=== PATIENT | female | born 1955 | race Caucasian/White ===

== ENCOUNTER 2017-02-18 06:50 | Inpatient (IN) | payer BC ==
[~2017-02-18] VITALS: Ht 165.1 cm; Wt 63.5 kg
[~2017-02-18 06:50] MED LIST: BUPR300T3 PO; BUPR75TA5; CITA20TA9 PO; CYCL10TA2 PO; HYDR12.53; HYDR1TAB26 PO; HYDR25TA9 PO; LOSA25TA4 PO; UKNOWN BP MED
--- NOTE | 2017-02-18 07:10 | PHYS DOC ---
Past Medical History Past Medical History: Hypertension Additional Past Medical Histor: tarsal tunnel Past Surgical History: Hip Replacement, Other Additional Past Surgical Histo: back fusion Alcohol Use: None Drug Use: None Adult General Chief Complaint Chief Complaint: ABDOMINAL PAIN HPI HPI Patient is a 61 year old female who presents with abdominal pain for the last 30 days. She is also complaining complaining of a rash that she's had for approximately 10 years but now is gotten worse. She states abdominal pain is been suprapubic in its goes between constipation and diarrhea. She's been taking 2 [place] was daily for her pain and she's tried MiraLAX and fiber when she 's constipated. She states over the weekend she had left lower quadrant abdominal pain and is been getting worse. She denies any fevers or chills nausea or vomiting. She states the rash is so bad she's been taking Benadryl and now she's really sleepy from taking Benadryl she's also used Fay during the day to avoid her drowsiness. She's been also taking approximately 1600 mg of Motrin daily for the last several weeks for her pain and discomfort. She denies any blood in her stools. She denies any abdominal surgeries. She plans a rash on the backside of her arms and her neck. Review of Systems Review of Systems Constitutional: Denies fever or chills [] Eyes: Denies change in visual acuity, redness, or eye pain [] HENT: Denies nasal congestion or sore throat [] Respiratory: Denies cough or shortness of breath [] Cardiovascular: No additional information not addressed in HPI [] GI: Positive for abdominal pain, denies nausea, vomiting, bloody stools : Denies dysuria or hematuria [] Musculoskeletal: Denies back pain or joint pain [] Integument: Denies rash or skin lesions [] Neurologic: Denies headache, focal weakness or sensory changes [] Endocrine: Denies polyuria or polydipsia [] Current Medications Current Medications Current Medications Medications (Trade) Dose Ordered Sig/Dinora Start Time Stop Time Status Last Admin Dose Admin Ciprofloxacin Lactate 200 ml @ 200 mls/hr Q12HR 02/18/17 10:00 Iohexol (Omnipaque 240 Mg/ml) 50 ml 1X ONCE 02/18/17 08:00 02/18/17 08:01 DC 02/18/17 08:00 50 ML Iohexol (Omnipaque 300 Mg/ml) 75 ml 1X ONCE 02/18/17 08:00 02/18/17 08:01 DC 02/18/17 08:59 75 ML Metronidazole 100 ml @ 100 mls/hr Q8H 02/18/17 11:00 02/18/17 10:02 100 MLS/HR Morphine Sulfate 2 mg PRN Q15MIN PRN 02/18/17 07:30 02/19/17 07:29 02/18/17 07:42 2 MG Ondansetron HCl (Zofran) 4 mg 1X ONCE 02/18/17 08:00 02/18/17 08:01 DC 02/18/17 07:41 4 MG Sodium Chloride 1,000 ml @ 1,000 mls/hr 1X ONCE 02/18/17 09:30 02/18/17 10:29 02/18/17 09:48 1,000 MLS/HR Allergies Allergies Allergies Coded Allergies Type Severity Reaction Last Updated Verified No Known Drug Allergies 07/06/13 No Physical Exam Physical Exam Constitutional: Well developed, well nourished, no acute distress, non-toxic appearance. [] HENT: Normocephalic, atraumatic, bilateral external ears normal, oropharynx moist, no oral exudates, nose normal. [] Eyes: PERRLA, EOMI, conjunctiva normal, no discharge. [] Neck: Normal range of motion, no tenderness, supple, no stridor. [] Cardiovascular:Heart rate regular rhythm, no murmur [] Lungs & Thorax: Bilateral breath sounds clear to auscultation [] Abdomen: Bowel sounds hyperactive, soft, mild tender to palpation left lower quadrant, no rebound or guarding noted, no masses, no pulsatile masses. [] Skin: Warm, dry, no erythema, scaly itchy rash approximately 5 x 7 cm on the left posterior arm, 3 x 5 cm on the right elbow, 2 x 4 cm posterior neck Back: No tenderness, no CVA tenderness. [] Extremities: No tenderness, no cyanosis, no clubbing, ROM intact, no edema. [] Neurologic: Alert and oriented X 3, normal motor function, normal sensory function, no focal deficits noted. [] Psychologic: Affect normal, judgement normal, mood normal. [] Current Patient Data Vital Signs Vital Signs Date Time Temp Pulse Resp B/P (MAP) Pulse Ox O2 Delivery O2 Flow Rate FiO2 02/18/17 09:18 95 18 110/73 (85) 97 02/18/17 07:22 98.8 Room Air 98.8 Lab Values Laboratory Tests Test 02/18/17 07:25 White Blood Count 20.0 x10^3/uL (4.0-11.0) H Red Blood Count 3.69 x10^6/uL (3.50-5.40) Hemoglobin 10.4 g/dL (12.0-15.5) L Hematocrit 32.6 % (36.0-47.0) L Mean Corpuscular Volume 88 fL (79-100) Mean Corpuscular Hemoglobin 28 pg (25-35) Mean Corpuscular Hemoglobin Concent 32 g/dL (31-37) Red Cell Distribution Width 15.0 % (11.5-14.5) H Platelet Count 443 x10^3/uL (140-400) H Neutrophils (%) (Auto) 84 % (31-73) H Lymphocytes (%) (Auto) 8 % (24-48) L Monocytes (%) (Auto) 6 % (0-9) Eosinophils (%) (Auto) 1 % (0-3) Basophils (%) (Auto) 0 % (0-3) Neutrophils # (Auto) 16.9 x10^3uL (1.8-7.7) H Lymphocytes # (Auto) 1.7 x10^3/uL (1.0-4.8) Monocytes # (Auto) 1.2 x10^3/uL (0.0-1.1) H Eosinophils # (Auto) 0.2 x10^3/uL (0.0-0.7) Basophils # (Auto) 0.1 x10^3/uL (0.0-0.2) Platelet Estimate Pending Prothrombin Time 12.4 SEC (11.7-14.0) Prothrombin Time INR 1.0 (0.8-1.1) PTT 29 SEC (24-38) Urine Collection Type Unknown Urine Color Yellow Urine Clarity Clear Urine pH 6.5 Urine Specific [place] 1.020 Urine Protein Negative mg/dL (NEG-TRACE) Urine Glucose (UA) Negative mg/dL (NEG) Urine Ketones (Stick) Negative mg/dL (NEG) Urine Blood Negative (NEG) Urine Nitrite Negative (NEG) Urine Bilirubin Negative (NEG) Urine Urobilinogen Dipstick 0.2 mg/dL (0.2 mg/dL) Urine Leukocyte Esterase Moderate (NEG) Urine RBC 1-2 /HPF (0-2) Urine WBC 5-10 /HPF (0-4) Urine Squamous Epithelial Cells Few /LPF Urine Bacteria Few /HPF (0-FEW) Urine Hyaline Casts Occasional /HPF Urine Mucus Slight /LPF Sodium Level 137 mmol/L (136-145) Potassium Level 4.4 mmol/L (3.5-5.1) Chloride Level 100 mmol/L (98-107) Carbon Dioxide Level 22 mmol/L (21-32) Anion Gap 15 (6-14) H Blood Urea Nitrogen 20 mg/dL (7-20) Creatinine 1.0 mg/dL (0.6-1.0) Estimated GFR (Cockcroft-Gault) 56.0 Glucose Level 98 mg/dL (70-99) Calcium Level 9.4 mg/dL (8.5-10.1) Total Bilirubin 0.2 mg/dL (0.2-1.0) Direct Bilirubin 0.1 mg/dL (0.0-0.2) Aspartate Amino Transferase (AST) 16 U/L (15-37) Alanine Aminotransferase (ALT) 23 U/L (14-59) Alkaline Phosphatase 89 U/L (46-116) Creatine Kinase 26 U/L (26-192) Creatine Kinase MB (Mass) < 0.5 ng/mL (0.0-3.6) Creatine Kinase MB Relative Index % (0-4) Troponin I Quantitative < 0.017 ng/mL (0.000-0.055) Total Protein 7.6 g/dL (6.4-8.2) Albumin 3.3 g/dL (3.4-5.0) L Lipase 150 U/L (73-393) Laboratory Tests 02/18/17 07:25 Laboratory Tests 02/18/17 07:25 EKG EKG EKG shows sinus rhythm with rate of [address] elevations or T-wave inversions, normal axis, QTC 438 ms, as interpreted by me. EKG similar to one performed on July 07, 2013 Radiology/Procedures Radiology/Procedures [facility] [address] [place] [address] IMAGING REPORT Signed PATIENT: WILVER TREVINO ACCOUNT: [id number] : 1955 LOCATION: ER AGE: 61 SEX: F EXAM STATUS: REG ER ORD. PHYSICIAN: TRINH MARTELL MD REASON: ABDOMEN PAIN PROCEDURE: CT ABD PELV W/ORAL&IV CONTRAST CT abdomen and pelvis with contrast 02/18/2017 Indication: Abdominal pain for one month. Comparison: None. Technique: CT helical acquisition of the abdomen and pelvis was obtained following uneventful intravenous administration of 60 mL Omnipaque 300. Coronal and sagittal reformations were obtained. PQRS Compliance Statement: One or more of the following individualized dose reduction techniques were utilized for this examination: 1. Automated exposure control 2. Adjustment of the mA and/or kV according to patient size 3. Use of iterative reconstruction technique Findings: Abdomen and pelvis: Heart size and lung bases are within normal limits. Liver, spleen, gallbladder, adrenal glands are within normal limits. There is a 2.8 cm cyst in the interpolar left kidney. There are few additional bilateral renal hypodensities which are too small to definitively characterize. Minor areas of cortical scarring in the inferior pole the right kidney. There is mild fatty atrophy of the pancreas. There is a 4 mm calcification at the pancreatic head which may be sequela of prior inflammation. No intra or extrahepatic biliary ductal dilatation. The abdominal aorta is normal in caliber with mild aortoiliac calcified atheromatous disease. Major portal, splenic and upper superior mesenteric veins are widely patent. Evaluation of the pelvis is somewhat limited due to artifact from total right hip arthroplasty. There is circumferential mural thickening along segment of the sigmoid colon with pericolonic stranding and probably prominent pericolonic lymph nodes. There is extra marrow loculated gas interposed between the anterior-inferior aspect of the mid sigmoid colon extending to the posterior serosal surface of the uterus, series 13/image 71). Mild sigmoid diverticula. No pneumatosis. No portal venous gas. The appendix is normal in appearance. Urinary bladder evaluation is significantly limited due to artifact. No definite pelvic lymphadenopathy. Prior posterior instrumented L4-S1 spinal fixation hardware and laminectomies. No destructive osseous lesions. Impression: Acute sigmoid diverticulitis. Evaluation of the pelvis is limited due to total right hip arthroplasty, however there is loculated extramural gas interposed between the sigmoid and posterior uterine serosa which could represent a colo-uterine fistula. After a course of therapy, consideration for colonoscopy as patient is in screening age. These results were discussed with Dr. Martell of the emergency service by telephone at 9:45 AM 02/18/2017 DICTATED and SIGNED BY: ANKUR MCGRAW MD DATE: 02/18/17927 CC: TRINH MARTELL MD; VICTORIA NGUYEN APRN ~ Impressions: Diverticulitis Leukocytosis UTI Skin rash Course & Med Decision Making Course & Med Decision Making Pertinent Labs and Imaging studies reviewed. (See chart for details) Patient has diverticular lightest with possible uterine-colon fstula. We'll start on Cipro and Flagyl IV and admit to the hospitalist with consultations to Dr. Finnegan of whom I spoke with and informed him of the CT findings and GI with Dr. Oviedo. Patient's in stable condition be admitted at this time with interim orders written. Dragon Disclaimer Dragon Disclaimer This electronic medical record was generated, in whole or in part, using a voice recognition dictation system. Departure Departure Impression: Primary Impression: Diverticulitis Disposition: ADMITTED INPATIENT Admitting Physician: Paula Thomas Condition: STABLE Referrals: VICTORIA NGUYEN APRN (PCP) Problem Qualifiers Primary Impression: Diverticulitis Diverticulitis site: large intestine Diverticulitis bleeding: without bleeding Diverticulitis complication: unspecified complication status Qualified Codes: K57.32 - Diverticulitis of large intestine without perforation or abscess without bleeding TRINH MARTELL MD Feb 18, 2017 07:10
[2017-02-18] MEDS ORDERED: IV NORMAL SALINE 1000ML BAG 1,000 ML IV SCH (07:29)
[2017-02-18] MEDS ORDERED: MORPHINE SULFATE 2 MG/ML DISP.SYRIN. IV/SQ PRN (07:30)
[2017-02-18 07:43] LABS: BASO # 0.1 x10^3/uL (0.0-0.2); BASO % 0 % (0-3); EOS % 1 % (0-3); HEMATOCRIT 32.6 % (36.0-47.0); HEMOGLOBIN 10.4 g/dL (12.0-15.5); LYMPH # 1.7 x10^3/uL (1.0-4.8); LYMPH % 8 % (24-48); MEAN CORPUSCULAR HEMOGLOBIN 28 pg (25-35); MEAN CORPUSCULAR HGB CONC 32 g/dL (31-37); MEAN CORPUSCULAR VOLUME 88 fL (79-100); MONO % 6 % (0-9); NEUT % 84 % (31-73); PLATELET COUNT 443 x10^3/uL (140-400); RED BLOOD COUNT 3.69 x10^6/uL (3.50-5.40)
[2017-02-18 07:46] LABS: CALCIUM 9.4 mg/dL (8.5-10.1); POTASSIUM 4.4 mmol/L (3.5-5.1)
[2017-02-18 07:53] LABS: ALBUMIN 3.3 g/dL (3.4-5.0); DIRECT BILIRUBIN 0.1 mg/dL (0.0-0.2); TOTAL BILIRUBIN 0.2 mg/dL (0.2-1.0); TOTAL PROTEIN 7.6 g/dL (6.4-8.2)
[2017-02-18 07:54] LABS: BILIRUBIN,URINE NEGATIVE (NEG); GLUCOSE,URINE NEGATIVE (NEG); NITRITE,URINE NEGATIVE (NEG); PH,URINE 6.5; PROTEIN,URINE NEGATIVE (NEG-TRACE); UROBILINOGEN,URINE 0.2 mg/dL (0.2 mg/dL)
[2017-02-18] MEDS ORDERED: ONDANSETRON PF 4 MG/2 ML VIAL. IV ONE (08:00)
[2017-02-18] MEDS ORDERED: IOHEXOL 240 MG/ML 50ML VIAL. PO ONE (08:00)
[2017-02-18] MEDS ORDERED: IOHEXOL 300 MG/ML 75 ML VIAL IV ONE (08:00)
[2017-02-18 08:01] LABS: PROTHROMBIN TIME PATIENT 12.4 SEC (11.7-14.0)
[2017-02-18 08:02] LABS: CKMB MASS < 0.5 ng/mL (0.0-3.6); CREATINE KINASE 26 U/L (26-192)
[2017-02-18 08:08] LABS: BACTERIA,URINE FEW /HPF (0-FEW)
[2017-02-18 08:09] LABS: SQUAMOUS EPITHELIAL CELL,UR FEW /LPF
--- NOTE | 2017-02-18 09:09 | EKG ---
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
[2017-02-18] MEDS ORDERED: IV NORMAL SALINE 1000ML BAG 1,000 ML IV ONE (09:30)
--- NOTE | 2017-02-18 09:48 | RAD ---
CT abdomen and pelvis with contrast 02/18/2017 Indication: Abdominal pain for one month. Comparison: None. Technique: CT helical acquisition of the abdomen and pelvis was obtained following uneventful intravenous administration of 60 mL Omnipaque 300. Coronal and sagittal reformations were obtained. PQRS Compliance Statement: One or more of the following individualized dose reduction techniques were utilized for this examination: 1. Automated exposure control 2. Adjustment of the mA and/or kV according to patient size 3. Use of iterative reconstruction technique Findings: Abdomen and pelvis: Heart size and lung bases are within normal limits. Liver, spleen, gallbladder, adrenal glands are within normal limits. There is a 2.8 cm cyst in the interpolar left kidney. There are few additional bilateral renal hypodensities which are too small to definitively characterize. Minor areas of cortical scarring in the inferior pole the right kidney. There is mild fatty atrophy of the pancreas. There is a 4 mm calcification at the pancreatic head which may be sequela of prior inflammation. No intra or extrahepatic biliary ductal dilatation. The abdominal aorta is normal in caliber with mild aortoiliac calcified atheromatous disease. Major portal, splenic and upper superior mesenteric veins are widely patent. Evaluation of the pelvis is somewhat limited due to artifact from total right hip arthroplasty. There is circumferential mural thickening along segment of the sigmoid colon with pericolonic stranding and probably prominent pericolonic lymph nodes. There is extra marrow loculated gas interposed between the anterior-inferior aspect of the mid sigmoid colon extending to the posterior serosal surface of the uterus, series 13/image 71). Mild sigmoid diverticula. No pneumatosis. No portal venous gas. The appendix is normal in appearance. Urinary bladder evaluation is significantly limited due to artifact. No definite pelvic lymphadenopathy. Prior posterior instrumented L4-S1 spinal fixation hardware and laminectomies. No destructive osseous lesions. Impression: Acute sigmoid diverticulitis. Evaluation of the pelvis is limited due to total right hip arthroplasty, however there is loculated extramural gas interposed between the sigmoid and posterior uterine serosa which could represent a colo-uterine fistula. After a course of therapy, consideration for colonoscopy as patient is in screening age. These results were discussed with Dr. Mayorga of the emergency service by telephone at 9:45 AM 02/18/2017
[2017-02-18] MEDS: CIPROFLOXACIN 400MG PREMIX 200 ML IV SCH ×2 (10:00→20:34)
[2017-02-18] MEDS ORDERED: ONDANSETRON PF 4 MG/2 ML VIAL. IV PRN (10:15)
[2017-02-18 10:45] LABS: % EOS 1 % (0-5)
[2017-02-18 10:46] LABS: PLT ESTIMATE INCREASED (ADEQUATE)
[2017-02-18 11:30] VITALS: BP 108/62
--- NOTE | 2017-02-18 13:26 | PDOC2 ---
CONSULT Date of Consult Date of Consult DATE: 02/18/17 TIME: 13:24 Reason for Consult Reason for Consult: Abd pain/diverticulitis Past Medical History Cardiovascular: HTN Current Problem List Problem List Problems Medical Problems: (1) Diverticulitis Status: Acute Current Medications Current Medications Current Medications Morphine Sulfate 2 mg PRN Q15MIN PRN IV/SQ PAIN GREATER THAN 3/10 Last administered on 02/18/17 07:42; Start 02/18/17 at 07:30; Stop 02/19/17 at 07:29 Sodium Chloride 1,000 ml @ 1,000 mls/hr Q1H IV Last administered on 02/18/17 07:41; Start 02/18/17 at 07:29; Stop 02/18/17 at 08:28; Status DC Ondansetron HCl (Zofran) 4 mg 1X ONCE IV Last administered on 02/18/17 07:41 ; Start 02/18/17 at 08:00; Stop 02/18/17 at 08:01; Status DC Iohexol (Omnipaque 240 Mg/ml) 50 ml 1X ONCE PO Last administered on 02/18/17 08:00; Start 02/18/17 at 08:00; Stop 02/18/17 at 08:01; Status DC Iohexol (Omnipaque 300 Mg/ml) 75 ml 1X ONCE IV Last administered on 02/18/17 08:59; Start 02/18/17 at 08:00; Stop 02/18/17 at 08:01; Status DC Sodium Chloride 1,000 ml @ 1,000 mls/hr 1X ONCE IV Last administered on 09:48; Start 02/18/17 at 09:30; Stop 02/18/17 at 10:29; Status DC Ciprofloxacin Lactate 200 ml @ 200 mls/hr Q12HR IV Last administered on 10:00; Start 02/18/17 at 10:00 Metronidazole 100 ml @ 100 mls/hr Q8H IV Last administered on 02/18/17 10:02 ; Start 02/18/17 at 11:00 Ondansetron HCl (Zofran) 4 mg PRN Q8HRS PRN IV NAUSEA/VOMITING; Start 02/18/17 at 10:15; Stop 02/19/17 at 10:14 Morphine Sulfate 2 mg PRN Q2HR PRN IV PAIN; Start 02/18/17 at 10:15; Stop at 10:14 Active Scripts Active Reported Hydrocodon-Acetaminoph 7.5-500 (Hydrocodone Bit/Acetaminophen) 1 Each Tablet 2 Each PO PRN BID Cyclobenzaprine Hcl 10 Mg Tablet 10 Mg PO PRN DAILY Wellbutrin Xl (Bupropion Hcl) 300 Mg Tab.er.24h 300 Mg PO DAILY Losartan Potassium 25 Mg Tablet 25 Mg PO DAILY Celexa (Citalopram Hydrobromide) 20 Mg Tablet 20 Mg PO DAILY Hydrochlorothiazide 25 Mg Tablet 25 Mg PO DAILY Allergies Allergies: Coded Allergies: No Known Drug Allergies (Unverified , 07/06/13) Vitals VITALS Vital Signs Date Time Temp Pulse Resp B/P (MAP) Pulse Ox O2 Delivery O2 Flow Rate FiO2 02/18/17 10:25 88 20 107/61 (76) 96 02/18/17 07:22 98.8 Room Air 98.8 Labs Labs Laboratory Tests Test 02/18/17 07:25 White Blood Count 20.0 x10^3/uL (4.0-11.0) Red Blood Count 3.69 x10^6/uL (3.50-5.40) Hemoglobin 10.4 g/dL (12.0-15.5) Hematocrit 32.6 % (36.0-47.0) Mean Corpuscular Volume 88 fL (79-100) Mean Corpuscular Hemoglobin 28 pg (25-35) Mean Corpuscular Hemoglobin Concent 32 g/dL (31-37) Red Cell Distribution Width 15.0 % (11.5-14.5) Platelet Count 443 x10^3/uL (140-400) Neutrophils (%) (Auto) 84 % (31-73) Lymphocytes (%) (Auto) 8 % (24-48) Monocytes (%) (Auto) 6 % (0-9) Eosinophils (%) (Auto) 1 % (0-3) Basophils (%) (Auto) 0 % (0-3) Neutrophils # (Auto) 16.9 x10^3uL (1.8-7.7) Lymphocytes # (Auto) 1.7 x10^3/uL (1.0-4.8) Monocytes # (Auto) 1.2 x10^3/uL (0.0-1.1) Eosinophils # (Auto) 0.2 x10^3/uL (0.0-0.7) Basophils # (Auto) 0.1 x10^3/uL (0.0-0.2) Segmented Neutrophils % 82 % (35-66) Band Neutrophils % 2 % (0-9) Lymphocytes % 10 % (24-48) Monocytes % 5 % (0-10) Eosinophils % 1 % (0-5) Platelet Estimate Increased (ADEQUATE) Prothrombin Time 12.4 SEC (11.7-14.0) Prothromb Time International Ratio 1.0 (0.8-1.1) Activated Partial Thromboplast Time 29 SEC (24-38) Urine Collection Type Unknown Urine Color Yellow Urine Clarity Clear Urine pH 6.5 Urine Specific [place] 1.020 Urine Protein Negative mg/dL (NEG-TRACE) Urine Glucose (UA) Negative mg/dL (NEG) Urine Ketones (Stick) Negative mg/dL (NEG) Urine Blood Negative (NEG) Urine Nitrite Negative (NEG) Urine Bilirubin Negative (NEG) Urine Urobilinogen Dipstick 0.2 mg/dL (0.2 mg/dL) Urine Leukocyte Esterase Moderate (NEG) Urine RBC 1-2 /HPF (0-2) Urine WBC 5-10 /HPF (0-4) Urine Squamous Epithelial Cells Few /LPF Urine Bacteria Few /HPF (0-FEW) Urine Hyaline Casts Occasional /HPF Urine Mucus Slight /LPF Sodium Level 137 mmol/L (136-145) Potassium Level 4.4 mmol/L (3.5-5.1) Chloride Level 100 mmol/L (98-107) Carbon Dioxide Level 22 mmol/L (21-32) Anion Gap 15 (6-14) Blood Urea Nitrogen 20 mg/dL (7-20) Creatinine 1.0 mg/dL (0.6-1.0) Estimated GFR (Cockcroft-Gault) 56.0 Glucose Level 98 mg/dL (70-99) Calcium Level 9.4 mg/dL (8.5-10.1) Total Bilirubin 0.2 mg/dL (0.2-1.0) Direct Bilirubin 0.1 mg/dL (0.0-0.2) Aspartate Amino Transf (AST/SGOT) 16 U/L (15-37) Alanine Aminotransferase (ALT/SGPT) 23 U/L (14-59) Alkaline Phosphatase 89 U/L (46-116) Creatine Kinase 26 U/L (26-192) Creatine Kinase MB (Mass) < 0.5 ng/mL (0.0-3.6) Creatine Kinase MB Relative Index % (0-4) Troponin I Quantitative < 0.017 ng/mL (0.000-0.055) Total Protein 7.6 g/dL (6.4-8.2) Albumin 3.3 g/dL (3.4-5.0) Lipase 150 U/L (73-393) Laboratory Tests Test 02/18/17 07:25 White Blood Count 20.0 x10^3/uL (4.0-11.0) Red Blood Count 3.69 x10^6/uL (3.50-5.40) Hemoglobin 10.4 g/dL (12.0-15.5) Hematocrit 32.6 % (36.0-47.0) Mean Corpuscular Volume 88 fL (79-100) Mean Corpuscular Hemoglobin 28 pg (25-35) Mean Corpuscular Hemoglobin Concent 32 g/dL (31-37) Red Cell Distribution Width 15.0 % (11.5-14.5) Platelet Count 443 x10^3/uL (140-400) Neutrophils (%) (Auto) 84 % (31-73) Lymphocytes (%) (Auto) 8 % (24-48) Monocytes (%) (Auto) 6 % (0-9) Eosinophils (%) (Auto) 1 % (0-3) Basophils (%) (Auto) 0 % (0-3) Neutrophils # (Auto) 16.9 x10^3uL (1.8-7.7) Lymphocytes # (Auto) 1.7 x10^3/uL (1.0-4.8) Monocytes # (Auto) 1.2 x10^3/uL (0.0-1.1) Eosinophils # (Auto) 0.2 x10^3/uL (0.0-0.7) Basophils # (Auto) 0.1 x10^3/uL (0.0-0.2) Segmented Neutrophils % 82 % (35-66) Band Neutrophils % 2 % (0-9) Lymphocytes % 10 % (24-48) Monocytes % 5 % (0-10) Eosinophils % 1 % (0-5) Platelet Estimate Increased (ADEQUATE) Prothrombin Time 12.4 SEC (11.7-14.0) Prothromb Time International Ratio 1.0 (0.8-1.1) Activated Partial Thromboplast Time 29 SEC (24-38) Urine Collection Type Unknown Urine Color Yellow Urine Clarity Clear Urine pH 6.5 Urine Specific [place] 1.020 Urine Protein Negative mg/dL (NEG-TRACE) Urine Glucose (UA) Negative mg/dL (NEG) Urine Ketones (Stick) Negative mg/dL (NEG) Urine Blood Negative (NEG) Urine Nitrite Negative (NEG) Urine Bilirubin Negative (NEG) Urine Urobilinogen Dipstick 0.2 mg/dL (0.2 mg/dL) Urine Leukocyte Esterase Moderate (NEG) Urine RBC 1-2 /HPF (0-2) Urine WBC 5-10 /HPF (0-4) Urine Squamous Epithelial Cells Few /LPF Urine Bacteria Few /HPF (0-FEW) Urine Hyaline Casts Occasional /HPF Urine Mucus Slight /LPF Sodium Level 137 mmol/L (136-145) Potassium Level 4.4 mmol/L (3.5-5.1) Chloride Level 100 mmol/L (98-107) Carbon Dioxide Level 22 mmol/L (21-32) Anion Gap 15 (6-14) Blood Urea Nitrogen 20 mg/dL (7-20) Creatinine 1.0 mg/dL (0.6-1.0) Estimated GFR (Cockcroft-Gault) 56.0 Glucose Level 98 mg/dL (70-99) Calcium Level 9.4 mg/dL (8.5-10.1) Total Bilirubin 0.2 mg/dL (0.2-1.0) Direct Bilirubin 0.1 mg/dL (0.0-0.2) Aspartate Amino Transf (AST/SGOT) 16 U/L (15-37) Alanine Aminotransferase (ALT/SGPT) 23 U/L (14-59) Alkaline Phosphatase 89 U/L (46-116) Creatine Kinase 26 U/L (26-192) Creatine Kinase MB (Mass) < 0.5 ng/mL (0.0-3.6) Creatine Kinase MB Relative Index % (0-4) Troponin I Quantitative < 0.017 ng/mL (0.000-0.055) Total Protein 7.6 g/dL (6.4-8.2) Albumin 3.3 g/dL (3.4-5.0) Lipase 150 U/L (73-393) Assessment/Plan Assessment/Plan LLQ abd pain- with abl Ct scan, diverticulitis leads differential, IBD, colon cancer, and/or foreign body possible as well. Plan antibiotics o/p celiac panel to assess for gluten sensitivity with skin rash surgical consult regarding possible fistula Full note dictated NNAMDI BERNARD MD Feb 18, 2017 13:26
[2017-02-18] MEDS: MORPHINE SULFATE 2 MG/ML DISP.SYRIN. IV PRN ×2 (13:34→18:58)
[2017-02-18] MEDS ORDERED: PANT40TA5 PO (14:14)
[2017-02-18] MEDS ORDERED: POLY17PO29 PO (14:14)
[2017-02-18] MEDS ORDERED: ZOLP10TA PO (14:14)
[2017-02-18] MEDS ORDERED: DILT180C2 PO (14:14)
[2017-02-18] MEDS ORDERED: IBUP-1027 PO (14:14)
--- NOTE | 2017-02-18 14:14 | PDOC2 ---
FOX LAKHANI GALLERY OR MUSEUM CURATOR 02/18/17 1414: CONSULT Date of Consult Date of Consult DATE: 02/18/17 TIME: 14:04 Reason for Consult Reason for Consult: possible colouterine fistula, diverticulitis Referring Physician Referring Physician: ER Identification/Chief Complaint Chief Complaint abdominal pain Problems: Source Source: Chart review, Patient History of Present Illness Reason for Visit: She reports several month(4-5) history of not feeling well/abdominal pain/ constipation/diarrhea. Over the last month pain has been worsening, she has had a decreased appetite and diminished PO intake. Pain is mainly located LLQ/ pressure feeling to lower abdomen. Denies any vaginal discharge or odor. Reports last pap in July normal, prior to onset of symptoms. Denies any previous colonoscopy. Lately very minimal stool production. Associated nausea and emesis. Unsure if weight loss. Rash developed to abdomen and back that was raised, red and itching. Past Medical History Cardiovascular: HTN Past Surgical History Past Surgical History: Total hip replacement, Other (back fusion, no abdominal surgeries ) Social History Quit (in October) ALCOHOL: occassional Drugs: None Lives: with Family Current Problem List Problem List Problems Medical Problems: (1) Diverticulitis Status: Acute Current Medications Current Medications Current Medications Morphine Sulfate 2 mg PRN Q15MIN PRN IV/SQ PAIN GREATER THAN 3/10 Last administered on 02/18/17 07:42; Start 02/18/17 at 07:30; Stop 02/19/17 at 07:29 Sodium Chloride 1,000 ml @ 1,000 mls/hr Q1H IV Last administered on 02/18/17 07:41; Start 02/18/17 at 07:29; Stop 02/18/17 at 08:28; Status DC Ondansetron HCl (Zofran) 4 mg 1X ONCE IV Last administered on 02/18/17 07:41 ; Start 02/18/17 at 08:00; Stop 02/18/17 at 08:01; Status DC Iohexol (Omnipaque 240 Mg/ml) 50 ml 1X ONCE PO Last administered on 02/18/17 08:00; Start 02/18/17 at 08:00; Stop 02/18/17 at 08:01; Status DC Iohexol (Omnipaque 300 Mg/ml) 75 ml 1X ONCE IV Last administered on 02/18/17 08:59; Start 02/18/17 at 08:00; Stop 02/18/17 at 08:01; Status DC Sodium Chloride 1,000 ml @ 1,000 mls/hr 1X ONCE IV Last administered on 09:48; Start 02/18/17 at 09:30; Stop 02/18/17 at 10:29; Status DC Ciprofloxacin Lactate 200 ml @ 200 mls/hr Q12HR IV Last administered on 10:00; Start 02/18/17 at 10:00 Metronidazole 100 ml @ 100 mls/hr Q8H IV Last administered on 02/18/17 10:02 ; Start 02/18/17 at 11:00 Ondansetron HCl (Zofran) 4 mg PRN Q8HRS PRN IV NAUSEA/VOMITING; Start 02/18/17 at 10:15; Stop 02/19/17 at 10:14 Morphine Sulfate 2 mg PRN Q2HR PRN IV PAIN Last administered on 02/18/17 13:34 ; Start 02/18/17 at 10:15; Stop 02/19/17 at 10:14 Active Scripts Active Reported Hydrocodon-Acetaminoph 7.5-500 (Hydrocodone Bit/Acetaminophen) 1 Each Tablet 2 Each PO PRN BID Cyclobenzaprine Hcl 10 Mg Tablet 10 Mg PO PRN DAILY Wellbutrin Xl (Bupropion Hcl) 300 Mg Tab.er.24h 300 Mg PO DAILY Losartan Potassium 25 Mg Tablet 25 Mg PO DAILY Celexa (Citalopram Hydrobromide) 20 Mg Tablet 20 Mg PO DAILY Hydrochlorothiazide 25 Mg Tablet 25 Mg PO DAILY Allergies Allergies: Coded Allergies: No Known Drug Allergies (Unverified , 07/06/13) ROS General: YES: Chills, Appetite (loss), Other (+ fevers) PSYCHOLOGICAL ROS: No: Anxiety, Depression Eyes: No Blurry vision, No Double vision HEENT: No: Heacaches, Sore Throat Hematological and Lymphatic: No: Bleeding Problems, Blood Clots Respiratory: No: Cough, Shortness of breath Cardiovascular: No Chest Pain, No Palpitations Gastrointestinal: Yes Other (see hpi) Genitourinary: No Dysuria, No Hematuria Musculoskeletal: No Joint Pain, No Muscle Pain Neurological: No Memory Loss, No Numbness/Tingling Skin: Yes Rash Physical Exam General: Alert, Oriented X3, Cooperative, No acute distress HEENT: PERRLA, Mucous membr. moist/pink Lungs: Clear to auscultation, Normal air movement Heart: Regular rate, Normal S1, Normal S2, No murmurs Abdomen: Soft, Other (ND, moderate tenderness to lower abdomen, no guarding or rebound ) Extremities: No clubbing, No cyanosis Skin: Other (+ rash to abdomen, raised macules ) Neuro: Normal gait, Normal speech Psych/Mental Status: Mental status NL, Mood NL MUSCULOSKELETAL: No deformity, No swelling Vitals VITALS Vital Signs Date Time Temp Pulse Resp B/P (MAP) Pulse Ox O2 Delivery O2 Flow Rate FiO2 02/18/17 13:34 Room Air 02/18/17 11:30 97.9 91 18 108/62 (77) 99 97.9 Labs Labs Laboratory Tests Test 02/18/17 07:25 White Blood Count 20.0 x10^3/uL (4.0-11.0) Red Blood Count 3.69 x10^6/uL (3.50-5.40) Hemoglobin 10.4 g/dL (12.0-15.5) Hematocrit 32.6 % (36.0-47.0) Mean Corpuscular Volume 88 fL (79-100) Mean Corpuscular Hemoglobin 28 pg (25-35) Mean Corpuscular Hemoglobin Concent 32 g/dL (31-37) Red Cell Distribution Width 15.0 % (11.5-14.5) Platelet Count 443 x10^3/uL (140-400) Neutrophils (%) (Auto) 84 % (31-73) Lymphocytes (%) (Auto) 8 % (24-48) Monocytes (%) (Auto) 6 % (0-9) Eosinophils (%) (Auto) 1 % (0-3) Basophils (%) (Auto) 0 % (0-3) Neutrophils # (Auto) 16.9 x10^3uL (1.8-7.7) Lymphocytes # (Auto) 1.7 x10^3/uL (1.0-4.8) Monocytes # (Auto) 1.2 x10^3/uL (0.0-1.1) Eosinophils # (Auto) 0.2 x10^3/uL (0.0-0.7) Basophils # (Auto) 0.1 x10^3/uL (0.0-0.2) Segmented Neutrophils % 82 % (35-66) Band Neutrophils % 2 % (0-9) Lymphocytes % 10 % (24-48) Monocytes % 5 % (0-10) Eosinophils % 1 % (0-5) Platelet Estimate Increased (ADEQUATE) Prothrombin Time 12.4 SEC (11.7-14.0) Prothromb Time International Ratio 1.0 (0.8-1.1) Activated Partial Thromboplast Time 29 SEC (24-38) Urine Collection Type Unknown Urine Color Yellow Urine Clarity Clear Urine pH 6.5 Urine Specific [place] 1.020 Urine Protein Negative mg/dL (NEG-TRACE) Urine Glucose (UA) Negative mg/dL (NEG) Urine Ketones (Stick) Negative mg/dL (NEG) Urine Blood Negative (NEG) Urine Nitrite Negative (NEG) Urine Bilirubin Negative (NEG) Urine Urobilinogen Dipstick 0.2 mg/dL (0.2 mg/dL) Urine Leukocyte Esterase Moderate (NEG) Urine RBC 1-2 /HPF (0-2) Urine WBC 5-10 /HPF (0-4) Urine Squamous Epithelial Cells Few /LPF Urine Bacteria Few /HPF (0-FEW) Urine Hyaline Casts Occasional /HPF Urine Mucus Slight /LPF Sodium Level 137 mmol/L (136-145) Potassium Level 4.4 mmol/L (3.5-5.1) Chloride Level 100 mmol/L (98-107) Carbon Dioxide Level 22 mmol/L (21-32) Anion Gap 15 (6-14) Blood Urea Nitrogen 20 mg/dL (7-20) Creatinine 1.0 mg/dL (0.6-1.0) Estimated GFR (Cockcroft-Gault) 56.0 Glucose Level 98 mg/dL (70-99) Calcium Level 9.4 mg/dL (8.5-10.1) Total Bilirubin 0.2 mg/dL (0.2-1.0) Direct Bilirubin 0.1 mg/dL (0.0-0.2) Aspartate Amino Transf (AST/SGOT) 16 U/L (15-37) Alanine Aminotransferase (ALT/SGPT) 23 U/L (14-59) Alkaline Phosphatase 89 U/L (46-116) Creatine Kinase 26 U/L (26-192) Creatine Kinase MB (Mass) < 0.5 ng/mL (0.0-3.6) Creatine Kinase MB Relative Index % (0-4) Troponin I Quantitative < 0.017 ng/mL (0.000-0.055) Total Protein 7.6 g/dL (6.4-8.2) Albumin 3.3 g/dL (3.4-5.0) Lipase 150 U/L (73-393) Laboratory Tests Test 02/18/17 07:25 White Blood Count 20.0 x10^3/uL (4.0-11.0) Red Blood Count 3.69 x10^6/uL (3.50-5.40) Hemoglobin 10.4 g/dL (12.0-15.5) Hematocrit 32.6 % (36.0-47.0) Mean Corpuscular Volume 88 fL (79-100) Mean Corpuscular Hemoglobin 28 pg (25-35) Mean Corpuscular Hemoglobin Concent 32 g/dL (31-37) Red Cell Distribution Width 15.0 % (11.5-14.5) Platelet Count 443 x10^3/uL (140-400) Neutrophils (%) (Auto) 84 % (31-73) Lymphocytes (%) (Auto) 8 % (24-48) Monocytes (%) (Auto) 6 % (0-9) Eosinophils (%) (Auto) 1 % (0-3) Basophils (%) (Auto) 0 % (0-3) Neutrophils # (Auto) 16.9 x10^3uL (1.8-7.7) Lymphocytes # (Auto) 1.7 x10^3/uL (1.0-4.8) Monocytes # (Auto) 1.2 x10^3/uL (0.0-1.1) Eosinophils # (Auto) 0.2 x10^3/uL (0.0-0.7) Basophils # (Auto) 0.1 x10^3/uL (0.0-0.2) Segmented Neutrophils % 82 % (35-66) Band Neutrophils % 2 % (0-9) Lymphocytes % 10 % (24-48) Monocytes % 5 % (0-10) Eosinophils % 1 % (0-5) Platelet Estimate Increased (ADEQUATE) Prothrombin Time 12.4 SEC (11.7-14.0) Prothromb Time International Ratio 1.0 (0.8-1.1) Activated Partial Thromboplast Time 29 SEC (24-38) Urine Collection Type Unknown Urine Color Yellow Urine Clarity Clear Urine pH 6.5 Urine Specific [place] 1.020 Urine Protein Negative mg/dL (NEG-TRACE) Urine Glucose (UA) Negative mg/dL (NEG) Urine Ketones (Stick) Negative mg/dL (NEG) Urine Blood Negative (NEG) Urine Nitrite Negative (NEG) Urine Bilirubin Negative (NEG) Urine Urobilinogen Dipstick 0.2 mg/dL (0.2 mg/dL) Urine Leukocyte Esterase Moderate (NEG) Urine RBC 1-2 /HPF (0-2) Urine WBC 5-10 /HPF (0-4) Urine Squamous Epithelial Cells Few /LPF Urine Bacteria Few /HPF (0-FEW) Urine Hyaline Casts Occasional /HPF Urine Mucus Slight /LPF Sodium Level 137 mmol/L (136-145) Potassium Level 4.4 mmol/L (3.5-5.1) Chloride Level 100 mmol/L (98-107) Carbon Dioxide Level 22 mmol/L (21-32) Anion Gap 15 (6-14) Blood Urea Nitrogen 20 mg/dL (7-20) Creatinine 1.0 mg/dL (0.6-1.0) Estimated GFR (Cockcroft-Gault) 56.0 Glucose Level 98 mg/dL (70-99) Calcium Level 9.4 mg/dL (8.5-10.1) Total Bilirubin 0.2 mg/dL (0.2-1.0) Direct Bilirubin 0.1 mg/dL (0.0-0.2) Aspartate Amino Transf (AST/SGOT) 16 U/L (15-37) Alanine Aminotransferase (ALT/SGPT) 23 U/L (14-59) Alkaline Phosphatase 89 U/L (46-116) Creatine Kinase 26 U/L (26-192) Creatine Kinase MB (Mass) < 0.5 ng/mL (0.0-3.6) Creatine Kinase MB Relative Index % (0-4) Troponin I Quantitative < 0.017 ng/mL (0.000-0.055) Total Protein 7.6 g/dL (6.4-8.2) Albumin 3.3 g/dL (3.4-5.0) Lipase 150 U/L (73-393) Images Images reviewed Assessment/Plan Assessment/Plan diverticulitis, possible colouterine fistula leukocytosis HTN rash continue IV abx, bowel rest, hydration--serial exams/labs will review with NNAMDI Rosales MD 02/18/17 1812: CONSULT Allergies Allergies: Coded Allergies: No Known Drug Allergies (Unverified , 07/06/13) Assessment/Plan Assessment/Plan Pt seen and examined independently by myself; 61 year old female with 1 month history of lower abdominal pain, constipation; PMH/PSH/ROS/SH as above, exam: alert oriented, no acute distress, no neck masses, no scleral icterus, lungs clear, heart RR and R, abdomen soft, tender in low abdomen without guarding or peritoneal signs, no masses or hernias, ext neg for edema or deformity; CT/ labs reviewed; A/P) Suspect diverticulitis, ?focal perf, recommend abx, bowel rest; if improves will need further evaluation with colonoscopy FOX LAKHANI APRN Feb 18, 2017 14:14 NNAMDI MARTINEZ MD Feb 18, 2017 18:12
[2017-02-18] MEDS: diphenhydrAMINE 50 MG/ML VIAL IVP PRN (14:27)
[2017-02-18 15:10] VITALS: BP 110/60
[2017-02-18] MEDS ORDERED: ZOLPIDEM 5 MG TABLET. PO PRN (18:15)
[2017-02-18 19:00] VITALS: BP 105/65
--- NOTE | 2017-02-18 20:30 | HP ---
ADMIT DATE: 02/18/2017 CHIEF COMPLAINT: Abdominal pain. HISTORY OF PRESENT ILLNESS: The patient is a 61-year-old woman with chronic abdominal pain and alternating diarrhea and constipation for many years. She relates that in the past 2 months, her pain has gotten bothersome, has not been getting any better at all. She still has diarrhea alternating with constipation, denies any nausea or vomiting. She also had noted a rash, especially over her abdomen and back, but some on her extremities as well. She is actually on [place] as well as MiraLax from her primary care physician for her ongoing symptoms. This, however, did not seem to help at all. Most of her pain is located in the left lower quadrant, seems to be getting worse, although, it is apparently independent from bowel movement. She denies any fevers or chills. She has been taking Benadryl as well as Fay for both allergies as well as sleep in case of Benadryl. PAST MEDICAL HISTORY: IBS type symptoms as above, hypertension. FAMILY HISTORY: Positive for diabetes in mother. No GI symptoms known. Mother also has lupus. SOCIAL HISTORY: She is , living with her , quit smoking several months ago in contraction with her , had been smoking just a few cigarettes daily previously. ALLERGIES: No known drug allergies. HOME MEDICATIONS: Reconciled with MAR. REVIEW OF SYSTEMS: Positive as per HPI. Denies any systems in rest of organ system review. PHYSICAL EXAMINATION: VITAL SIGNS: From today show a blood pressure of 110/60, heart rate of 90, respiratory rate at 18. She is afebrile. GENERAL: This is a 61-year-old well-nourished woman, alert and oriented, in no acute distress. HEENT: Shows no scleral icterus. NECK: Supple, without any lymphadenopathy. LUNGS: Clear to auscultation bilaterally. HEART: Regular rate and rhythm. ABDOMEN: Has positive bowel sounds. Tenderness to palpation, especially in left lower and upper quadrant, some in the right upper quadrant as well. EXTREMITIES: Show no edema. SKIN: Warm, soft and dry. There is a fading maculopapular rash over her lower abdomen. She has several old bruises and hemosiderin deposits in her upper extremities. NEUROLOGIC: She appears grossly intact. LABORATORY DATA: CBC with a WBC of 20; differential with 82 neutrophils, 2 bands, 10 lymphocytes; hemoglobin at 10.4 with an MCV of 88; platelets of 443. Chemistries with a BUN and creatinine of 20 and 1.0, normal electrolytes. LFTs within normal, albumin at 3.3. Coags within normal. UA with 5-10 wbc, only few bacteria, however. IMAGING STUDIES: CT of the abdomen and pelvis revealed acute sigmoid diverticulitis, also noted a right total hip arthroplasty. Concerning, however, is the potential for a loculated extramural fistula interposed between the sigmoid and a uterine serosa which could represent a colouterine fistula. ASSESSMENT AND PLAN: The patient is a 61-year-old woman with diverticulitis, question finding of a fistula. The patient is actually asymptomatic as far as vaginal discharge is concerned. Nevertheless, Gastrointestinal and Surgery will be consulted. The patient will be placed on n.p.o. status for the time being. Gastrointestinal will be treated with antibiotics including Cipro and Flagyl. We will await further input from consultants. Continue her home medications, monitoring her vital signs closely. JESU MOORE MD DR: EDY/axel JOB#: [id number] / [id number] SARA
[2017-02-18] MEDS: ZOLPIDEM 5 MG TABLET. PO SCH (20:34)
[2017-02-18 22:49] VITALS: BP 93/58
[2017-02-19 02:48] VITALS: BP 89/63
--- NOTE | 2017-02-19 02:48 | CONS ---
DATE OF CONSULTATION: 02/18/2017 REASON FOR CONSULTATION: Abdominal pain, skin rash, diverticulitis. HISTORY OF PRESENT ILLNESS: A 61-year-old female whose past medical history is significant for hypertension, history of osteoarthrosis, status post hip replacement and back fusion, is admitted to [facility] with worsening abdominal pain over the past month. It has been worse with diarrhea and constipation, which has been ongoing. Has no family history of colon issues. She has not undergone colonoscopy in the past. Weight and appetite have been stable until recently. With the continued symptoms, she has come to the hospital, has been admitted for further evaluation and care. PAST MEDICAL HISTORY: Migraine, rash, hypertension, carpal tunnel, hip replacement, back fusion. ALLERGIES: None. MEDICATIONS: Presently include metronidazole, Cipro, morphine, Zofran. FAMILY AND SOCIAL HISTORY: Lives with her spouse. She is employed. She does not drink or smoke at this time. Family history is noncontributory except for Sejal's thyroiditis with her sister. REVIEW OF SYSTEMS: HEENT: There is no decrease in visual acuity, issues. CARDIAC: ____ History of hypertension, palpitations, syncope. PULMONARY: No shortness of breath, productive cough, asthma. RENAL: No dysuria, frequency, hematuria. GASTROINTESTINAL: See history of present illness. DERMATOLOGIC: History of skin rash. ENDOCRINE: History of Sejal's thyroiditis with her sister. HEMATOLOGIC: No bleeding, bruising, coagulopathy. PHYSICAL EXAMINATION: GENERAL: Reveals a well-nourished, well-developed female who is alert, cooperative, in no acute distress. VITAL SIGNS: Temp 98.8, pulse is 88, respiratory rate is 20, blood pressure is 107/61. HEENT: Reveals a normocephalic, atraumatic head. Pupils and extraocular muscles are not tested. Sclerae anicteric. NECK: Supple. LUNGS: Clear. CARDIOVASCULAR: Reveals an S1, S2 without S3, S4 or appreciable murmur. ABDOMEN: Reveals a soft abdomen with hypoactive bowel sounds with left lower quadrant tenderness to deep palpation. EXTREMITIES: Reveals no cyanosis, clubbing or edema. LABORATORY STUDIES: UA, specific gravity is 1.020, pH is 6.5 with moderate leukocyte esterase, 5-10 white cells, hemoglobin is 10.4, hematocrit 32.6, white count 20.8, platelet count is 443,000. Sodium 137, potassium 4.4, chloride 100, BUN 20, creatinine 1.0, glucose is 98, calcium is 9.4, total bili 0.2, direct bili 0.1, AST of 16, ALT of 22, alk phos of 89, lipase is 150. CT scan reveals diverticulitis with possible colovesical fistula. IMPRESSION: Abdominal pain, most likely secondary to diverticulitis, skin rash, certainly is suggestive of autoimmune conditions. Celiac panel will be obtained as well. I would like to thank Dr. Thomas for allowing us to consult and participate in this patient's care. NNAMDI BERNARD MD DR: GORDON/axel JOB#: [id number] / [id number] pearl Thomas Dr.
--- NOTE | 2017-02-19 03:12 | ACF ---
Admission Forms Criteria DIVERTICULITIS, ACUTE Clinical Indications for Admission to Inpatient Care (Place 'X' for any and all applicable criteria): Admission is indicated for ANY ONE of the following (1)(2)(3)(4): [X]I. Peritoneal signs on physical examination (eg, acute abdominal pain, abdominal tenderness and guarding) [ ]II. Hemodynamic instability [ ]III. Persistent gross bleeding per rectum [ ]IV. Need for inpatient surgical intervention [ ]V. Significant abnormality on imaging study including ANY ONE of the following: [ ]a) Abscess [ ]b) Obstruction [ ]c) Fistula [ ]d) Ileus [ ]e) Free perforation [ ]. Immunocompromised patient (steroid use, chemotherapy, uremia, AIDS , transplant patient ) with acute symptoms [ ]VII Inpatient admission required rather than observation care (also use Diverticulitis, Acute: Observation Care as appropriate) because of ANY ONE of the following: [ ]a) High fever or infection. requiring inpatient admission as indicated by ANY ONE of the following(5): [ ]1) Appropriate outpatient or observation care antimicrobial treatment unavailable, not effective, not feasible [ ]2) Temperature > 103.1 degrees F (39.5 degrees C) (oral) or < 96.8 degrees F (36 degrees C)(rectal) that does not respond to all emergency treatment measures [ ]3) Temperature> 104.9 degrees F (40.5 degrees C)( oral) [ ]4) Documented bacteremia [ ]b) Severe pain requiring acute inpatient management [ ]c) Severe electrolyte abnormalities requiring inpatient care [ ]d) Ongoing transfusion for blood loss (> 2 units) [ ]e) IV fluid to replace significant ongoing losses (> 3 L/m2 per day) [ ]f) Parenteral nutrition regimen that must be implemented on inpatient basis [ ]g) Other condition, treatment or monitoring requiring inpatient admission Extended stay beyond goal length of stay may be needed for (2) (15) : [ ]a) Unresolved symptoms (19) [ ]b) Complications [ ]c) Diverticular hemorrhage(2) The original [facility] Lastline content created by [facility] [employer] has been revised. The portions of the content which have been revised are identified through the use of italic text or in bold, and [facility] has neither reviewed nor approved the modified material. All other unmodified content is copyright [facility]. Please see references footnoted in the original [facility] edition 2016 Admission Criteria Met?: Yes TYLER LOYD Feb 19, 2017 03:12
[2017-02-19 04:11] LABS: BASO # 0.1 x10^3/uL (0.0-0.2); BASO % 0 % (0-3); EOS % 2 % (0-3); HEMATOCRIT 29.2 % (36.0-47.0); HEMOGLOBIN 9.4 g/dL (12.0-15.5); LYMPH # 1.7 x10^3/uL (1.0-4.8); LYMPH % 13 % (24-48); MEAN CORPUSCULAR HEMOGLOBIN 29 pg (25-35); MEAN CORPUSCULAR HGB CONC 32 g/dL (31-37); MEAN CORPUSCULAR VOLUME 89 fL (79-100); MONO % 9 % (0-9); NEUT % 77 % (31-73); PLATELET COUNT 400 x10^3/uL (140-400); RED BLOOD COUNT 3.28 x10^6/uL (3.50-5.40); RED CELL DISTRIBUTION WIDTH 15.1 % (11.5-14.5); WHITE BLOOD COUNT 13.6 x10^3/uL (4.0-11.0)
[2017-02-19 04:27] LABS: ALBUMIN 2.7 g/dL (3.4-5.0); ALBUMIN/GLOBULIN RATIO 0.6 (1.0-1.7); POTASSIUM 3.9 mmol/L (3.5-5.1); TOTAL BILIRUBIN 0.2 mg/dL (0.2-1.0); TOTAL PROTEIN 6.9 g/dL (6.4-8.2)
[2017-02-19 07:00] VITALS: BP 115/68
[2017-02-19] MEDS ORDERED: PANTOPRAZOLE 40 MG TABLET.DR. PO SCH (07:30)
[2017-02-19] MEDS: buPROPion XL 150 MG TAB.ER.24H. PO SCH (07:55)
[2017-02-19] MEDS: CIPROFLOXACIN 400MG PREMIX 200 ML IV SCH ×2 (07:57→21:46)
[2017-02-19] MEDS: MORPHINE SULFATE 2 MG/ML DISP.SYRIN. IV PRN (07:58)
[2017-02-19] MEDS: diphenhydrAMINE 50 MG/ML VIAL IVP PRN (07:58)
[2017-02-19] MEDS ORDERED: LOSARTAN POTASSIUM 25 MG TABLET. PO SCH (09:00)
--- NOTE | 2017-02-19 09:21 | PDOC ---
Infectious Disease Note Vital Sign Vital Signs Vital Signs Date Time Temp Pulse Resp B/P (MAP) Pulse Ox O2 Delivery O2 Flow Rate FiO2 02/19/17 07:58 Room Air 02/19/17 07:56 95 115/68 02/19/17 07:00 97.5 18 99 97.5 Labs Lab Laboratory Tests Test 02/19/17 02:55 White Blood Count 13.6 x10^3/uL (4.0-11.0) Red Blood Count 3.28 x10^6/uL (3.50-5.40) Hemoglobin 9.4 g/dL (12.0-15.5) Hematocrit 29.2 % (36.0-47.0) Mean Corpuscular Volume 89 fL (79-100) Mean Corpuscular Hemoglobin 29 pg (25-35) Mean Corpuscular Hemoglobin Concent 32 g/dL (31-37) Red Cell Distribution Width 15.1 % (11.5-14.5) Platelet Count 400 x10^3/uL (140-400) Neutrophils (%) (Auto) 77 % (31-73) Lymphocytes (%) (Auto) 13 % (24-48) Monocytes (%) (Auto) 9 % (0-9) Eosinophils (%) (Auto) 2 % (0-3) Basophils (%) (Auto) 0 % (0-3) Neutrophils # (Auto) 10.4 x10^3uL (1.8-7.7) Lymphocytes # (Auto) 1.7 x10^3/uL (1.0-4.8) Monocytes # (Auto) 1.1 x10^3/uL (0.0-1.1) Eosinophils # (Auto) 0.2 x10^3/uL (0.0-0.7) Basophils # (Auto) 0.1 x10^3/uL (0.0-0.2) Sodium Level 140 mmol/L (136-145) Potassium Level 3.9 mmol/L (3.5-5.1) Chloride Level 104 mmol/L (98-107) Carbon Dioxide Level 24 mmol/L (21-32) Anion Gap 12 (6-14) Blood Urea Nitrogen 10 mg/dL (7-20) Creatinine 1.0 mg/dL (0.6-1.0) Estimated GFR (Cockcroft-Gault) 56.0 BUN/Creatinine Ratio 10 (6-20) Glucose Level 94 mg/dL (70-99) Calcium Level 9.0 mg/dL (8.5-10.1) Total Bilirubin 0.2 mg/dL (0.2-1.0) Aspartate Amino Transf (AST/SGOT) 11 U/L (15-37) Alanine Aminotransferase (ALT/SGPT) 22 U/L (14-59) Alkaline Phosphatase 76 U/L (46-116) Total Protein 6.9 g/dL (6.4-8.2) Albumin 2.7 g/dL (3.4-5.0) Albumin/Globulin Ratio 0.6 (1.0-1.7) Objective Assessment Diverticulitis with perforation with ? fistula Leukocytosis Abdominal pain HTN Plan Plan of Care cont antibiotics , supportive care CHRISTIE JUAREZ MD Feb 19, 2017 09:21
[2017-02-19 11:00] VITALS: BP 105/69
--- NOTE | 2017-02-19 11:43 | CONS ---
DATE OF CONSULTATION: 02/19/2017 REQUESTING PHYSICIAN: Dr. Moreira. REASON FOR CONSULTATION: Diverticulitis with perforation. HISTORY OF PRESENT ILLNESS: This is a 61-year-old female with history of hypertension and IBS who has been having abdominal pain for one month. She thought it was going to get better, eventually she came in. The patient had a CAT scan done, which was showing diverticulitis with perforation and even questionable fistula. The patient did have a white count up to 20,000. The patient has been started on Cipro and Flagyl, and consult has been requested. The patient is feeling better. The patient is n.p.o. Denies any nausea, vomiting or diarrhea. Denies any fever or chills. She had fever in earlier part of her illness. On further questioning, the patient denies any vaginal discharge, any air or chunks in the urine or passing gas through the vagina. PAST MEDICAL HISTORY: Positive for hypertension. The patient also has history of IBS, hip replacement done and back fusion done. SOCIAL HISTORY: Negative for smoking, alcohol, illicit drug use. ALLERGIES: No known drug allergies. CURRENT MEDICATIONS: The patient is on Cipro and Flagyl. REVIEW OF SYSTEMS: As per HPI, all other systems reviewed and are negative. PHYSICAL EXAMINATION: GENERAL: Alert, oriented female, not in distress. VITAL SIGNS: Stable, afebrile. HEENT: NAD. NECK: Supple, no JVP, no lymphadenopathy. LUNGS: Clear. HEART: S1, S2 regular. ABDOMEN: The suprapubic area has mild tenderness. No rebound or guarding. EXTREMITIES: No edema, cyanosis. SKIN: Unremarkable. NEUROLOGIC: The patient is neurologically intact. LABORATORY DATA: White count is down to 13,000. BUN and creatinine is normal. CT of the abdomen and pelvis reviewed. IMPRESSION: 1. Diverticulitis with diverticular perforation with question fistula has been raised. There is no clinical evidence for that. 2. Leukocytosis. 3. Abdominal pain. 4. Hypertension. PLAN: Recommend continue Cipro and Flagyl for the time being, supportive care, n.p.o., repeat CT in about 3 or 4 days and we will continue to follow. Thank you very much, Dr. Moreira, for giving me the opportunity to participate in this patient's care. CHRISTIE JUAREZ MD DR: CIRILO/axel JOB#: [id number] / [id number]
[2017-02-19] MEDS ORDERED: hydrALAZINE 20 MG/ML VIAL. IVP PRN (12:30)
[2017-02-19] MEDS ORDERED: ACETAMINOPHEN 325 MG TABLET. PO PRN (12:30)
[2017-02-19] MEDS ORDERED: MORPHINE SULFATE 2 MG/ML DISP.SYRIN. IV PRN (12:30)
[2017-02-19] MEDS ORDERED: DOCUSATE SODIUM 100 MG CAPSULE. PO PRN (12:30)
--- NOTE | 2017-02-19 12:30 | PDOC ---
PROGRESS NOTES Chief Complaint Chief Complaint Diverticulitis with ? fistula Leukocytosis Abdominal pain HTN mild malnutrition h/o PAFIB no AC plan: fu with gi, id , sx no sx pending npo ivf on cipro and flagyl labs daily dc losartan cont cardizem with h/o PAFIB gi,dvt ppx History of Present Illness History of Present Illness abd pain still, 6/10 no N/V, chronic constipation, no bm yet low bp last night Vitals Vitals Vital Signs Date Time Temp Pulse Resp B/P (MAP) Pulse Ox O2 Delivery O2 Flow Rate FiO2 02/19/17 11:00 97.6 93 18 105/69 (81) 96 Room Air 97.6 Physical Exam General: Alert, Oriented X3, Cooperative, No acute distress Heart: Regular rate, Normal S1, Normal S2, No murmurs Lungs: Clear Abdomen: Soft, Other (diffuse moderate abd tenderness, mainly at LLQ, no guarding or rebound ) Extremities: No clubbing, No cyanosis Skin: Other (+ rash to abdomen, raised macules ) Labs LABS Laboratory Tests Test 02/19/17 02:55 White Blood Count 13.6 x10^3/uL (4.0-11.0) Red Blood Count 3.28 x10^6/uL (3.50-5.40) Hemoglobin 9.4 g/dL (12.0-15.5) Hematocrit 29.2 % (36.0-47.0) Mean Corpuscular Volume 89 fL (79-100) Mean Corpuscular Hemoglobin 29 pg (25-35) Mean Corpuscular Hemoglobin Concent 32 g/dL (31-37) Red Cell Distribution Width 15.1 % (11.5-14.5) Platelet Count 400 x10^3/uL (140-400) Neutrophils (%) (Auto) 77 % (31-73) Lymphocytes (%) (Auto) 13 % (24-48) Monocytes (%) (Auto) 9 % (0-9) Eosinophils (%) (Auto) 2 % (0-3) Basophils (%) (Auto) 0 % (0-3) Neutrophils # (Auto) 10.4 x10^3uL (1.8-7.7) Lymphocytes # (Auto) 1.7 x10^3/uL (1.0-4.8) Monocytes # (Auto) 1.1 x10^3/uL (0.0-1.1) Eosinophils # (Auto) 0.2 x10^3/uL (0.0-0.7) Basophils # (Auto) 0.1 x10^3/uL (0.0-0.2) Sodium Level 140 mmol/L (136-145) Potassium Level 3.9 mmol/L (3.5-5.1) Chloride Level 104 mmol/L (98-107) Carbon Dioxide Level 24 mmol/L (21-32) Anion Gap 12 (6-14) Blood Urea Nitrogen 10 mg/dL (7-20) Creatinine 1.0 mg/dL (0.6-1.0) Estimated GFR (Cockcroft-Gault) 56.0 BUN/Creatinine Ratio 10 (6-20) Glucose Level 94 mg/dL (70-99) Calcium Level 9.0 mg/dL (8.5-10.1) Total Bilirubin 0.2 mg/dL (0.2-1.0) Aspartate Amino Transf (AST/SGOT) 11 U/L (15-37) Alanine Aminotransferase (ALT/SGPT) 22 U/L (14-59) Alkaline Phosphatase 76 U/L (46-116) Total Protein 6.9 g/dL (6.4-8.2) Albumin 2.7 g/dL (3.4-5.0) Albumin/Globulin Ratio 0.6 (1.0-1.7) Review of Systems Review of Systems no fever, chills, sob or chest pain Assessment and Plan Assessmemt and Plan Problems Medical Problems: (1) Diverticulitis Status: Acute Problems: Comment Review of Relevant I have reviewed the following items amando (where applicable) has been applied. Labs Laboratory Tests Test 02/18/17 07:25 02/19/17 02:55 White Blood Count 20.0 x10^3/uL (4.0-11.0) 13.6 x10^3/uL (4.0-11.0) Red Blood Count 3.69 x10^6/uL (3.50-5.40) 3.28 x10^6/uL (3.50-5.40) Hemoglobin 10.4 g/dL (12.0-15.5) 9.4 g/dL (12.0-15.5) Hematocrit 32.6 % (36.0-47.0) 29.2 % (36.0-47.0) Mean Corpuscular Volume 88 fL (79-100) 89 fL (79-100) Mean Corpuscular Hemoglobin 28 pg (25-35) 29 pg (25-35) Mean Corpuscular Hemoglobin Concent 32 g/dL (31-37) 32 g/dL (31-37) Red Cell Distribution Width 15.0 % (11.5-14.5) 15.1 % (11.5-14.5) Platelet Count 443 x10^3/uL (140-400) 400 x10^3/uL (140-400) Neutrophils (%) (Auto) 84 % (31-73) 77 % (31-73) Lymphocytes (%) (Auto) 8 % (24-48) 13 % (24-48) Monocytes (%) (Auto) 6 % (0-9) 9 % (0-9) Eosinophils (%) (Auto) 1 % (0-3) 2 % (0-3) Basophils (%) (Auto) 0 % (0-3) 0 % (0-3) Neutrophils # (Auto) 16.9 x10^3uL (1.8-7.7) 10.4 x10^3uL (1.8-7.7) Lymphocytes # (Auto) 1.7 x10^3/uL (1.0-4.8) 1.7 x10^3/uL (1.0-4.8) Monocytes # (Auto) 1.2 x10^3/uL (0.0-1.1) 1.1 x10^3/uL (0.0-1.1) Eosinophils # (Auto) 0.2 x10^3/uL (0.0-0.7) 0.2 x10^3/uL (0.0-0.7) Basophils # (Auto) 0.1 x10^3/uL (0.0-0.2) 0.1 x10^3/uL (0.0-0.2) Segmented Neutrophils % 82 % (35-66) Band Neutrophils % 2 % (0-9) Lymphocytes % 10 % (24-48) Monocytes % 5 % (0-10) Eosinophils % 1 % (0-5) Platelet Estimate Increased (ADEQUATE) Prothrombin Time 12.4 SEC (11.7-14.0) Prothromb Time International Ratio 1.0 (0.8-1.1) Activated Partial Thromboplast Time 29 SEC (24-38) Urine Collection Type Unknown Urine Color Yellow Urine Clarity Clear Urine pH 6.5 Urine Specific [place] 1.020 Urine Protein Negative mg/dL (NEG-TRACE) Urine Glucose (UA) Negative mg/dL (NEG) Urine Ketones (Stick) Negative mg/dL (NEG) Urine Blood Negative (NEG) Urine Nitrite Negative (NEG) Urine Bilirubin Negative (NEG) Urine Urobilinogen Dipstick 0.2 mg/dL (0.2 mg/dL) Urine Leukocyte Esterase Moderate (NEG) Urine RBC 1-2 /HPF (0-2) Urine WBC 5-10 /HPF (0-4) Urine Squamous Epithelial Cells Few /LPF Urine Bacteria Few /HPF (0-FEW) Urine Hyaline Casts Occasional /HPF Urine Mucus Slight /LPF Sodium Level 137 mmol/L (136-145) 140 mmol/L (136-145) Potassium Level 4.4 mmol/L (3.5-5.1) 3.9 mmol/L (3.5-5.1) Chloride Level 100 mmol/L (98-107) 104 mmol/L (98-107) Carbon Dioxide Level 22 mmol/L (21-32) 24 mmol/L (21-32) Anion Gap 15 (6-14) 12 (6-14) Blood Urea Nitrogen 20 mg/dL (7-20) 10 mg/dL (7-20) Creatinine 1.0 mg/dL (0.6-1.0) 1.0 mg/dL (0.6-1.0) Estimated GFR (Cockcroft-Gault) 56.0 56.0 Glucose Level 98 mg/dL (70-99) 94 mg/dL (70-99) Calcium Level 9.4 mg/dL (8.5-10.1) 9.0 mg/dL (8.5-10.1) Total Bilirubin 0.2 mg/dL (0.2-1.0) 0.2 mg/dL (0.2-1.0) Direct Bilirubin 0.1 mg/dL (0.0-0.2) Aspartate Amino Transf (AST/SGOT) 16 U/L (15-37) 11 U/L (15-37) Alanine Aminotransferase (ALT/SGPT) 23 U/L (14-59) 22 U/L (14-59) Alkaline Phosphatase 89 U/L (46-116) 76 U/L (46-116) Creatine Kinase 26 U/L (26-192) Creatine Kinase MB (Mass) < 0.5 ng/mL (0.0-3.6) Creatine Kinase MB Relative Index % (0-4) Troponin I Quantitative < 0.017 ng/mL (0.000-0.055) Total Protein 7.6 g/dL (6.4-8.2) 6.9 g/dL (6.4-8.2) Albumin 3.3 g/dL (3.4-5.0) 2.7 g/dL (3.4-5.0) Lipase 150 U/L (73-393) BUN/Creatinine Ratio 10 (6-20) Albumin/Globulin Ratio 0.6 (1.0-1.7) Laboratory Tests Test 02/19/17 02:55 White Blood Count 13.6 x10^3/uL (4.0-11.0) Red Blood Count 3.28 x10^6/uL (3.50-5.40) Hemoglobin 9.4 g/dL (12.0-15.5) Hematocrit 29.2 % (36.0-47.0) Mean Corpuscular Volume 89 fL (79-100) Mean Corpuscular Hemoglobin 29 pg (25-35) Mean Corpuscular Hemoglobin Concent 32 g/dL (31-37) Red Cell Distribution Width 15.1 % (11.5-14.5) Platelet Count 400 x10^3/uL (140-400) Neutrophils (%) (Auto) 77 % (31-73) Lymphocytes (%) (Auto) 13 % (24-48) Monocytes (%) (Auto) 9 % (0-9) Eosinophils (%) (Auto) 2 % (0-3) Basophils (%) (Auto) 0 % (0-3) Neutrophils # (Auto) 10.4 x10^3uL (1.8-7.7) Lymphocytes # (Auto) 1.7 x10^3/uL (1.0-4.8) Monocytes # (Auto) 1.1 x10^3/uL (0.0-1.1) Eosinophils # (Auto) 0.2 x10^3/uL (0.0-0.7) Basophils # (Auto) 0.1 x10^3/uL (0.0-0.2) Sodium Level 140 mmol/L (136-145) Potassium Level 3.9 mmol/L (3.5-5.1) Chloride Level 104 mmol/L (98-107) Carbon Dioxide Level 24 mmol/L (21-32) Anion Gap 12 (6-14) Blood Urea Nitrogen 10 mg/dL (7-20) Creatinine 1.0 mg/dL (0.6-1.0) Estimated GFR (Cockcroft-Gault) 56.0 BUN/Creatinine Ratio 10 (6-20) Glucose Level 94 mg/dL (70-99) Calcium Level 9.0 mg/dL (8.5-10.1) Total Bilirubin 0.2 mg/dL (0.2-1.0) Aspartate Amino Transf (AST/SGOT) 11 U/L (15-37) Alanine Aminotransferase (ALT/SGPT) 22 U/L (14-59) Alkaline Phosphatase 76 U/L (46-116) Total Protein 6.9 g/dL (6.4-8.2) Albumin 2.7 g/dL (3.4-5.0) Albumin/Globulin Ratio 0.6 (1.0-1.7) Medications Current Medications Morphine Sulfate 2 mg PRN Q15MIN PRN IV/SQ PAIN GREATER THAN 3/10 Last administered on 02/18/17 07:42; Start 02/18/17 at 07:30; Stop 02/18/17 at 17:49 ; Status DC Sodium Chloride 1,000 ml @ 1,000 mls/hr Q1H IV Last administered on 02/18/17 07:41; Start 02/18/17 at 07:29; Stop 02/18/17 at 08:28; Status DC Ondansetron HCl (Zofran) 4 mg 1X ONCE IV Last administered on 02/18/17 07:41 ; Start 02/18/17 at 08:00; Stop 02/18/17 at 08:01; Status DC Iohexol (Omnipaque 240 Mg/ml) 50 ml 1X ONCE PO Last administered on 02/18/17 08:00; Start 02/18/17 at 08:00; Stop 02/18/17 at 08:01; Status DC Iohexol (Omnipaque 300 Mg/ml) 75 ml 1X ONCE IV Last administered on 02/18/17 08:59; Start 02/18/17 at 08:00; Stop 02/18/17 at 08:01; Status DC Sodium Chloride 1,000 ml @ 1,000 mls/hr 1X ONCE IV Last administered on 09:48; Start 02/18/17 at 09:30; Stop 02/18/17 at 10:29; Status DC Ciprofloxacin Lactate 200 ml @ 200 mls/hr Q12HR IV Last administered on 07:57; Start 02/18/17 at 10:00 Metronidazole 100 ml @ 100 mls/hr Q8H IV Last administered on 02/19/17 11:16; Start 02/18/17 at 11:00 Ondansetron HCl (Zofran) 4 mg PRN Q8HRS PRN IV NAUSEA/VOMITING; Start 02/18/17 at 10:15; Stop 02/19/17 at 10:14; Status DC Morphine Sulfate 2 mg PRN Q2HR PRN IV PAIN Last administered on 02/19/17 07:58 ; Start 02/18/17 at 10:15; Stop 02/19/17 at 10:14; Status DC Diphenhydramine HCl (Benadryl) 25 mg PRN Q6HRS PRN IVP ITCHING Last administered on 02/19/17 07:58; Start 02/18/17 at 14:15 Cyclobenzaprine HCl (Flexeril) 10 mg PRN DAILY PRN PO MUSCLE SPASMS; Start at 17:45 Diltiazem HCl (Cardizem 24hr Cd) 180 mg DAILY PO Last administered on 02/19/17 07:56; Start 02/19/17 at 09:00 Losartan Potassium (Cozaar) 50 mg DAILY PO Last administered on 02/19/17 07:55 ; Start 02/19/17 at 09:00; Stop 02/19/17 at 09:00; Status DC Pantoprazole Sodium (Protonix) 40 mg DAILYAC PO Last administered on 02/19/17 07:56; Start 02/19/17 at 07:30 Bupropion HCl (Wellbutrin Xl) 300 mg DAILY PO Last administered on 02/19/17 07: 55; Start 02/19/17 at 09:00 Acetaminophen/ Hydrocodone Bitart (Lortab 7.5/325) 1 tab PRN TID PRN PO MODERATE PAIN; Start 02/18/17 at 18:15 Zolpidem Tartrate (Ambien) 5 mg QHS PO Last administered on 02/18/17 20:34; Start 02/18/17 at 21:00 Zolpidem Tartrate (Ambien) 5 mg PRN QHS PRN PO INSOMNIA; Start 02/18/17 at 18: 15 Active Scripts Active Reported Ibuprofen 400 Mg Tablet 400 Mg PO PRN Q6HRS PRN Pantoprazole Sodium 40 Mg Tablet.dr 1 Tab PO DAILY Cardizem Cd (Diltiazem Hcl) 180 Mg Cap.er.24h 1 Cap PO DAILY Miralax (Polyethylene Glycol 3350) 17 Gm Powd.pack 1 Packet PO DAILY Ambien (Zolpidem Tartrate) 10 Mg Tablet 1 Tab PO QHS Hydrocodon-Acetaminoph 7.5-500 (Hydrocodone Bit/Acetaminophen) 1 Each Tablet 1 Each PO PRN TID PRN Cyclobenzaprine Hcl 10 Mg Tablet 10 Mg PO PRN DAILY Wellbutrin Xl (Bupropion Hcl) 300 Mg Tab.er.24h 300 Mg PO DAILY Losartan Potassium 25 Mg Tablet 50 Mg PO DAILY Hydrochlorothiazide Tablet (Hydrochlorothiazide) 25 Mg Tablet 25 Mg PO DAILY Vitals/I & O Vital Sign - Last 24 Hours 02/18/17 02/18/17 02/18/17 02/18/17 13:34 15:10 15:31 18:58 Temp 97.7 97.7 Pulse 90 Resp 18 B/P (MAP) 110/60 (77) Pulse Ox 99 O2 Delivery Room Air Room Air Room Air Room Air 02/18/17 02/18/17 02/18/17 02/18/17 19:00 19:10 19:25 22:49 Temp 98.2 98.3 98.2 98.3 Pulse 84 93 Resp 18 16 18 B/P (MAP) 105/65 (78) 93/58 (70) Pulse Ox 96 99 96 O2 Delivery Room Air Room Air Room Air 02/19/17 02/19/17 02/19/17 02/19/17 02:48 07:00 07:55 07:56 Temp 98.5 97.5 98.5 97.5 Pulse 89 95 95 95 Resp 18 18 B/P (MAP) 89/63 (72) 115/68 (84) 115/68 115/68 Pulse Ox 96 99 O2 Delivery Room Air Room Air 02/19/17 02/19/17 02/19/17 02/19/17 07:58 08:10 08:45 11:00 Temp 97.6 97.6 Pulse 93 Resp 18 B/P (MAP) 105/69 (81) Pulse Ox 96 O2 Delivery Room Air Room Air Room Air Room Air Intake and Output 02/18/17 02/18/17 02/19/17 15:00 23:00 07:00 Intake Total 300 ml 100 ml Balance 300 ml 100 ml FREDA SIMON MD Feb 19, 2017 12:30
[2017-02-19] MEDS: HEPARIN PF for SUB-Q USE 5,000 UNIT/0.5 ML VIAL. SQ SCH ×2 (14:44→21:50)
[2017-02-19 15:00] VITALS: BP 90/57
--- NOTE | 2017-02-19 15:23 | PDOC ---
G I PROGRESS NOTE Reason for Follow-up LLQ abd pain/diverticulitis Subjective Pain improved/hungry Physical Exam Lungs clear CV S1 S2 ABD +BS, soft, decreased LLQ tenderness to palpation Review of Relevant I have reviewed the following items amando (where applicable) has been applied. Labs Laboratory Tests Test 02/18/17 07:25 02/19/17 02:55 White Blood Count 20.0 x10^3/uL (4.0-11.0) 13.6 x10^3/uL (4.0-11.0) Red Blood Count 3.69 x10^6/uL (3.50-5.40) 3.28 x10^6/uL (3.50-5.40) Hemoglobin 10.4 g/dL (12.0-15.5) 9.4 g/dL (12.0-15.5) Hematocrit 32.6 % (36.0-47.0) 29.2 % (36.0-47.0) Mean Corpuscular Volume 88 fL (79-100) 89 fL (79-100) Mean Corpuscular Hemoglobin 28 pg (25-35) 29 pg (25-35) Mean Corpuscular Hemoglobin Concent 32 g/dL (31-37) 32 g/dL (31-37) Red Cell Distribution Width 15.0 % (11.5-14.5) 15.1 % (11.5-14.5) Platelet Count 443 x10^3/uL (140-400) 400 x10^3/uL (140-400) Neutrophils (%) (Auto) 84 % (31-73) 77 % (31-73) Lymphocytes (%) (Auto) 8 % (24-48) 13 % (24-48) Monocytes (%) (Auto) 6 % (0-9) 9 % (0-9) Eosinophils (%) (Auto) 1 % (0-3) 2 % (0-3) Basophils (%) (Auto) 0 % (0-3) 0 % (0-3) Neutrophils # (Auto) 16.9 x10^3uL (1.8-7.7) 10.4 x10^3uL (1.8-7.7) Lymphocytes # (Auto) 1.7 x10^3/uL (1.0-4.8) 1.7 x10^3/uL (1.0-4.8) Monocytes # (Auto) 1.2 x10^3/uL (0.0-1.1) 1.1 x10^3/uL (0.0-1.1) Eosinophils # (Auto) 0.2 x10^3/uL (0.0-0.7) 0.2 x10^3/uL (0.0-0.7) Basophils # (Auto) 0.1 x10^3/uL (0.0-0.2) 0.1 x10^3/uL (0.0-0.2) Segmented Neutrophils % 82 % (35-66) Band Neutrophils % 2 % (0-9) Lymphocytes % 10 % (24-48) Monocytes % 5 % (0-10) Eosinophils % 1 % (0-5) Platelet Estimate Increased (ADEQUATE) Prothrombin Time 12.4 SEC (11.7-14.0) Prothromb Time International Ratio 1.0 (0.8-1.1) Activated Partial Thromboplast Time 29 SEC (24-38) Urine Collection Type Unknown Urine Color Yellow Urine Clarity Clear Urine pH 6.5 Urine Specific [place] 1.020 Urine Protein Negative mg/dL (NEG-TRACE) Urine Glucose (UA) Negative mg/dL (NEG) Urine Ketones (Stick) Negative mg/dL (NEG) Urine Blood Negative (NEG) Urine Nitrite Negative (NEG) Urine Bilirubin Negative (NEG) Urine Urobilinogen Dipstick 0.2 mg/dL (0.2 mg/dL) Urine Leukocyte Esterase Moderate (NEG) Urine RBC 1-2 /HPF (0-2) Urine WBC 5-10 /HPF (0-4) Urine Squamous Epithelial Cells Few /LPF Urine Bacteria Few /HPF (0-FEW) Urine Hyaline Casts Occasional /HPF Urine Mucus Slight /LPF Sodium Level 137 mmol/L (136-145) 140 mmol/L (136-145) Potassium Level 4.4 mmol/L (3.5-5.1) 3.9 mmol/L (3.5-5.1) Chloride Level 100 mmol/L (98-107) 104 mmol/L (98-107) Carbon Dioxide Level 22 mmol/L (21-32) 24 mmol/L (21-32) Anion Gap 15 (6-14) 12 (6-14) Blood Urea Nitrogen 20 mg/dL (7-20) 10 mg/dL (7-20) Creatinine 1.0 mg/dL (0.6-1.0) 1.0 mg/dL (0.6-1.0) Estimated GFR (Cockcroft-Gault) 56.0 56.0 Glucose Level 98 mg/dL (70-99) 94 mg/dL (70-99) Calcium Level 9.4 mg/dL (8.5-10.1) 9.0 mg/dL (8.5-10.1) Total Bilirubin 0.2 mg/dL (0.2-1.0) 0.2 mg/dL (0.2-1.0) Direct Bilirubin 0.1 mg/dL (0.0-0.2) Aspartate Amino Transf (AST/SGOT) 16 U/L (15-37) 11 U/L (15-37) Alanine Aminotransferase (ALT/SGPT) 23 U/L (14-59) 22 U/L (14-59) Alkaline Phosphatase 89 U/L (46-116) 76 U/L (46-116) Creatine Kinase 26 U/L (26-192) Creatine Kinase MB (Mass) < 0.5 ng/mL (0.0-3.6) Creatine Kinase MB Relative Index % (0-4) Troponin I Quantitative < 0.017 ng/mL (0.000-0.055) Total Protein 7.6 g/dL (6.4-8.2) 6.9 g/dL (6.4-8.2) Albumin 3.3 g/dL (3.4-5.0) 2.7 g/dL (3.4-5.0) Lipase 150 U/L (73-393) BUN/Creatinine Ratio 10 (6-20) Albumin/Globulin Ratio 0.6 (1.0-1.7) Laboratory Tests Test 02/19/17 02:55 White Blood Count 13.6 x10^3/uL (4.0-11.0) Red Blood Count 3.28 x10^6/uL (3.50-5.40) Hemoglobin 9.4 g/dL (12.0-15.5) Hematocrit 29.2 % (36.0-47.0) Mean Corpuscular Volume 89 fL (79-100) Mean Corpuscular Hemoglobin 29 pg (25-35) Mean Corpuscular Hemoglobin Concent 32 g/dL (31-37) Red Cell Distribution Width 15.1 % (11.5-14.5) Platelet Count 400 x10^3/uL (140-400) Neutrophils (%) (Auto) 77 % (31-73) Lymphocytes (%) (Auto) 13 % (24-48) Monocytes (%) (Auto) 9 % (0-9) Eosinophils (%) (Auto) 2 % (0-3) Basophils (%) (Auto) 0 % (0-3) Neutrophils # (Auto) 10.4 x10^3uL (1.8-7.7) Lymphocytes # (Auto) 1.7 x10^3/uL (1.0-4.8) Monocytes # (Auto) 1.1 x10^3/uL (0.0-1.1) Eosinophils # (Auto) 0.2 x10^3/uL (0.0-0.7) Basophils # (Auto) 0.1 x10^3/uL (0.0-0.2) Sodium Level 140 mmol/L (136-145) Potassium Level 3.9 mmol/L (3.5-5.1) Chloride Level 104 mmol/L (98-107) Carbon Dioxide Level 24 mmol/L (21-32) Anion Gap 12 (6-14) Blood Urea Nitrogen 10 mg/dL (7-20) Creatinine 1.0 mg/dL (0.6-1.0) Estimated GFR (Cockcroft-Gault) 56.0 BUN/Creatinine Ratio 10 (6-20) Glucose Level 94 mg/dL (70-99) Calcium Level 9.0 mg/dL (8.5-10.1) Total Bilirubin 0.2 mg/dL (0.2-1.0) Aspartate Amino Transf (AST/SGOT) 11 U/L (15-37) Alanine Aminotransferase (ALT/SGPT) 22 U/L (14-59) Alkaline Phosphatase 76 U/L (46-116) Total Protein 6.9 g/dL (6.4-8.2) Albumin 2.7 g/dL (3.4-5.0) Albumin/Globulin Ratio 0.6 (1.0-1.7) Microbiology 02/18/17 Urine Culture - Preliminary, Resulted 02/18/17 Urine Culture Result 1 (TARIQ) - Preliminary, Resulted Medications Current Medications Morphine Sulfate 2 mg PRN Q15MIN PRN IV/SQ PAIN GREATER THAN 3/10 Last administered on 02/18/17 07:42; Start 02/18/17 at 07:30; Stop 02/18/17 at 17:49 ; Status DC Sodium Chloride 1,000 ml @ 1,000 mls/hr Q1H IV Last administered on 02/18/17 07:41; Start 02/18/17 at 07:29; Stop 02/18/17 at 08:28; Status DC Ondansetron HCl (Zofran) 4 mg 1X ONCE IV Last administered on 02/18/17 07:41 ; Start 02/18/17 at 08:00; Stop 02/18/17 at 08:01; Status DC Iohexol (Omnipaque 240 Mg/ml) 50 ml 1X ONCE PO Last administered on 02/18/17 08:00; Start 02/18/17 at 08:00; Stop 02/18/17 at 08:01; Status DC Iohexol (Omnipaque 300 Mg/ml) 75 ml 1X ONCE IV Last administered on 02/18/17 08:59; Start 02/18/17 at 08:00; Stop 02/18/17 at 08:01; Status DC Sodium Chloride 1,000 ml @ 1,000 mls/hr 1X ONCE IV Last administered on 09:48; Start 02/18/17 at 09:30; Stop 02/18/17 at 10:29; Status DC Ciprofloxacin Lactate 200 ml @ 200 mls/hr Q12HR IV Last administered on 07:57; Start 02/18/17 at 10:00 Metronidazole 100 ml @ 100 mls/hr Q8H IV Last administered on 02/19/17 11:16; Start 02/18/17 at 11:00 Ondansetron HCl (Zofran) 4 mg PRN Q8HRS PRN IV NAUSEA/VOMITING; Start 02/18/17 at 10:15; Stop 02/19/17 at 10:14; Status DC Morphine Sulfate 2 mg PRN Q2HR PRN IV PAIN Last administered on 02/19/17 07:58 ; Start 02/18/17 at 10:15; Stop 02/19/17 at 10:14; Status DC Diphenhydramine HCl (Benadryl) 25 mg PRN Q6HRS PRN IVP ITCHING Last administered on 02/19/17 07:58; Start 02/18/17 at 14:15 Cyclobenzaprine HCl (Flexeril) 10 mg PRN DAILY PRN PO MUSCLE SPASMS; Start at 17:45 Diltiazem HCl (Cardizem 24hr Cd) 180 mg DAILY PO Last administered on 02/19/17 07:56; Start 02/19/17 at 09:00 Losartan Potassium (Cozaar) 50 mg DAILY PO Last administered on 02/19/17 07:55 ; Start 02/19/17 at 09:00; Stop 02/19/17 at 09:00; Status DC Pantoprazole Sodium (Protonix) 40 mg DAILYAC PO Last administered on 02/19/17 07:56; Start 02/19/17 at 07:30; Stop 02/19/17 at 12:31; Status DC Bupropion HCl (Wellbutrin Xl) 300 mg DAILY PO Last administered on 02/19/17 07: 55; Start 02/19/17 at 09:00 Acetaminophen/ Hydrocodone Bitart (Lortab 7.5/325) 1 tab PRN TID PRN PO MODERATE PAIN; Start 02/18/17 at 18:15 Zolpidem Tartrate (Ambien) 5 mg QHS PO Last administered on 02/18/17 20:34; Start 02/18/17 at 21:00 Zolpidem Tartrate (Ambien) 5 mg PRN QHS PRN PO INSOMNIA; Start 02/18/17 at 18: 15 Acetaminophen (Tylenol) 650 mg PRN Q6HRS PRN PO FEVER; Start 02/19/17 at 12:30 Ondansetron HCl (Zofran) 4 mg PRN Q6HRS PRN IV NAUSEA/VOMITING; Start 02/19/17 at 12:30 Morphine Sulfate 2 mg PRN Q2HR PRN IV PAIN; Start 02/19/17 at 12:30; Stop at 12:31; Status DC Tramadol HCl (Ultram) 50 mg PRN Q6HRS PRN PO PAIN; Start 02/19/17 at 12:30 Hydralazine HCl (Apresoline) 10 mg PRN Q4HRS PRN IVP ELEVATED BP, SEE COMMENTS ; Start 02/19/17 at 12:30 Docusate Sodium (Colace) 100 mg PRN DAILY PRN PO CONSTIPATION; Start 02/19/17 at 12:30 Morphine Sulfate 2 mg PRN Q2HR PRN IV PAIN; Start 02/19/17 at 12:45 Famotidine (Pepcid) 20 mg QHS IVP ; Start 02/19/17 at 21:00 Heparin Sodium (Porcine) (Heparin Sq) 5,000 unit Q8HRS SQ ; Start 02/19/17 at 14: 00 Active Scripts Active Reported Ibuprofen 400 Mg Tablet 400 Mg PO PRN Q6HRS PRN Pantoprazole Sodium 40 Mg Tablet.dr 1 Tab PO DAILY Cardizem Cd (Diltiazem Hcl) 180 Mg Cap.er.24h 1 Cap PO DAILY Miralax (Polyethylene Glycol 3350) 17 Gm Powd.pack 1 Packet PO DAILY Ambien (Zolpidem Tartrate) 10 Mg Tablet 1 Tab PO QHS Hydrocodon-Acetaminoph 7.5-500 (Hydrocodone Bit/Acetaminophen) 1 Each Tablet 1 Each PO PRN TID PRN Cyclobenzaprine Hcl 10 Mg Tablet 10 Mg PO PRN DAILY Wellbutrin Xl (Bupropion Hcl) 300 Mg Tab.er.24h 300 Mg PO DAILY Losartan Potassium 25 Mg Tablet 50 Mg PO DAILY Hydrochlorothiazide Tablet (Hydrochlorothiazide) 25 Mg Tablet 25 Mg PO DAILY Vitals/I & O Vital Sign - Last 24 Hours 02/18/17 02/18/17 02/18/17 02/18/17 15:31 18:58 19:00 19:10 Temp 98.2 98.2 Pulse 84 Resp 18 B/P (MAP) 105/65 (78) Pulse Ox 96 O2 Delivery Room Air Room Air Room Air Room Air 02/18/17 02/18/17 02/19/17 02/19/17 19:25 22:49 02:48 07:00 Temp 98.3 98.5 97.5 98.3 98.5 97.5 Pulse 93 89 95 Resp 16 18 18 18 B/P (MAP) 93/58 (70) 89/63 (72) 115/68 (84) Pulse Ox 99 96 96 99 O2 Delivery Room Air Room Air Room Air 02/19/17 02/19/17 02/19/17 02/19/17 07:55 07:56 07:58 08:10 Pulse 95 95 B/P (MAP) 115/68 115/68 O2 Delivery Room Air Room Air 02/19/17 02/19/17 02/19/17 08:45 11:00 15:00 Temp 97.6 97.5 97.6 97.5 Pulse 93 85 Resp 18 18 B/P (MAP) 105/69 (81) 90/57 (68) Pulse Ox 96 96 O2 Delivery Room Air Room Air Room Air Intake and Output 02/18/17 02/18/17 02/19/17 15:00 23:00 07:00 Intake Total 300 ml 100 ml Balance 300 ml 100 ml Problem List Problems Medical Problems: (1) Diverticulitis Status: Acute Assessment LLQ abd pain- most likely acute diverticulitis, medical therapy with antibiotics /fluids, trial of clear liquids with improved poain, CPM NNAMDI BERNARD MD Feb 19, 2017 15:23
--- NOTE | 2017-02-19 18:37 | PDOC ---
PROGRESS NOTES Subjective Subjective some pain, but improving Objective Objective Vital Signs Date Time Temp Pulse Resp B/P (MAP) Pulse Ox O2 Delivery O2 Flow Rate FiO2 02/19/17 15:00 97.5 85 18 90/57 (68) 96 Room Air 97.5 Intake and Output 02/19/17 07:00 Intake Total 400 ml Balance 400 ml Intake Oral 0 ml IV Total 400 ml # Voids 2 Physical Exam Abdomen: Soft (less tender in lower abdomen, no guarding) Heart: Regular rate Extremities: No clubbing, No cyanosis General: Alert, Oriented X3 HEENT: Atraumatic Lungs: Clear to auscultation Psych/Mental Status: Mental status NL Skin: No rashes, No breakdown Assessment Assessment Problems Medical Problems: (1) Diverticulitis Status: Acute Plan Plan of Care Continue abx, med management Comment Review of Relevant I have reviewed the following items amando (where applicable) has been applied. Labs Laboratory Tests Test 02/18/17 07:25 02/19/17 02:55 White Blood Count 20.0 x10^3/uL (4.0-11.0) 13.6 x10^3/uL (4.0-11.0) Red Blood Count 3.69 x10^6/uL (3.50-5.40) 3.28 x10^6/uL (3.50-5.40) Hemoglobin 10.4 g/dL (12.0-15.5) 9.4 g/dL (12.0-15.5) Hematocrit 32.6 % (36.0-47.0) 29.2 % (36.0-47.0) Mean Corpuscular Volume 88 fL (79-100) 89 fL (79-100) Mean Corpuscular Hemoglobin 28 pg (25-35) 29 pg (25-35) Mean Corpuscular Hemoglobin Concent 32 g/dL (31-37) 32 g/dL (31-37) Red Cell Distribution Width 15.0 % (11.5-14.5) 15.1 % (11.5-14.5) Platelet Count 443 x10^3/uL (140-400) 400 x10^3/uL (140-400) Neutrophils (%) (Auto) 84 % (31-73) 77 % (31-73) Lymphocytes (%) (Auto) 8 % (24-48) 13 % (24-48) Monocytes (%) (Auto) 6 % (0-9) 9 % (0-9) Eosinophils (%) (Auto) 1 % (0-3) 2 % (0-3) Basophils (%) (Auto) 0 % (0-3) 0 % (0-3) Neutrophils # (Auto) 16.9 x10^3uL (1.8-7.7) 10.4 x10^3uL (1.8-7.7) Lymphocytes # (Auto) 1.7 x10^3/uL (1.0-4.8) 1.7 x10^3/uL (1.0-4.8) Monocytes # (Auto) 1.2 x10^3/uL (0.0-1.1) 1.1 x10^3/uL (0.0-1.1) Eosinophils # (Auto) 0.2 x10^3/uL (0.0-0.7) 0.2 x10^3/uL (0.0-0.7) Basophils # (Auto) 0.1 x10^3/uL (0.0-0.2) 0.1 x10^3/uL (0.0-0.2) Segmented Neutrophils % 82 % (35-66) Band Neutrophils % 2 % (0-9) Lymphocytes % 10 % (24-48) Monocytes % 5 % (0-10) Eosinophils % 1 % (0-5) Platelet Estimate Increased (ADEQUATE) Prothrombin Time 12.4 SEC (11.7-14.0) Prothromb Time International Ratio 1.0 (0.8-1.1) Activated Partial Thromboplast Time 29 SEC (24-38) Urine Collection Type Unknown Urine Color Yellow Urine Clarity Clear Urine pH 6.5 Urine Specific [place] 1.020 Urine Protein Negative mg/dL (NEG-TRACE) Urine Glucose (UA) Negative mg/dL (NEG) Urine Ketones (Stick) Negative mg/dL (NEG) Urine Blood Negative (NEG) Urine Nitrite Negative (NEG) Urine Bilirubin Negative (NEG) Urine Urobilinogen Dipstick 0.2 mg/dL (0.2 mg/dL) Urine Leukocyte Esterase Moderate (NEG) Urine RBC 1-2 /HPF (0-2) Urine WBC 5-10 /HPF (0-4) Urine Squamous Epithelial Cells Few /LPF Urine Bacteria Few /HPF (0-FEW) Urine Hyaline Casts Occasional /HPF Urine Mucus Slight /LPF Sodium Level 137 mmol/L (136-145) 140 mmol/L (136-145) Potassium Level 4.4 mmol/L (3.5-5.1) 3.9 mmol/L (3.5-5.1) Chloride Level 100 mmol/L (98-107) 104 mmol/L (98-107) Carbon Dioxide Level 22 mmol/L (21-32) 24 mmol/L (21-32) Anion Gap 15 (6-14) 12 (6-14) Blood Urea Nitrogen 20 mg/dL (7-20) 10 mg/dL (7-20) Creatinine 1.0 mg/dL (0.6-1.0) 1.0 mg/dL (0.6-1.0) Estimated GFR (Cockcroft-Gault) 56.0 56.0 Glucose Level 98 mg/dL (70-99) 94 mg/dL (70-99) Calcium Level 9.4 mg/dL (8.5-10.1) 9.0 mg/dL (8.5-10.1) Total Bilirubin 0.2 mg/dL (0.2-1.0) 0.2 mg/dL (0.2-1.0) Direct Bilirubin 0.1 mg/dL (0.0-0.2) Aspartate Amino Transf (AST/SGOT) 16 U/L (15-37) 11 U/L (15-37) Alanine Aminotransferase (ALT/SGPT) 23 U/L (14-59) 22 U/L (14-59) Alkaline Phosphatase 89 U/L (46-116) 76 U/L (46-116) Creatine Kinase 26 U/L (26-192) Creatine Kinase MB (Mass) < 0.5 ng/mL (0.0-3.6) Creatine Kinase MB Relative Index % (0-4) Troponin I Quantitative < 0.017 ng/mL (0.000-0.055) Total Protein 7.6 g/dL (6.4-8.2) 6.9 g/dL (6.4-8.2) Albumin 3.3 g/dL (3.4-5.0) 2.7 g/dL (3.4-5.0) Lipase 150 U/L (73-393) BUN/Creatinine Ratio 10 (6-20) Albumin/Globulin Ratio 0.6 (1.0-1.7) Laboratory Tests Test 02/19/17 02:55 White Blood Count 13.6 x10^3/uL (4.0-11.0) Red Blood Count 3.28 x10^6/uL (3.50-5.40) Hemoglobin 9.4 g/dL (12.0-15.5) Hematocrit 29.2 % (36.0-47.0) Mean Corpuscular Volume 89 fL (79-100) Mean Corpuscular Hemoglobin 29 pg (25-35) Mean Corpuscular Hemoglobin Concent 32 g/dL (31-37) Red Cell Distribution Width 15.1 % (11.5-14.5) Platelet Count 400 x10^3/uL (140-400) Neutrophils (%) (Auto) 77 % (31-73) Lymphocytes (%) (Auto) 13 % (24-48) Monocytes (%) (Auto) 9 % (0-9) Eosinophils (%) (Auto) 2 % (0-3) Basophils (%) (Auto) 0 % (0-3) Neutrophils # (Auto) 10.4 x10^3uL (1.8-7.7) Lymphocytes # (Auto) 1.7 x10^3/uL (1.0-4.8) Monocytes # (Auto) 1.1 x10^3/uL (0.0-1.1) Eosinophils # (Auto) 0.2 x10^3/uL (0.0-0.7) Basophils # (Auto) 0.1 x10^3/uL (0.0-0.2) Sodium Level 140 mmol/L (136-145) Potassium Level 3.9 mmol/L (3.5-5.1) Chloride Level 104 mmol/L (98-107) Carbon Dioxide Level 24 mmol/L (21-32) Anion Gap 12 (6-14) Blood Urea Nitrogen 10 mg/dL (7-20) Creatinine 1.0 mg/dL (0.6-1.0) Estimated GFR (Cockcroft-Gault) 56.0 BUN/Creatinine Ratio 10 (6-20) Glucose Level 94 mg/dL (70-99) Calcium Level 9.0 mg/dL (8.5-10.1) Total Bilirubin 0.2 mg/dL (0.2-1.0) Aspartate Amino Transf (AST/SGOT) 11 U/L (15-37) Alanine Aminotransferase (ALT/SGPT) 22 U/L (14-59) Alkaline Phosphatase 76 U/L (46-116) Total Protein 6.9 g/dL (6.4-8.2) Albumin 2.7 g/dL (3.4-5.0) Albumin/Globulin Ratio 0.6 (1.0-1.7) Microbiology 02/18/17 Urine Culture - Preliminary, Resulted 02/18/17 Urine Culture Result 1 (TARIQ) - Preliminary, Resulted Medications Current Medications Morphine Sulfate 2 mg PRN Q15MIN PRN IV/SQ PAIN GREATER THAN 3/10 Last administered on 02/18/17 07:42; Start 02/18/17 at 07:30; Stop 02/18/17 at 17:49 ; Status DC Sodium Chloride 1,000 ml @ 1,000 mls/hr Q1H IV Last administered on 02/18/17 07:41; Start 02/18/17 at 07:29; Stop 02/18/17 at 08:28; Status DC Ondansetron HCl (Zofran) 4 mg 1X ONCE IV Last administered on 02/18/17 07:41 ; Start 02/18/17 at 08:00; Stop 02/18/17 at 08:01; Status DC Iohexol (Omnipaque 240 Mg/ml) 50 ml 1X ONCE PO Last administered on 02/18/17 08:00; Start 02/18/17 at 08:00; Stop 02/18/17 at 08:01; Status DC Iohexol (Omnipaque 300 Mg/ml) 75 ml 1X ONCE IV Last administered on 02/18/17 08:59; Start 02/18/17 at 08:00; Stop 02/18/17 at 08:01; Status DC Sodium Chloride 1,000 ml @ 1,000 mls/hr 1X ONCE IV Last administered on 09:48; Start 02/18/17 at 09:30; Stop 02/18/17 at 10:29; Status DC Ciprofloxacin Lactate 200 ml @ 200 mls/hr Q12HR IV Last administered on 07:57; Start 02/18/17 at 10:00 Metronidazole 100 ml @ 100 mls/hr Q8H IV Last administered on 02/19/17 18:32; Start 02/18/17 at 11:00 Ondansetron HCl (Zofran) 4 mg PRN Q8HRS PRN IV NAUSEA/VOMITING; Start 02/18/17 at 10:15; Stop 02/19/17 at 10:14; Status DC Morphine Sulfate 2 mg PRN Q2HR PRN IV PAIN Last administered on 02/19/17 07:58 ; Start 02/18/17 at 10:15; Stop 02/19/17 at 10:14; Status DC Diphenhydramine HCl (Benadryl) 25 mg PRN Q6HRS PRN IVP ITCHING Last administered on 02/19/17 07:58; Start 02/18/17 at 14:15 Cyclobenzaprine HCl (Flexeril) 10 mg PRN DAILY PRN PO MUSCLE SPASMS; Start at 17:45 Diltiazem HCl (Cardizem 24hr Cd) 180 mg DAILY PO Last administered on 02/19/17 07:56; Start 02/19/17 at 09:00 Losartan Potassium (Cozaar) 50 mg DAILY PO Last administered on 02/19/17 07:55 ; Start 02/19/17 at 09:00; Stop 02/19/17 at 09:00; Status DC Pantoprazole Sodium (Protonix) 40 mg DAILYAC PO Last administered on 02/19/17 07:56; Start 02/19/17 at 07:30; Stop 02/19/17 at 12:31; Status DC Bupropion HCl (Wellbutrin Xl) 300 mg DAILY PO Last administered on 02/19/17 07: 55; Start 02/19/17 at 09:00 Acetaminophen/ Hydrocodone Bitart (Lortab 7.5/325) 1 tab PRN TID PRN PO MODERATE PAIN; Start 02/18/17 at 18:15 Zolpidem Tartrate (Ambien) 5 mg QHS PO Last administered on 02/18/17 20:34; Start 02/18/17 at 21:00 Zolpidem Tartrate (Ambien) 5 mg PRN QHS PRN PO INSOMNIA; Start 02/18/17 at 18: 15 Acetaminophen (Tylenol) 650 mg PRN Q6HRS PRN PO FEVER; Start 02/19/17 at 12:30 Ondansetron HCl (Zofran) 4 mg PRN Q6HRS PRN IV NAUSEA/VOMITING; Start 02/19/17 at 12:30 Morphine Sulfate 2 mg PRN Q2HR PRN IV PAIN; Start 02/19/17 at 12:30; Stop at 12:31; Status DC Tramadol HCl (Ultram) 50 mg PRN Q6HRS PRN PO PAIN; Start 02/19/17 at 12:30 Hydralazine HCl (Apresoline) 10 mg PRN Q4HRS PRN IVP ELEVATED BP, SEE COMMENTS ; Start 02/19/17 at 12:30 Docusate Sodium (Colace) 100 mg PRN DAILY PRN PO CONSTIPATION; Start 02/19/17 at 12:30 Morphine Sulfate 2 mg PRN Q2HR PRN IV PAIN; Start 02/19/17 at 12:45 Famotidine (Pepcid) 20 mg QHS IVP ; Start 02/19/17 at 21:00 Heparin Sodium (Porcine) (Heparin Sq) 5,000 unit Q8HRS SQ ; Start 02/19/17 at 14: 00 Active Scripts Active Reported Ibuprofen 400 Mg Tablet 400 Mg PO PRN Q6HRS PRN Pantoprazole Sodium 40 Mg Tablet. 1 Tab PO DAILY Cardizem Cd (Diltiazem Hcl) 180 Mg Cap.er.24h 1 Cap PO DAILY Miralax (Polyethylene Glycol 3350) 17 Gm Powd.pack 1 Packet PO DAILY Ambien (Zolpidem Tartrate) 10 Mg Tablet 1 Tab PO QHS Hydrocodon-Acetaminoph 7.5-500 (Hydrocodone Bit/Acetaminophen) 1 Each Tablet 1 Each PO PRN TID PRN Cyclobenzaprine Hcl 10 Mg Tablet 10 Mg PO PRN DAILY Wellbutrin Xl (Bupropion Hcl) 300 Mg Tab.er.24h 300 Mg PO DAILY Losartan Potassium 25 Mg Tablet 50 Mg PO DAILY Hydrochlorothiazide Tablet (Hydrochlorothiazide) 25 Mg Tablet 25 Mg PO DAILY Vitals/I & O Vital Sign - Last 24 Hours 02/18/17 02/18/17 02/18/17 02/18/17 18:58 19:00 19:10 19:25 Temp 98.2 98.2 Pulse 84 Resp 18 16 B/P (MAP) 105/65 (78) Pulse Ox 96 99 O2 Delivery Room Air Room Air Room Air 02/18/17 02/19/17 02/19/17 02/19/17 22:49 02:48 07:00 07:55 Temp 98.3 98.5 97.5 98.3 98.5 97.5 Pulse 93 89 95 95 Resp 18 18 18 B/P (MAP) 93/58 (70) 89/63 (72) 115/68 (84) 115/68 Pulse Ox 96 96 99 O2 Delivery Room Air Room Air Room Air 02/19/17 02/19/17 02/19/17 02/19/17 07:56 07:58 08:10 08:45 Pulse 95 B/P (MAP) 115/68 O2 Delivery Room Air Room Air Room Air 02/19/17 02/19/17 11:00 15:00 Temp 97.6 97.5 97.6 97.5 Pulse 93 85 Resp 18 18 B/P (MAP) 105/69 (81) 90/57 (68) Pulse Ox 96 96 O2 Delivery Room Air Room Air Intake and Output 02/18/17 02/18/17 02/19/17 15:00 23:00 07:00 Intake Total 300 ml 100 ml Balance 300 ml 100 ml NNAMDI MARTINEZ MD Feb 19, 2017 18:37
[2017-02-19 19:00] VITALS: BP 117/69
[2017-02-19] MEDS: FAMOTIDINE 20 MG/2 ML VIAL IVP SCH (21:49)
[2017-02-19] MEDS: ZOLPIDEM 5 MG TABLET. PO SCH (21:49)
[2017-02-19 23:00] VITALS: BP 93/56
[2017-02-20 03:00] VITALS: BP 105/55
[2017-02-20] MEDS: HEPARIN PF for SUB-Q USE 5,000 UNIT/0.5 ML VIAL. SQ SCH ×3 (03:37→21:49)
[2017-02-20 04:08] LABS: BASO % 0 % (0-3); EOS % 2 % (0-3); HEMATOCRIT 29.3 % (36.0-47.0); HEMOGLOBIN 9.6 g/dL (12.0-15.5); LYMPH # 1.3 x10^3/uL (1.0-4.8); LYMPH % 11 % (24-48); MEAN CORPUSCULAR HEMOGLOBIN 29 pg (25-35); MEAN CORPUSCULAR HGB CONC 33 g/dL (31-37); MEAN CORPUSCULAR VOLUME 88 fL (79-100); MONO % 9 % (0-9); NEUT % 78 % (31-73); PLATELET COUNT 406 x10^3/uL (140-400); RED BLOOD COUNT 3.35 x10^6/uL (3.50-5.40); RED CELL DISTRIBUTION WIDTH 14.9 % (11.5-14.5)
[2017-02-20 04:17] LABS: CALCIUM 8.2 mg/dL (8.5-10.1); CREATININE 1.2 mg/dL (0.6-1.0); GFR 45.4; POTASSIUM 3.9 mmol/L (3.5-5.1)
[2017-02-20 07:00] VITALS: BP 115/67
[2017-02-20] MEDS: buPROPion XL 150 MG TAB.ER.24H. PO SCH (08:18)
[2017-02-20] MEDS: CIPROFLOXACIN 400MG PREMIX 200 ML IV SCH ×2 (08:18→21:49)
[2017-02-20] MEDS: HYDROcodone/APAP 7.5/325MG 1 TAB TABLET PO PRN ×2 (08:19→22:02)
[2017-02-20] MEDS: diphenhydrAMINE 50 MG/ML VIAL IVP PRN ×3 (09:08→17:53)
--- NOTE | 2017-02-20 10:12 | PDOC ---
Infectious Disease Note Subjective Subjective pt feeling better ROS ROS GEN: Denies fevers, chills, sweats HEENT: Denies blurred vision, sore throat CV: Denies chest pain RESP: Denies shortness of air, cough GI: Denies n/v/d NEURO: Denies confusion, dizziness MSK: Denies weakness, joint pain/swelling Vital Sign Vital Signs Vital Signs Date Time Temp Pulse Resp B/P (MAP) Pulse Ox O2 Delivery O2 Flow Rate FiO2 02/20/17 09:19 99 Room Air 02/20/17 08:19 15 02/20/17 08:18 97 115/67 02/20/17 07:00 97.9 97.9 Physical Exam PHYSICAL EXAM GENERAL: NAD, Alert HEENT: PERRL, OC/OP NECK: Supple, no JVD, no LN LUNGS: Clear HEART: S1S2, no gallop, no murmur ABD: Soft, NT, no organomegaly, no rebound EXT: No edema, no cyanosis LOOM STOP CHECKER: Alert, oriented x 3, no focal neurologic deficit SKIN: No rash IV: ok Labs Lab Laboratory Tests Test 02/20/17 02:59 White Blood Count 12.0 x10^3/uL (4.0-11.0) Red Blood Count 3.35 x10^6/uL (3.50-5.40) Hemoglobin 9.6 g/dL (12.0-15.5) Hematocrit 29.3 % (36.0-47.0) Mean Corpuscular Volume 88 fL (79-100) Mean Corpuscular Hemoglobin 29 pg (25-35) Mean Corpuscular Hemoglobin Concent 33 g/dL (31-37) Red Cell Distribution Width 14.9 % (11.5-14.5) Platelet Count 406 x10^3/uL (140-400) Neutrophils (%) (Auto) 78 % (31-73) Lymphocytes (%) (Auto) 11 % (24-48) Monocytes (%) (Auto) 9 % (0-9) Eosinophils (%) (Auto) 2 % (0-3) Basophils (%) (Auto) 0 % (0-3) Neutrophils # (Auto) 9.4 x10^3uL (1.8-7.7) Lymphocytes # (Auto) 1.3 x10^3/uL (1.0-4.8) Monocytes # (Auto) 1.1 x10^3/uL (0.0-1.1) Eosinophils # (Auto) 0.2 x10^3/uL (0.0-0.7) Basophils # (Auto) 0.0 x10^3/uL (0.0-0.2) Sodium Level 139 mmol/L (136-145) Potassium Level 3.9 mmol/L (3.5-5.1) Chloride Level 105 mmol/L (98-107) Carbon Dioxide Level 24 mmol/L (21-32) Anion Gap 10 (6-14) Blood Urea Nitrogen 15 mg/dL (7-20) Creatinine 1.2 mg/dL (0.6-1.0) Estimated GFR (Cockcroft-Gault) 45.4 Glucose Level 117 mg/dL (70-99) Calcium Level 8.2 mg/dL (8.5-10.1) Objective Assessment Diverticulitis with perforation with ? fistula Leukocytosis Abdominal pain HTN Plan Plan of Care cont antibiotics , supportive care liquid diet CHRISTIE JUAREZ MD Feb 20, 2017 10:12
[2017-02-20 10:59] VITALS: BP 104/65
--- NOTE | 2017-02-20 11:56 | PDOC ---
PROGRESS NOTES Chief Complaint Chief Complaint Diverticulitis with ? fistula Leukocytosis Abdominal pain HTN mild malnutrition h/o PAFIB no AC plan: fu with gi, id , sx no sx pending clear liquid diet as per GI ivf on cipro and flagyl labs daily dced losartan cont cardizem with h/o PAFIB gi,dvt ppx History of Present Illness History of Present Illness abd pain still, 6/10 down to 5 today no N/V, chronic constipation, no bm yet wbc 12 Vitals Vitals Vital Signs Date Time Temp Pulse Resp B/P (MAP) Pulse Ox O2 Delivery O2 Flow Rate FiO2 02/20/17 10:59 98.6 91 18 104/65 (78) 99 Room Air 98.6 Physical Exam General: Alert, Oriented X3 Heart: Regular rate Lungs: Clear Abdomen: Soft (less tender in lower abdomen, no guarding) Extremities: No clubbing, No cyanosis Skin: No rashes, No breakdown Labs LABS Laboratory Tests Test 02/20/17 02:59 White Blood Count 12.0 x10^3/uL (4.0-11.0) Red Blood Count 3.35 x10^6/uL (3.50-5.40) Hemoglobin 9.6 g/dL (12.0-15.5) Hematocrit 29.3 % (36.0-47.0) Mean Corpuscular Volume 88 fL (79-100) Mean Corpuscular Hemoglobin 29 pg (25-35) Mean Corpuscular Hemoglobin Concent 33 g/dL (31-37) Red Cell Distribution Width 14.9 % (11.5-14.5) Platelet Count 406 x10^3/uL (140-400) Neutrophils (%) (Auto) 78 % (31-73) Lymphocytes (%) (Auto) 11 % (24-48) Monocytes (%) (Auto) 9 % (0-9) Eosinophils (%) (Auto) 2 % (0-3) Basophils (%) (Auto) 0 % (0-3) Neutrophils # (Auto) 9.4 x10^3uL (1.8-7.7) Lymphocytes # (Auto) 1.3 x10^3/uL (1.0-4.8) Monocytes # (Auto) 1.1 x10^3/uL (0.0-1.1) Eosinophils # (Auto) 0.2 x10^3/uL (0.0-0.7) Basophils # (Auto) 0.0 x10^3/uL (0.0-0.2) Sodium Level 139 mmol/L (136-145) Potassium Level 3.9 mmol/L (3.5-5.1) Chloride Level 105 mmol/L (98-107) Carbon Dioxide Level 24 mmol/L (21-32) Anion Gap 10 (6-14) Blood Urea Nitrogen 15 mg/dL (7-20) Creatinine 1.2 mg/dL (0.6-1.0) Estimated GFR (Cockcroft-Gault) 45.4 Glucose Level 117 mg/dL (70-99) Calcium Level 8.2 mg/dL (8.5-10.1) Review of Systems Review of Systems no fever, chills, sob or chest pain Assessment and Plan Assessmemt and Plan Problems Medical Problems: (1) Diverticulitis Status: Acute Problems: Comment Review of Relevant I have reviewed the following items amando (where applicable) has been applied. Labs Laboratory Tests Test 02/19/17 02:55 02/20/17 02:59 White Blood Count 13.6 x10^3/uL (4.0-11.0) 12.0 x10^3/uL (4.0-11.0) Red Blood Count 3.28 x10^6/uL (3.50-5.40) 3.35 x10^6/uL (3.50-5.40) Hemoglobin 9.4 g/dL (12.0-15.5) 9.6 g/dL (12.0-15.5) Hematocrit 29.2 % (36.0-47.0) 29.3 % (36.0-47.0) Mean Corpuscular Volume 89 fL (79-100) 88 fL (79-100) Mean Corpuscular Hemoglobin 29 pg (25-35) 29 pg (25-35) Mean Corpuscular Hemoglobin Concent 32 g/dL (31-37) 33 g/dL (31-37) Red Cell Distribution Width 15.1 % (11.5-14.5) 14.9 % (11.5-14.5) Platelet Count 400 x10^3/uL (140-400) 406 x10^3/uL (140-400) Neutrophils (%) (Auto) 77 % (31-73) 78 % (31-73) Lymphocytes (%) (Auto) 13 % (24-48) 11 % (24-48) Monocytes (%) (Auto) 9 % (0-9) 9 % (0-9) Eosinophils (%) (Auto) 2 % (0-3) 2 % (0-3) Basophils (%) (Auto) 0 % (0-3) 0 % (0-3) Neutrophils # (Auto) 10.4 x10^3uL (1.8-7.7) 9.4 x10^3uL (1.8-7.7) Lymphocytes # (Auto) 1.7 x10^3/uL (1.0-4.8) 1.3 x10^3/uL (1.0-4.8) Monocytes # (Auto) 1.1 x10^3/uL (0.0-1.1) 1.1 x10^3/uL (0.0-1.1) Eosinophils # (Auto) 0.2 x10^3/uL (0.0-0.7) 0.2 x10^3/uL (0.0-0.7) Basophils # (Auto) 0.1 x10^3/uL (0.0-0.2) 0.0 x10^3/uL (0.0-0.2) Sodium Level 140 mmol/L (136-145) 139 mmol/L (136-145) Potassium Level 3.9 mmol/L (3.5-5.1) 3.9 mmol/L (3.5-5.1) Chloride Level 104 mmol/L (98-107) 105 mmol/L (98-107) Carbon Dioxide Level 24 mmol/L (21-32) 24 mmol/L (21-32) Anion Gap 12 (6-14) 10 (6-14) Blood Urea Nitrogen 10 mg/dL (7-20) 15 mg/dL (7-20) Creatinine 1.0 mg/dL (0.6-1.0) 1.2 mg/dL (0.6-1.0) Estimated GFR (Cockcroft-Gault) 56.0 45.4 BUN/Creatinine Ratio 10 (6-20) Glucose Level 94 mg/dL (70-99) 117 mg/dL (70-99) Calcium Level 9.0 mg/dL (8.5-10.1) 8.2 mg/dL (8.5-10.1) Total Bilirubin 0.2 mg/dL (0.2-1.0) Aspartate Amino Transf (AST/SGOT) 11 U/L (15-37) Alanine Aminotransferase (ALT/SGPT) 22 U/L (14-59) Alkaline Phosphatase 76 U/L (46-116) Total Protein 6.9 g/dL (6.4-8.2) Albumin 2.7 g/dL (3.4-5.0) Albumin/Globulin Ratio 0.6 (1.0-1.7) Laboratory Tests Test 02/20/17 02:59 White Blood Count 12.0 x10^3/uL (4.0-11.0) Red Blood Count 3.35 x10^6/uL (3.50-5.40) Hemoglobin 9.6 g/dL (12.0-15.5) Hematocrit 29.3 % (36.0-47.0) Mean Corpuscular Volume 88 fL (79-100) Mean Corpuscular Hemoglobin 29 pg (25-35) Mean Corpuscular Hemoglobin Concent 33 g/dL (31-37) Red Cell Distribution Width 14.9 % (11.5-14.5) Platelet Count 406 x10^3/uL (140-400) Neutrophils (%) (Auto) 78 % (31-73) Lymphocytes (%) (Auto) 11 % (24-48) Monocytes (%) (Auto) 9 % (0-9) Eosinophils (%) (Auto) 2 % (0-3) Basophils (%) (Auto) 0 % (0-3) Neutrophils # (Auto) 9.4 x10^3uL (1.8-7.7) Lymphocytes # (Auto) 1.3 x10^3/uL (1.0-4.8) Monocytes # (Auto) 1.1 x10^3/uL (0.0-1.1) Eosinophils # (Auto) 0.2 x10^3/uL (0.0-0.7) Basophils # (Auto) 0.0 x10^3/uL (0.0-0.2) Sodium Level 139 mmol/L (136-145) Potassium Level 3.9 mmol/L (3.5-5.1) Chloride Level 105 mmol/L (98-107) Carbon Dioxide Level 24 mmol/L (21-32) Anion Gap 10 (6-14) Blood Urea Nitrogen 15 mg/dL (7-20) Creatinine 1.2 mg/dL (0.6-1.0) Estimated GFR (Cockcroft-Gault) 45.4 Glucose Level 117 mg/dL (70-99) Calcium Level 8.2 mg/dL (8.5-10.1) Microbiology 02/18/17 Urine Culture - Preliminary, Resulted 02/18/17 Urine Culture Result 1 (TARIQ) - Preliminary, Resulted Medications Current Medications Morphine Sulfate 2 mg PRN Q15MIN PRN IV/SQ PAIN GREATER THAN 3/10 Last administered on 02/18/17 07:42; Start 02/18/17 at 07:30; Stop 02/18/17 at 17:49 ; Status DC Sodium Chloride 1,000 ml @ 1,000 mls/hr Q1H IV Last administered on 02/18/17 07:41; Start 02/18/17 at 07:29; Stop 02/18/17 at 08:28; Status DC Ondansetron HCl (Zofran) 4 mg 1X ONCE IV Last administered on 02/18/17 07:41 ; Start 02/18/17 at 08:00; Stop 02/18/17 at 08:01; Status DC Iohexol (Omnipaque 240 Mg/ml) 50 ml 1X ONCE PO Last administered on 02/18/17 08:00; Start 02/18/17 at 08:00; Stop 02/18/17 at 08:01; Status DC Iohexol (Omnipaque 300 Mg/ml) 75 ml 1X ONCE IV Last administered on 02/18/17 08:59; Start 02/18/17 at 08:00; Stop 02/18/17 at 08:01; Status DC Sodium Chloride 1,000 ml @ 1,000 mls/hr 1X ONCE IV Last administered on 09:48; Start 02/18/17 at 09:30; Stop 02/18/17 at 10:29; Status DC Ciprofloxacin Lactate 200 ml @ 200 mls/hr Q12HR IV Last administered on 08:18; Start 02/18/17 at 10:00 Metronidazole 100 ml @ 100 mls/hr Q8H IV Last administered on 02/20/17 11:21; Start 02/18/17 at 11:00 Ondansetron HCl (Zofran) 4 mg PRN Q8HRS PRN IV NAUSEA/VOMITING; Start 02/18/17 at 10:15; Stop 02/19/17 at 10:14; Status DC Morphine Sulfate 2 mg PRN Q2HR PRN IV PAIN Last administered on 02/19/17 07:58 ; Start 02/18/17 at 10:15; Stop 02/19/17 at 10:14; Status DC Diphenhydramine HCl (Benadryl) 25 mg PRN Q6HRS PRN IVP ITCHING Last administered on 02/20/17 09:10; Start 02/18/17 at 14:15 Cyclobenzaprine HCl (Flexeril) 10 mg PRN DAILY PRN PO MUSCLE SPASMS; Start at 17:45 Diltiazem HCl (Cardizem 24hr Cd) 180 mg DAILY PO Last administered on 02/20/17 08:18; Start 02/19/17 at 09:00 Losartan Potassium (Cozaar) 50 mg DAILY PO Last administered on 02/19/17 07:55 ; Start 02/19/17 at 09:00; Stop 02/19/17 at 09:00; Status DC Pantoprazole Sodium (Protonix) 40 mg DAILYAC PO Last administered on 02/19/17 07:56; Start 02/19/17 at 07:30; Stop 02/19/17 at 12:31; Status DC Bupropion HCl (Wellbutrin Xl) 300 mg DAILY PO Last administered on 02/20/17 08: 18; Start 02/19/17 at 09:00 Acetaminophen/ Hydrocodone Bitart (Lortab 7.5/325) 1 tab PRN TID PRN PO MODERATE PAIN Last administered on 02/20/17 08:19; Start 02/18/17 at 18:15 Zolpidem Tartrate (Ambien) 5 mg QHS PO Last administered on 02/19/17 21:49; Start 02/18/17 at 21:00 Zolpidem Tartrate (Ambien) 5 mg PRN QHS PRN PO INSOMNIA; Start 02/18/17 at 18: 15 Acetaminophen (Tylenol) 650 mg PRN Q6HRS PRN PO FEVER; Start 02/19/17 at 12:30 Ondansetron HCl (Zofran) 4 mg PRN Q6HRS PRN IV NAUSEA/VOMITING; Start 02/19/17 at 12:30 Morphine Sulfate 2 mg PRN Q2HR PRN IV PAIN; Start 02/19/17 at 12:30; Stop at 12:31; Status DC Tramadol HCl (Ultram) 50 mg PRN Q6HRS PRN PO PAIN; Start 02/19/17 at 12:30 Hydralazine HCl (Apresoline) 10 mg PRN Q4HRS PRN IVP ELEVATED BP, SEE COMMENTS ; Start 02/19/17 at 12:30 Docusate Sodium (Colace) 100 mg PRN DAILY PRN PO CONSTIPATION; Start 02/19/17 at 12:30 Morphine Sulfate 2 mg PRN Q2HR PRN IV PAIN; Start 02/19/17 at 12:45 Famotidine (Pepcid) 20 mg QHS IVP Last administered on 02/19/17t 21:49; Start at 21:00 Heparin Sodium (Porcine) (Heparin Sq) 5,000 unit Q8HRS SQ ; Start 02/19/17 at 14: 00 Active Scripts Active Reported Ibuprofen 400 Mg Tablet 400 Mg PO PRN Q6HRS PRN Pantoprazole Sodium 40 Mg Tablet. 1 Tab PO DAILY Cardizem Cd (Diltiazem Hcl) 180 Mg Cap.er.24h 1 Cap PO DAILY Miralax (Polyethylene Glycol 3350) 17 Gm Powd.pack 1 Packet PO DAILY Ambien (Zolpidem Tartrate) 10 Mg Tablet 1 Tab PO QHS Hydrocodon-Acetaminoph 7.5-500 (Hydrocodone Bit/Acetaminophen) 1 Each Tablet 1 Each PO PRN TID PRN Cyclobenzaprine Hcl 10 Mg Tablet 10 Mg PO PRN DAILY Wellbutrin Xl (Bupropion Hcl) 300 Mg Tab.er.24h 300 Mg PO DAILY Losartan Potassium 25 Mg Tablet 50 Mg PO DAILY Hydrochlorothiazide Tablet (Hydrochlorothiazide) 25 Mg Tablet 25 Mg PO DAILY Vitals/I & O Vital Sign - Last 24 Hours 02/19/17 02/19/17 02/19/17 02/19/17 15:00 19:00 20:00 23:00 Temp 97.5 98.1 97.8 97.5 98.1 97.8 Pulse 85 92 84 Resp 18 20 20 B/P (MAP) 90/57 (68) 117/69 (85) 93/56 (68) Pulse Ox 96 97 95 O2 Delivery Room Air Room Air Room Air Room Air 02/20/17 02/20/17 02/20/17 02/20/17 03:00 07:00 08:18 08:19 Temp 96.4 97.9 96.4 97.9 Pulse 91 97 97 Resp 18 18 15 B/P (MAP) 105/55 (72) 115/67 (83) 115/67 Pulse Ox 99 99 O2 Delivery Room Air Room Air Room Air 02/20/17 02/20/17 09:19 10:59 Temp 98.6 98.6 Pulse 91 Resp 18 B/P (MAP) 104/65 (78) Pulse Ox 99 99 O2 Delivery Room Air Room Air Intake and Output 02/19/17 02/19/17 02/20/17 15:00 23:00 07:00 Intake Total 240 ml 350 ml Balance 240 ml 350 ml FREDA SIMON MD Feb 20, 2017 11:56
--- NOTE | 2017-02-20 12:25 | PDOC ---
PROGRESS NOTES Subjective Subjective improving, less pain, taking some liquids Objective Objective Vital Signs Date Time Temp Pulse Resp B/P (MAP) Pulse Ox O2 Delivery O2 Flow Rate FiO2 02/20/17 10:59 98.6 91 18 104/65 (78) 99 Room Air 98.6 Intake and Output 02/20/17 07:00 Intake Total 590 ml Balance 590 ml Intake Oral 590 ml # Voids 4 Physical Exam Abdomen: Soft (mildly tender low abdomen, no guarding or peritoneal signs) Heart: Regular rate Extremities: No clubbing, No cyanosis General: Alert, Oriented X3 Lungs: Clear to auscultation Neuro: Normal speech Psych/Mental Status: Mental status NL Assessment Assessment Problems Medical Problems: (1) Diverticulitis Status: Acute Plan Plan of Care Continue with medical management; if continues to improve with abx, would recommend outpt colonoscopy in near future Comment Review of Relevant I have reviewed the following items amando (where applicable) has been applied. Labs Laboratory Tests Test 02/19/17 02:55 02/20/17 02:59 White Blood Count 13.6 x10^3/uL (4.0-11.0) 12.0 x10^3/uL (4.0-11.0) Red Blood Count 3.28 x10^6/uL (3.50-5.40) 3.35 x10^6/uL (3.50-5.40) Hemoglobin 9.4 g/dL (12.0-15.5) 9.6 g/dL (12.0-15.5) Hematocrit 29.2 % (36.0-47.0) 29.3 % (36.0-47.0) Mean Corpuscular Volume 89 fL (79-100) 88 fL (79-100) Mean Corpuscular Hemoglobin 29 pg (25-35) 29 pg (25-35) Mean Corpuscular Hemoglobin Concent 32 g/dL (31-37) 33 g/dL (31-37) Red Cell Distribution Width 15.1 % (11.5-14.5) 14.9 % (11.5-14.5) Platelet Count 400 x10^3/uL (140-400) 406 x10^3/uL (140-400) Neutrophils (%) (Auto) 77 % (31-73) 78 % (31-73) Lymphocytes (%) (Auto) 13 % (24-48) 11 % (24-48) Monocytes (%) (Auto) 9 % (0-9) 9 % (0-9) Eosinophils (%) (Auto) 2 % (0-3) 2 % (0-3) Basophils (%) (Auto) 0 % (0-3) 0 % (0-3) Neutrophils # (Auto) 10.4 x10^3uL (1.8-7.7) 9.4 x10^3uL (1.8-7.7) Lymphocytes # (Auto) 1.7 x10^3/uL (1.0-4.8) 1.3 x10^3/uL (1.0-4.8) Monocytes # (Auto) 1.1 x10^3/uL (0.0-1.1) 1.1 x10^3/uL (0.0-1.1) Eosinophils # (Auto) 0.2 x10^3/uL (0.0-0.7) 0.2 x10^3/uL (0.0-0.7) Basophils # (Auto) 0.1 x10^3/uL (0.0-0.2) 0.0 x10^3/uL (0.0-0.2) Sodium Level 140 mmol/L (136-145) 139 mmol/L (136-145) Potassium Level 3.9 mmol/L (3.5-5.1) 3.9 mmol/L (3.5-5.1) Chloride Level 104 mmol/L (98-107) 105 mmol/L (98-107) Carbon Dioxide Level 24 mmol/L (21-32) 24 mmol/L (21-32) Anion Gap 12 (6-14) 10 (6-14) Blood Urea Nitrogen 10 mg/dL (7-20) 15 mg/dL (7-20) Creatinine 1.0 mg/dL (0.6-1.0) 1.2 mg/dL (0.6-1.0) Estimated GFR (Cockcroft-Gault) 56.0 45.4 BUN/Creatinine Ratio 10 (6-20) Glucose Level 94 mg/dL (70-99) 117 mg/dL (70-99) Calcium Level 9.0 mg/dL (8.5-10.1) 8.2 mg/dL (8.5-10.1) Total Bilirubin 0.2 mg/dL (0.2-1.0) Aspartate Amino Transf (AST/SGOT) 11 U/L (15-37) Alanine Aminotransferase (ALT/SGPT) 22 U/L (14-59) Alkaline Phosphatase 76 U/L (46-116) Total Protein 6.9 g/dL (6.4-8.2) Albumin 2.7 g/dL (3.4-5.0) Albumin/Globulin Ratio 0.6 (1.0-1.7) Laboratory Tests Test 02/20/17 02:59 White Blood Count 12.0 x10^3/uL (4.0-11.0) Red Blood Count 3.35 x10^6/uL (3.50-5.40) Hemoglobin 9.6 g/dL (12.0-15.5) Hematocrit 29.3 % (36.0-47.0) Mean Corpuscular Volume 88 fL (79-100) Mean Corpuscular Hemoglobin 29 pg (25-35) Mean Corpuscular Hemoglobin Concent 33 g/dL (31-37) Red Cell Distribution Width 14.9 % (11.5-14.5) Platelet Count 406 x10^3/uL (140-400) Neutrophils (%) (Auto) 78 % (31-73) Lymphocytes (%) (Auto) 11 % (24-48) Monocytes (%) (Auto) 9 % (0-9) Eosinophils (%) (Auto) 2 % (0-3) Basophils (%) (Auto) 0 % (0-3) Neutrophils # (Auto) 9.4 x10^3uL (1.8-7.7) Lymphocytes # (Auto) 1.3 x10^3/uL (1.0-4.8) Monocytes # (Auto) 1.1 x10^3/uL (0.0-1.1) Eosinophils # (Auto) 0.2 x10^3/uL (0.0-0.7) Basophils # (Auto) 0.0 x10^3/uL (0.0-0.2) Sodium Level 139 mmol/L (136-145) Potassium Level 3.9 mmol/L (3.5-5.1) Chloride Level 105 mmol/L (98-107) Carbon Dioxide Level 24 mmol/L (21-32) Anion Gap 10 (6-14) Blood Urea Nitrogen 15 mg/dL (7-20) Creatinine 1.2 mg/dL (0.6-1.0) Estimated GFR (Cockcroft-Gault) 45.4 Glucose Level 117 mg/dL (70-99) Calcium Level 8.2 mg/dL (8.5-10.1) Microbiology 02/18/17 Urine Culture - Preliminary, Resulted 02/18/17 Urine Culture Result 1 (TARIQ) - Preliminary, Resulted Medications Current Medications Morphine Sulfate 2 mg PRN Q15MIN PRN IV/SQ PAIN GREATER THAN 3/10 Last administered on 02/18/17 07:42; Start 02/18/17 at 07:30; Stop 02/18/17 at 17:49 ; Status DC Sodium Chloride 1,000 ml @ 1,000 mls/hr Q1H IV Last administered on 02/18/17 07:41; Start 02/18/17 at 07:29; Stop 02/18/17 at 08:28; Status DC Ondansetron HCl (Zofran) 4 mg 1X ONCE IV Last administered on 02/18/17 07:41 ; Start 02/18/17 at 08:00; Stop 02/18/17 at 08:01; Status DC Iohexol (Omnipaque 240 Mg/ml) 50 ml 1X ONCE PO Last administered on 02/18/17 08:00; Start 02/18/17 at 08:00; Stop 02/18/17 at 08:01; Status DC Iohexol (Omnipaque 300 Mg/ml) 75 ml 1X ONCE IV Last administered on 02/18/17 08:59; Start 02/18/17 at 08:00; Stop 02/18/17 at 08:01; Status DC Sodium Chloride 1,000 ml @ 1,000 mls/hr 1X ONCE IV Last administered on 09:48; Start 02/18/17 at 09:30; Stop 02/18/17 at 10:29; Status DC Ciprofloxacin Lactate 200 ml @ 200 mls/hr Q12HR IV Last administered on 08:18; Start 02/18/17 at 10:00 Metronidazole 100 ml @ 100 mls/hr Q8H IV Last administered on 02/20/17 11:21; Start 02/18/17 at 11:00 Ondansetron HCl (Zofran) 4 mg PRN Q8HRS PRN IV NAUSEA/VOMITING; Start 02/18/17 at 10:15; Stop 02/19/17 at 10:14; Status DC Morphine Sulfate 2 mg PRN Q2HR PRN IV PAIN Last administered on 02/19/17 07:58 ; Start 02/18/17 at 10:15; Stop 02/19/17 at 10:14; Status DC Diphenhydramine HCl (Benadryl) 25 mg PRN Q6HRS PRN IVP ITCHING Last administered on 02/20/17 09:10; Start 02/18/17 at 14:15 Cyclobenzaprine HCl (Flexeril) 10 mg PRN DAILY PRN PO MUSCLE SPASMS; Start at 17:45 Diltiazem HCl (Cardizem 24hr Cd) 180 mg DAILY PO Last administered on 02/20/17 08:18; Start 02/19/17 at 09:00 Losartan Potassium (Cozaar) 50 mg DAILY PO Last administered on 02/19/17 07:55 ; Start 02/19/17 at 09:00; Stop 02/19/17 at 09:00; Status DC Pantoprazole Sodium (Protonix) 40 mg DAILYAC PO Last administered on 02/19/17 07:56; Start 02/19/17 at 07:30; Stop 02/19/17 at 12:31; Status DC Bupropion HCl (Wellbutrin Xl) 300 mg DAILY PO Last administered on 02/20/17 08: 18; Start 02/19/17 at 09:00 Acetaminophen/ Hydrocodone Bitart (Lortab 7.5/325) 1 tab PRN TID PRN PO MODERATE PAIN Last administered on 02/20/17 08:19; Start 02/18/17 at 18:15 Zolpidem Tartrate (Ambien) 5 mg QHS PO Last administered on 02/19/17 21:49; Start 02/18/17 at 21:00 Zolpidem Tartrate (Ambien) 5 mg PRN QHS PRN PO INSOMNIA; Start 02/18/17 at 18: 15 Acetaminophen (Tylenol) 650 mg PRN Q6HRS PRN PO FEVER; Start 02/19/17 at 12:30 Ondansetron HCl (Zofran) 4 mg PRN Q6HRS PRN IV NAUSEA/VOMITING; Start 02/19/17 at 12:30 Morphine Sulfate 2 mg PRN Q2HR PRN IV PAIN; Start 02/19/17 at 12:30; Stop at 12:31; Status DC Tramadol HCl (Ultram) 50 mg PRN Q6HRS PRN PO PAIN; Start 02/19/17 at 12:30 Hydralazine HCl (Apresoline) 10 mg PRN Q4HRS PRN IVP ELEVATED BP, SEE COMMENTS ; Start 02/19/17 at 12:30 Docusate Sodium (Colace) 100 mg PRN DAILY PRN PO CONSTIPATION; Start 02/19/17 at 12:30 Morphine Sulfate 2 mg PRN Q2HR PRN IV PAIN; Start 02/19/17 at 12:45 Famotidine (Pepcid) 20 mg QHS IVP Last administered on 02/19/17t 21:49; Start at 21:00 Heparin Sodium (Porcine) (Heparin Sq) 5,000 unit Q8HRS SQ ; Start 02/19/17 at 14: 00 Active Scripts Active Reported Ibuprofen 400 Mg Tablet 400 Mg PO PRN Q6HRS PRN Pantoprazole Sodium 40 Mg Tablet.dr 1 Tab PO DAILY Cardizem Cd (Diltiazem Hcl) 180 Mg Cap.er.24h 1 Cap PO DAILY Miralax (Polyethylene Glycol 3350) 17 Gm Powd.pack 1 Packet PO DAILY Ambien (Zolpidem Tartrate) 10 Mg Tablet 1 Tab PO QHS Hydrocodon-Acetaminoph 7.5-500 (Hydrocodone Bit/Acetaminophen) 1 Each Tablet 1 Each PO PRN TID PRN Cyclobenzaprine Hcl 10 Mg Tablet 10 Mg PO PRN DAILY Wellbutrin Xl (Bupropion Hcl) 300 Mg Tab.er.24h 300 Mg PO DAILY Losartan Potassium 25 Mg Tablet 50 Mg PO DAILY Hydrochlorothiazide Tablet (Hydrochlorothiazide) 25 Mg Tablet 25 Mg PO DAILY Vitals/I & O Vital Sign - Last 24 Hours 02/19/17 02/19/17 02/19/1702/19/17 15:00 19:00 20:00 23:00 Temp 97.5 98.1 97.8 97.5 98.1 97.8 Pulse 85 92 84 Resp 18 20 20 B/P (MAP) 90/57 (68) 117/69 (85) 93/56 (68) Pulse Ox 96 97 95 O2 Delivery Room Air Room Air Room Air Room Air 02/20/17 02/20/17 02/20/17 02/20/17 03:00 07:00 08:00 08:18 Temp 96.4 97.9 96.4 97.9 Pulse 91 97 97 Resp 18 18 B/P (MAP) 105/55 (72) 115/67 (83) 115/67 Pulse Ox 99 99 O2 Delivery Room Air Room Air Room Air 02/20/17 02/20/17 02/20/17 08:19 09:19 10:59 Temp 98.6 98.6 Pulse 91 Resp 15 18 B/P (MAP) 104/65 (78) Pulse Ox 99 99 O2 Delivery Room Air Room Air Room Air Intake and Output 02/19/17 02/19/17 02/20/17 15:00 23:00 07:00 Intake Total 240 ml 350 ml Balance 240 ml 350 ml NNAMDI MARTINEZ MD Feb 20, 2017 12:25
--- NOTE | 2017-02-20 13:49 | PDOC ---
G I PROGRESS NOTE Reason for Follow-up Abd pain/diverticulitis Subjective Pain improving Physical Exam Lungs clear CV S1 S2 ABD +BS, soft, tenderness to palpation Review of Relevant I have reviewed the following items amando (where applicable) has been applied. Labs Laboratory Tests Test 02/19/17 02:55 02/20/17 02:59 White Blood Count 13.6 x10^3/uL (4.0-11.0) 12.0 x10^3/uL (4.0-11.0) Red Blood Count 3.28 x10^6/uL (3.50-5.40) 3.35 x10^6/uL (3.50-5.40) Hemoglobin 9.4 g/dL (12.0-15.5) 9.6 g/dL (12.0-15.5) Hematocrit 29.2 % (36.0-47.0) 29.3 % (36.0-47.0) Mean Corpuscular Volume 89 fL (79-100) 88 fL (79-100) Mean Corpuscular Hemoglobin 29 pg (25-35) 29 pg (25-35) Mean Corpuscular Hemoglobin Concent 32 g/dL (31-37) 33 g/dL (31-37) Red Cell Distribution Width 15.1 % (11.5-14.5) 14.9 % (11.5-14.5) Platelet Count 400 x10^3/uL (140-400) 406 x10^3/uL (140-400) Neutrophils (%) (Auto) 77 % (31-73) 78 % (31-73) Lymphocytes (%) (Auto) 13 % (24-48) 11 % (24-48) Monocytes (%) (Auto) 9 % (0-9) 9 % (0-9) Eosinophils (%) (Auto) 2 % (0-3) 2 % (0-3) Basophils (%) (Auto) 0 % (0-3) 0 % (0-3) Neutrophils # (Auto) 10.4 x10^3uL (1.8-7.7) 9.4 x10^3uL (1.8-7.7) Lymphocytes # (Auto) 1.7 x10^3/uL (1.0-4.8) 1.3 x10^3/uL (1.0-4.8) Monocytes # (Auto) 1.1 x10^3/uL (0.0-1.1) 1.1 x10^3/uL (0.0-1.1) Eosinophils # (Auto) 0.2 x10^3/uL (0.0-0.7) 0.2 x10^3/uL (0.0-0.7) Basophils # (Auto) 0.1 x10^3/uL (0.0-0.2) 0.0 x10^3/uL (0.0-0.2) Sodium Level 140 mmol/L (136-145) 139 mmol/L (136-145) Potassium Level 3.9 mmol/L (3.5-5.1) 3.9 mmol/L (3.5-5.1) Chloride Level 104 mmol/L (98-107) 105 mmol/L (98-107) Carbon Dioxide Level 24 mmol/L (21-32) 24 mmol/L (21-32) Anion Gap 12 (6-14) 10 (6-14) Blood Urea Nitrogen 10 mg/dL (7-20) 15 mg/dL (7-20) Creatinine 1.0 mg/dL (0.6-1.0) 1.2 mg/dL (0.6-1.0) Estimated GFR (Cockcroft-Gault) 56.0 45.4 BUN/Creatinine Ratio 10 (6-20) Glucose Level 94 mg/dL (70-99) 117 mg/dL (70-99) Calcium Level 9.0 mg/dL (8.5-10.1) 8.2 mg/dL (8.5-10.1) Total Bilirubin 0.2 mg/dL (0.2-1.0) Aspartate Amino Transf (AST/SGOT) 11 U/L (15-37) Alanine Aminotransferase (ALT/SGPT) 22 U/L (14-59) Alkaline Phosphatase 76 U/L (46-116) Total Protein 6.9 g/dL (6.4-8.2) Albumin 2.7 g/dL (3.4-5.0) Albumin/Globulin Ratio 0.6 (1.0-1.7) Laboratory Tests Test 02/20/17 02:59 White Blood Count 12.0 x10^3/uL (4.0-11.0) Red Blood Count 3.35 x10^6/uL (3.50-5.40) Hemoglobin 9.6 g/dL (12.0-15.5) Hematocrit 29.3 % (36.0-47.0) Mean Corpuscular Volume 88 fL (79-100) Mean Corpuscular Hemoglobin 29 pg (25-35) Mean Corpuscular Hemoglobin Concent 33 g/dL (31-37) Red Cell Distribution Width 14.9 % (11.5-14.5) Platelet Count 406 x10^3/uL (140-400) Neutrophils (%) (Auto) 78 % (31-73) Lymphocytes (%) (Auto) 11 % (24-48) Monocytes (%) (Auto) 9 % (0-9) Eosinophils (%) (Auto) 2 % (0-3) Basophils (%) (Auto) 0 % (0-3) Neutrophils # (Auto) 9.4 x10^3uL (1.8-7.7) Lymphocytes # (Auto) 1.3 x10^3/uL (1.0-4.8) Monocytes # (Auto) 1.1 x10^3/uL (0.0-1.1) Eosinophils # (Auto) 0.2 x10^3/uL (0.0-0.7) Basophils # (Auto) 0.0 x10^3/uL (0.0-0.2) Sodium Level 139 mmol/L (136-145) Potassium Level 3.9 mmol/L (3.5-5.1) Chloride Level 105 mmol/L (98-107) Carbon Dioxide Level 24 mmol/L (21-32) Anion Gap 10 (6-14) Blood Urea Nitrogen 15 mg/dL (7-20) Creatinine 1.2 mg/dL (0.6-1.0) Estimated GFR (Cockcroft-Gault) 45.4 Glucose Level 117 mg/dL (70-99) Calcium Level 8.2 mg/dL (8.5-10.1) Microbiology 02/18/17 Urine Culture - Preliminary, Resulted 02/18/17 Urine Culture Result 1 (TARIQ) - Preliminary, Resulted Medications Current Medications Morphine Sulfate 2 mg PRN Q15MIN PRN IV/SQ PAIN GREATER THAN 3/10 Last administered on 02/18/17 07:42; Start 02/18/17 at 07:30; Stop 02/18/17 at 17:49 ; Status DC Sodium Chloride 1,000 ml @ 1,000 mls/hr Q1H IV Last administered on 02/18/17 07:41; Start 02/18/17 at 07:29; Stop 02/18/17 at 08:28; Status DC Ondansetron HCl (Zofran) 4 mg 1X ONCE IV Last administered on 02/18/17 07:41 ; Start 02/18/17 at 08:00; Stop 02/18/17 at 08:01; Status DC Iohexol (Omnipaque 240 Mg/ml) 50 ml 1X ONCE PO Last administered on 02/18/17 08:00; Start 02/18/17 at 08:00; Stop 02/18/17 at 08:01; Status DC Iohexol (Omnipaque 300 Mg/ml) 75 ml 1X ONCE IV Last administered on 02/18/17 08:59; Start 02/18/17 at 08:00; Stop 02/18/17 at 08:01; Status DC Sodium Chloride 1,000 ml @ 1,000 mls/hr 1X ONCE IV Last administered on 09:48; Start 02/18/17 at 09:30; Stop 02/18/17 at 10:29; Status DC Ciprofloxacin Lactate 200 ml @ 200 mls/hr Q12HR IV Last administered on 08:18; Start 02/18/17 at 10:00 Metronidazole 100 ml @ 100 mls/hr Q8H IV Last administered on 02/20/17 11:21; Start 02/18/17 at 11:00 Ondansetron HCl (Zofran) 4 mg PRN Q8HRS PRN IV NAUSEA/VOMITING; Start 02/18/17 at 10:15; Stop 02/19/17 at 10:14; Status DC Morphine Sulfate 2 mg PRN Q2HR PRN IV PAIN Last administered on 02/19/17 07:58 ; Start 02/18/17 at 10:15; Stop 02/19/17 at 10:14; Status DC Diphenhydramine HCl (Benadryl) 25 mg PRN Q6HRS PRN IVP ITCHING Last administered on 02/20/17 09:10; Start 02/18/17 at 14:15 Cyclobenzaprine HCl (Flexeril) 10 mg PRN DAILY PRN PO MUSCLE SPASMS; Start at 17:45 Diltiazem HCl (Cardizem 24hr Cd) 180 mg DAILY PO Last administered on 02/20/17 08:18; Start 02/19/17 at 09:00 Losartan Potassium (Cozaar) 50 mg DAILY PO Last administered on 02/19/17 07:55 ; Start 02/19/17 at 09:00; Stop 02/19/17 at 09:00; Status DC Pantoprazole Sodium (Protonix) 40 mg DAILYAC PO Last administered on 02/19/17 07:56; Start 02/19/17 at 07:30; Stop 02/19/17 at 12:31; Status DC Bupropion HCl (Wellbutrin Xl) 300 mg DAILY PO Last administered on 02/20/17 08: 18; Start 02/19/17 at 09:00 Acetaminophen/ Hydrocodone Bitart (Lortab 7.5/325) 1 tab PRN TID PRN PO MODERATE PAIN Last administered on 02/20/17 08:19; Start 02/18/17 at 18:15 Zolpidem Tartrate (Ambien) 5 mg QHS PO Last administered on 02/19/17 21:49; Start 02/18/17 at 21:00 Zolpidem Tartrate (Ambien) 5 mg PRN QHS PRN PO INSOMNIA; Start 02/18/17 at 18: 15 Acetaminophen (Tylenol) 650 mg PRN Q6HRS PRN PO FEVER; Start 02/19/17 at 12:30 Ondansetron HCl (Zofran) 4 mg PRN Q6HRS PRN IV NAUSEA/VOMITING; Start 02/19/17 at 12:30 Morphine Sulfate 2 mg PRN Q2HR PRN IV PAIN; Start 02/19/17 at 12:30; Stop at 12:31; Status DC Tramadol HCl (Ultram) 50 mg PRN Q6HRS PRN PO PAIN; Start 02/19/17 at 12:30 Hydralazine HCl (Apresoline) 10 mg PRN Q4HRS PRN IVP ELEVATED BP, SEE COMMENTS ; Start 02/19/17 at 12:30 Docusate Sodium (Colace) 100 mg PRN DAILY PRN PO CONSTIPATION; Start 02/19/17 at 12:30 Morphine Sulfate 2 mg PRN Q2HR PRN IV PAIN; Start 02/19/17 at 12:45 Famotidine (Pepcid) 20 mg QHS IVP Last administered on 02/19/17t 21:49; Start at 21:00 Heparin Sodium (Porcine) (Heparin Sq) 5,000 unit Q8HRS SQ ; Start 02/19/17 at 14: 00 Active Scripts Active Reported Ibuprofen 400 Mg Tablet 400 Mg PO PRN Q6HRS PRN Pantoprazole Sodium 40 Mg Tablet.dr 1 Tab PO DAILY Cardizem Cd (Diltiazem Hcl) 180 Mg Cap.er.24h 1 Cap PO DAILY Miralax (Polyethylene Glycol 3350) 17 Gm Powd.pack 1 Packet PO DAILY Ambien (Zolpidem Tartrate) 10 Mg Tablet 1 Tab PO QHS Hydrocodon-Acetaminoph 7.5-500 (Hydrocodone Bit/Acetaminophen) 1 Each Tablet 1 Each PO PRN TID PRN Cyclobenzaprine Hcl 10 Mg Tablet 10 Mg PO PRN DAILY Wellbutrin Xl (Bupropion Hcl) 300 Mg Tab.er.24h 300 Mg PO DAILY Losartan Potassium 25 Mg Tablet 50 Mg PO DAILY Hydrochlorothiazide Tablet (Hydrochlorothiazide) 25 Mg Tablet 25 Mg PO DAILY Vitals/I & O Vital Sign - Last 24 Hours 02/19/17 02/19/17 02/19/17 02/19/17 15:00 19:00 20:00 23:00 Temp 97.5 98.1 97.8 97.5 98.1 97.8 Pulse 85 92 84 Resp 18 20 20 B/P (MAP) 90/57 (68) 117/69 (85) 93/56 (68) Pulse Ox 96 97 95 O2 Delivery Room Air Room Air Room Air Room Air 02/20/17 02/20/17 02/20/17 02/20/17 03:00 07:00 08:00 08:18 Temp 96.4 97.9 96.4 97.9 Pulse 91 97 97 Resp 18 18 B/P (MAP) 105/55 (72) 115/67 (83) 115/67 Pulse Ox 99 99 O2 Delivery Room Air Room Air Room Air 02/20/17 02/20/17 02/20/17 08:19 09:19 10:59 Temp 98.6 98.6 Pulse 91 Resp 15 18 B/P (MAP) 104/65 (78) Pulse Ox 99 99 O2 Delivery Room Air Room Air Room Air Intake and Output 02/19/17 02/19/17 02/20/17 15:00 23:00 07:00 Intake Total 240 ml 350 ml Balance 240 ml 350 ml Problem List Problems Medical Problems: (1) Diverticulitis Status: Acute Assessment LLQ abd pain- with diverticulitis, improving with antibiotics, o/p fu with celiac labs and colonoscopy in 4-6 weeks, advance diet as tolerated NNAMDI BERNARD MD Feb 20, 2017 13:49
[2017-02-20 14:53] VITALS: BP 97/56
[2017-02-20 19:00] VITALS: BP 111/67
[2017-02-20] MEDS: MORPHINE SULFATE 4 MG/ML DISP.SYRIN. IV PRN (21:46)
[2017-02-20] MEDS: ZOLPIDEM 5 MG TABLET. PO SCH (21:48)
[2017-02-20] MEDS: FAMOTIDINE 20 MG/2 ML VIAL IVP SCH (21:49)
[2017-02-20] MEDS: CYCLOBENZAPRINE 10 MG TABLET. PO PRN (22:02)
[2017-02-20 22:56] VITALS: BP 98/61
[2017-02-21] MEDS: HYDROcodone/APAP 7.5/325MG 1 TAB TABLET PO PRN ×3 (02:49→17:24)
[2017-02-21 03:00] VITALS: BP 97/62
[2017-02-21] MEDS: HEPARIN PF for SUB-Q USE 5,000 UNIT/0.5 ML VIAL. SQ SCH ×3 (04:47→20:57)
[2017-02-21 05:16] LABS: BASO # 0.1 x10^3/uL (0.0-0.2); BASO % 0 % (0-3); EOS % 2 % (0-3); HEMATOCRIT 29.2 % (36.0-47.0); HEMOGLOBIN 9.4 g/dL (12.0-15.5); LYMPH # 1.1 x10^3/uL (1.0-4.8); LYMPH % 7 % (24-48); MEAN CORPUSCULAR HEMOGLOBIN 29 pg (25-35); MEAN CORPUSCULAR HGB CONC 32 g/dL (31-37); MEAN CORPUSCULAR VOLUME 89 fL (79-100); MONO % 10 % (0-9); NEUT % 82 % (31-73); PLATELET COUNT 402 x10^3/uL (140-400); RED BLOOD COUNT 3.27 x10^6/uL (3.50-5.40); RED CELL DISTRIBUTION WIDTH 14.6 % (11.5-14.5); WHITE BLOOD COUNT 16.8 x10^3/uL (4.0-11.0)
[2017-02-21 05:44] LABS: CALCIUM 8.5 mg/dL (8.5-10.1); POTASSIUM 4.2 mmol/L (3.5-5.1)
[2017-02-21 07:00] VITALS: BP 108/67
--- NOTE | 2017-02-21 07:39 | PDOC ---
PROGRESS NOTES Subjective Subjective still with some lower abdominal pain, but overall feels that she is improving Objective Objective Vital Signs Date Time Temp Pulse Resp B/P (MAP) Pulse Ox O2 Delivery O2 Flow Rate FiO2 02/21/17 03:49 18 99 Room Air 02/21/17 03:00 99.1 105 97/62 (74) 99.1 Intake and Output 02/21/17 07:00 Intake Total 2480 ml Balance 2480 ml Intake Oral 2180 ml IV Total 300 ml # Voids 3 Physical Exam Abdomen: Soft (tender low abdomen, no guarding) Heart: Regular rate Extremities: No clubbing, No cyanosis General: Alert, Oriented X3 HEENT: Atraumatic Lungs: Clear to auscultation MUSCULOSKELETAL: No joint tenderness, No deformity Neuro: Normal speech, Strength at 5/5 X4 ext Psych/Mental Status: Mental status NL Assessment Assessment Problems Medical Problems: (1) Diverticulitis Status: Acute Plan Plan of Care Diverticulitis, WBC up, will recheck CT scan, ?abscess Comment Review of Relevant I have reviewed the following items amando (where applicable) has been applied. Labs Laboratory Tests Test 02/20/17 02:59 02/21/17 04:15 White Blood Count 12.0 x10^3/uL (4.0-11.0) 16.8 x10^3/uL (4.0-11.0) Red Blood Count 3.35 x10^6/uL (3.50-5.40) 3.27 x10^6/uL (3.50-5.40) Hemoglobin 9.6 g/dL (12.0-15.5) 9.4 g/dL (12.0-15.5) Hematocrit 29.3 % (36.0-47.0) 29.2 % (36.0-47.0) Mean Corpuscular Volume 88 fL (79-100) 89 fL (79-100) Mean Corpuscular Hemoglobin 29 pg (25-35) 29 pg (25-35) Mean Corpuscular Hemoglobin Concent 33 g/dL (31-37) 32 g/dL (31-37) Red Cell Distribution Width 14.9 % (11.5-14.5) 14.6 % (11.5-14.5) Platelet Count 406 x10^3/uL (140-400) 402 x10^3/uL (140-400) Neutrophils (%) (Auto) 78 % (31-73) 82 % (31-73) Lymphocytes (%) (Auto) 11 % (24-48) 7 % (24-48) Monocytes (%) (Auto) 9 % (0-9) 10 % (0-9) Eosinophils (%) (Auto) 2 % (0-3) 2 % (0-3) Basophils (%) (Auto) 0 % (0-3) 0 % (0-3) Neutrophils # (Auto) 9.4 x10^3uL (1.8-7.7) 13.7 x10^3uL (1.8-7.7) Lymphocytes # (Auto) 1.3 x10^3/uL (1.0-4.8) 1.1 x10^3/uL (1.0-4.8) Monocytes # (Auto) 1.1 x10^3/uL (0.0-1.1) 1.6 x10^3/uL (0.0-1.1) Eosinophils # (Auto) 0.2 x10^3/uL (0.0-0.7) 0.3 x10^3/uL (0.0-0.7) Basophils # (Auto) 0.0 x10^3/uL (0.0-0.2) 0.1 x10^3/uL (0.0-0.2) Sodium Level 139 mmol/L (136-145) 138 mmol/L (136-145) Potassium Level 3.9 mmol/L (3.5-5.1) 4.2 mmol/L (3.5-5.1) Chloride Level 105 mmol/L (98-107) 104 mmol/L (98-107) Carbon Dioxide Level 24 mmol/L (21-32) 23 mmol/L (21-32) Anion Gap 10 (6-14) 11 (6-14) Blood Urea Nitrogen 15 mg/dL (7-20) 11 mg/dL (7-20) Creatinine 1.2 mg/dL (0.6-1.0) 1.0 mg/dL (0.6-1.0) Estimated GFR (Cockcroft-Gault) 45.4 56.0 Glucose Level 117 mg/dL (70-99) 138 mg/dL (70-99) Calcium Level 8.2 mg/dL (8.5-10.1) 8.5 mg/dL (8.5-10.1) Laboratory Tests Test 02/21/17 04:15 White Blood Count 16.8 x10^3/uL (4.0-11.0) Red Blood Count 3.27 x10^6/uL (3.50-5.40) Hemoglobin 9.4 g/dL (12.0-15.5) Hematocrit 29.2 % (36.0-47.0) Mean Corpuscular Volume 89 fL (79-100) Mean Corpuscular Hemoglobin 29 pg (25-35) Mean Corpuscular Hemoglobin Concent 32 g/dL (31-37) Red Cell Distribution Width 14.6 % (11.5-14.5) Platelet Count 402 x10^3/uL (140-400) Neutrophils (%) (Auto) 82 % (31-73) Lymphocytes (%) (Auto) 7 % (24-48) Monocytes (%) (Auto) 10 % (0-9) Eosinophils (%) (Auto) 2 % (0-3) Basophils (%) (Auto) 0 % (0-3) Neutrophils # (Auto) 13.7 x10^3uL (1.8-7.7) Lymphocytes # (Auto) 1.1 x10^3/uL (1.0-4.8) Monocytes # (Auto) 1.6 x10^3/uL (0.0-1.1) Eosinophils # (Auto) 0.3 x10^3/uL (0.0-0.7) Basophils # (Auto) 0.1 x10^3/uL (0.0-0.2) Sodium Level 138 mmol/L (136-145) Potassium Level 4.2 mmol/L (3.5-5.1) Chloride Level 104 mmol/L (98-107) Carbon Dioxide Level 23 mmol/L (21-32) Anion Gap 11 (6-14) Blood Urea Nitrogen 11 mg/dL (7-20) Creatinine 1.0 mg/dL (0.6-1.0) Estimated GFR (Cockcroft-Gault) 56.0 Glucose Level 138 mg/dL (70-99) Calcium Level 8.5 mg/dL (8.5-10.1) Microbiology 02/18/17 Urine Culture - Final, Complete 02/18/17 Urine Culture Result 1 (TARIQ) - Final, Complete Medications Current Medications Morphine Sulfate 2 mg PRN Q15MIN PRN IV/SQ PAIN GREATER THAN 3/10 Last administered on 02/18/17 07:42; Start 02/18/17 at 07:30; Stop 02/18/17 at 17:49 ; Status DC Sodium Chloride 1,000 ml @ 1,000 mls/hr Q1H IV Last administered on 02/18/17 07:41; Start 02/18/17 at 07:29; Stop 02/18/17 at 08:28; Status DC Ondansetron HCl (Zofran) 4 mg 1X ONCE IV Last administered on 02/18/17 07:41 ; Start 02/18/17 at 08:00; Stop 02/18/17 at 08:01; Status DC Iohexol (Omnipaque 240 Mg/ml) 50 ml 1X ONCE PO Last administered on 02/18/17 08:00; Start 02/18/17 at 08:00; Stop 02/18/17 at 08:01; Status DC Iohexol (Omnipaque 300 Mg/ml) 75 ml 1X ONCE IV Last administered on 02/18/17 08:59; Start 02/18/17 at 08:00; Stop 02/18/17 at 08:01; Status DC Sodium Chloride 1,000 ml @ 1,000 mls/hr 1X ONCE IV Last administered on 09:48; Start 02/18/17 at 09:30; Stop 02/18/17 at 10:29; Status DC Ciprofloxacin Lactate 200 ml @ 200 mls/hr Q12HR IV Last administered on 21:49; Start 02/18/17 at 10:00 Metronidazole 100 ml @ 100 mls/hr Q8H IV Last administered on 02/21/17 02:43; Start 02/18/17 at 11:00 Ondansetron HCl (Zofran) 4 mg PRN Q8HRS PRN IV NAUSEA/VOMITING; Start 02/18/17 at 10:15; Stop 02/19/17 at 10:14; Status DC Morphine Sulfate 2 mg PRN Q2HR PRN IV PAIN Last administered on 02/19/17 07:58 ; Start 02/18/17 at 10:15; Stop 02/19/17 at 10:14; Status DC Diphenhydramine HCl (Benadryl) 25 mg PRN Q6HRS PRN IVP ITCHING Last administered on 02/20/17 17:53; Start 02/18/17 at 14:15 Cyclobenzaprine HCl (Flexeril) 10 mg PRN DAILY PRN PO MUSCLE SPASMS Last administered on 02/20/17 22:02; Start 02/18/17 at 17:45 Diltiazem HCl (Cardizem 24hr Cd) 180 mg DAILY PO Last administered on 02/20/17 08:18; Start 02/19/17 at 09:00 Losartan Potassium (Cozaar) 50 mg DAILY PO Last administered on 02/19/17 07:55 ; Start 02/19/17 at 09:00; Stop 02/19/17 at 09:00; Status DC Pantoprazole Sodium (Protonix) 40 mg DAILYAC PO Last administered on 02/19/17 07:56; Start 02/19/17 at 07:30; Stop 02/19/17 at 12:31; Status DC Bupropion HCl (Wellbutrin Xl) 300 mg DAILY PO Last administered on 02/20/17 08: 18; Start 02/19/17 at 09:00 Acetaminophen/ Hydrocodone Bitart (Lortab 7.5/325) 1 tab PRN TID PRN PO MODERATE PAIN Last administered on 02/21/17 02:49; Start 02/18/17 at 18:15 Zolpidem Tartrate (Ambien) 5 mg QHS PO Last administered on 02/20/17 21:48; Start 02/18/17 at 21:00 Zolpidem Tartrate (Ambien) 5 mg PRN QHS PRN PO INSOMNIA; Start 02/18/17 at 18: 15 Acetaminophen (Tylenol) 650 mg PRN Q6HRS PRN PO FEVER; Start 02/19/17 at 12:30 Ondansetron HCl (Zofran) 4 mg PRN Q6HRS PRN IV NAUSEA/VOMITING; Start 02/19/17 at 12:30 Morphine Sulfate 2 mg PRN Q2HR PRN IV PAIN; Start 02/19/17 at 12:30; Stop at 12:31; Status DC Tramadol HCl (Ultram) 50 mg PRN Q6HRS PRN PO PAIN; Start 02/19/17 at 12:30 Hydralazine HCl (Apresoline) 10 mg PRN Q4HRS PRN IVP ELEVATED BP, SEE COMMENTS ; Start 02/19/17 at 12:30 Docusate Sodium (Colace) 100 mg PRN DAILY PRN PO CONSTIPATION; Start 02/19/17 at 12:30 Morphine Sulfate 2 mg PRN Q2HR PRN IV PAIN Last administered on 02/20/17t 21:46 ; Start 02/19/17 at 12:45 Famotidine (Pepcid) 20 mg QHS IVP Last administered on 02/20/17t 21:49; Start at 21:00 Heparin Sodium (Porcine) (Heparin Sq) 5,000 unit Q8HRS SQ ; Start 02/19/17 at 14: 00 Active Scripts Active Reported Ibuprofen 400 Mg Tablet 400 Mg PO PRN Q6HRS PRN Pantoprazole Sodium 40 Mg Tablet.dr 1 Tab PO DAILY Cardizem Cd (Diltiazem Hcl) 180 Mg Cap.er.24h 1 Cap PO DAILY Miralax (Polyethylene Glycol 3350) 17 Gm Powd.pack 1 Packet PO DAILY Ambien (Zolpidem Tartrate) 10 Mg Tablet 1 Tab PO QHS Hydrocodon-Acetaminoph 7.5-500 (Hydrocodone Bit/Acetaminophen) 1 Each Tablet 1 Each PO PRN TID PRN Cyclobenzaprine Hcl 10 Mg Tablet 10 Mg PO PRN DAILY Wellbutrin Xl (Bupropion Hcl) 300 Mg Tab.er.24h 300 Mg PO DAILY Losartan Potassium 25 Mg Tablet 50 Mg PO DAILY Hydrochlorothiazide Tablet (Hydrochlorothiazide) 25 Mg Tablet 25 Mg PO DAILY Vitals/I & O Vital Sign - Last 24 Hours 02/20/17 02/20/17 02/20/17 02/20/17 08:00 08:18 08:19 10:59 Temp 98.6 98.6 Pulse 97 91 Resp 15 18 B/P (MAP) 115/67 104/65 (78) Pulse Ox 99 O2 Delivery Room Air Room Air Room Air 02/20/17 02/20/17 02/20/17 02/20/17 14:53 19:00 20:00 21:46 Temp 98.6 98.4 98.6 98.4 Pulse 87 87 Resp 18 18 18 B/P (MAP) 97/56 (70) 111/67 (82) Pulse Ox 96 92 92 O2 Delivery Room Air Room Air Room Air Room Air 02/20/17 02/20/17 02/20/17 02/21/17 22:02 22:16 22:56 02:49 Temp 99.1 99.1 Pulse 91 Resp 20 18 18 18 B/P (MAP) 98/61 (73) Pulse Ox 92 98 98 98 O2 Delivery Room Air Room Air Room Air Room Air 02/21/17 02/21/17 03:00 03:49 Temp 99.1 99.1 Pulse 105 Resp 18 18 B/P (MAP) 97/62 (74) Pulse Ox 99 99 O2 Delivery Room Air Room Air Intake and Output 02/20/17 02/20/17 02/21/17 15:00 23:00 07:00 Intake Total 800 ml 1080 ml 600 ml Balance 800 ml 1080 ml 600 ml NNAMDI MARTINEZ MD Feb 21, 2017 07:39
[2017-02-21] MEDS ORDERED: IOHEXOL 240 MG/ML 50ML VIAL. PO ONE (08:30)
[2017-02-21] MEDS ORDERED: IOHEXOL 300 MG/ML 75 ML VIAL IV ONE (08:30)
[2017-02-21] MEDS: CIPROFLOXACIN 400MG PREMIX 200 ML IV SCH ×2 (08:38→20:56)
[2017-02-21] MEDS: buPROPion XL 150 MG TAB.ER.24H. PO SCH (08:39)
--- NOTE | 2017-02-21 10:43 | PDOC ---
Infectious Disease Note Subjective Subjective c/o more abd pain, also now green slimy vaginal discharge ROS ROS GEN: Denies fevers, chills, sweats HEENT: Denies blurred vision, sore throat CV: Denies chest pain RESP: Denies shortness of air, cough GI: Denies n/v/d NEURO: Denies confusion, dizziness MSK: Denies weakness, joint pain/swelling Vital Sign Vital Signs Vital Signs Date Time Temp Pulse Resp B/P (MAP) Pulse Ox O2 Delivery O2 Flow Rate FiO2 02/21/17 08:39 Room Air 02/21/17 08:39 103 108/67 02/21/17 07:00 97.7 18 95 97.7 Physical Exam PHYSICAL EXAM GENERAL: NAD, Alert HEENT: PERRL, OC/OP NECK: Supple, no JVD, no LN LUNGS: Clear HEART: S1S2, no gallop, no murmur ABD: Soft, NT, no organomegaly, no rebound EXT: No edema, no cyanosis [employer]: Alert, oriented x 3, no focal neurologic deficit SKIN: No rash IV: ok Labs Lab Laboratory Tests Test 02/21/17 04:15 White Blood Count 16.8 x10^3/uL (4.0-11.0) Red Blood Count 3.27 x10^6/uL (3.50-5.40) Hemoglobin 9.4 g/dL (12.0-15.5) Hematocrit 29.2 % (36.0-47.0) Mean Corpuscular Volume 89 fL (79-100) Mean Corpuscular Hemoglobin 29 pg (25-35) Mean Corpuscular Hemoglobin Concent 32 g/dL (31-37) Red Cell Distribution Width 14.6 % (11.5-14.5) Platelet Count 402 x10^3/uL (140-400) Neutrophils (%) (Auto) 82 % (31-73) Lymphocytes (%) (Auto) 7 % (24-48) Monocytes (%) (Auto) 10 % (0-9) Eosinophils (%) (Auto) 2 % (0-3) Basophils (%) (Auto) 0 % (0-3) Neutrophils # (Auto) 13.7 x10^3uL (1.8-7.7) Lymphocytes # (Auto) 1.1 x10^3/uL (1.0-4.8) Monocytes # (Auto) 1.6 x10^3/uL (0.0-1.1) Eosinophils # (Auto) 0.3 x10^3/uL (0.0-0.7) Basophils # (Auto) 0.1 x10^3/uL (0.0-0.2) Sodium Level 138 mmol/L (136-145) Potassium Level 4.2 mmol/L (3.5-5.1) Chloride Level 104 mmol/L (98-107) Carbon Dioxide Level 23 mmol/L (21-32) Anion Gap 11 (6-14) Blood Urea Nitrogen 11 mg/dL (7-20) Creatinine 1.0 mg/dL (0.6-1.0) Estimated GFR (Cockcroft-Gault) 56.0 Glucose Level 138 mg/dL (70-99) Calcium Level 8.5 mg/dL (8.5-10.1) Objective Assessment Diverticulitis with perforation with ? fistula Leukocytosis Abdominal pain HTN Plan Plan of Care cont antibiotics , supportive care repeat ct CHRISTIE JUAREZ MD Feb 21, 2017 10:42
--- NOTE | 2017-02-21 10:57 | PDOC ---
G I PROGRESS NOTE Reason for Follow-up Abd pain/diverticulitis with possible vaginal leak Subjective Worried about discharge Physical Exam Lungs clear CV S1 S2 ABD +BS, soft, LLQ tender to palpation' Review of Relevant I have reviewed the following items amando (where applicable) has been applied. Labs Laboratory Tests Test 02/20/17 02:59 02/21/17 04:15 White Blood Count 12.0 x10^3/uL (4.0-11.0) 16.8 x10^3/uL (4.0-11.0) Red Blood Count 3.35 x10^6/uL (3.50-5.40) 3.27 x10^6/uL (3.50-5.40) Hemoglobin 9.6 g/dL (12.0-15.5) 9.4 g/dL (12.0-15.5) Hematocrit 29.3 % (36.0-47.0) 29.2 % (36.0-47.0) Mean Corpuscular Volume 88 fL (79-100) 89 fL (79-100) Mean Corpuscular Hemoglobin 29 pg (25-35) 29 pg (25-35) Mean Corpuscular Hemoglobin Concent 33 g/dL (31-37) 32 g/dL (31-37) Red Cell Distribution Width 14.9 % (11.5-14.5) 14.6 % (11.5-14.5) Platelet Count 406 x10^3/uL (140-400) 402 x10^3/uL (140-400) Neutrophils (%) (Auto) 78 % (31-73) 82 % (31-73) Lymphocytes (%) (Auto) 11 % (24-48) 7 % (24-48) Monocytes (%) (Auto) 9 % (0-9) 10 % (0-9) Eosinophils (%) (Auto) 2 % (0-3) 2 % (0-3) Basophils (%) (Auto) 0 % (0-3) 0 % (0-3) Neutrophils # (Auto) 9.4 x10^3uL (1.8-7.7) 13.7 x10^3uL (1.8-7.7) Lymphocytes # (Auto) 1.3 x10^3/uL (1.0-4.8) 1.1 x10^3/uL (1.0-4.8) Monocytes # (Auto) 1.1 x10^3/uL (0.0-1.1) 1.6 x10^3/uL (0.0-1.1) Eosinophils # (Auto) 0.2 x10^3/uL (0.0-0.7) 0.3 x10^3/uL (0.0-0.7) Basophils # (Auto) 0.0 x10^3/uL (0.0-0.2) 0.1 x10^3/uL (0.0-0.2) Sodium Level 139 mmol/L (136-145) 138 mmol/L (136-145) Potassium Level 3.9 mmol/L (3.5-5.1) 4.2 mmol/L (3.5-5.1) Chloride Level 105 mmol/L (98-107) 104 mmol/L (98-107) Carbon Dioxide Level 24 mmol/L (21-32) 23 mmol/L (21-32) Anion Gap 10 (6-14) 11 (6-14) Blood Urea Nitrogen 15 mg/dL (7-20) 11 mg/dL (7-20) Creatinine 1.2 mg/dL (0.6-1.0) 1.0 mg/dL (0.6-1.0) Estimated GFR (Cockcroft-Gault) 45.4 56.0 Glucose Level 117 mg/dL (70-99) 138 mg/dL (70-99) Calcium Level 8.2 mg/dL (8.5-10.1) 8.5 mg/dL (8.5-10.1) Laboratory Tests Test 02/21/17 04:15 White Blood Count 16.8 x10^3/uL (4.0-11.0) Red Blood Count 3.27 x10^6/uL (3.50-5.40) Hemoglobin 9.4 g/dL (12.0-15.5) Hematocrit 29.2 % (36.0-47.0) Mean Corpuscular Volume 89 fL (79-100) Mean Corpuscular Hemoglobin 29 pg (25-35) Mean Corpuscular Hemoglobin Concent 32 g/dL (31-37) Red Cell Distribution Width 14.6 % (11.5-14.5) Platelet Count 402 x10^3/uL (140-400) Neutrophils (%) (Auto) 82 % (31-73) Lymphocytes (%) (Auto) 7 % (24-48) Monocytes (%) (Auto) 10 % (0-9) Eosinophils (%) (Auto) 2 % (0-3) Basophils (%) (Auto) 0 % (0-3) Neutrophils # (Auto) 13.7 x10^3uL (1.8-7.7) Lymphocytes # (Auto) 1.1 x10^3/uL (1.0-4.8) Monocytes # (Auto) 1.6 x10^3/uL (0.0-1.1) Eosinophils # (Auto) 0.3 x10^3/uL (0.0-0.7) Basophils # (Auto) 0.1 x10^3/uL (0.0-0.2) Sodium Level 138 mmol/L (136-145) Potassium Level 4.2 mmol/L (3.5-5.1) Chloride Level 104 mmol/L (98-107) Carbon Dioxide Level 23 mmol/L (21-32) Anion Gap 11 (6-14) Blood Urea Nitrogen 11 mg/dL (7-20) Creatinine 1.0 mg/dL (0.6-1.0) Estimated GFR (Cockcroft-Gault) 56.0 Glucose Level 138 mg/dL (70-99) Calcium Level 8.5 mg/dL (8.5-10.1) Microbiology 02/18/17 Urine Culture - Final, Complete 02/18/17 Urine Culture Result 1 (TARIQ) - Final, Complete Medications Current Medications Morphine Sulfate 2 mg PRN Q15MIN PRN IV/SQ PAIN GREATER THAN 3/10 Last administered on 02/18/17 07:42; Start 02/18/17 at 07:30; Stop 02/18/17 at 17:49 ; Status DC Sodium Chloride 1,000 ml @ 1,000 mls/hr Q1H IV Last administered on 02/18/17t 07:41; Start 02/18/17 at 07:29; Stop 02/18/17 at 08:28; Status DC Ondansetron HCl (Zofran) 4 mg 1X ONCE IV Last administered on 02/18/17 07:41 ; Start 02/18/17 at 08:00; Stop 02/18/17 at 08:01; Status DC Iohexol (Omnipaque 240 Mg/ml) 50 ml 1X ONCE PO Last administered on 02/18/17 08:00; Start 02/18/17 at 08:00; Stop 02/18/17 at 08:01; Status DC Iohexol (Omnipaque 300 Mg/ml) 75 ml 1X ONCE IV Last administered on 02/18/17 08:59; Start 02/18/17 at 08:00; Stop 02/18/17 at 08:01; Status DC Sodium Chloride 1,000 ml @ 1,000 mls/hr 1X ONCE IV Last administered on 09:48; Start 02/18/17 at 09:30; Stop 02/18/17 at 10:29; Status DC Ciprofloxacin Lactate 200 ml @ 200 mls/hr Q12HR IV Last administered on 08:38; Start 02/18/17 at 10:00 Metronidazole 100 ml @ 100 mls/hr Q8H IV Last administered on 02/21/17 02:43; Start 02/18/17 at 11:00 Ondansetron HCl (Zofran) 4 mg PRN Q8HRS PRN IV NAUSEA/VOMITING; Start 02/18/17 at 10:15; Stop 02/19/17 at 10:14; Status DC Morphine Sulfate 2 mg PRN Q2HR PRN IV PAIN Last administered on 02/19/17 07:58 ; Start 02/18/17 at 10:15; Stop 02/19/17 at 10:14; Status DC Diphenhydramine HCl (Benadryl) 25 mg PRN Q6HRS PRN IVP ITCHING Last administered on 02/20/17 17:53; Start 02/18/17 at 14:15 Cyclobenzaprine HCl (Flexeril) 10 mg PRN DAILY PRN PO MUSCLE SPASMS Last administered on 02/20/17 22:02; Start 02/18/17 at 17:45 Diltiazem HCl (Cardizem 24hr Cd) 180 mg DAILY PO Last administered on 02/21/17 08:39; Start 02/19/17 at 09:00 Losartan Potassium (Cozaar) 50 mg DAILY PO Last administered on 02/19/17 07:55 ; Start 02/19/17 at 09:00; Stop 02/19/17 at 09:00; Status DC Pantoprazole Sodium (Protonix) 40 mg DAILYAC PO Last administered on 02/19/17 07:56; Start 02/19/17 at 07:30; Stop 02/19/17 at 12:31; Status DC Bupropion HCl (Wellbutrin Xl) 300 mg DAILY PO Last administered on 02/21/17 08: 39; Start 02/19/17 at 09:00 Acetaminophen/ Hydrocodone Bitart (Lortab 7.5/325) 1 tab PRN TID PRN PO MODERATE PAIN Last administered on 02/21/17 08:39; Start 02/18/17 at 18:15 Zolpidem Tartrate (Ambien) 5 mg QHS PO Last administered on 02/20/17 21:48; Start 02/18/17 at 21:00 Zolpidem Tartrate (Ambien) 5 mg PRN QHS PRN PO INSOMNIA; Start 02/18/17 at 18: 15 Acetaminophen (Tylenol) 650 mg PRN Q6HRS PRN PO FEVER; Start 02/19/17 at 12:30 Ondansetron HCl (Zofran) 4 mg PRN Q6HRS PRN IV NAUSEA/VOMITING; Start 02/19/17 at 12:30 Morphine Sulfate 2 mg PRN Q2HR PRN IV PAIN; Start 02/19/17 at 12:30; Stop at 12:31; Status DC Tramadol HCl (Ultram) 50 mg PRN Q6HRS PRN PO PAIN; Start 02/19/17 at 12:30 Hydralazine HCl (Apresoline) 10 mg PRN Q4HRS PRN IVP ELEVATED BP, SEE COMMENTS ; Start 02/19/17 at 12:30 Docusate Sodium (Colace) 100 mg PRN DAILY PRN PO CONSTIPATION; Start 02/19/17 at 12:30 Morphine Sulfate 2 mg PRN Q2HR PRN IV PAIN Last administered on 02/20/17 21:46 ; Start 02/19/17 at 12:45 Famotidine (Pepcid) 20 mg QHS IVP Last administered on 02/20/17t 21:49; Start at 21:00 Heparin Sodium (Porcine) (Heparin Sq) 5,000 unit Q8HRS SQ ; Start 02/19/17 at 14: 00 Iohexol (Omnipaque 240 Mg/ml) 30 ml 1X ONCE PO ; Start 02/21/17 at 08:30; Stop 02/21/17 at 08:35; Status DC Iohexol (Omnipaque 300 Mg/ml) 60 ml 1X ONCE IV ; Start 02/21/17 at 08:30; Stop 02/21/17 at 08:35; Status DC Sodium Chloride 1,000 ml @ 75 mls/hr [id number] IV ; Start 02/21/17 at 08:45 Active Scripts Active Reported Ibuprofen 400 Mg Tablet 400 Mg PO PRN Q6HRS PRN Pantoprazole Sodium 40 Mg Tablet.dr 1 Tab PO DAILY Cardizem Cd (Diltiazem Hcl) 180 Mg Cap.er.24h 1 Cap PO DAILY Miralax (Polyethylene Glycol 3350) 17 Gm Powd.pack 1 Packet PO DAILY Ambien (Zolpidem Tartrate) 10 Mg Tablet 1 Tab PO QHS Hydrocodon-Acetaminoph 7.5-500 (Hydrocodone Bit/Acetaminophen) 1 Each Tablet 1 Each PO PRN TID PRN Cyclobenzaprine Hcl 10 Mg Tablet 10 Mg PO PRN DAILY Wellbutrin Xl (Bupropion Hcl) 300 Mg Tab.er.24h 300 Mg PO DAILY Losartan Potassium 25 Mg Tablet 50 Mg PO DAILY Hydrochlorothiazide Tablet (Hydrochlorothiazide) 25 Mg Tablet 25 Mg PO DAILY Vitals/I & O Vital Sign - Last 24 Hours 02/20/17 02/20/17 02/20/17 02/20/17 10:59 14:53 19:00 20:00 Temp 98.6 98.6 98.4 98.6 98.6 98.4 Pulse 91 87 87 Resp 18 18 18 B/P (MAP) 104/65 (78) 97/56 (70) 111/67 (82) Pulse Ox 99 96 92 O2 Delivery Room Air Room Air Room Air Room Air 02/20/17 02/20/17 02/20/17 02/20/17 21:46 22:02 22:16 22:56 Temp 99.1 99.1 Pulse 91 Resp 18 20 18 18 B/P (MAP) 98/61 (73) Pulse Ox 92 92 98 98 O2 Delivery Room Air Room Air Room Air Room Air 02/21/17 02/21/17 02/21/17 02/21/17 02:49 03:00 03:49 07:00 Temp 99.1 97.7 99.1 97.7 Pulse 105 103 Resp 18 18 18 18 B/P (MAP) 97/62 (74) 108/67 (81) Pulse Ox 98 99 99 95 O2 Delivery Room Air Room Air Room Air Room Air 02/21/17 02/21/17 02/21/17 08:00 08:39 08:39 Pulse 103 B/P (MAP) 108/67 O2 Delivery Room Air Room Air Intake and Output 02/20/17 02/20/17 02/21/17 15:00 23:00 07:00 Intake Total 800 ml 1080 ml 600 ml Balance 800 ml 1080 ml 600 ml Problem List Problems Medical Problems: (1) Diverticulitis Status: Acute Assessment LLQ abd pain- with diverticulitis, possible fistula, interval Ct scan pending, [facility] NNAMDI BERNARD MD Feb 21, 2017 10:57
[2017-02-21 11:00] VITALS: BP 126/70
--- NOTE | 2017-02-21 11:44 | PDOC ---
PROGRESS NOTES Chief Complaint Chief Complaint Diverticulitis with ? fistula Leukocytosis Abdominal pain HTN mild malnutrition h/o PAFIB no AC plan: fu with gi, id , sx no sx pending full liquid add ivf on cipro and flagyl labs daily dced losartan cont cardizem with h/o PAFIB gi,dvt ppx given more abd pain and possible vaginal leak with stool and higher WBC, REPEAT ABD CT today History of Present Illness History of Present Illness more abd pain today, 12/29 has bm , greenish, watery, but said possible from vaginal no N/V, chronic constipation wbc 12 up to 16 Vitals Vitals Vital Signs Date Time Temp Pulse Resp B/P (MAP) Pulse Ox O2 Delivery O2 Flow Rate FiO2 02/21/17 11:00 97.8 105 18 126/70 (88) 100 Room Air 97.8 Physical Exam General: Alert, Oriented X3 Heart: Regular rate Lungs: Clear Abdomen: Soft (tender low abdomen, no guarding) Extremities: No clubbing, No cyanosis Skin: No rashes, No breakdown Labs LABS Laboratory Tests Test 02/21/17 04:15 White Blood Count 16.8 x10^3/uL (4.0-11.0) Red Blood Count 3.27 x10^6/uL (3.50-5.40) Hemoglobin 9.4 g/dL (12.0-15.5) Hematocrit 29.2 % (36.0-47.0) Mean Corpuscular Volume 89 fL (79-100) Mean Corpuscular Hemoglobin 29 pg (25-35) Mean Corpuscular Hemoglobin Concent 32 g/dL (31-37) Red Cell Distribution Width 14.6 % (11.5-14.5) Platelet Count 402 x10^3/uL (140-400) Neutrophils (%) (Auto) 82 % (31-73) Lymphocytes (%) (Auto) 7 % (24-48) Monocytes (%) (Auto) 10 % (0-9) Eosinophils (%) (Auto) 2 % (0-3) Basophils (%) (Auto) 0 % (0-3) Neutrophils # (Auto) 13.7 x10^3uL (1.8-7.7) Lymphocytes # (Auto) 1.1 x10^3/uL (1.0-4.8) Monocytes # (Auto) 1.6 x10^3/uL (0.0-1.1) Eosinophils # (Auto) 0.3 x10^3/uL (0.0-0.7) Basophils # (Auto) 0.1 x10^3/uL (0.0-0.2) Sodium Level 138 mmol/L (136-145) Potassium Level 4.2 mmol/L (3.5-5.1) Chloride Level 104 mmol/L (98-107) Carbon Dioxide Level 23 mmol/L (21-32) Anion Gap 11 (6-14) Blood Urea Nitrogen 11 mg/dL (7-20) Creatinine 1.0 mg/dL (0.6-1.0) Estimated GFR (Cockcroft-Gault) 56.0 Glucose Level 138 mg/dL (70-99) Calcium Level 8.5 mg/dL (8.5-10.1) Review of Systems Review of Systems no fever, chills, sob or chest pain Assessment and Plan Assessmemt and Plan Problems Medical Problems: (1) Diverticulitis Status: Acute Problems: Comment Review of Relevant I have reviewed the following items amando (where applicable) has been applied. Labs Laboratory Tests Test 02/20/17 02:59 02/21/17 04:15 White Blood Count 12.0 x10^3/uL (4.0-11.0) 16.8 x10^3/uL (4.0-11.0) Red Blood Count 3.35 x10^6/uL (3.50-5.40) 3.27 x10^6/uL (3.50-5.40) Hemoglobin 9.6 g/dL (12.0-15.5) 9.4 g/dL (12.0-15.5) Hematocrit 29.3 % (36.0-47.0) 29.2 % (36.0-47.0) Mean Corpuscular Volume 88 fL (79-100) 89 fL (79-100) Mean Corpuscular Hemoglobin 29 pg (25-35) 29 pg (25-35) Mean Corpuscular Hemoglobin Concent 33 g/dL (31-37) 32 g/dL (31-37) Red Cell Distribution Width 14.9 % (11.5-14.5) 14.6 % (11.5-14.5) Platelet Count 406 x10^3/uL (140-400) 402 x10^3/uL (140-400) Neutrophils (%) (Auto) 78 % (31-73) 82 % (31-73) Lymphocytes (%) (Auto) 11 % (24-48) 7 % (24-48) Monocytes (%) (Auto) 9 % (0-9) 10 % (0-9) Eosinophils (%) (Auto) 2 % (0-3) 2 % (0-3) Basophils (%) (Auto) 0 % (0-3) 0 % (0-3) Neutrophils # (Auto) 9.4 x10^3uL (1.8-7.7) 13.7 x10^3uL (1.8-7.7) Lymphocytes # (Auto) 1.3 x10^3/uL (1.0-4.8) 1.1 x10^3/uL (1.0-4.8) Monocytes # (Auto) 1.1 x10^3/uL (0.0-1.1) 1.6 x10^3/uL (0.0-1.1) Eosinophils # (Auto) 0.2 x10^3/uL (0.0-0.7) 0.3 x10^3/uL (0.0-0.7) Basophils # (Auto) 0.0 x10^3/uL (0.0-0.2) 0.1 x10^3/uL (0.0-0.2) Sodium Level 139 mmol/L (136-145) 138 mmol/L (136-145) Potassium Level 3.9 mmol/L (3.5-5.1) 4.2 mmol/L (3.5-5.1) Chloride Level 105 mmol/L (98-107) 104 mmol/L (98-107) Carbon Dioxide Level 24 mmol/L (21-32) 23 mmol/L (21-32) Anion Gap 10 (6-14) 11 (6-14) Blood Urea Nitrogen 15 mg/dL (7-20) 11 mg/dL (7-20) Creatinine 1.2 mg/dL (0.6-1.0) 1.0 mg/dL (0.6-1.0) Estimated GFR (Cockcroft-Gault) 45.4 56.0 Glucose Level 117 mg/dL (70-99) 138 mg/dL (70-99) Calcium Level 8.2 mg/dL (8.5-10.1) 8.5 mg/dL (8.5-10.1) Laboratory Tests Test 02/21/17 04:15 White Blood Count 16.8 x10^3/uL (4.0-11.0) Red Blood Count 3.27 x10^6/uL (3.50-5.40) Hemoglobin 9.4 g/dL (12.0-15.5) Hematocrit 29.2 % (36.0-47.0) Mean Corpuscular Volume 89 fL (79-100) Mean Corpuscular Hemoglobin 29 pg (25-35) Mean Corpuscular Hemoglobin Concent 32 g/dL (31-37) Red Cell Distribution Width 14.6 % (11.5-14.5) Platelet Count 402 x10^3/uL (140-400) Neutrophils (%) (Auto) 82 % (31-73) Lymphocytes (%) (Auto) 7 % (24-48) Monocytes (%) (Auto) 10 % (0-9) Eosinophils (%) (Auto) 2 % (0-3) Basophils (%) (Auto) 0 % (0-3) Neutrophils # (Auto) 13.7 x10^3uL (1.8-7.7) Lymphocytes # (Auto) 1.1 x10^3/uL (1.0-4.8) Monocytes # (Auto) 1.6 x10^3/uL (0.0-1.1) Eosinophils # (Auto) 0.3 x10^3/uL (0.0-0.7) Basophils # (Auto) 0.1 x10^3/uL (0.0-0.2) Sodium Level 138 mmol/L (136-145) Potassium Level 4.2 mmol/L (3.5-5.1) Chloride Level 104 mmol/L (98-107) Carbon Dioxide Level 23 mmol/L (21-32) Anion Gap 11 (6-14) Blood Urea Nitrogen 11 mg/dL (7-20) Creatinine 1.0 mg/dL (0.6-1.0) Estimated GFR (Cockcroft-Gault) 56.0 Glucose Level 138 mg/dL (70-99) Calcium Level 8.5 mg/dL (8.5-10.1) Microbiology 02/18/17 Urine Culture - Final, Complete 02/18/17 Urine Culture Result 1 (TARIQ) - Final, Complete Medications Current Medications Morphine Sulfate 2 mg PRN Q15MIN PRN IV/SQ PAIN GREATER THAN 3/10 Last administered on 02/18/17 07:42; Start 02/18/17 at 07:30; Stop 02/18/17 at 17:49 ; Status DC Sodium Chloride 1,000 ml @ 1,000 mls/hr Q1H IV Last administered on 02/18/17 07:41; Start 02/18/17 at 07:29; Stop 02/18/17 at 08:28; Status DC Ondansetron HCl (Zofran) 4 mg 1X ONCE IV Last administered on 02/18/17 07:41 ; Start 02/18/17 at 08:00; Stop 02/18/17 at 08:01; Status DC Iohexol (Omnipaque 240 Mg/ml) 50 ml 1X ONCE PO Last administered on 02/18/17 08:00; Start 02/18/17 at 08:00; Stop 02/18/17 at 08:01; Status DC Iohexol (Omnipaque 300 Mg/ml) 75 ml 1X ONCE IV Last administered on 02/18/17 08:59; Start 02/18/17 at 08:00; Stop 02/18/17 at 08:01; Status DC Sodium Chloride 1,000 ml @ 1,000 mls/hr 1X ONCE IV Last administered on 09:48; Start 02/18/17 at 09:30; Stop 02/18/17 at 10:29; Status DC Ciprofloxacin Lactate 200 ml @ 200 mls/hr Q12HR IV Last administered on 08:38; Start 02/18/17 at 10:00 Metronidazole 100 ml @ 100 mls/hr Q8H IV Last administered on 02/21/17 02:43; Start 02/18/17 at 11:00 Ondansetron HCl (Zofran) 4 mg PRN Q8HRS PRN IV NAUSEA/VOMITING; Start 02/18/17 at 10:15; Stop 02/19/17 at 10:14; Status DC Morphine Sulfate 2 mg PRN Q2HR PRN IV PAIN Last administered on 02/19/17 07:58 ; Start 02/18/17 at 10:15; Stop 02/19/17 at 10:14; Status DC Diphenhydramine HCl (Benadryl) 25 mg PRN Q6HRS PRN IVP ITCHING Last administered on 02/20/17 17:53; Start 02/18/17 at 14:15 Cyclobenzaprine HCl (Flexeril) 10 mg PRN DAILY PRN PO MUSCLE SPASMS Last administered on 02/20/17 22:02; Start 02/18/17 at 17:45 Diltiazem HCl (Cardizem 24hr Cd) 180 mg DAILY PO Last administered on 02/21/17 08:39; Start 02/19/17 at 09:00 Losartan Potassium (Cozaar) 50 mg DAILY PO Last administered on 02/19/17 07:55 ; Start 02/19/17 at 09:00; Stop 02/19/17 at 09:00; Status DC Pantoprazole Sodium (Protonix) 40 mg DAILYAC PO Last administered on 02/19/17 07:56; Start 02/19/17 at 07:30; Stop 02/19/17 at 12:31; Status DC Bupropion HCl (Wellbutrin Xl) 300 mg DAILY PO Last administered on 02/21/17 08: 39; Start 02/19/17 at 09:00 Acetaminophen/ Hydrocodone Bitart (Lortab 7.5/325) 1 tab PRN TID PRN PO MODERATE PAIN Last administered on 02/21/17 08:39; Start 02/18/17 at 18:15 Zolpidem Tartrate (Ambien) 5 mg QHS PO Last administered on 02/20/17 21:48; Start 02/18/17 at 21:00 Zolpidem Tartrate (Ambien) 5 mg PRN QHS PRN PO INSOMNIA; Start 02/18/17 at 18: 15 Acetaminophen (Tylenol) 650 mg PRN Q6HRS PRN PO FEVER; Start 02/19/17 at 12:30 Ondansetron HCl (Zofran) 4 mg PRN Q6HRS PRN IV NAUSEA/VOMITING; Start 02/19/17 at 12:30 Morphine Sulfate 2 mg PRN Q2HR PRN IV PAIN; Start 02/19/17 at 12:30; Stop at 12:31; Status DC Tramadol HCl (Ultram) 50 mg PRN Q6HRS PRN PO PAIN; Start 02/19/17 at 12:30 Hydralazine HCl (Apresoline) 10 mg PRN Q4HRS PRN IVP ELEVATED BP, SEE COMMENTS ; Start 02/19/17 at 12:30 Docusate Sodium (Colace) 100 mg PRN DAILY PRN PO CONSTIPATION; Start 02/19/17 at 12:30 Morphine Sulfate 2 mg PRN Q2HR PRN IV PAIN Last administered on 02/20/17t 21:46 ; Start 02/19/17 at 12:45 Famotidine (Pepcid) 20 mg QHS IVP Last administered on 02/20/17 21:49; Start at 21:00 Heparin Sodium (Porcine) (Heparin Sq) 5,000 unit Q8HRS SQ ; Start 02/19/17 at 14: 00 Iohexol (Omnipaque 240 Mg/ml) 30 ml 1X ONCE PO ; Start 02/21/17 at 08:30; Stop 02/21/17 at 08:35; Status DC Iohexol (Omnipaque 300 Mg/ml) 60 ml 1X ONCE IV ; Start 02/21/17 at 08:30; Stop 02/21/17 at 08:35; Status DC Sodium Chloride 1,000 ml @ 75 mls/hr [id number] IV ; Start 02/21/17 at 08:45 Active Scripts Active Reported Ibuprofen 400 Mg Tablet 400 Mg PO PRN Q6HRS PRN Pantoprazole Sodium 40 Mg Tablet.dr 1 Tab PO DAILY Cardizem Cd (Diltiazem Hcl) 180 Mg Cap.er.24h 1 Cap PO DAILY Miralax (Polyethylene Glycol 3350) 17 Gm Powd.pack 1 Packet PO DAILY Ambien (Zolpidem Tartrate) 10 Mg Tablet 1 Tab PO QHS Hydrocodon-Acetaminoph 7.5-500 (Hydrocodone Bit/Acetaminophen) 1 Each Tablet 1 Each PO PRN TID PRN Cyclobenzaprine Hcl 10 Mg Tablet 10 Mg PO PRN DAILY Wellbutrin Xl (Bupropion Hcl) 300 Mg Tab.er.24h 300 Mg PO DAILY Losartan Potassium 25 Mg Tablet 50 Mg PO DAILY Hydrochlorothiazide Tablet (Hydrochlorothiazide) 25 Mg Tablet 25 Mg PO DAILY Vitals/I & O Vital Sign - Last 24 Hours 02/20/17 02/20/17 02/20/17 02/20/17 14:53 19:00 20:00 21:46 Temp 98.6 98.4 98.6 98.4 Pulse 87 87 Resp 18 18 18 B/P (MAP) 97/56 (70) 111/67 (82) Pulse Ox 96 92 92 O2 Delivery Room Air Room Air Room Air Room Air 02/20/17 02/20/17 02/20/17 02/21/17 22:02 22:16 22:56 02:49 Temp 99.1 99.1 Pulse 91 Resp 20 18 18 B/P (MAP) 98/61 (73) Pulse Ox 92 98 98 98 O2 Delivery Room Air Room Air Room Air Room Air 02/21/17 02/21/17 02/21/17 02/21/17 03:00 03:49 07:00 08:00 Temp 99.1 97.7 99.1 97.7 Pulse 105 103 Resp 18 18 B/P (MAP) 97/62 (74) 108/67 (81) Pulse Ox 99 99 95 O2 Delivery Room Air Room Air Room Air Room Air 02/21/17 02/21/17 02/21/17 08:39 08:39 11:00 Temp 97.8 97.8 Pulse 103 105 Resp 18 B/P (MAP) 108/67 126/70 (88) Pulse Ox 100 O2 Delivery Room Air Room Air Intake and Output 02/20/17 02/20/17 02/21/17 15:00 23:00 07:00 Intake Total 800 ml 1080 ml 600 ml Balance 800 ml 1080 ml 600 ml FREDA SIMON MD Feb 21, 2017 11:44
[2017-02-21] MEDS: diphenhydrAMINE 50 MG/ML VIAL IVP PRN (12:00)
[2017-02-21] MEDS: IV NORMAL SALINE 1000ML BAG 1,000 ML IV SCH ×2 (12:01→20:58)
--- NOTE | 2017-02-21 12:24 | RAD ---
CT of the abdomen and pelvis with contrast, 02/21/2017: History: Diverticulitis Multidetector CT imaging was performed following oral and IV administration of contrast. Comparison is made to a study from 02/18/2017. There is ongoing mural thickening involving the sigmoid colon. Portions of the lower pelvis are partially obscured by artifacts arising from a right hip prosthesis. There is mild streaky increased density in the paracolic fat. There are abnormal gas collections along the inferior aspect of the mid to distal sigmoid colon. There is new inferior extension of this gas into the vaginal region. The appearance suggests a diverticular perforation with a probable colovaginal fistula. Perforation secondary to a colonic neoplasm is less likely. No discrete drainable fluid collection is seen in this region. No hepatic abnormality is seen. The gallbladder is unremarkable. There is a small calcification in pancreatic head. No pancreatic mass is evident. The spleen is unremarkable. A left renal cyst is again noted. The kidneys show no evidence of obstruction. There is moderate aortoiliac calcific plaquing. No aneurysm is evident. There is no evidence of bowel obstruction. No free fluid or free air is seen in the abdomen. Postsurgical changes with instrumentation are again noted in the lower lumbar spine. IMPRESSION: Ongoing sigmoid diverticulitis with a persistent extraluminal gas collection which now extends inferiorly into the vaginal region raising the possibility of a colovaginal fistula. Clinical correlation is suggested. PQRS Compliance Statement: One or more of the following individualized dose reduction techniques were utilized for this examination: 1. Automated exposure control 2. Adjustment of the mA and/or kV according to patient size 3. Use of iterative reconstruction technique
[2017-02-21 14:42] VITALS: BP 84/52
[2017-02-21 19:00] VITALS: BP 89/58
[2017-02-21] MEDS: FAMOTIDINE 20 MG/2 ML VIAL IVP SCH (20:56)
[2017-02-21] MEDS: ZOLPIDEM 5 MG TABLET. PO SCH (20:56)
[2017-02-21 22:40] VITALS: BP 100/61
[2017-02-22] MEDS: HYDROcodone/APAP 7.5/325MG 1 TAB TABLET PO PRN ×3 (04:08→20:10)
[2017-02-22] MEDS: diphenhydrAMINE 50 MG/ML VIAL IVP PRN ×3 (04:08→20:39)
[2017-02-22] MEDS: HEPARIN PF for SUB-Q USE 5,000 UNIT/0.5 ML VIAL. SQ SCH ×3 (05:33→22:00)
[2017-02-22 06:26] LABS: CALCIUM 8.2 mg/dL (8.5-10.1); CREATININE 0.9 mg/dL (0.6-1.0); GFR 63.2; POTASSIUM 4.1 mmol/L (3.5-5.1)
[2017-02-22 07:00] VITALS: BP 119/77
[2017-02-22 07:36] LABS: BASO # 0.1 x10^3/uL (0.0-0.2); BASO % 1 % (0-3); EOS % 3 % (0-3); HEMATOCRIT 28.7 % (36.0-47.0); HEMOGLOBIN 9.1 g/dL (12.0-15.5); LYMPH # 1.3 x10^3/uL (1.0-4.8); LYMPH % 14 % (24-48); MEAN CORPUSCULAR HEMOGLOBIN 28 pg (25-35); MEAN CORPUSCULAR HGB CONC 32 g/dL (31-37); MEAN CORPUSCULAR VOLUME 90 fL (79-100); MONO % 9 % (0-9); NEUT % 72 % (31-73); PLATELET COUNT 379 x10^3/uL (140-400); RED BLOOD COUNT 3.19 x10^6/uL (3.50-5.40); RED CELL DISTRIBUTION WIDTH 15.3 % (11.5-14.5); WHITE BLOOD COUNT 9.2 x10^3/uL (4.0-11.0)
[2017-02-22] MEDS: CIPROFLOXACIN 400MG PREMIX 200 ML IV SCH ×2 (09:23→21:44)
[2017-02-22] MEDS: buPROPion XL 150 MG TAB.ER.24H. PO SCH (09:24)
--- NOTE | 2017-02-22 09:45 | PDOC ---
Infectious Disease Note Subjective Subjective feeling ok ROS ROS GEN: Denies fevers, chills, sweats HEENT: Denies blurred vision, sore throat CV: Denies chest pain RESP: Denies shortness of air, cough GI: Denies n/v/d NEURO: Denies confusion, dizziness MSK: Denies weakness, joint pain/swelling Vital Sign Vital Signs Vital Signs Date Time Temp Pulse Resp B/P (MAP) Pulse Ox O2 Delivery O2 Flow Rate FiO2 02/22/17 09:24 94 119/77 02/22/17 08:00 Room Air 02/22/17 07:00 97.6 18 100 97.6 Physical Exam PHYSICAL EXAM GENERAL: NAD, Alert HEENT: PERRL, OC/OP NECK: Supple, no JVD, no LN LUNGS: Clear HEART: S1S2, no gallop, no murmur ABD: Soft, NT, no organomegaly, no rebound EXT: No edema, no cyanosis STAFF NURSE ANESTHETIST: Alert, oriented x 3, no focal neurologic deficit SKIN: No rash IV: ok Labs Lab Laboratory Tests Test 02/22/17 05:30 02/22/17 05:35 Sodium Level 140 mmol/L (136-145) Potassium Level 4.1 mmol/L (3.5-5.1) Chloride Level 108 mmol/L (98-107) Carbon Dioxide Level 22 mmol/L (21-32) Anion Gap 10 (6-14) Blood Urea Nitrogen 9 mg/dL (7-20) Creatinine 0.9 mg/dL (0.6-1.0) Estimated GFR (Cockcroft-Gault) 63.2 Glucose Level 111 mg/dL (70-99) Calcium Level 8.2 mg/dL (8.5-10.1) White Blood Count 9.2 x10^3/uL (4.0-11.0) Red Blood Count 3.19 x10^6/uL (3.50-5.40) Hemoglobin 9.1 g/dL (12.0-15.5) Hematocrit 28.7 % (36.0-47.0) Mean Corpuscular Volume 90 fL (79-100) Mean Corpuscular Hemoglobin 28 pg (25-35) Mean Corpuscular Hemoglobin Concent 32 g/dL (31-37) Red Cell Distribution Width 15.3 % (11.5-14.5) Platelet Count 379 x10^3/uL (140-400) Neutrophils (%) (Auto) 72 % (31-73) Lymphocytes (%) (Auto) 14 % (24-48) Monocytes (%) (Auto) 9 % (0-9) Eosinophils (%) (Auto) 3 % (0-3) Basophils (%) (Auto) 1 % (0-3) Neutrophils # (Auto) 6.6 x10^3uL (1.8-7.7) Lymphocytes # (Auto) 1.3 x10^3/uL (1.0-4.8) Monocytes # (Auto) 0.9 x10^3/uL (0.0-1.1) Eosinophils # (Auto) 0.3 x10^3/uL (0.0-0.7) Basophils # (Auto) 0.1 x10^3/uL (0.0-0.2) Objective Assessment Diverticulitis with perforation with enterovaginal fistula Leukocytosis Abdominal pain HTN Plan Plan of Care cont antibiotics , supportive care d/w pt and in detail, surgical input pending CHRISTIE JUAREZ MD Feb 22, 2017 09:45
[2017-02-22 10:36] VITALS: BP 110/74
--- NOTE | 2017-02-22 11:53 | PDOC ---
PROGRESS NOTES Chief Complaint Chief Complaint Diverticulitis with ? fistula Leukocytosis Abdominal pain HTN mild malnutrition h/o PAFIB no AC plan: fu with gi, id , sx no sx pending full liquid, someone use dr. Moreira name to advance diet, who didnot see this pt. i talked to nurse , back to Full liquid, may even npo if need sx. fu with gi and sx for diet plan. change ivf to PPN on cipro and flagyl labs daily dced losartan cont cardizem with h/o PAFIB gi,dvt ppx given more abd pain and possible vaginal leak with stool and higher WBC, REPEAT ABD CT no improvement, may need sx? fu with sx History of Present Illness History of Present Illness abd pain slightly better, 11/28 today has bm , greenish, watery, also lots of discharge with possible stool from vaginal no N/V, chronic constipation wbc 12 up to 16, now down to 9, no fever CT showed same result wo improvement low bp last night Vitals Vitals Vital Signs Date Time Temp Pulse Resp B/P (MAP) Pulse Ox O2 Delivery O2 Flow Rate FiO2 02/22/17 10:36 97.8 95 18 110/74 (86) 99 Room Air 97.8 Physical Exam General: Alert, Oriented X3 Heart: Regular rate Lungs: Clear Abdomen: Soft (tender low abdomen, no guarding) Extremities: No clubbing, No cyanosis Skin: No rashes, No breakdown Labs LABS Laboratory Tests Test 02/22/17 05:30 02/22/17 05:35 Sodium Level 140 mmol/L (136-145) Potassium Level 4.1 mmol/L (3.5-5.1) Chloride Level 108 mmol/L (98-107) Carbon Dioxide Level 22 mmol/L (21-32) Anion Gap 10 (6-14) Blood Urea Nitrogen 9 mg/dL (7-20) Creatinine 0.9 mg/dL (0.6-1.0) Estimated GFR (Cockcroft-Gault) 63.2 Glucose Level 111 mg/dL (70-99) Calcium Level 8.2 mg/dL (8.5-10.1) White Blood Count 9.2 x10^3/uL (4.0-11.0) Red Blood Count 3.19 x10^6/uL (3.50-5.40) Hemoglobin 9.1 g/dL (12.0-15.5) Hematocrit 28.7 % (36.0-47.0) Mean Corpuscular Volume 90 fL (79-100) Mean Corpuscular Hemoglobin 28 pg (25-35) Mean Corpuscular Hemoglobin Concent 32 g/dL (31-37) Red Cell Distribution Width 15.3 % (11.5-14.5) Platelet Count 379 x10^3/uL (140-400) Neutrophils (%) (Auto) 72 % (31-73) Lymphocytes (%) (Auto) 14 % (24-48) Monocytes (%) (Auto) 9 % (0-9) Eosinophils (%) (Auto) 3 % (0-3) Basophils (%) (Auto) 1 % (0-3) Neutrophils # (Auto) 6.6 x10^3uL (1.8-7.7) Lymphocytes # (Auto) 1.3 x10^3/uL (1.0-4.8) Monocytes # (Auto) 0.9 x10^3/uL (0.0-1.1) Eosinophils # (Auto) 0.3 x10^3/uL (0.0-0.7) Basophils # (Auto) 0.1 x10^3/uL (0.0-0.2) Review of Systems Review of Systems no fever, chills, sob or chest pain Assessment and Plan Assessmemt and Plan Problems Medical Problems: (1) Diverticulitis Status: Acute Problems: Comment Review of Relevant I have reviewed the following items amando (where applicable) has been applied. Labs Laboratory Tests Test 02/21/17 04:15 02/22/17 05:30 02/22/17 05:35 White Blood Count 16.8 x10^3/uL (4.0-11.0) 9.2 x10^3/uL (4.0-11.0) Red Blood Count 3.27 x10^6/uL (3.50-5.40) 3.19 x10^6/uL (3.50-5.40) Hemoglobin 9.4 g/dL (12.0-15.5) 9.1 g/dL (12.0-15.5) Hematocrit 29.2 % (36.0-47.0) 28.7 % (36.0-47.0) Mean Corpuscular Volume 89 fL (79-100) 90 fL (79-100) Mean Corpuscular Hemoglobin 29 pg (25-35) 28 pg (25-35) Mean Corpuscular Hemoglobin Concent 32 g/dL (31-37) 32 g/dL (31-37) Red Cell Distribution Width 14.6 % (11.5-14.5) 15.3 % (11.5-14.5) Platelet Count 402 x10^3/uL (140-400) 379 x10^3/uL (140-400) Neutrophils (%) (Auto) 82 % (31-73) 72 % (31-73) Lymphocytes (%) (Auto) 7 % (24-48) 14 % (24-48) Monocytes (%) (Auto) 10 % (0-9) 9 % (0-9) Eosinophils (%) (Auto) 2 % (0-3) 3 % (0-3) Basophils (%) (Auto) 0 % (0-3) 1 % (0-3) Neutrophils # (Auto) 13.7 x10^3uL (1.8-7.7) 6.6 x10^3uL (1.8-7.7) Lymphocytes # (Auto) 1.1 x10^3/uL (1.0-4.8) 1.3 x10^3/uL (1.0-4.8) Monocytes # (Auto) 1.6 x10^3/uL (0.0-1.1) 0.9 x10^3/uL (0.0-1.1) Eosinophils # (Auto) 0.3 x10^3/uL (0.0-0.7) 0.3 x10^3/uL (0.0-0.7) Basophils # (Auto) 0.1 x10^3/uL (0.0-0.2) 0.1 x10^3/uL (0.0-0.2) Sodium Level 138 mmol/L (136-145) 140 mmol/L (136-145) Potassium Level 4.2 mmol/L (3.5-5.1) 4.1 mmol/L (3.5-5.1) Chloride Level 104 mmol/L (98-107) 108 mmol/L (98-107) Carbon Dioxide Level 23 mmol/L (21-32) 22 mmol/L (21-32) Anion Gap 11 (6-14) 10 (6-14) Blood Urea Nitrogen 11 mg/dL (7-20) 9 mg/dL (7-20) Creatinine 1.0 mg/dL (0.6-1.0) 0.9 mg/dL (0.6-1.0) Estimated GFR (Cockcroft-Gault) 56.0 63.2 Glucose Level 138 mg/dL (70-99) 111 mg/dL (70-99) Calcium Level 8.5 mg/dL (8.5-10.1) 8.2 mg/dL (8.5-10.1) Laboratory Tests Test 02/22/17 05:30 02/22/17 05:35 Sodium Level 140 mmol/L (136-145) Potassium Level 4.1 mmol/L (3.5-5.1) Chloride Level 108 mmol/L (98-107) Carbon Dioxide Level 22 mmol/L (21-32) Anion Gap 10 (6-14) Blood Urea Nitrogen 9 mg/dL (7-20) Creatinine 0.9 mg/dL (0.6-1.0) Estimated GFR (Cockcroft-Gault) 63.2 Glucose Level 111 mg/dL (70-99) Calcium Level 8.2 mg/dL (8.5-10.1) White Blood Count 9.2 x10^3/uL (4.0-11.0) Red Blood Count 3.19 x10^6/uL (3.50-5.40) Hemoglobin 9.1 g/dL (12.0-15.5) Hematocrit 28.7 % (36.0-47.0) Mean Corpuscular Volume 90 fL (79-100) Mean Corpuscular Hemoglobin 28 pg (25-35) Mean Corpuscular Hemoglobin Concent 32 g/dL (31-37) Red Cell Distribution Width 15.3 % (11.5-14.5) Platelet Count 379 x10^3/uL (140-400) Neutrophils (%) (Auto) 72 % (31-73) Lymphocytes (%) (Auto) 14 % (24-48) Monocytes (%) (Auto) 9 % (0-9) Eosinophils (%) (Auto) 3 % (0-3) Basophils (%) (Auto) 1 % (0-3) Neutrophils # (Auto) 6.6 x10^3uL (1.8-7.7) Lymphocytes # (Auto) 1.3 x10^3/uL (1.0-4.8) Monocytes # (Auto) 0.9 x10^3/uL (0.0-1.1) Eosinophils # (Auto) 0.3 x10^3/uL (0.0-0.7) Basophils # (Auto) 0.1 x10^3/uL (0.0-0.2) Microbiology 02/18/17 Urine Culture - Final, Complete 02/18/17 Urine Culture Result 1 (TARIQ) - Final, Complete Medications Current Medications Morphine Sulfate 2 mg PRN Q15MIN PRN IV/SQ PAIN GREATER THAN 3/10 Last administered on 02/18/17 07:42; Start 02/18/17 at 07:30; Stop 02/18/17 at 17:49 ; Status DC Sodium Chloride 1,000 ml @ 1,000 mls/hr Q1H IV Last administered on 02/18/17 07:41; Start 02/18/17 at 07:29; Stop 02/18/17 at 08:28; Status DC Ondansetron HCl (Zofran) 4 mg 1X ONCE IV Last administered on 02/18/17 07:41 ; Start 02/18/17 at 08:00; Stop 02/18/17 at 08:01; Status DC Iohexol (Omnipaque 240 Mg/ml) 50 ml 1X ONCE PO Last administered on 02/18/17 08:00; Start 02/18/17 at 08:00; Stop 02/18/17 at 08:01; Status DC Iohexol (Omnipaque 300 Mg/ml) 75 ml 1X ONCE IV Last administered on 02/18/17 08:59; Start 02/18/17 at 08:00; Stop 02/18/17 at 08:01; Status DC Sodium Chloride 1,000 ml @ 1,000 mls/hr 1X ONCE IV Last administered on 09:48; Start 02/18/17 at 09:30; Stop 02/18/17 at 10:29; Status DC Ciprofloxacin Lactate 200 ml @ 200 mls/hr Q12HR IV Last administered on 09:23; Start 02/18/17 at 10:00 Metronidazole 100 ml @ 100 mls/hr Q8H IV Last administered on 02/22/17 11:23; Start 02/18/17 at 11:00 Ondansetron HCl (Zofran) 4 mg PRN Q8HRS PRN IV NAUSEA/VOMITING; Start 02/18/17 at 10:15; Stop 02/19/17 at 10:14; Status DC Morphine Sulfate 2 mg PRN Q2HR PRN IV PAIN Last administered on 02/19/17 07:58 ; Start 02/18/17 at 10:15; Stop 02/19/17 at 10:14; Status DC Diphenhydramine HCl (Benadryl) 25 mg PRN Q6HRS PRN IVP ITCHING Last administered on 02/22/17 10:49; Start 02/18/17 at 14:15 Cyclobenzaprine HCl (Flexeril) 10 mg PRN DAILY PRN PO MUSCLE SPASMS Last administered on 02/20/17 22:02; Start 02/18/17 at 17:45 Diltiazem HCl (Cardizem 24hr Cd) 180 mg DAILY PO Last administered on 02/22/17 09:24; Start 02/19/17 at 09:00 Losartan Potassium (Cozaar) 50 mg DAILY PO Last administered on 02/19/17 07:55 ; Start 02/19/17 at 09:00; Stop 02/19/17 at 09:00; Status DC Pantoprazole Sodium (Protonix) 40 mg DAILYAC PO Last administered on 02/19/17 07:56; Start 02/19/17 at 07:30; Stop 02/19/17 at 12:31; Status DC Bupropion HCl (Wellbutrin Xl) 300 mg DAILY PO Last administered on 02/22/17 09: 24; Start 02/19/17 at 09:00 Acetaminophen/ Hydrocodone Bitart (Lortab 7.5/325) 1 tab PRN TID PRN PO MODERATE PAIN Last administered on 02/22/17 04:08; Start 02/18/17 at 18:15 Zolpidem Tartrate (Ambien) 5 mg QHS PO Last administered on 02/21/17 20:56; Start 02/18/17 at 21:00 Zolpidem Tartrate (Ambien) 5 mg PRN QHS PRN PO INSOMNIA; Start 02/18/17 at 18: 15 Acetaminophen (Tylenol) 650 mg PRN Q6HRS PRN PO FEVER; Start 02/19/17 at 12:30 Ondansetron HCl (Zofran) 4 mg PRN Q6HRS PRN IV NAUSEA/VOMITING; Start 02/19/17 at 12:30 Morphine Sulfate 2 mg PRN Q2HR PRN IV PAIN; Start 02/19/17 at 12:30; Stop at 12:31; Status DC Tramadol HCl (Ultram) 50 mg PRN Q6HRS PRN PO PAIN; Start 02/19/17 at 12:30 Hydralazine HCl (Apresoline) 10 mg PRN Q4HRS PRN IVP ELEVATED BP, SEE COMMENTS ; Start 02/19/17 at 12:30 Docusate Sodium (Colace) 100 mg PRN DAILY PRN PO CONSTIPATION; Start 02/19/17 at 12:30 Morphine Sulfate 2 mg PRN Q2HR PRN IV PAIN Last administered on 02/20/17 21:46 ; Start 02/19/17 at 12:45 Famotidine (Pepcid) 20 mg QHS IVP Last administered on 02/21/17 20:56; Start at 21:00 Heparin Sodium (Porcine) (Heparin Sq) 5,000 unit Q8HRS SQ Last administered on 02/21/17 20:57; Start 02/19/17 at 14:00 Iohexol (Omnipaque 240 Mg/ml) 30 ml 1X ONCE PO ; Start 02/21/17 at 08:30; Stop 02/21/17 at 08:35; Status DC Iohexol (Omnipaque 300 Mg/ml) 60 ml 1X ONCE IV ; Start 02/21/17 at 08:30; Stop 02/21/17 at 08:35; Status DC Sodium Chloride 1,000 ml @ 75 mls/hr [id number] IV Last administered on 02/21/17 20:58; Start 02/21/17 at 08:45; Stop 02/22/17 at 08:59; Status DC Amino Acids/ Glycerin/ Electrolytes 1,000 ml @ 60 mls/hr [id number] IV ; Start 02/22/17 at 09:30 Active Scripts Active Reported Ibuprofen 400 Mg Tablet 400 Mg PO PRN Q6HRS PRN Pantoprazole Sodium 40 Mg Tablet. 1 Tab PO DAILY Cardizem Cd (Diltiazem Hcl) 180 Mg Cap.er.24h 1 Cap PO DAILY Miralax (Polyethylene Glycol 3350) 17 Gm Powd.pack 1 Packet PO DAILY Ambien (Zolpidem Tartrate) 10 Mg Tablet 1 Tab PO QHS Hydrocodon-Acetaminoph 7.5-500 (Hydrocodone Bit/Acetaminophen) 1 Each Tablet 1 Each PO PRN TID PRN Cyclobenzaprine Hcl 10 Mg Tablet 10 Mg PO PRN DAILY Wellbutrin Xl (Bupropion Hcl) 300 Mg Tab.er.24h 300 Mg PO DAILY Losartan Potassium 25 Mg Tablet 50 Mg PO DAILY Hydrochlorothiazide Tablet (Hydrochlorothiazide) 25 Mg Tablet 25 Mg PO DAILY Vitals/I & O Vital Sign - Last 24 Hours 02/21/17 02/21/17 02/21/17 02/21/17 14:42 17:24 19:00 19:57 Temp 97.8 97.9 97.8 97.9 Pulse 80 84 Resp 16 18 B/P (MAP) 84/52 (63) 89/58 (68) Pulse Ox 100 98 O2 Delivery Room Air Room Air Room Air Room Air 02/21/17 02/22/17 02/22/17 02/22/17 22:40 04:08 05:08 07:00 Temp 98.1 97.6 98.1 97.6 Pulse 85 94 Resp 18 18 B/P (MAP) 100/61 (74) 119/77 (91) Pulse Ox 99 99 99 100 O2 Delivery Room Air Room Air Room Air Room Air 02/22/17 02/22/17 02/22/17 08:00 09:24 10:36 Temp 97.8 97.8 Pulse 94 95 Resp 18 B/P (MAP) 119/77 110/74 (86) Pulse Ox 99 O2 Delivery Room Air Room Air Intake and Output 02/21/17 02/21/17 02/22/17 15:00 23:00 07:00 Intake Total 400 ml 2300 ml 1200 ml Balance 400 ml 2300 ml 1200 ml FREDA SIMON MD Feb 22, 2017 11:53
--- NOTE | 2017-02-22 12:29 | PDOC ---
G I PROGRESS NOTE Reason for Follow-up Diverticulitis Subjective Vaginal discharge persists Physical Exam Lungs clear CV S1 S2 ABD +BS, soft, mild LLQ tenderness Review of Relevant I have reviewed the following items amando (where applicable) has been applied. Labs Laboratory Tests Test 02/21/17 04:15 02/22/17 05:30 02/22/17 05:35 White Blood Count 16.8 x10^3/uL (4.0-11.0) 9.2 x10^3/uL (4.0-11.0) Red Blood Count 3.27 x10^6/uL (3.50-5.40) 3.19 x10^6/uL (3.50-5.40) Hemoglobin 9.4 g/dL (12.0-15.5) 9.1 g/dL (12.0-15.5) Hematocrit 29.2 % (36.0-47.0) 28.7 % (36.0-47.0) Mean Corpuscular Volume 89 fL (79-100) 90 fL (79-100) Mean Corpuscular Hemoglobin 29 pg (25-35) 28 pg (25-35) Mean Corpuscular Hemoglobin Concent 32 g/dL (31-37) 32 g/dL (31-37) Red Cell Distribution Width 14.6 % (11.5-14.5) 15.3 % (11.5-14.5) Platelet Count 402 x10^3/uL (140-400) 379 x10^3/uL (140-400) Neutrophils (%) (Auto) 82 % (31-73) 72 % (31-73) Lymphocytes (%) (Auto) 7 % (24-48) 14 % (24-48) Monocytes (%) (Auto) 10 % (0-9) 9 % (0-9) Eosinophils (%) (Auto) 2 % (0-3) 3 % (0-3) Basophils (%) (Auto) 0 % (0-3) 1 % (0-3) Neutrophils # (Auto) 13.7 x10^3uL (1.8-7.7) 6.6 x10^3uL (1.8-7.7) Lymphocytes # (Auto) 1.1 x10^3/uL (1.0-4.8) 1.3 x10^3/uL (1.0-4.8) Monocytes # (Auto) 1.6 x10^3/uL (0.0-1.1) 0.9 x10^3/uL (0.0-1.1) Eosinophils # (Auto) 0.3 x10^3/uL (0.0-0.7) 0.3 x10^3/uL (0.0-0.7) Basophils # (Auto) 0.1 x10^3/uL (0.0-0.2) 0.1 x10^3/uL (0.0-0.2) Sodium Level 138 mmol/L (136-145) 140 mmol/L (136-145) Potassium Level 4.2 mmol/L (3.5-5.1) 4.1 mmol/L (3.5-5.1) Chloride Level 104 mmol/L (98-107) 108 mmol/L (98-107) Carbon Dioxide Level 23 mmol/L (21-32) 22 mmol/L (21-32) Anion Gap 11 (6-14) 10 (6-14) Blood Urea Nitrogen 11 mg/dL (7-20) 9 mg/dL (7-20) Creatinine 1.0 mg/dL (0.6-1.0) 0.9 mg/dL (0.6-1.0) Estimated GFR (Cockcroft-Gault) 56.0 63.2 Glucose Level 138 mg/dL (70-99) 111 mg/dL (70-99) Calcium Level 8.5 mg/dL (8.5-10.1) 8.2 mg/dL (8.5-10.1) Laboratory Tests Test 02/22/17 05:30 02/22/17 05:35 Sodium Level 140 mmol/L (136-145) Potassium Level 4.1 mmol/L (3.5-5.1) Chloride Level 108 mmol/L (98-107) Carbon Dioxide Level 22 mmol/L (21-32) Anion Gap 10 (6-14) Blood Urea Nitrogen 9 mg/dL (7-20) Creatinine 0.9 mg/dL (0.6-1.0) Estimated GFR (Cockcroft-Gault) 63.2 Glucose Level 111 mg/dL (70-99) Calcium Level 8.2 mg/dL (8.5-10.1) White Blood Count 9.2 x10^3/uL (4.0-11.0) Red Blood Count 3.19 x10^6/uL (3.50-5.40) Hemoglobin 9.1 g/dL (12.0-15.5) Hematocrit 28.7 % (36.0-47.0) Mean Corpuscular Volume 90 fL (79-100) Mean Corpuscular Hemoglobin 28 pg (25-35) Mean Corpuscular Hemoglobin Concent 32 g/dL (31-37) Red Cell Distribution Width 15.3 % (11.5-14.5) Platelet Count 379 x10^3/uL (140-400) Neutrophils (%) (Auto) 72 % (31-73) Lymphocytes (%) (Auto) 14 % (24-48) Monocytes (%) (Auto) 9 % (0-9) Eosinophils (%) (Auto) 3 % (0-3) Basophils (%) (Auto) 1 % (0-3) Neutrophils # (Auto) 6.6 x10^3uL (1.8-7.7) Lymphocytes # (Auto) 1.3 x10^3/uL (1.0-4.8) Monocytes # (Auto) 0.9 x10^3/uL (0.0-1.1) Eosinophils # (Auto) 0.3 x10^3/uL (0.0-0.7) Basophils # (Auto) 0.1 x10^3/uL (0.0-0.2) Microbiology 02/18/17 Urine Culture - Final, Complete 02/18/17 Urine Culture Result 1 (TARIQ) - Final, Complete Medications Current Medications Morphine Sulfate 2 mg PRN Q15MIN PRN IV/SQ PAIN GREATER THAN 3/10 Last administered on 02/18/17 07:42; Start 02/18/17 at 07:30; Stop 02/18/17 at 17:49 ; Status DC Sodium Chloride 1,000 ml @ 1,000 mls/hr Q1H IV Last administered on 02/18/17 07:41; Start 02/18/17 at 07:29; Stop 02/18/17 at 08:28; Status DC Ondansetron HCl (Zofran) 4 mg 1X ONCE IV Last administered on 02/18/17 07:41 ; Start 02/18/17 at 08:00; Stop 02/18/17 at 08:01; Status DC Iohexol (Omnipaque 240 Mg/ml) 50 ml 1X ONCE PO Last administered on 02/18/17 08:00; Start 02/18/17 at 08:00; Stop 02/18/17 at 08:01; Status DC Iohexol (Omnipaque 300 Mg/ml) 75 ml 1X ONCE IV Last administered on 02/18/17 08:59; Start 02/18/17 at 08:00; Stop 02/18/17 at 08:01; Status DC Sodium Chloride 1,000 ml @ 1,000 mls/hr 1X ONCE IV Last administered on 09:48; Start 02/18/17 at 09:30; Stop 02/18/17 at 10:29; Status DC Ciprofloxacin Lactate 200 ml @ 200 mls/hr Q12HR IV Last administered on 09:23; Start 02/18/17 at 10:00 Metronidazole 100 ml @ 100 mls/hr Q8H IV Last administered on 02/22/17 11:23; Start 02/18/17 at 11:00 Ondansetron HCl (Zofran) 4 mg PRN Q8HRS PRN IV NAUSEA/VOMITING; Start 02/18/17 at 10:15; Stop 02/19/17 at 10:14; Status DC Morphine Sulfate 2 mg PRN Q2HR PRN IV PAIN Last administered on 02/19/17 07:58 ; Start 02/18/17 at 10:15; Stop 02/19/17 at 10:14; Status DC Diphenhydramine HCl (Benadryl) 25 mg PRN Q6HRS PRN IVP ITCHING Last administered on 02/22/17 10:49; Start 02/18/17 at 14:15 Cyclobenzaprine HCl (Flexeril) 10 mg PRN DAILY PRN PO MUSCLE SPASMS Last administered on 02/20/17 22:02; Start 02/18/17 at 17:45 Diltiazem HCl (Cardizem 24hr Cd) 180 mg DAILY PO Last administered on 02/22/17 09:24; Start 02/19/17 at 09:00 Losartan Potassium (Cozaar) 50 mg DAILY PO Last administered on 02/19/17 07:55 ; Start 02/19/17 at 09:00; Stop 02/19/17 at 09:00; Status DC Pantoprazole Sodium (Protonix) 40 mg DAILYAC PO Last administered on 02/19/17 07:56; Start 02/19/17 at 07:30; Stop 02/19/17 at 12:31; Status DC Bupropion HCl (Wellbutrin Xl) 300 mg DAILY PO Last administered on 02/22/17 09: 24; Start 02/19/17 at 09:00 Acetaminophen/ Hydrocodone Bitart (Lortab 7.5/325) 1 tab PRN TID PRN PO MODERATE PAIN Last administered on 02/22/17 04:08; Start 02/18/17 at 18:15 Zolpidem Tartrate (Ambien) 5 mg QHS PO Last administered on 02/21/17 20:56; Start 02/18/17 at 21:00 Zolpidem Tartrate (Ambien) 5 mg PRN QHS PRN PO INSOMNIA; Start 02/18/17 at 18: 15 Acetaminophen (Tylenol) 650 mg PRN Q6HRS PRN PO FEVER; Start 02/19/17 at 12:30 Ondansetron HCl (Zofran) 4 mg PRN Q6HRS PRN IV NAUSEA/VOMITING; Start 02/19/17 at 12:30 Morphine Sulfate 2 mg PRN Q2HR PRN IV PAIN; Start 02/19/17 at 12:30; Stop at 12:31; Status DC Tramadol HCl (Ultram) 50 mg PRN Q6HRS PRN PO PAIN; Start 02/19/17 at 12:30 Hydralazine HCl (Apresoline) 10 mg PRN Q4HRS PRN IVP ELEVATED BP, SEE COMMENTS ; Start 02/19/17 at 12:30 Docusate Sodium (Colace) 100 mg PRN DAILY PRN PO CONSTIPATION; Start 02/19/17 at 12:30 Morphine Sulfate 2 mg PRN Q2HR PRN IV PAIN Last administered on 02/20/17 21:46 ; Start 02/19/17 at 12:45 Famotidine (Pepcid) 20 mg QHS IVP Last administered on 02/21/17 20:56; Start at 21:00 Heparin Sodium (Porcine) (Heparin Sq) 5,000 unit Q8HRS SQ Last administered on 02/21/17 20:57; Start 02/19/17 at 14:00 Iohexol (Omnipaque 240 Mg/ml) 30 ml 1X ONCE PO ; Start 02/21/17 at 08:30; Stop 02/21/17 at 08:35; Status DC Iohexol (Omnipaque 300 Mg/ml) 60 ml 1X ONCE IV ; Start 02/21/17 at 08:30; Stop 02/21/17 at 08:35; Status DC Sodium Chloride 1,000 ml @ 75 mls/hr [id number] IV Last administered on 02/21/17 20:58; Start 02/21/17 at 08:45; Stop 02/22/17 at 08:59; Status DC Amino Acids/ Glycerin/ Electrolytes 1,000 ml @ 60 mls/hr [id number] IV ; Start 02/22/17 at 09:30 Active Scripts Active Reported Ibuprofen 400 Mg Tablet 400 Mg PO PRN Q6HRS PRN Pantoprazole Sodium 40 Mg Tablet.dr 1 Tab PO DAILY Cardizem Cd (Diltiazem Hcl) 180 Mg Cap.er.24h 1 Cap PO DAILY Miralax (Polyethylene Glycol 3350) 17 Gm Powd.pack 1 Packet PO DAILY Ambien (Zolpidem Tartrate) 10 Mg Tablet 1 Tab PO QHS Hydrocodon-Acetaminoph 7.5-500 (Hydrocodone Bit/Acetaminophen) 1 Each Tablet 1 Each PO PRN TID PRN Cyclobenzaprine Hcl 10 Mg Tablet 10 Mg PO PRN DAILY Wellbutrin Xl (Bupropion Hcl) 300 Mg Tab.er.24h 300 Mg PO DAILY Losartan Potassium 25 Mg Tablet 50 Mg PO DAILY Hydrochlorothiazide Tablet (Hydrochlorothiazide) 25 Mg Tablet 25 Mg PO DAILY Vitals/I & O Vital Sign - Last 24 Hours 02/21/17 02/21/17 02/21/17 02/21/17 14:42 17:24 19:00 19:57 Temp 97.8 97.9 97.8 97.9 Pulse 80 84 Resp 16 18 B/P (MAP) 84/52 (63) 89/58 (68) Pulse Ox 100 98 O2 Delivery Room Air Room Air Room Air Room Air 02/21/17 02/22/17 02/22/17 02/22/17 22:40 04:08 05:08 07:00 Temp 98.1 97.6 98.1 97.6 Pulse 85 94 Resp 18 18 B/P (MAP) 100/61 (74) 119/77 (91) Pulse Ox 99 99 99 100 O2 Delivery Room Air Room Air Room Air Room Air 02/22/17 02/22/17 02/22/17 08:00 09:24 10:36 Temp 97.8 97.8 Pulse 94 95 Resp 18 B/P (MAP) 119/77 110/74 (86) Pulse Ox 99 O2 Delivery Room Air Room Air Intake and Output 02/21/17 02/21/17 02/22/17 15:00 23:00 07:00 Intake Total 400 ml 2300 ml 1200 ml Balance 400 ml 2300 ml 1200 ml Problem List Problems Medical Problems: (1) Diverticulitis Status: Acute Assessment Diverticulitis- with LLQ abd pain and 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
[2017-02-22] MEDS: AMINO AC 3%/ELECTROLYTE/GLYCER 1,000 ML IV SCH (14:45)
--- NOTE | 2017-02-22 14:49 | PDOC ---
[employer] [employer] 7 [employer] 10 [employer] 02/22/17 1449: SURGICAL PROGRESS NOTE Subjective diffuse lower abdominal pain yellow vaginal drainage started yesterday taking some liquids Vital Signs Vital Signs Date Time Temp Pulse Resp B/P (MAP) Pulse Ox O2 Delivery O2 Flow Rate FiO2 02/22/17 10:36 97.8 95 18 110/74 (86) 99 Room Air 97.8 I&O Intake and Output 02/22/17 06:59 Intake Total 3900 ml Balance 3900 ml Intake Oral 2600 ml IV Total 1300 ml # Voids 5 # Bowel Movements 1 General: Alert, Oriented X3, Cooperative, No acute distress Abdomen: Soft, Other (tender across lower abdomen, no guarding or rebound ) Labs Laboratory Tests Test 02/21/17 04:15 02/22/17 05:30 02/22/17 05:35 White Blood Count 16.8 x10^3/uL (4.0-11.0) 9.2 x10^3/uL (4.0-11.0) Red Blood Count 3.27 x10^6/uL (3.50-5.40) 3.19 x10^6/uL (3.50-5.40) Hemoglobin 9.4 g/dL (12.0-15.5) 9.1 g/dL (12.0-15.5) Hematocrit 29.2 % (36.0-47.0) 28.7 % (36.0-47.0) Mean Corpuscular Volume 89 fL (79-100) 90 fL (79-100) Mean Corpuscular Hemoglobin 29 pg (25-35) 28 pg (25-35) Mean Corpuscular Hemoglobin Concent 32 g/dL (31-37) 32 g/dL (31-37) Red Cell Distribution Width 14.6 % (11.5-14.5) 15.3 % (11.5-14.5) Platelet Count 402 x10^3/uL (140-400) 379 x10^3/uL (140-400) Neutrophils (%) (Auto) 82 % (31-73) 72 % (31-73) Lymphocytes (%) (Auto) 7 % (24-48) 14 % (24-48) Monocytes (%) (Auto) 10 % (0-9) 9 % (0-9) Eosinophils (%) (Auto) 2 % (0-3) 3 % (0-3) Basophils (%) (Auto) 0 % (0-3) 1 % (0-3) Neutrophils # (Auto) 13.7 x10^3uL (1.8-7.7) 6.6 x10^3uL (1.8-7.7) Lymphocytes # (Auto) 1.1 x10^3/uL (1.0-4.8) 1.3 x10^3/uL (1.0-4.8) Monocytes # (Auto) 1.6 x10^3/uL (0.0-1.1) 0.9 x10^3/uL (0.0-1.1) Eosinophils # (Auto) 0.3 x10^3/uL (0.0-0.7) 0.3 x10^3/uL (0.0-0.7) Basophils # (Auto) 0.1 x10^3/uL (0.0-0.2) 0.1 x10^3/uL (0.0-0.2) Sodium Level 138 mmol/L (136-145) 140 mmol/L (136-145) Potassium Level 4.2 mmol/L (3.5-5.1) 4.1 mmol/L (3.5-5.1) Chloride Level 104 mmol/L (98-107) 108 mmol/L (98-107) Carbon Dioxide Level 23 mmol/L (21-32) 22 mmol/L (21-32) Anion Gap 11 (6-14) 10 (6-14) Blood Urea Nitrogen 11 mg/dL (7-20) 9 mg/dL (7-20) Creatinine 1.0 mg/dL (0.6-1.0) 0.9 mg/dL (0.6-1.0) Estimated GFR (Cockcroft-Gault) 56.0 63.2 Glucose Level 138 mg/dL (70-99) 111 mg/dL (70-99) Calcium Level 8.5 mg/dL (8.5-10.1) 8.2 mg/dL (8.5-10.1) Laboratory Tests Test 02/22/17 05:30 02/22/17 05:35 Sodium Level 140 mmol/L (136-145) Potassium Level 4.1 mmol/L (3.5-5.1) Chloride Level 108 mmol/L (98-107) Carbon Dioxide Level 22 mmol/L (21-32) Anion Gap 10 (6-14) Blood Urea Nitrogen 9 mg/dL (7-20) Creatinine 0.9 mg/dL (0.6-1.0) Estimated GFR (Cockcroft-Gault) 63.2 Glucose Level 111 mg/dL (70-99) Calcium Level 8.2 mg/dL (8.5-10.1) White Blood Count 9.2 x10^3/uL (4.0-11.0) Red Blood Count 3.19 x10^6/uL (3.50-5.40) Hemoglobin 9.1 g/dL (12.0-15.5) Hematocrit 28.7 % (36.0-47.0) Mean Corpuscular Volume 90 fL (79-100) Mean Corpuscular Hemoglobin 28 pg (25-35) Mean Corpuscular Hemoglobin Concent 32 g/dL (31-37) Red Cell Distribution Width 15.3 % (11.5-14.5) Platelet Count 379 x10^3/uL (140-400) Neutrophils (%) (Auto) 72 % (31-73) Lymphocytes (%) (Auto) 14 % (24-48) Monocytes (%) (Auto) 9 % (0-9) Eosinophils (%) (Auto) 3 % (0-3) Basophils (%) (Auto) 1 % (0-3) Neutrophils # (Auto) 6.6 x10^3uL (1.8-7.7) Lymphocytes # (Auto) 1.3 x10^3/uL (1.0-4.8) Monocytes # (Auto) 0.9 x10^3/uL (0.0-1.1) Eosinophils # (Auto) 0.3 x10^3/uL (0.0-0.7) Basophils # (Auto) 0.1 x10^3/uL (0.0-0.2) Problem List Problems Medical Problems: (1) Diverticulitis Status: Acute Assessment/Plan reviewed CT ongoing diverticulitis 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
[2017-02-22 14:56] VITALS: BP 114/71
[2017-02-22 19:00] VITALS: BP 125/89
[2017-02-22] MEDS ORDERED: FAMOTIDINE 20 MG TABLET. PO SCH (21:00)
[2017-02-22] MEDS: ZOLPIDEM 5 MG TABLET. PO SCH (21:44)
[2017-02-22 23:00] VITALS: BP 119/74
[2017-02-23] MEDS: HEPARIN PF for SUB-Q USE 5,000 UNIT/0.5 ML VIAL. SQ SCH ×3 (06:00→21:38)
[2017-02-23 06:03] LABS: BASO # 0.1 x10^3/uL (0.0-0.2); BASO % 1 % (0-3); EOS % 4 % (0-3); HEMATOCRIT 29.8 % (36.0-47.0); HEMOGLOBIN 9.9 g/dL (12.0-15.5); LYMPH # 1.3 x10^3/uL (1.0-4.8); LYMPH % 15 % (24-48); MEAN CORPUSCULAR HEMOGLOBIN 29 pg (25-35); MEAN CORPUSCULAR HGB CONC 33 g/dL (31-37); MEAN CORPUSCULAR VOLUME 87 fL (79-100); MONO % 10 % (0-9); NEUT % 71 % (31-73); PLATELET COUNT 445 x10^3/uL (140-400); RED BLOOD COUNT 3.43 x10^6/uL (3.50-5.40); RED CELL DISTRIBUTION WIDTH 15.2 % (11.5-14.5); WHITE BLOOD COUNT 9.2 x10^3/uL (4.0-11.0)
[2017-02-23 06:14] LABS: CREATININE 0.8 mg/dL (0.6-1.0); GFR 72.4; POTASSIUM 3.8 mmol/L (3.5-5.1)
[2017-02-23 07:00] VITALS: BP 130/80
[2017-02-23] MEDS: AMINO AC 3%/ELECTROLYTE/GLYCER 1,000 ML IV SCH ×3 (07:00→17:25)
[2017-02-23] MEDS: diphenhydrAMINE 50 MG/ML VIAL IVP PRN (09:01)
[2017-02-23] MEDS: ONDANSETRON PF 4 MG/2 ML VIAL. IV PRN ×2 (09:01→17:14)
[2017-02-23] MEDS: MORPHINE SULFATE 4 MG/ML DISP.SYRIN. IV PRN (09:01)
[2017-02-23] MEDS: buPROPion XL 150 MG TAB.ER.24H. PO SCH (09:02)
[2017-02-23] MEDS: CIPROFLOXACIN 400MG PREMIX 200 ML IV SCH ×2 (09:02→21:27)
[2017-02-23 11:03] VITALS: BP 122/76
[2017-02-23 11:31] LABS: % BASOS 1 % (0-3); % EOS 2 % (0-5)
[2017-02-23 11:32] LABS: PLT ESTIMATE INCREASED (ADEQUATE)
--- NOTE | 2017-02-23 12:10 | PDOC ---
PROGRESS NOTES Subjective Subjective some low crampy pain, continued vaginal drainage Objective Objective Vital Signs Date Time Temp Pulse Resp B/P (MAP) Pulse Ox O2 Delivery O2 Flow Rate FiO2 02/23/17 11:03 97.7 96 18 122/76 (91) 98 Room Air 97.7 Intake and Output 02/23/17 07:00 Intake Total 2160 ml Balance 2160 ml Intake Oral 1760 ml IV Total 400 ml # Voids 4 Physical Exam Abdomen: Soft (some tenderness low abdomen, no guarding) Heart: Regular rate Extremities: No clubbing, No cyanosis General: Alert, Oriented X3, Cooperative HEENT: Atraumatic Lungs: Clear to auscultation MUSCULOSKELETAL: No joint tenderness, No deformity Neuro: Normal gait, Normal speech Psych/Mental Status: Mental status NL Skin: No rashes, No breakdown Assessment Assessment Problems Medical Problems: (1) Diverticulitis Status: Acute Plan Plan of Care I discussed with her the current situation and CT findings including likely fistula. Would likely require sigmoid colectomy with possible diversion. She understand and appears agreeable. Will ask [employer]ANDER to see in case need assistance at time of surgery. Will plan to OR on Saturday02/25/17 Comment Review of Relevant I have reviewed the following items amando (where applicable) has been applied. Labs Laboratory Tests Test 02/22/17 05:30 02/22/17 05:35 02/23/17 05:25 Sodium Level 140 mmol/L (136-145) 139 mmol/L (136-145) Potassium Level 4.1 mmol/L (3.5-5.1) 3.8 mmol/L (3.5-5.1) Chloride Level 108 mmol/L (98-107) 104 mmol/L (98-107) Carbon Dioxide Level 22 mmol/L (21-32) 22 mmol/L (21-32) Anion Gap 10 (6-14) 13 (6-14) Blood Urea Nitrogen 9 mg/dL (7-20) 8 mg/dL (7-20) Creatinine 0.9 mg/dL (0.6-1.0) 0.8 mg/dL (0.6-1.0) Estimated GFR (Cockcroft-Gault) 63.2 72.4 Glucose Level 111 mg/dL (70-99) 114 mg/dL (70-99) Calcium Level 8.2 mg/dL (8.5-10.1) 9.0 mg/dL (8.5-10.1) White Blood Count 9.2 x10^3/uL (4.0-11.0) 9.2 x10^3/uL (4.0-11.0) Red Blood Count 3.19 x10^6/uL (3.50-5.40) 3.43 x10^6/uL (3.50-5.40) Hemoglobin 9.1 g/dL (12.0-15.5) 9.9 g/dL (12.0-15.5) Hematocrit 28.7 % (36.0-47.0) 29.8 % (36.0-47.0) Mean Corpuscular Volume 90 fL (79-100) 87 fL (79-100) Mean Corpuscular Hemoglobin 28 pg (25-35) 29 pg (25-35) Mean Corpuscular Hemoglobin Concent 32 g/dL (31-37) 33 g/dL (31-37) Red Cell Distribution Width 15.3 % (11.5-14.5) 15.2 % (11.5-14.5) Platelet Count 379 x10^3/uL (140-400) 445 x10^3/uL (140-400) Neutrophils (%) (Auto) 72 % (31-73) 71 % (31-73) Lymphocytes (%) (Auto) 14 % (24-48) 15 % (24-48) Monocytes (%) (Auto) 9 % (0-9) 10 % (0-9) Eosinophils (%) (Auto) 3 % (0-3) 4 % (0-3) Basophils (%) (Auto) 1 % (0-3) 1 % (0-3) Neutrophils # (Auto) 6.6 x10^3uL (1.8-7.7) 6.5 x10^3uL (1.8-7.7) Lymphocytes # (Auto) 1.3 x10^3/uL (1.0-4.8) 1.3 x10^3/uL (1.0-4.8) Monocytes # (Auto) 0.9 x10^3/uL (0.0-1.1) 0.9 x10^3/uL (0.0-1.1) Eosinophils # (Auto) 0.3 x10^3/uL (0.0-0.7) 0.3 x10^3/uL (0.0-0.7) Basophils # (Auto) 0.1 x10^3/uL (0.0-0.2) 0.1 x10^3/uL (0.0-0.2) Segmented Neutrophils % 69 % (35-66) Band Neutrophils % 7 % (0-9) Lymphocytes % 13 % (24-48) Monocytes % 8 % (0-10) Eosinophils % 2 % (0-5) Basophils % 1 % (0-3) Platelet Estimate Increased (ADEQUATE) Laboratory Tests Test 02/23/17 05:25 White Blood Count 9.2 x10^3/uL (4.0-11.0) Red Blood Count 3.43 x10^6/uL (3.50-5.40) Hemoglobin 9.9 g/dL (12.0-15.5) Hematocrit 29.8 % (36.0-47.0) Mean Corpuscular Volume 87 fL (79-100) Mean Corpuscular Hemoglobin 29 pg (25-35) Mean Corpuscular Hemoglobin Concent 33 g/dL (31-37) Red Cell Distribution Width 15.2 % (11.5-14.5) Platelet Count 445 x10^3/uL (140-400) Neutrophils (%) (Auto) 71 % (31-73) Lymphocytes (%) (Auto) 15 % (24-48) Monocytes (%) (Auto) 10 % (0-9) Eosinophils (%) (Auto) 4 % (0-3) Basophils (%) (Auto) 1 % (0-3) Neutrophils # (Auto) 6.5 x10^3uL (1.8-7.7) Lymphocytes # (Auto) 1.3 x10^3/uL (1.0-4.8) Monocytes # (Auto) 0.9 x10^3/uL (0.0-1.1) Eosinophils # (Auto) 0.3 x10^3/uL (0.0-0.7) Basophils # (Auto) 0.1 x10^3/uL (0.0-0.2) Segmented Neutrophils % 69 % (35-66) Band Neutrophils % 7 % (0-9) Lymphocytes % 13 % (24-48) Monocytes % 8 % (0-10) Eosinophils % 2 % (0-5) Basophils % 1 % (0-3) Platelet Estimate Increased (ADEQUATE) Sodium Level 139 mmol/L (136-145) Potassium Level 3.8 mmol/L (3.5-5.1) Chloride Level 104 mmol/L (98-107) Carbon Dioxide Level 22 mmol/L (21-32) Anion Gap 13 (6-14) Blood Urea Nitrogen 8 mg/dL (7-20) Creatinine 0.8 mg/dL (0.6-1.0) Estimated GFR (Cockcroft-Gault) 72.4 Glucose Level 114 mg/dL (70-99) Calcium Level 9.0 mg/dL (8.5-10.1) Microbiology 02/18/17 Urine Culture - Final, Complete 02/18/17 Urine Culture Result 1 (TARIQ) - Final, Complete Medications Current Medications Morphine Sulfate 2 mg PRN Q15MIN PRN IV/SQ PAIN GREATER THAN 3/10 Last administered on 02/18/17 07:42; Start 02/18/17 at 07:30; Stop 02/18/17 at 17:49 ; Status DC Sodium Chloride 1,000 ml @ 1,000 mls/hr Q1H IV Last administered on 02/18/17 07:41; Start 02/18/17 at 07:29; Stop 02/18/17 at 08:28; Status DC Ondansetron HCl (Zofran) 4 mg 1X ONCE IV Last administered on 02/18/17 07:41 ; Start 02/18/17 at 08:00; Stop 02/18/17 at 08:01; Status DC Iohexol (Omnipaque 240 Mg/ml) 50 ml 1X ONCE PO Last administered on 02/18/17 08:00; Start 02/18/17 at 08:00; Stop 02/18/17 at 08:01; Status DC Iohexol (Omnipaque 300 Mg/ml) 75 ml 1X ONCE IV Last administered on 02/18/17 08:59; Start 02/18/17 at 08:00; Stop 02/18/17 at 08:01; Status DC Sodium Chloride 1,000 ml @ 1,000 mls/hr 1X ONCE IV Last administered on 09:48; Start 02/18/17 at 09:30; Stop 02/18/17 at 10:29; Status DC Ciprofloxacin Lactate 200 ml @ 200 mls/hr Q12HR IV Last administered on 09:02; Start 02/18/17 at 10:00 Metronidazole 100 ml @ 100 mls/hr Q8H IV Last administered on 02/23/17 10:48; Start 02/18/17 at 11:00 Ondansetron HCl (Zofran) 4 mg PRN Q8HRS PRN IV NAUSEA/VOMITING; Start 02/18/17 at 10:15; Stop 02/19/17 at 10:14; Status DC Morphine Sulfate 2 mg PRN Q2HR PRN IV PAIN Last administered on 02/19/17 07:58 ; Start 02/18/17 at 10:15; Stop 02/19/17 at 10:14; Status DC Diphenhydramine HCl (Benadryl) 25 mg PRN Q6HRS PRN IVP ITCHING Last administered on 02/23/17 09:01; Start 02/18/17 at 14:15 Cyclobenzaprine HCl (Flexeril) 10 mg PRN DAILY PRN PO MUSCLE SPASMS Last administered on 02/20/17 22:02; Start 02/18/17 at 17:45 Diltiazem HCl (Cardizem 24hr Cd) 180 mg DAILY PO Last administered on 02/23/17 09:02; Start 02/19/17 at 09:00 Losartan Potassium (Cozaar) 50 mg DAILY PO Last administered on 02/19/17 07:55 ; Start 02/19/17 at 09:00; Stop 02/19/17 at 09:00; Status DC Pantoprazole Sodium (Protonix) 40 mg DAILYAC PO Last administered on 02/19/17 07:56; Start 02/19/17 at 07:30; Stop 02/19/17 at 12:31; Status DC Bupropion HCl (Wellbutrin Xl) 300 mg DAILY PO Last administered on 02/23/17 09: 02; Start 02/19/17 at 09:00 Acetaminophen/ Hydrocodone Bitart (Lortab 7.5/325) 1 tab PRN TID PRN PO MODERATE PAIN Last administered on 02/22/17 20:10; Start 02/18/17 at 18:15 Zolpidem Tartrate (Ambien) 5 mg QHS PO Last administered on 02/22/17 21:44; Start 02/18/17 at 21:00 Zolpidem Tartrate (Ambien) 5 mg PRN QHS PRN PO INSOMNIA Last administered on 00:26; Start 02/18/17 at 18:15 Acetaminophen (Tylenol) 650 mg PRN Q6HRS PRN PO FEVER; Start 02/19/17 at 12:30 Ondansetron HCl (Zofran) 4 mg PRN Q6HRS PRN IV NAUSEA/VOMITING Last administered on 02/23/17 09:01; Start 02/19/17 at 12:30 Morphine Sulfate 2 mg PRN Q2HR PRN IV PAIN; Start 02/19/17 at 12:30; Stop at 12:31; Status DC Tramadol HCl (Ultram) 50 mg PRN Q6HRS PRN PO MILD PAIN; Start 02/19/17 at 12:30 Hydralazine HCl (Apresoline) 10 mg PRN Q4HRS PRN IVP ELEVATED BP, SEE COMMENTS ; Start 02/19/17 at 12:30 Docusate Sodium (Colace) 100 mg PRN DAILY PRN PO CONSTIPATION; Start 02/19/17 at 12:30 Morphine Sulfate 2 mg PRN Q2HR PRN IV PAIN Last administered on 02/23/17 09:01 ; Start 02/19/17 at 12:45 Famotidine (Pepcid) 20 mg QHS IVP Last administered on 02/21/17 20:56; Start at 21:00; Stop 02/22/17 at 15:49; Status DC Heparin Sodium (Porcine) (Heparin Sq) 5,000 unit Q8HRS SQ Last administered on 02/21/17 20:57; Start 02/19/17 at 14:00 Iohexol (Omnipaque 240 Mg/ml) 30 ml 1X ONCE PO ; Start 02/21/17 at 08:30; Stop 02/21/17 at 08:35; Status DC Iohexol (Omnipaque 300 Mg/ml) 60 ml 1X ONCE IV ; Start 02/21/17 at 08:30; Stop 02/21/17 at 08:35; Status DC Sodium Chloride 1,000 ml @ 75 mls/hr [id number] IV Last administered on 02/21/17 20:58; Start 02/21/17 at 08:45; Stop 02/22/17 at 08:59; Status DC Amino Acids/ Glycerin/ Electrolytes 1,000 ml @ 60 mls/hr [id number] IV Last administered on 02/22/17 14:45; Start 02/22/17 at 09:30 Famotidine (Pepcid) 20 mg QHS PO Last administered on 02/22/17 21:44; Start 02/22/17 at 21:00 Active Scripts Active Reported Ibuprofen 400 Mg Tablet 400 Mg PO PRN Q6HRS PRN Pantoprazole Sodium 40 Mg Tablet.dr 1 Tab PO DAILY Cardizem Cd (Diltiazem Hcl) 180 Mg Cap.er.24h 1 Cap PO DAILY Miralax (Polyethylene Glycol 3350) 17 Gm Powd.pack 1 Packet PO DAILY Ambien (Zolpidem Tartrate) 10 Mg Tablet 1 Tab PO QHS Hydrocodon-Acetaminoph 7.5-500 (Hydrocodone Bit/Acetaminophen) 1 Each Tablet 1 Each PO PRN TID PRN Cyclobenzaprine Hcl 10 Mg Tablet 10 Mg PO PRN DAILY Wellbutrin Xl (Bupropion Hcl) 300 Mg Tab.er.24h 300 Mg PO DAILY Losartan Potassium 25 Mg Tablet 50 Mg PO DAILY Hydrochlorothiazide Tablet (Hydrochlorothiazide) 25 Mg Tablet 25 Mg PO DAILY Vitals/I & O Vital Sign - Last 24 Hours 02/22/17 02/22/17 02/22/17 02/22/17 14:56 14:56 19:00 20:00 Temp 98.2 98.4 98.2 98.4 Pulse 101 91 Resp 18 18 B/P (MAP) 114/71 (85) 125/89 (101) Pulse Ox 99 97 O2 Delivery Room Air Room Air Room Air Room Air 02/22/17 02/22/17 02/22/17 02/23/17 20:10 22:10 23:00 07:00 Temp 98.6 97.8 98.6 97.8 Pulse 89 98 Resp 20 20 18 18 B/P (MAP) 119/74 (89) 130/80 (97) Pulse Ox 97 98 O2 Delivery Room Air Room Air Room Air Room Air 02/23/17 02/23/17 02/23/17 02/23/17 09:01 09:02 09:45 11:03 Temp 97.7 97.7 Pulse 98 96 Resp 18 B/P (MAP) 130/80 122/76 (91) Pulse Ox 98 O2 Delivery Room Air Room Air Room Air Intake and Output 02/22/17 02/22/17 02/23/17 15:00 23:00 07:00 Intake Total 660 ml 1400 ml 100 ml Balance 660 ml 1400 ml 100 ml NNAMDI MARTINEZ MD Feb 23, 2017 12:10
--- NOTE | 2017-02-23 14:26 | PDOC ---
PROGRESS NOTES Chief Complaint Chief Complaint Diverticulitis with ? fistula Leukocytosis Abdominal pain HTN mild malnutrition h/o PAFIB no AC plan: fu with gi, id , sx clear liquid change ivf to PPN on cipro and flagyl labs daily dced losartan cont cardizem with h/o PAFIB gi,dvt ppx plan to do sx on Saturday, ob consult pending too History of Present Illness History of Present Illness abd pain slightly better, 11/28 today has bm , greenish, watery, also lots of discharge with possible stool from vaginal no N/V, chronic constipation wbc 12 up to 16, now down to 9, no fever CT showed same result wo improvement, + fistula low bp better Vitals Vitals Vital Signs Date Time Temp Pulse Resp B/P (MAP) Pulse Ox O2 Delivery O2 Flow Rate FiO2 02/23/17 11:03 97.7 96 18 122/76 (91) 98 Room Air 97.7 Physical Exam General: Alert, Oriented X3, Cooperative Heart: Regular rate Lungs: Clear Abdomen: Soft (some tenderness low abdomen, no guarding) Extremities: No clubbing, No cyanosis Skin: No rashes, No breakdown Labs LABS Laboratory Tests Test 02/23/17 05:25 White Blood Count 9.2 x10^3/uL (4.0-11.0) Red Blood Count 3.43 x10^6/uL (3.50-5.40) Hemoglobin 9.9 g/dL (12.0-15.5) Hematocrit 29.8 % (36.0-47.0) Mean Corpuscular Volume 87 fL (79-100) Mean Corpuscular Hemoglobin 29 pg (25-35) Mean Corpuscular Hemoglobin Concent 33 g/dL (31-37) Red Cell Distribution Width 15.2 % (11.5-14.5) Platelet Count 445 x10^3/uL (140-400) Neutrophils (%) (Auto) 71 % (31-73) Lymphocytes (%) (Auto) 15 % (24-48) Monocytes (%) (Auto) 10 % (0-9) Eosinophils (%) (Auto) 4 % (0-3) Basophils (%) (Auto) 1 % (0-3) Neutrophils # (Auto) 6.5 x10^3uL (1.8-7.7) Lymphocytes # (Auto) 1.3 x10^3/uL (1.0-4.8) Monocytes # (Auto) 0.9 x10^3/uL (0.0-1.1) Eosinophils # (Auto) 0.3 x10^3/uL (0.0-0.7) Basophils # (Auto) 0.1 x10^3/uL (0.0-0.2) Segmented Neutrophils % 69 % (35-66) Band Neutrophils % 7 % (0-9) Lymphocytes % 13 % (24-48) Monocytes % 8 % (0-10) Eosinophils % 2 % (0-5) Basophils % 1 % (0-3) Platelet Estimate Increased (ADEQUATE) Sodium Level 139 mmol/L (136-145) Potassium Level 3.8 mmol/L (3.5-5.1) Chloride Level 104 mmol/L (98-107) Carbon Dioxide Level 22 mmol/L (21-32) Anion Gap 13 (6-14) Blood Urea Nitrogen 8 mg/dL (7-20) Creatinine 0.8 mg/dL (0.6-1.0) Estimated GFR (Cockcroft-Gault) 72.4 Glucose Level 114 mg/dL (70-99) Calcium Level 9.0 mg/dL (8.5-10.1) Review of Systems Review of Systems no fever, chills, sob or chest pain Assessment and Plan Assessmemt and Plan Problems Medical Problems: (1) Diverticulitis Status: Acute Problems: Comment Review of Relevant I have reviewed the following items amando (where applicable) has been applied. Labs Laboratory Tests Test 02/22/17 05:30 02/22/17 05:35 02/23/17 05:25 Sodium Level 140 mmol/L (136-145) 139 mmol/L (136-145) Potassium Level 4.1 mmol/L (3.5-5.1) 3.8 mmol/L (3.5-5.1) Chloride Level 108 mmol/L (98-107) 104 mmol/L (98-107) Carbon Dioxide Level 22 mmol/L (21-32) 22 mmol/L (21-32) Anion Gap 10 (6-14) 13 (6-14) Blood Urea Nitrogen 9 mg/dL (7-20) 8 mg/dL (7-20) Creatinine 0.9 mg/dL (0.6-1.0) 0.8 mg/dL (0.6-1.0) Estimated GFR (Cockcroft-Gault) 63.2 72.4 Glucose Level 111 mg/dL (70-99) 114 mg/dL (70-99) Calcium Level 8.2 mg/dL (8.5-10.1) 9.0 mg/dL (8.5-10.1) White Blood Count 9.2 x10^3/uL (4.0-11.0) 9.2 x10^3/uL (4.0-11.0) Red Blood Count 3.19 x10^6/uL (3.50-5.40) 3.43 x10^6/uL (3.50-5.40) Hemoglobin 9.1 g/dL (12.0-15.5) 9.9 g/dL (12.0-15.5) Hematocrit 28.7 % (36.0-47.0) 29.8 % (36.0-47.0) Mean Corpuscular Volume 90 fL (79-100) 87 fL (79-100) Mean Corpuscular Hemoglobin 28 pg (25-35) 29 pg (25-35) Mean Corpuscular Hemoglobin Concent 32 g/dL (31-37) 33 g/dL (31-37) Red Cell Distribution Width 15.3 % (11.5-14.5) 15.2 % (11.5-14.5) Platelet Count 379 x10^3/uL (140-400) 445 x10^3/uL (140-400) Neutrophils (%) (Auto) 72 % (31-73) 71 % (31-73) Lymphocytes (%) (Auto) 14 % (24-48) 15 % (24-48) Monocytes (%) (Auto) 9 % (0-9) 10 % (0-9) Eosinophils (%) (Auto) 3 % (0-3) 4 % (0-3) Basophils (%) (Auto) 1 % (0-3) 1 % (0-3) Neutrophils # (Auto) 6.6 x10^3uL (1.8-7.7) 6.5 x10^3uL (1.8-7.7) Lymphocytes # (Auto) 1.3 x10^3/uL (1.0-4.8) 1.3 x10^3/uL (1.0-4.8) Monocytes # (Auto) 0.9 x10^3/uL (0.0-1.1) 0.9 x10^3/uL (0.0-1.1) Eosinophils # (Auto) 0.3 x10^3/uL (0.0-0.7) 0.3 x10^3/uL (0.0-0.7) Basophils # (Auto) 0.1 x10^3/uL (0.0-0.2) 0.1 x10^3/uL (0.0-0.2) Segmented Neutrophils % 69 % (35-66) Band Neutrophils % 7 % (0-9) Lymphocytes % 13 % (24-48) Monocytes % 8 % (0-10) Eosinophils % 2 % (0-5) Basophils % 1 % (0-3) Platelet Estimate Increased (ADEQUATE) Laboratory Tests Test 02/23/17 05:25 White Blood Count 9.2 x10^3/uL (4.0-11.0) Red Blood Count 3.43 x10^6/uL (3.50-5.40) Hemoglobin 9.9 g/dL (12.0-15.5) Hematocrit 29.8 % (36.0-47.0) Mean Corpuscular Volume 87 fL (79-100) Mean Corpuscular Hemoglobin 29 pg (25-35) Mean Corpuscular Hemoglobin Concent 33 g/dL (31-37) Red Cell Distribution Width 15.2 % (11.5-14.5) Platelet Count 445 x10^3/uL (140-400) Neutrophils (%) (Auto) 71 % (31-73) Lymphocytes (%) (Auto) 15 % (24-48) Monocytes (%) (Auto) 10 % (0-9) Eosinophils (%) (Auto) 4 % (0-3) Basophils (%) (Auto) 1 % (0-3) Neutrophils # (Auto) 6.5 x10^3uL (1.8-7.7) Lymphocytes # (Auto) 1.3 x10^3/uL (1.0-4.8) Monocytes # (Auto) 0.9 x10^3/uL (0.0-1.1) Eosinophils # (Auto) 0.3 x10^3/uL (0.0-0.7) Basophils # (Auto) 0.1 x10^3/uL (0.0-0.2) Segmented Neutrophils % 69 % (35-66) Band Neutrophils % 7 % (0-9) Lymphocytes % 13 % (24-48) Monocytes % 8 % (0-10) Eosinophils % 2 % (0-5) Basophils % 1 % (0-3) Platelet Estimate Increased (ADEQUATE) Sodium Level 139 mmol/L (136-145) Potassium Level 3.8 mmol/L (3.5-5.1) Chloride Level 104 mmol/L (98-107) Carbon Dioxide Level 22 mmol/L (21-32) Anion Gap 13 (6-14) Blood Urea Nitrogen 8 mg/dL (7-20) Creatinine 0.8 mg/dL (0.6-1.0) Estimated GFR (Cockcroft-Gault) 72.4 Glucose Level 114 mg/dL (70-99) Calcium Level 9.0 mg/dL (8.5-10.1) Microbiology 02/18/17 Urine Culture - Final, Complete 02/18/17 Urine Culture Result 1 (TARIQ) - Final, Complete Medications Current Medications Morphine Sulfate 2 mg PRN Q15MIN PRN IV/SQ PAIN GREATER THAN 3/10 Last administered on 02/18/17 07:42; Start 02/18/17 at 07:30; Stop 02/18/17 at 17:49 ; Status DC Sodium Chloride 1,000 ml @ 1,000 mls/hr Q1H IV Last administered on 02/18/17 07:41; Start 02/18/17 at 07:29; Stop 02/18/17 at 08:28; Status DC Ondansetron HCl (Zofran) 4 mg 1X ONCE IV Last administered on 02/18/17 07:41 ; Start 02/18/17 at 08:00; Stop 02/18/17 at 08:01; Status DC Iohexol (Omnipaque 240 Mg/ml) 50 ml 1X ONCE PO Last administered on 02/18/17 08:00; Start 02/18/17 at 08:00; Stop 02/18/17 at 08:01; Status DC Iohexol (Omnipaque 300 Mg/ml) 75 ml 1X ONCE IV Last administered on 02/18/17 08:59; Start 02/18/17 at 08:00; Stop 02/18/17 at 08:01; Status DC Sodium Chloride 1,000 ml @ 1,000 mls/hr 1X ONCE IV Last administered on 09:48; Start 02/18/17 at 09:30; Stop 02/18/17 at 10:29; Status DC Ciprofloxacin Lactate 200 ml @ 200 mls/hr Q12HR IV Last administered on 09:02; Start 02/18/17 at 10:00 Metronidazole 100 ml @ 100 mls/hr Q8H IV Last administered on 02/23/17 10:48; Start 02/18/17 at 11:00 Ondansetron HCl (Zofran) 4 mg PRN Q8HRS PRN IV NAUSEA/VOMITING; Start 02/18/17 at 10:15; Stop 02/19/17 at 10:14; Status DC Morphine Sulfate 2 mg PRN Q2HR PRN IV PAIN Last administered on 02/19/17 07:58 ; Start 02/18/17 at 10:15; Stop 02/19/17 at 10:14; Status DC Diphenhydramine HCl (Benadryl) 25 mg PRN Q6HRS PRN IVP ITCHING Last administered on 02/23/17 09:01; Start 02/18/17 at 14:15 Cyclobenzaprine HCl (Flexeril) 10 mg PRN DAILY PRN PO MUSCLE SPASMS Last administered on 02/20/17 22:02; Start 02/18/17 at 17:45 Diltiazem HCl (Cardizem 24hr Cd) 180 mg DAILY PO Last administered on 02/23/17 09:02; Start 02/19/17 at 09:00 Losartan Potassium (Cozaar) 50 mg DAILY PO Last administered on 02/19/17 07:55 ; Start 02/19/17 at 09:00; Stop 02/19/17 at 09:00; Status DC Pantoprazole Sodium (Protonix) 40 mg DAILYAC PO Last administered on 02/19/17 07:56; Start 02/19/17 at 07:30; Stop 02/19/17 at 12:31; Status DC Bupropion HCl (Wellbutrin Xl) 300 mg DAILY PO Last administered on 02/23/17 09: 02; Start 02/19/17 at 09:00 Acetaminophen/ Hydrocodone Bitart (Lortab 7.5/325) 1 tab PRN TID PRN PO MODERATE PAIN Last administered on 02/22/17 20:10; Start 02/18/17 at 18:15 Zolpidem Tartrate (Ambien) 5 mg QHS PO Last administered on 02/22/17 21:44; Start 02/18/17 at 21:00 Zolpidem Tartrate (Ambien) 5 mg PRN QHS PRN PO INSOMNIA Last administered on 00:26; Start 02/18/17 at 18:15 Acetaminophen (Tylenol) 650 mg PRN Q6HRS PRN PO FEVER; Start 02/19/17 at 12:30 Ondansetron HCl (Zofran) 4 mg PRN Q6HRS PRN IV NAUSEA/VOMITING Last administered on 02/23/17 09:01; Start 02/19/17 at 12:30 Morphine Sulfate 2 mg PRN Q2HR PRN IV PAIN; Start 02/19/17 at 12:30; Stop at 12:31; Status DC Tramadol HCl (Ultram) 50 mg PRN Q6HRS PRN PO MILD PAIN; Start 02/19/17 at 12:30 Hydralazine HCl (Apresoline) 10 mg PRN Q4HRS PRN IVP ELEVATED BP, SEE COMMENTS ; Start 02/19/17 at 12:30 Docusate Sodium (Colace) 100 mg PRN DAILY PRN PO CONSTIPATION; Start 02/19/17 at 12:30 Morphine Sulfate 2 mg PRN Q2HR PRN IV PAIN Last administered on 02/23/17 09:01 ; Start 02/19/17 at 12:45 Famotidine (Pepcid) 20 mg QHS IVP Last administered on 02/21/17 20:56; Start at 21:00; Stop 02/22/17 at 15:49; Status DC Heparin Sodium (Porcine) (Heparin Sq) 5,000 unit Q8HRS SQ Last administered on 02/21/17 20:57; Start 02/19/17 at 14:00 Iohexol (Omnipaque 240 Mg/ml) 30 ml 1X ONCE PO ; Start 02/21/17 at 08:30; Stop 02/21/17 at 08:35; Status DC Iohexol (Omnipaque 300 Mg/ml) 60 ml 1X ONCE IV ; Start 02/21/17 at 08:30; Stop 02/21/17 at 08:35; Status DC Sodium Chloride 1,000 ml @ 75 mls/hr [id number] IV Last administered on 02/21/17 20:58; Start 02/21/17 at 08:45; Stop 02/22/17 at 08:59; Status DC Amino Acids/ Glycerin/ Electrolytes 1,000 ml @ 60 mls/hr [id number] IV Last administered on 02/22/17 14:45; Start 02/22/17 at 09:30 Famotidine (Pepcid) 20 mg QHS PO Last administered on 02/22/17 21:44; Start 02/22/17 at 21:00 Active Scripts Active Reported Ibuprofen 400 Mg Tablet 400 Mg PO PRN Q6HRS PRN Pantoprazole Sodium 40 Mg Tablet.dr 1 Tab PO DAILY Cardizem Cd (Diltiazem Hcl) 180 Mg Cap.er.24h 1 Cap PO DAILY Miralax (Polyethylene Glycol 3350) 17 Gm Powd.pack 1 Packet PO DAILY Ambien (Zolpidem Tartrate) 10 Mg Tablet 1 Tab PO QHS Hydrocodon-Acetaminoph 7.5-500 (Hydrocodone Bit/Acetaminophen) 1 Each Tablet 1 Each PO PRN TID PRN Cyclobenzaprine Hcl 10 Mg Tablet 10 Mg PO PRN DAILY Wellbutrin Xl (Bupropion Hcl) 300 Mg Tab.er.24h 300 Mg PO DAILY Losartan Potassium 25 Mg Tablet 50 Mg PO DAILY Hydrochlorothiazide Tablet (Hydrochlorothiazide) 25 Mg Tablet 25 Mg PO DAILY Vitals/I & O Vital Sign - Last 24 Hours 02/22/17 02/22/17 02/22/17 02/22/17 14:56 14:56 19:00 20:00 Temp 98.2 98.4 98.2 98.4 Pulse 101 91 Resp 18 18 B/P (MAP) 114/71 (85) 125/89 (101) Pulse Ox 99 97 O2 Delivery Room Air Room Air Room Air Room Air 02/22/17 02/22/17 02/22/17 02/23/17 20:10 22:10 23:00 07:00 Temp 98.6 97.8 98.6 97.8 Pulse 89 98 Resp 20 20 18 18 B/P (MAP) 119/74 (89) 130/80 (97) Pulse Ox 97 98 O2 Delivery Room Air Room Air Room Air Room Air 02/23/17 02/23/17 02/23/17 02/23/17 08:05 09:01 09:02 09:45 Pulse 98 B/P (MAP) 130/80 O2 Delivery Room Air Room Air Room Air 02/23/17 11:03 Temp 97.7 97.7 Pulse 96 Resp 18 B/P (MAP) 122/76 (91) Pulse Ox 98 O2 Delivery Room Air Intake and Output 02/22/17 02/22/17 02/23/17 15:00 23:00 07:00 Intake Total 660 ml 1400 ml 100 ml Balance 660 ml 1400 ml 100 ml FREDA SIMON MD Feb 23, 2017 14:25
[2017-02-23 15:02] VITALS: BP 105/63
[2017-02-23] MEDS ORDERED: IBUPROFEN 600 MG TABLET. PO PRN (15:30)
[2017-02-23] MEDS: HYDROcodone/APAP 7.5/325MG 1 TAB TABLET PO PRN (19:57)
[2017-02-23 19:59] VITALS: BP 118/78
[2017-02-23] MEDS: traMADol 50 MG TABLET PO PRN (20:40)
[2017-02-23] MEDS: FAMOTIDINE 20 MG/2 ML VIAL IVP SCH (21:26)
[2017-02-23] MEDS: ZOLPIDEM 5 MG TABLET. PO SCH (21:26)
[2017-02-23] MEDS: CYCLOBENZAPRINE 10 MG TABLET. PO PRN (21:46)
[2017-02-23 23:03] VITALS: BP 115/71
[2017-02-24] MEDS: HYDROcodone/APAP 7.5/325MG 1 TAB TABLET PO PRN ×3 (01:14→14:20)
[2017-02-24 03:59] VITALS: BP 98/62
[2017-02-24] MEDS: traMADol 50 MG TABLET PO PRN (04:15)
[2017-02-24] MEDS: HEPARIN PF for SUB-Q USE 5,000 UNIT/0.5 ML VIAL. SQ SCH (04:25)
[2017-02-24 06:13] LABS: BASO # 0.1 x10^3/uL (0.0-0.2); BASO % 1 % (0-3); EOS % 3 % (0-3); HEMATOCRIT 29.9 % (36.0-47.0); HEMOGLOBIN 9.9 g/dL (12.0-15.5); LYMPH # 1.3 x10^3/uL (1.0-4.8); LYMPH % 14 % (24-48); MEAN CORPUSCULAR HEMOGLOBIN 29 pg (25-35); MEAN CORPUSCULAR HGB CONC 33 g/dL (31-37); MEAN CORPUSCULAR VOLUME 86 fL (79-100); MONO % 11 % (0-9); NEUT % 71 % (31-73); PLATELET COUNT 472 x10^3/uL (140-400); RED BLOOD COUNT 3.48 x10^6/uL (3.50-5.40); WHITE BLOOD COUNT 9.5 x10^3/uL (4.0-11.0)
[2017-02-24 06:28] LABS: CALCIUM 9.2 mg/dL (8.5-10.1); CREATININE 0.8 mg/dL (0.6-1.0); GFR 72.4; POTASSIUM 4.5 mmol/L (3.5-5.1)
[2017-02-24 07:43] VITALS: BP 122/66
[2017-02-24] MEDS: buPROPion XL 150 MG TAB.ER.24H. PO SCH (08:12)
[2017-02-24] MEDS: diphenhydrAMINE 50 MG/ML VIAL IVP PRN (08:14)
[2017-02-24] MEDS: CIPROFLOXACIN 400MG PREMIX 200 ML IV SCH ×2 (08:14→20:36)
--- NOTE | 2017-02-24 09:34 | PDOC ---
FOX LAKHANI ABLE SEAMAN 02/24/17 0934: SURGICAL PROGRESS NOTE Subjective lower abdominal pain, comes and goes no nausea or emesis no questions Vital Signs Vital Signs Date Time Temp Pulse Resp B/P (MAP) Pulse Ox O2 Delivery O2 Flow Rate FiO2 02/24/17 08:12 98 122/66 02/24/17 07:43 97.7 18 95 Room Air 97.7 I&O Intake and Output 02/24/17 07:00 Intake Total 1440 ml Balance 1440 ml Intake Oral 1140 ml IV Total 300 ml # Voids 3 General: Alert, Oriented X3, Cooperative, No acute distress Abdomen: Soft, Other (ND, mildly tender lower abdomen ) Labs Laboratory Tests Test 02/23/17 05:25 02/24/17 05:30 White Blood Count 9.2 x10^3/uL (4.0-11.0) 9.5 x10^3/uL (4.0-11.0) Red Blood Count 3.43 x10^6/uL (3.50-5.40) 3.48 x10^6/uL (3.50-5.40) Hemoglobin 9.9 g/dL (12.0-15.5) 9.9 g/dL (12.0-15.5) Hematocrit 29.8 % (36.0-47.0) 29.9 % (36.0-47.0) Mean Corpuscular Volume 87 fL (79-100) 86 fL (79-100) Mean Corpuscular Hemoglobin 29 pg (25-35) 29 pg (25-35) Mean Corpuscular Hemoglobin Concent 33 g/dL (31-37) 33 g/dL (31-37) Red Cell Distribution Width 15.2 % (11.5-14.5) 15.0 % (11.5-14.5) Platelet Count 445 x10^3/uL (140-400) 472 x10^3/uL (140-400) Neutrophils (%) (Auto) 71 % (31-73) 71 % (31-73) Lymphocytes (%) (Auto) 15 % (24-48) 14 % (24-48) Monocytes (%) (Auto) 10 % (0-9) 11 % (0-9) Eosinophils (%) (Auto) 4 % (0-3) 3 % (0-3) Basophils (%) (Auto) 1 % (0-3) 1 % (0-3) Neutrophils # (Auto) 6.5 x10^3uL (1.8-7.7) 6.8 x10^3uL (1.8-7.7) Lymphocytes # (Auto) 1.3 x10^3/uL (1.0-4.8) 1.3 x10^3/uL (1.0-4.8) Monocytes # (Auto) 0.9 x10^3/uL (0.0-1.1) 1.0 x10^3/uL (0.0-1.1) Eosinophils # (Auto) 0.3 x10^3/uL (0.0-0.7) 0.3 x10^3/uL (0.0-0.7) Basophils # (Auto) 0.1 x10^3/uL (0.0-0.2) 0.1 x10^3/uL (0.0-0.2) Segmented Neutrophils % 69 % (35-66) Band Neutrophils % 7 % (0-9) Lymphocytes % 13 % (24-48) Monocytes % 8 % (0-10) Eosinophils % 2 % (0-5) Basophils % 1 % (0-3) Platelet Estimate Increased (ADEQUATE) Sodium Level 139 mmol/L (136-145) 138 mmol/L (136-145) Potassium Level 3.8 mmol/L (3.5-5.1) 4.5 mmol/L (3.5-5.1) Chloride Level 104 mmol/L (98-107) 103 mmol/L (98-107) Carbon Dioxide Level 22 mmol/L (21-32) 24 mmol/L (21-32) Anion Gap 13 (6-14) 11 (6-14) Blood Urea Nitrogen 8 mg/dL (7-20) 9 mg/dL (7-20) Creatinine 0.8 mg/dL (0.6-1.0) 0.8 mg/dL (0.6-1.0) Estimated GFR (Cockcroft-Gault) 72.4 72.4 Glucose Level 114 mg/dL (70-99) 101 mg/dL (70-99) Calcium Level 9.0 mg/dL (8.5-10.1) 9.2 mg/dL (8.5-10.1) Laboratory Tests Test 02/24/17 05:30 White Blood Count 9.5 x10^3/uL (4.0-11.0) Red Blood Count 3.48 x10^6/uL (3.50-5.40) Hemoglobin 9.9 g/dL (12.0-15.5) Hematocrit 29.9 % (36.0-47.0) Mean Corpuscular Volume 86 fL (79-100) Mean Corpuscular Hemoglobin 29 pg (25-35) Mean Corpuscular Hemoglobin Concent 33 g/dL (31-37) Red Cell Distribution Width 15.0 % (11.5-14.5) Platelet Count 472 x10^3/uL (140-400) Neutrophils (%) (Auto) 71 % (31-73) Lymphocytes (%) (Auto) 14 % (24-48) Monocytes (%) (Auto) 11 % (0-9) Eosinophils (%) (Auto) 3 % (0-3) Basophils (%) (Auto) 1 % (0-3) Neutrophils # (Auto) 6.8 x10^3uL (1.8-7.7) Lymphocytes # (Auto) 1.3 x10^3/uL (1.0-4.8) Monocytes # (Auto) 1.0 x10^3/uL (0.0-1.1) Eosinophils # (Auto) 0.3 x10^3/uL (0.0-0.7) Basophils # (Auto) 0.1 x10^3/uL (0.0-0.2) Sodium Level 138 mmol/L (136-145) Potassium Level 4.5 mmol/L (3.5-5.1) Chloride Level 103 mmol/L (98-107) Carbon Dioxide Level 24 mmol/L (21-32) Anion Gap 11 (6-14) Blood Urea Nitrogen 9 mg/dL (7-20) Creatinine 0.8 mg/dL (0.6-1.0) Estimated GFR (Cockcroft-Gault) 72.4 Glucose Level 101 mg/dL (70-99) Calcium Level 9.2 mg/dL (8.5-10.1) Problem List Problems Medical Problems: (1) Diverticulitis Status: Acute Assessment/Plan tentative plan is OR saturday will d/w Dr Finnegan surgical plans Problems: NNAMDI FINNEGAN MD 02/24/17 1250: SURGICAL PROGRESS NOTE Assessment/Plan Agree with above Problems: FOX LAKHANI APRN Feb 24, 2017 09:34 NNAMDI FINNEGAN MD Feb 24, 2017 12:50
[2017-02-24] MEDS: MORPHINE SULFATE 4 MG/ML DISP.SYRIN. IV PRN (10:11)
[2017-02-24 10:55] VITALS: BP 106/70
[2017-02-24] MEDS: AMINO AC 3%/ELECTROLYTE/GLYCER 1,000 ML IV SCH (11:18)
--- NOTE | 2017-02-24 11:52 | PDOC ---
PROGRESS NOTES Chief Complaint Chief Complaint Diverticulitis with ? fistula Leukocytosis Abdominal pain HTN mild malnutrition h/o PAFIB no AC plan: fu with gi, id , sx clear liquid change ivf to PPN on cipro and flagyl labs daily dced losartan cont cardizem with h/o PAFIB gi,dvt ppx plan to do sx on Saturday, ob consult pending too History of Present Illness History of Present Illness abd pain slightly better, 11/28 today has bm , greenish, watery, also lots of discharge with possible stool from vaginal x3ds no N/V, chronic constipation wbc 12 up to 16, now down to 9, no fever CT showed same result wo improvement, + fistula low bp better Vitals Vitals Vital Signs Date Time Temp Pulse Resp B/P (MAP) Pulse Ox O2 Delivery O2 Flow Rate FiO2 02/24/17 10:45 Room Air 02/24/17 08:12 98 122/66 02/24/17 07:43 97.7 18 95 97.7 Physical Exam General: Alert, Oriented X3, Cooperative, No acute distress Heart: Regular rate Lungs: Clear Abdomen: Soft, Other (ND, mildly tender lower abdomen ) Extremities: No clubbing, No cyanosis Skin: No rashes, No breakdown Labs LABS Laboratory Tests Test 02/24/17 05:30 White Blood Count 9.5 x10^3/uL (4.0-11.0) Red Blood Count 3.48 x10^6/uL (3.50-5.40) Hemoglobin 9.9 g/dL (12.0-15.5) Hematocrit 29.9 % (36.0-47.0) Mean Corpuscular Volume 86 fL (79-100) Mean Corpuscular Hemoglobin 29 pg (25-35) Mean Corpuscular Hemoglobin Concent 33 g/dL (31-37) Red Cell Distribution Width 15.0 % (11.5-14.5) Platelet Count 472 x10^3/uL (140-400) Neutrophils (%) (Auto) 71 % (31-73) Lymphocytes (%) (Auto) 14 % (24-48) Monocytes (%) (Auto) 11 % (0-9) Eosinophils (%) (Auto) 3 % (0-3) Basophils (%) (Auto) 1 % (0-3) Neutrophils # (Auto) 6.8 x10^3uL (1.8-7.7) Lymphocytes # (Auto) 1.3 x10^3/uL (1.0-4.8) Monocytes # (Auto) 1.0 x10^3/uL (0.0-1.1) Eosinophils # (Auto) 0.3 x10^3/uL (0.0-0.7) Basophils # (Auto) 0.1 x10^3/uL (0.0-0.2) Sodium Level 138 mmol/L (136-145) Potassium Level 4.5 mmol/L (3.5-5.1) Chloride Level 103 mmol/L (98-107) Carbon Dioxide Level 24 mmol/L (21-32) Anion Gap 11 (6-14) Blood Urea Nitrogen 9 mg/dL (7-20) Creatinine 0.8 mg/dL (0.6-1.0) Estimated GFR (Cockcroft-Gault) 72.4 Glucose Level 101 mg/dL (70-99) Calcium Level 9.2 mg/dL (8.5-10.1) Review of Systems Review of Systems no fever, chills, sob or chest pain Assessment and Plan Assessmemt and Plan Problems Medical Problems: (1) Diverticulitis Status: Acute Problems: Comment Review of Relevant I have reviewed the following items amando (where applicable) has been applied. Labs Laboratory Tests Test 02/23/17 05:25 02/24/17 05:30 White Blood Count 9.2 x10^3/uL (4.0-11.0) 9.5 x10^3/uL (4.0-11.0) Red Blood Count 3.43 x10^6/uL (3.50-5.40) 3.48 x10^6/uL (3.50-5.40) Hemoglobin 9.9 g/dL (12.0-15.5) 9.9 g/dL (12.0-15.5) Hematocrit 29.8 % (36.0-47.0) 29.9 % (36.0-47.0) Mean Corpuscular Volume 87 fL (79-100) 86 fL (79-100) Mean Corpuscular Hemoglobin 29 pg (25-35) 29 pg (25-35) Mean Corpuscular Hemoglobin Concent 33 g/dL (31-37) 33 g/dL (31-37) Red Cell Distribution Width 15.2 % (11.5-14.5) 15.0 % (11.5-14.5) Platelet Count 445 x10^3/uL (140-400) 472 x10^3/uL (140-400) Neutrophils (%) (Auto) 71 % (31-73) 71 % (31-73) Lymphocytes (%) (Auto) 15 % (24-48) 14 % (24-48) Monocytes (%) (Auto) 10 % (0-9) 11 % (0-9) Eosinophils (%) (Auto) 4 % (0-3) 3 % (0-3) Basophils (%) (Auto) 1 % (0-3) 1 % (0-3) Neutrophils # (Auto) 6.5 x10^3uL (1.8-7.7) 6.8 x10^3uL (1.8-7.7) Lymphocytes # (Auto) 1.3 x10^3/uL (1.0-4.8) 1.3 x10^3/uL (1.0-4.8) Monocytes # (Auto) 0.9 x10^3/uL (0.0-1.1) 1.0 x10^3/uL (0.0-1.1) Eosinophils # (Auto) 0.3 x10^3/uL (0.0-0.7) 0.3 x10^3/uL (0.0-0.7) Basophils # (Auto) 0.1 x10^3/uL (0.0-0.2) 0.1 x10^3/uL (0.0-0.2) Segmented Neutrophils % 69 % (35-66) Band Neutrophils % 7 % (0-9) Lymphocytes % 13 % (24-48) Monocytes % 8 % (0-10) Eosinophils % 2 % (0-5) Basophils % 1 % (0-3) Platelet Estimate Increased (ADEQUATE) Sodium Level 139 mmol/L (136-145) 138 mmol/L (136-145) Potassium Level 3.8 mmol/L (3.5-5.1) 4.5 mmol/L (3.5-5.1) Chloride Level 104 mmol/L (98-107) 103 mmol/L (98-107) Carbon Dioxide Level 22 mmol/L (21-32) 24 mmol/L (21-32) Anion Gap 13 (6-14) 11 (6-14) Blood Urea Nitrogen 8 mg/dL (7-20) 9 mg/dL (7-20) Creatinine 0.8 mg/dL (0.6-1.0) 0.8 mg/dL (0.6-1.0) Estimated GFR (Cockcroft-Gault) 72.4 72.4 Glucose Level 114 mg/dL (70-99) 101 mg/dL (70-99) Calcium Level 9.0 mg/dL (8.5-10.1) 9.2 mg/dL (8.5-10.1) Laboratory Tests Test 02/24/17 05:30 White Blood Count 9.5 x10^3/uL (4.0-11.0) Red Blood Count 3.48 x10^6/uL (3.50-5.40) Hemoglobin 9.9 g/dL (12.0-15.5) Hematocrit 29.9 % (36.0-47.0) Mean Corpuscular Volume 86 fL (79-100) Mean Corpuscular Hemoglobin 29 pg (25-35) Mean Corpuscular Hemoglobin Concent 33 g/dL (31-37) Red Cell Distribution Width 15.0 % (11.5-14.5) Platelet Count 472 x10^3/uL (140-400) Neutrophils (%) (Auto) 71 % (31-73) Lymphocytes (%) (Auto) 14 % (24-48) Monocytes (%) (Auto) 11 % (0-9) Eosinophils (%) (Auto) 3 % (0-3) Basophils (%) (Auto) 1 % (0-3) Neutrophils # (Auto) 6.8 x10^3uL (1.8-7.7) Lymphocytes # (Auto) 1.3 x10^3/uL (1.0-4.8) Monocytes # (Auto) 1.0 x10^3/uL (0.0-1.1) Eosinophils # (Auto) 0.3 x10^3/uL (0.0-0.7) Basophils # (Auto) 0.1 x10^3/uL (0.0-0.2) Sodium Level 138 mmol/L (136-145) Potassium Level 4.5 mmol/L (3.5-5.1) Chloride Level 103 mmol/L (98-107) Carbon Dioxide Level 24 mmol/L (21-32) Anion Gap 11 (6-14) Blood Urea Nitrogen 9 mg/dL (7-20) Creatinine 0.8 mg/dL (0.6-1.0) Estimated GFR (Cockcroft-Gault) 72.4 Glucose Level 101 mg/dL (70-99) Calcium Level 9.2 mg/dL (8.5-10.1) Microbiology 02/18/17 Urine Culture - Final, Complete 02/18/17 Urine Culture Result 1 (TARIQ) - Final, Complete Medications Current Medications Morphine Sulfate 2 mg PRN Q15MIN PRN IV/SQ PAIN GREATER THAN 3/10 Last administered on 02/18/17 07:42; Start 02/18/17 at 07:30; Stop 02/18/17 at 17:49 ; Status DC Sodium Chloride 1,000 ml @ 1,000 mls/hr Q1H IV Last administered on 02/18/17 07:41; Start 02/18/17 at 07:29; Stop 02/18/17 at 08:28; Status DC Ondansetron HCl (Zofran) 4 mg 1X ONCE IV Last administered on 02/18/17 07:41 ; Start 02/18/17 at 08:00; Stop 02/18/17 at 08:01; Status DC Iohexol (Omnipaque 240 Mg/ml) 50 ml 1X ONCE PO Last administered on 02/18/17 08:00; Start 02/18/17 at 08:00; Stop 02/18/17 at 08:01; Status DC Iohexol (Omnipaque 300 Mg/ml) 75 ml 1X ONCE IV Last administered on 02/18/17 08:59; Start 02/18/17 at 08:00; Stop 02/18/17 at 08:01; Status DC Sodium Chloride 1,000 ml @ 1,000 mls/hr 1X ONCE IV Last administered on 09:48; Start 02/18/17 at 09:30; Stop 02/18/17 at 10:29; Status DC Ciprofloxacin Lactate 200 ml @ 200 mls/hr Q12HR IV Last administered on 08:14; Start 02/18/17 at 10:00 Metronidazole 100 ml @ 100 mls/hr Q8H IV Last administered on 02/24/17 11:18; Start 02/18/17 at 11:00 Ondansetron HCl (Zofran) 4 mg PRN Q8HRS PRN IV NAUSEA/VOMITING; Start 02/18/17 at 10:15; Stop 02/19/17 at 10:14; Status DC Morphine Sulfate 2 mg PRN Q2HR PRN IV PAIN Last administered on 02/19/17 07:58 ; Start 02/18/17 at 10:15; Stop 02/19/17 at 10:14; Status DC Diphenhydramine HCl (Benadryl) 25 mg PRN Q6HRS PRN IVP ITCHING Last administered on 02/24/17 08:14; Start 02/18/17 at 14:15 Cyclobenzaprine HCl (Flexeril) 10 mg PRN DAILY PRN PO MUSCLE SPASMS Last administered on 02/23/17 21:46; Start 02/18/17 at 17:45 Diltiazem HCl (Cardizem 24hr Cd) 180 mg DAILY PO Last administered on 02/24/17 08:12; Start 02/19/17 at 09:00 Losartan Potassium (Cozaar) 50 mg DAILY PO Last administered on 02/19/17 07:55 ; Start 02/19/17 at 09:00; Stop 02/19/17 at 09:00; Status DC Pantoprazole Sodium (Protonix) 40 mg DAILYAC PO Last administered on 02/19/17 07:56; Start 02/19/17 at 07:30; Stop 02/19/17 at 12:31; Status DC Bupropion HCl (Wellbutrin Xl) 300 mg DAILY PO Last administered on 02/24/17 08: 12; Start 02/19/17 at 09:00 Acetaminophen/ Hydrocodone Bitart (Lortab 7.5/325) 1 tab PRN TID PRN PO MODERATE PAIN Last administered on 02/24/17 06:28; Start 02/18/17 at 18:15 Zolpidem Tartrate (Ambien) 5 mg QHS PO Last administered on 02/23/17 21:26; Start 02/18/17 at 21:00 Zolpidem Tartrate (Ambien) 5 mg PRN QHS PRN PO INSOMNIA Last administered on 00:26; Start 02/18/17 at 18:15 Acetaminophen (Tylenol) 650 mg PRN Q6HRS PRN PO FEVER; Start 02/19/17 at 12:30 Ondansetron HCl (Zofran) 4 mg PRN Q6HRS PRN IV NAUSEA/VOMITING Last administered on 02/23/17 17:14; Start 02/19/17 at 12:30 Morphine Sulfate 2 mg PRN Q2HR PRN IV PAIN; Start 02/19/17 at 12:30; Stop at 12:31; Status DC Tramadol HCl (Ultram) 50 mg PRN Q6HRS PRN PO MILD PAIN Last administered on 02/24 04:15; Start 02/19/17 at 12:30 Hydralazine HCl (Apresoline) 10 mg PRN Q4HRS PRN IVP ELEVATED BP, SEE COMMENTS ; Start 02/19/17 at 12:30 Docusate Sodium (Colace) 100 mg PRN DAILY PRN PO CONSTIPATION Last administered on 02/24/17 08:12; Start 02/19/17 at 12:30 Morphine Sulfate 2 mg PRN Q2HR PRN IV PAIN Last administered on 02/24/17 10:11 ; Start 02/19/17 at 12:45 Famotidine (Pepcid) 20 mg QHS IVP Last administered on 02/21/17 20:56; Start at 21:00; Stop 02/22/17 at 15:49; Status DC Heparin Sodium (Porcine) (Heparin Sq) 5,000 unit Q8HRS SQ Last administered on 02/21/17 20:57; Start 02/19/17 at 14:00; Stop 02/24/17 at 11:29; Status DC Iohexol (Omnipaque 240 Mg/ml) 30 ml 1X ONCE PO ; Start 02/21/17 at 08:30; Stop 02/21/17 at 08:35; Status DC Iohexol (Omnipaque 300 Mg/ml) 60 ml 1X ONCE IV ; Start 02/21/17 at 08:30; Stop 02/21/17 at 08:35; Status DC Sodium Chloride 1,000 ml @ 75 mls/hr [id number] IV Last administered on 02/21/17 20:58; Start 02/21/17 at 08:45; Stop 02/22/17 at 08:59; Status DC Amino Acids/ Glycerin/ Electrolytes 1,000 ml @ 60 mls/hr [id number] IV Last administered on 02/24/17 11:18; Start 02/22/17 at 09:30 Famotidine (Pepcid) 20 mg QHS PO Last administered on 02/22/17 21:44; Start 02/22/17 at 21:00; Stop 02/23/17 at 14:24; Status DC Famotidine (Pepcid) 20 mg QHS IVP Last administered on 02/23/17 21:26; Start at 21:00 Ibuprofen (Motrin) 600 mg PRN Q6HRS PRN PO INFLAMMATION Last administered on 15:56; Start 02/23/17 at 15:30 Cefazolin Sodium/ Dextrose 50 ml @ 100 mls/hr 1X PREOP PRN IV diamond sawer to OR; Start 02/25/17 at 06:00; Stop 02/25/17 at 18:00 Metronidazole 100 ml @ 100 mls/hr 1X PREOP PRN IV diamond sawer to OR; Start at 06:00; Stop 02/25/17 at 18:00 Active Scripts Active Reported Ibuprofen 400 Mg Tablet 400 Mg PO PRN Q6HRS PRN Pantoprazole Sodium 40 Mg Tablet.dr 1 Tab PO DAILY Cardizem Cd (Diltiazem Hcl) 180 Mg Cap.er.24h 1 Cap PO DAILY Miralax (Polyethylene Glycol 3350) 17 Gm Powd.pack 1 Packet PO DAILY Ambien (Zolpidem Tartrate) 10 Mg Tablet 1 Tab PO QHS Hydrocodon-Acetaminoph 7.5-500 (Hydrocodone Bit/Acetaminophen) 1 Each Tablet 1 Each PO PRN TID PRN Cyclobenzaprine Hcl 10 Mg Tablet 10 Mg PO PRN DAILY Wellbutrin Xl (Bupropion Hcl) 300 Mg Tab.er.24h 300 Mg PO DAILY Losartan Potassium 25 Mg Tablet 50 Mg PO DAILY Hydrochlorothiazide Tablet (Hydrochlorothiazide) 25 Mg Tablet 25 Mg PO DAILY Vitals/I & O Vital Sign - Last 24 Hours 02/23/17 02/23/17 02/23/17 02/23/17 15:02 19:57 19:59 20:00 Temp 97.9 97.9 97.9 97.9 Pulse 99 91 Resp 18 20 20 B/P (MAP) 105/63 (77) 118/78 (91) Pulse Ox 95 95 97 O2 Delivery Room Air Room Air Room Air Room Air 02/23/17 02/23/17 02/24/17 02/24/17 20:40 23:03 01:14 02:14 Temp 97.7 97.7 Pulse 86 Resp 18 18 18 B/P (MAP) 115/71 (86) Pulse Ox 97 95 95 O2 Delivery Room Air Room Air Room Air 02/24/17 02/24/17 02/24/17 02/24/17 03:59 04:15 05:15 06:28 Temp 97.7 97.7 Pulse 81 Resp 18 18 20 20 B/P (MAP) 98/62 (74) Pulse Ox 95 95 95 95 O2 Delivery Room Air Room Air Room Air Room Air 02/24/17 02/24/17 02/24/17 02/24/17 07:33 07:43 08:10 08:12 Temp 97.7 97.7 Pulse 98 98 Resp 18 B/P (MAP) 122/66 (84) 122/66 Pulse Ox 95 95 O2 Delivery Room Air Room Air Room Air 02/24/17 02/24/17 10:11 10:45 O2 Delivery Room Air Room Air Intake and Output 02/23/17 02/23/17 02/24/17 15:00 23:00 07:00 Intake Total 420 ml 900 ml 120 ml Balance 420 ml 900 ml 120 ml FREDA SIMON MD Feb 24, 2017 11:52
--- NOTE | 2017-02-24 13:24 | PDOC2 ---
CONSULT Date of Consult Date of Consult DATE: 02/24/17 TIME: 13:20 Reason for Consult Reason for Consult: possible colovaginal fistula Referring Physician Referring Physician: Dr. Finnegan Identification/Chief Complaint Chief Complaint abd pain and fever Problems: Source Source: Chart review, Patient History of Present Illness Reason for Visit: 61 y/o with abd pain and fever for past 3 days. She began having yellowish vaginal discharge in past 2 days. She has h/o diverticulosis. Past Medical History Cardiovascular: HTN Past Surgical History Past Surgical History: Total hip replacement, Other (back fusion, no abdominal surgeries ) Social History Quit (in October) ALCOHOL: occassional Drugs: None Lives: with Family Current Problem List Problem List Problems Medical Problems: (1) Diverticulitis Status: Acute Current Medications Current Medications Current Medications Morphine Sulfate 2 mg PRN Q15MIN PRN IV/SQ PAIN GREATER THAN 3/10 Last administered on 02/18/17 07:42; Start 02/18/17 at 07:30; Stop 02/18/17 at 17:49 ; Status DC Sodium Chloride 1,000 ml @ 1,000 mls/hr Q1H IV Last administered on 02/18/17 07:41; Start 02/18/17 at 07:29; Stop 02/18/17 at 08:28; Status DC Ondansetron HCl (Zofran) 4 mg 1X ONCE IV Last administered on 02/18/17 07:41 ; Start 02/18/17 at 08:00; Stop 02/18/17 at 08:01; Status DC Iohexol (Omnipaque 240 Mg/ml) 50 ml 1X ONCE PO Last administered on 02/18/17 08:00; Start 02/18/17 at 08:00; Stop 02/18/17 at 08:01; Status DC Iohexol (Omnipaque 300 Mg/ml) 75 ml 1X ONCE IV Last administered on 02/18/17 08:59; Start 02/18/17 at 08:00; Stop 02/18/17 at 08:01; Status DC Sodium Chloride 1,000 ml @ 1,000 mls/hr 1X ONCE IV Last administered on 09:48; Start 02/18/17 at 09:30; Stop 02/18/17 at 10:29; Status DC Ciprofloxacin Lactate 200 ml @ 200 mls/hr Q12HR IV Last administered on 08:14; Start 02/18/17 at 10:00 Metronidazole 100 ml @ 100 mls/hr Q8H IV Last administered on 02/24/17 11:18; Start 02/18/17 at 11:00 Ondansetron HCl (Zofran) 4 mg PRN Q8HRS PRN IV NAUSEA/VOMITING; Start 02/18/17 at 10:15; Stop 02/19/17 at 10:14; Status DC Morphine Sulfate 2 mg PRN Q2HR PRN IV PAIN Last administered on 02/19/17 07:58 ; Start 02/18/17 at 10:15; Stop 02/19/17 at 10:14; Status DC Diphenhydramine HCl (Benadryl) 25 mg PRN Q6HRS PRN IVP ITCHING Last administered on 02/24/17 08:14; Start 02/18/17 at 14:15 Cyclobenzaprine HCl (Flexeril) 10 mg PRN DAILY PRN PO MUSCLE SPASMS Last administered on 02/23/17 21:46; Start 02/18/17 at 17:45 Diltiazem HCl (Cardizem 24hr Cd) 180 mg DAILY PO Last administered on 02/24/17 08:12; Start 02/19/17 at 09:00 Losartan Potassium (Cozaar) 50 mg DAILY PO Last administered on 02/19/17 07:55 ; Start 02/19/17 at 09:00; Stop 02/19/17 at 09:00; Status DC Pantoprazole Sodium (Protonix) 40 mg DAILYAC PO Last administered on 02/19/17 07:56; Start 02/19/17 at 07:30; Stop 02/19/17 at 12:31; Status DC Bupropion HCl (Wellbutrin Xl) 300 mg DAILY PO Last administered on 02/24/17 08: 12; Start 02/19/17 at 09:00 Acetaminophen/ Hydrocodone Bitart (Lortab 7.5/325) 1 tab PRN TID PRN PO MODERATE PAIN Last administered on 02/24/17 06:28; Start 02/18/17 at 18:15 Zolpidem Tartrate (Ambien) 5 mg QHS PO Last administered on 02/23/17 21:26; Start 02/18/17 at 21:00 Zolpidem Tartrate (Ambien) 5 mg PRN QHS PRN PO INSOMNIA Last administered on 00:26; Start 02/18/17 at 18:15 Acetaminophen (Tylenol) 650 mg PRN Q6HRS PRN PO FEVER; Start 02/19/17 at 12:30 Ondansetron HCl (Zofran) 4 mg PRN Q6HRS PRN IV NAUSEA/VOMITING Last administered on 02/23/17 17:14; Start 02/19/17 at 12:30 Morphine Sulfate 2 mg PRN Q2HR PRN IV PAIN; Start 02/19/17 at 12:30; Stop at 12:31; Status DC Tramadol HCl (Ultram) 50 mg PRN Q6HRS PRN PO MILD PAIN Last administered on 02/24 04:15; Start 02/19/17 at 12:30 Hydralazine HCl (Apresoline) 10 mg PRN Q4HRS PRN IVP ELEVATED BP, SEE COMMENTS ; Start 02/19/17 at 12:30 Docusate Sodium (Colace) 100 mg PRN DAILY PRN PO CONSTIPATION Last administered on 02/24/17 08:12; Start 02/19/17 at 12:30 Morphine Sulfate 2 mg PRN Q2HR PRN IV PAIN Last administered on 02/24/17 10:11 ; Start 02/19/17 at 12:45 Famotidine (Pepcid) 20 mg QHS IVP Last administered on 02/21/17 20:56; Start at 21:00; Stop 02/22/17 at 15:49; Status DC Heparin Sodium (Porcine) (Heparin Sq) 5,000 unit Q8HRS SQ Last administered on 02/21/17 20:57; Start 02/19/17 at 14:00; Stop 02/24/17 at 11:29; Status DC Iohexol (Omnipaque 240 Mg/ml) 30 ml 1X ONCE PO ; Start 02/21/17 at 08:30; Stop 02/21/17 at 08:35; Status DC Iohexol (Omnipaque 300 Mg/ml) 60 ml 1X ONCE IV ; Start 02/21/17 at 08:30; Stop 02/21/17 at 08:35; Status DC Sodium Chloride 1,000 ml @ 75 mls/hr [id number] IV Last administered on 02/21/17 20:58; Start 02/21/17 at 08:45; Stop 02/22/17 at 08:59; Status DC Amino Acids/ Glycerin/ Electrolytes 1,000 ml @ 60 mls/hr [id number] IV Last administered on 02/24/17 11:18; Start 02/22/17 at 09:30 Famotidine (Pepcid) 20 mg QHS PO Last administered on 02/22/17 21:44; Start 02/22/17 at 21:00; Stop 02/23/17 at 14:24; Status DC Famotidine (Pepcid) 20 mg QHS IVP Last administered on 02/23/17 21:26; Start at 21:00 Ibuprofen (Motrin) 600 mg PRN Q6HRS PRN PO INFLAMMATION Last administered on 15:56; Start 02/23/17 at 15:30 Cefazolin Sodium/ Dextrose 50 ml @ 100 mls/hr 1X PREOP PRN IV compensation programs manager to OR; Start 02/25/17 at 06:00; Stop 02/25/17 at 18:00 Metronidazole 100 ml @ 100 mls/hr 1X PREOP PRN IV compensation programs manager to OR; Start at 06:00; Stop 02/25/17 at 18:00 Active Scripts Active Reported Ibuprofen 400 Mg Tablet 400 Mg PO PRN Q6HRS PRN Pantoprazole Sodium 40 Mg Tablet. 1 Tab PO DAILY Cardizem Cd (Diltiazem Hcl) 180 Mg Cap.er.24h 1 Cap PO DAILY Miralax (Polyethylene Glycol 3350) 17 Gm Powd.pack 1 Packet PO DAILY Ambien (Zolpidem Tartrate) 10 Mg Tablet 1 Tab PO QHS Hydrocodon-Acetaminoph 7.5-500 (Hydrocodone Bit/Acetaminophen) 1 Each Tablet 1 Each PO PRN TID PRN Cyclobenzaprine Hcl 10 Mg Tablet 10 Mg PO PRN DAILY Wellbutrin Xl (Bupropion Hcl) 300 Mg Tab.er.24h 300 Mg PO DAILY Losartan Potassium 25 Mg Tablet 50 Mg PO DAILY Hydrochlorothiazide Tablet (Hydrochlorothiazide) 25 Mg Tablet 25 Mg PO DAILY Allergies Allergies: Coded Allergies: No Known Drug Allergies (Unverified , 07/06/13) ROS General: YES: Chills, Night Sweats, Fatigue, No: Malaise, Appetite, Other PSYCHOLOGICAL ROS: YES: Anxiety, No: Behavioral Disorder, Concentration difficultie, Decreased libido, Depression, Disorientation, Hallucinations, Hostility, Irritablity, Memory difficulties, Mood Swings, Obsessive thoughts, Physical abuse, Sexual abuse, Sleep disturbances, Suicidal ideation, Other Eyes: No Blurry vision, No Decreased vision, No Double vision, No Dry eyes, No Excessive tearing, No Eye Pain, No Itchy Eyes, No Loss of vision, No Photophobia , No Scotomata, No Uses contacts, No Uses glasses, No Other HEENT: No: Heacaches, Visual Changes, Hearing change, Nasal congestion, Nasal discharge, Oral lesions, Sinus pain, Sore Throat, Epistaxis, Sneezing, Snoring, Tinnitus, Vertigo, Vocal changes, Other ALLERGY AND IMMUNOLOGY: No: Hives, Insect Bite Sensitivity, Itchy/Watery Eyes, Nasal Congestion, Post Nasal Drip, Seasonal Allergies, Other Hematological and Lymphatic: No: Bleeding Problems, Blood Clots, Blood Transfusions, Brusing, Night Sweats, Pallor, Swollen Lymph Nodes, Other ENDOCRINE: No: Breast Changes, Galactorrhea, Hair Pattern Changes, Hot Flashes , Malaise/lethargy, Mood Swings, Palpitations, Polydipsia/polyuria, Skin Changes , Temperature Intolerance, Unexpected Weight Changes, Other Breast: No New/Changing Breast Lumps, No Nipple changes, No Nipple discharge, No Other Respiratory: No: Cough, Hemoptysis, Orthopnea, Pleuritic Pain, Shortness of breath, SOB with excertion, Sputum Changes, Stridor, Tachypnea, Wheezing, Other Cardiovascular: No Chest Pain, No Palpitations, No Orthopnea, No Paroxysmal Noc. Dyspnea, No Edema, No Lt Headedness, No Other Gastrointestinal: Yes Nausea, Yes Abdominal Pain, Yes Diarrhea, Yes Constipation Genitourinary: No Dysuria, No Frequency, No Incontinence, No Hematuria, No Retention, No Discharge, No Urgency, No Pain, No Flank Pain, No Other, No , No , No , No , No , No , No Physical Exam General: Alert, Oriented X3, Cooperative HEENT: Atraumatic Lungs: Clear to auscultation Heart: Regular rate Abdomen: Normal bowel sounds, Soft, No tenderness, No masses Psych/Mental Status: Mental status NL Vitals VITALS Vital Signs Date Time Temp Pulse Resp B/P (MAP) Pulse Ox O2 Delivery O2 Flow Rate FiO2 02/24/17 10:55 97.9 92 18 106/70 (82) 96 Room Air 97.9 Labs Labs Laboratory Tests Test 02/23/17 05:25 02/24/17 05:30 White Blood Count 9.2 x10^3/uL (4.0-11.0) 9.5 x10^3/uL (4.0-11.0) Red Blood Count 3.43 x10^6/uL (3.50-5.40) 3.48 x10^6/uL (3.50-5.40) Hemoglobin 9.9 g/dL (12.0-15.5) 9.9 g/dL (12.0-15.5) Hematocrit 29.8 % (36.0-47.0) 29.9 % (36.0-47.0) Mean Corpuscular Volume 87 fL (79-100) 86 fL (79-100) Mean Corpuscular Hemoglobin 29 pg (25-35) 29 pg (25-35) Mean Corpuscular Hemoglobin Concent 33 g/dL (31-37) 33 g/dL (31-37) Red Cell Distribution Width 15.2 % (11.5-14.5) 15.0 % (11.5-14.5) Platelet Count 445 x10^3/uL (140-400) 472 x10^3/uL (140-400) Neutrophils (%) (Auto) 71 % (31-73) 71 % (31-73) Lymphocytes (%) (Auto) 15 % (24-48) 14 % (24-48) Monocytes (%) (Auto) 10 % (0-9) 11 % (0-9) Eosinophils (%) (Auto) 4 % (0-3) 3 % (0-3) Basophils (%) (Auto) 1 % (0-3) 1 % (0-3) Neutrophils # (Auto) 6.5 x10^3uL (1.8-7.7) 6.8 x10^3uL (1.8-7.7) Lymphocytes # (Auto) 1.3 x10^3/uL (1.0-4.8) 1.3 x10^3/uL (1.0-4.8) Monocytes # (Auto) 0.9 x10^3/uL (0.0-1.1) 1.0 x10^3/uL (0.0-1.1) Eosinophils # (Auto) 0.3 x10^3/uL (0.0-0.7) 0.3 x10^3/uL (0.0-0.7) Basophils # (Auto) 0.1 x10^3/uL (0.0-0.2) 0.1 x10^3/uL (0.0-0.2) Segmented Neutrophils % 69 % (35-66) Band Neutrophils % 7 % (0-9) Lymphocytes % 13 % (24-48) Monocytes % 8 % (0-10) Eosinophils % 2 % (0-5) Basophils % 1 % (0-3) Platelet Estimate Increased (ADEQUATE) Sodium Level 139 mmol/L (136-145) 138 mmol/L (136-145) Potassium Level 3.8 mmol/L (3.5-5.1) 4.5 mmol/L (3.5-5.1) Chloride Level 104 mmol/L (98-107) 103 mmol/L (98-107) Carbon Dioxide Level 22 mmol/L (21-32) 24 mmol/L (21-32) Anion Gap 13 (6-14) 11 (6-14) Blood Urea Nitrogen 8 mg/dL (7-20) 9 mg/dL (7-20) Creatinine 0.8 mg/dL (0.6-1.0) 0.8 mg/dL (0.6-1.0) Estimated GFR (Cockcroft-Gault) 72.4 72.4 Glucose Level 114 mg/dL (70-99) 101 mg/dL (70-99) Calcium Level 9.0 mg/dL (8.5-10.1) 9.2 mg/dL (8.5-10.1) Laboratory Tests Test 02/24/17 05:30 White Blood Count 9.5 x10^3/uL (4.0-11.0) Red Blood Count 3.48 x10^6/uL (3.50-5.40) Hemoglobin 9.9 g/dL (12.0-15.5) Hematocrit 29.9 % (36.0-47.0) Mean Corpuscular Volume 86 fL (79-100) Mean Corpuscular Hemoglobin 29 pg (25-35) Mean Corpuscular Hemoglobin Concent 33 g/dL (31-37) Red Cell Distribution Width 15.0 % (11.5-14.5) Platelet Count 472 x10^3/uL (140-400) Neutrophils (%) (Auto) 71 % (31-73) Lymphocytes (%) (Auto) 14 % (24-48) Monocytes (%) (Auto) 11 % (0-9) Eosinophils (%) (Auto) 3 % (0-3) Basophils (%) (Auto) 1 % (0-3) Neutrophils # (Auto) 6.8 x10^3uL (1.8-7.7) Lymphocytes # (Auto) 1.3 x10^3/uL (1.0-4.8) Monocytes # (Auto) 1.0 x10^3/uL (0.0-1.1) Eosinophils # (Auto) 0.3 x10^3/uL (0.0-0.7) Basophils # (Auto) 0.1 x10^3/uL (0.0-0.2) Sodium Level 138 mmol/L (136-145) Potassium Level 4.5 mmol/L (3.5-5.1) Chloride Level 103 mmol/L (98-107) Carbon Dioxide Level 24 mmol/L (21-32) Anion Gap 11 (6-14) Blood Urea Nitrogen 9 mg/dL (7-20) Creatinine 0.8 mg/dL (0.6-1.0) Estimated GFR (Cockcroft-Gault) 72.4 Glucose Level 101 mg/dL (70-99) Calcium Level 9.2 mg/dL (8.5-10.1) Assessment/Plan Assessment/Plan A: Diverticulitis Possible colovaginal fistula per CT scan P: Will be available for assistance with fistula repair. Thank you for consult. MATT NICHOLS Jr, MD Feb 24, 2017 13:24
[2017-02-24 14:45] VITALS: BP 110/68
[2017-02-24] MEDS ORDERED: MORPHINE SULFATE 2 MG/ML DISP.SYRIN. IV PRN (18:15)
[2017-02-24 19:00] VITALS: BP 112/68
[2017-02-24] MEDS: FAMOTIDINE 20 MG/2 ML VIAL IVP SCH (20:35)
[2017-02-24] MEDS: ZOLPIDEM 5 MG TABLET. PO SCH (20:35)
[2017-02-24 22:37] VITALS: BP 100/61
[2017-02-25] VITALS (13 sets, daily range): BP systolic 95–159; BP diastolic 62–104
[2017-02-25] MEDS: AMINO AC 3%/ELECTROLYTE/GLYCER 1,000 ML IV SCH ×2 (03:12→20:50)
[2017-02-25 06:22] LABS: BASO % 1 % (0-3); EOS % 3 % (0-3); HEMOGLOBIN 10.7 g/dL (12.0-15.5); LYMPH # 1.4 x10^3/uL (1.0-4.8); LYMPH % 15 % (24-48); MEAN CORPUSCULAR HEMOGLOBIN 29 pg (25-35); MEAN CORPUSCULAR HGB CONC 33 g/dL (31-37); MEAN CORPUSCULAR VOLUME 86 fL (79-100); MONO % 9 % (0-9); NEUT % 73 % (31-73); PLATELET COUNT 500 x10^3/uL (140-400); RED BLOOD COUNT 3.71 x10^6/uL (3.50-5.40); WHITE BLOOD COUNT 9.6 x10^3/uL (4.0-11.0)
[2017-02-25 06:33] LABS: CALCIUM 8.6 mg/dL (8.5-10.1); CREATININE 0.9 mg/dL (0.6-1.0); GFR 63.2; POTASSIUM 4.2 mmol/L (3.5-5.1)
[2017-02-25] MEDS: ONDANSETRON PF 4 MG/2 ML VIAL. IV PRN (06:44)
[2017-02-25] MEDS ORDERED: DEXAMETHASONE SOD PHOS 20 MG/5 ML VIAL. ONE (07:51)
[2017-02-25] MEDS ORDERED: DESFLURANE 61 TO 120 MINUTES IH ONE (07:51)
[2017-02-25] MEDS ORDERED: LIDOCAINE 2% PF Vial for OR 5 ML VIAL. ONE (07:51)
[2017-02-25] MEDS ORDERED: fentaNYL PF VIAL 100 MCG/2 ML VIAL ONE ×4 (07:51→12:04)
[2017-02-25] MEDS ORDERED: ROCURONIUM 100 MG/10 ML VIAL. ONE (07:51)
[2017-02-25] MEDS ORDERED: MIDAZOLAM HCL/PF 2 MG/2 ML VIAL. ONE (07:51)
[2017-02-25] MEDS ORDERED: PROPOFOL 20 ML IV ONE (07:51)
[2017-02-25] MEDS ORDERED: ONDANSETRON PF 4 MG/2 ML VIAL. ONE (07:51)
[2017-02-25] MEDS: IV RINGERS,LACTATED 1000ML 1,000 ML IV SCH ×2 (08:00→18:15)
[2017-02-25] MEDS ORDERED: PHENYLEPHRINE 10 MG/ML VIAL. ONE (08:19)
[2017-02-25] MEDS ORDERED: 0.9 % SODIUM CHLORIDE 50 ML VIAL. IJ ONE (08:19)
[2017-02-25] MEDS: CIPROFLOXACIN 400MG PREMIX 200 ML IV SCH ×2 (08:40→22:42)
--- NOTE | 2017-02-25 08:44 | PDOC ---
PROGRESS NOTES Chief Complaint Chief Complaint Colovaginal fistula Leukocytosis, SIRS POA, better Abdominal pain HTN, controlled mild malnutrition h/o PAFIB no AC History of Present Illness History of Present Illness Chart reviewed CAse signed out to me by Dr. Luther Currently having sx by GS and oB for colovaginal fistula LAbs reveiwed WBC normal PLAN: Await from OR LAbs post op IS post op Vitals Vitals Vital Signs Date Time Temp Pulse Resp B/P (MAP) Pulse Ox O2 Delivery O2 Flow Rate FiO2 02/25/17 07:45 97.5 97 20 119/73 96 Room Air 97.5 Physical Exam General: Alert, Oriented X3, Cooperative Heart: Regular rate Lungs: Clear Abdomen: Normal bowel sounds, Soft, No tenderness, No masses Extremities: No clubbing, No cyanosis Skin: No rashes, No breakdown Labs LABS Laboratory Tests Test 02/25/17 04:40 White Blood Count 9.6 x10^3/uL (4.0-11.0) Red Blood Count 3.71 x10^6/uL (3.50-5.40) Hemoglobin 10.7 g/dL (12.0-15.5) Hematocrit 32.0 % (36.0-47.0) Mean Corpuscular Volume 86 fL (79-100) Mean Corpuscular Hemoglobin 29 pg (25-35) Mean Corpuscular Hemoglobin Concent 33 g/dL (31-37) Red Cell Distribution Width 15.0 % (11.5-14.5) Platelet Count 500 x10^3/uL (140-400) Neutrophils (%) (Auto) 73 % (31-73) Lymphocytes (%) (Auto) 15 % (24-48) Monocytes (%) (Auto) 9 % (0-9) Eosinophils (%) (Auto) 3 % (0-3) Basophils (%) (Auto) 1 % (0-3) Neutrophils # (Auto) 7.0 x10^3uL (1.8-7.7) Lymphocytes # (Auto) 1.4 x10^3/uL (1.0-4.8) Monocytes # (Auto) 0.9 x10^3/uL (0.0-1.1) Eosinophils # (Auto) 0.3 x10^3/uL (0.0-0.7) Basophils # (Auto) 0.0 x10^3/uL (0.0-0.2) Sodium Level 136 mmol/L (136-145) Potassium Level 4.2 mmol/L (3.5-5.1) Chloride Level 103 mmol/L (98-107) Carbon Dioxide Level 24 mmol/L (21-32) Anion Gap 9 (6-14) Blood Urea Nitrogen 12 mg/dL (7-20) Creatinine 0.9 mg/dL (0.6-1.0) Estimated GFR (Cockcroft-Gault) 63.2 Glucose Level 105 mg/dL (70-99) Calcium Level 8.6 mg/dL (8.5-10.1) Review of Systems Review of Systems out of room Assessment and Plan Assessmemt and Plan Problems Medical Problems: (1) Diverticulitis Status: Acute Problems: Comment Review of Relevant I have reviewed the following items amando (where applicable) has been applied. Labs Laboratory Tests Test 02/24/17 05:30 02/25/17 04:40 White Blood Count 9.5 x10^3/uL (4.0-11.0) 9.6 x10^3/uL (4.0-11.0) Red Blood Count 3.48 x10^6/uL (3.50-5.40) 3.71 x10^6/uL (3.50-5.40) Hemoglobin 9.9 g/dL (12.0-15.5) 10.7 g/dL (12.0-15.5) Hematocrit 29.9 % (36.0-47.0) 32.0 % (36.0-47.0) Mean Corpuscular Volume 86 fL (79-100) 86 fL (79-100) Mean Corpuscular Hemoglobin 29 pg (25-35) 29 pg (25-35) Mean Corpuscular Hemoglobin Concent 33 g/dL (31-37) 33 g/dL (31-37) Red Cell Distribution Width 15.0 % (11.5-14.5) 15.0 % (11.5-14.5) Platelet Count 472 x10^3/uL (140-400) 500 x10^3/uL (140-400) Neutrophils (%) (Auto) 71 % (31-73) 73 % (31-73) Lymphocytes (%) (Auto) 14 % (24-48) 15 % (24-48) Monocytes (%) (Auto) 11 % (0-9) 9 % (0-9) Eosinophils (%) (Auto) 3 % (0-3) 3 % (0-3) Basophils (%) (Auto) 1 % (0-3) 1 % (0-3) Neutrophils # (Auto) 6.8 x10^3uL (1.8-7.7) 7.0 x10^3uL (1.8-7.7) Lymphocytes # (Auto) 1.3 x10^3/uL (1.0-4.8) 1.4 x10^3/uL (1.0-4.8) Monocytes # (Auto) 1.0 x10^3/uL (0.0-1.1) 0.9 x10^3/uL (0.0-1.1) Eosinophils # (Auto) 0.3 x10^3/uL (0.0-0.7) 0.3 x10^3/uL (0.0-0.7) Basophils # (Auto) 0.1 x10^3/uL (0.0-0.2) 0.0 x10^3/uL (0.0-0.2) Sodium Level 138 mmol/L (136-145) 136 mmol/L (136-145) Potassium Level 4.5 mmol/L (3.5-5.1) 4.2 mmol/L (3.5-5.1) Chloride Level 103 mmol/L (98-107) 103 mmol/L (98-107) Carbon Dioxide Level 24 mmol/L (21-32) 24 mmol/L (21-32) Anion Gap 11 (6-14) 9 (6-14) Blood Urea Nitrogen 9 mg/dL (7-20) 12 mg/dL (7-20) Creatinine 0.8 mg/dL (0.6-1.0) 0.9 mg/dL (0.6-1.0) Estimated GFR (Cockcroft-Gault) 72.4 63.2 Glucose Level 101 mg/dL (70-99) 105 mg/dL (70-99) Calcium Level 9.2 mg/dL (8.5-10.1) 8.6 mg/dL (8.5-10.1) Laboratory Tests Test 02/25/17 04:40 White Blood Count 9.6 x10^3/uL (4.0-11.0) Red Blood Count 3.71 x10^6/uL (3.50-5.40) Hemoglobin 10.7 g/dL (12.0-15.5) Hematocrit 32.0 % (36.0-47.0) Mean Corpuscular Volume 86 fL (79-100) Mean Corpuscular Hemoglobin 29 pg (25-35) Mean Corpuscular Hemoglobin Concent 33 g/dL (31-37) Red Cell Distribution Width 15.0 % (11.5-14.5) Platelet Count 500 x10^3/uL (140-400) Neutrophils (%) (Auto) 73 % (31-73) Lymphocytes (%) (Auto) 15 % (24-48) Monocytes (%) (Auto) 9 % (0-9) Eosinophils (%) (Auto) 3 % (0-3) Basophils (%) (Auto) 1 % (0-3) Neutrophils # (Auto) 7.0 x10^3uL (1.8-7.7) Lymphocytes # (Auto) 1.4 x10^3/uL (1.0-4.8) Monocytes # (Auto) 0.9 x10^3/uL (0.0-1.1) Eosinophils # (Auto) 0.3 x10^3/uL (0.0-0.7) Basophils # (Auto) 0.0 x10^3/uL (0.0-0.2) Sodium Level 136 mmol/L (136-145) Potassium Level 4.2 mmol/L (3.5-5.1) Chloride Level 103 mmol/L (98-107) Carbon Dioxide Level 24 mmol/L (21-32) Anion Gap 9 (6-14) Blood Urea Nitrogen 12 mg/dL (7-20) Creatinine 0.9 mg/dL (0.6-1.0) Estimated GFR (Cockcroft-Gault) 63.2 Glucose Level 105 mg/dL (70-99) Calcium Level 8.6 mg/dL (8.5-10.1) Microbiology 02/18/17 Urine Culture - Final, Complete 02/18/17 Urine Culture Result 1 (TARIQ) - Final, Complete Medications Current Medications Morphine Sulfate 2 mg PRN Q15MIN PRN IV/SQ PAIN GREATER THAN 3/10 Last administered on 02/18/17 07:42; Start 02/18/17 at 07:30; Stop 02/18/17 at 17:49 ; Status DC Sodium Chloride 1,000 ml @ 1,000 mls/hr Q1H IV Last administered on 02/18/17 07:41; Start 02/18/17 at 07:29; Stop 02/18/17 at 08:28; Status DC Ondansetron HCl (Zofran) 4 mg 1X ONCE IV Last administered on 02/18/17 07:41 ; Start 02/18/17 at 08:00; Stop 02/18/17 at 08:01; Status DC Iohexol (Omnipaque 240 Mg/ml) 50 ml 1X ONCE PO Last administered on 02/18/17 08:00; Start 02/18/17 at 08:00; Stop 02/18/17 at 08:01; Status DC Iohexol (Omnipaque 300 Mg/ml) 75 ml 1X ONCE IV Last administered on 02/18/17 08:59; Start 02/18/17 at 08:00; Stop 02/18/17 at 08:01; Status DC Sodium Chloride 1,000 ml @ 1,000 mls/hr 1X ONCE IV Last administered on 09:48; Start 02/18/17 at 09:30; Stop 02/18/17 at 10:29; Status DC Ciprofloxacin Lactate 200 ml @ 200 mls/hr Q12HR IV Last administered on 20:36; Start 02/18/17 at 10:00 Metronidazole 100 ml @ 100 mls/hr Q8H IV Last administered on 02/25/17 03:06; Start 02/18/17 at 11:00 Ondansetron HCl (Zofran) 4 mg PRN Q8HRS PRN IV NAUSEA/VOMITING; Start 02/18/17 at 10:15; Stop 02/19/17 at 10:14; Status DC Morphine Sulfate 2 mg PRN Q2HR PRN IV PAIN Last administered on 02/19/17 07:58 ; Start 02/18/17 at 10:15; Stop 02/19/17 at 10:14; Status DC Diphenhydramine HCl (Benadryl) 25 mg PRN Q6HRS PRN IVP ITCHING Last administered on 02/24/17 08:14; Start 02/18/17 at 14:15 Cyclobenzaprine HCl (Flexeril) 10 mg PRN DAILY PRN PO MUSCLE SPASMS Last administered on 02/23/17 21:46; Start 02/18/17 at 17:45 Diltiazem HCl (Cardizem 24hr Cd) 180 mg DAILY PO Last administered on 02/24/17 08:12; Start 02/19/17 at 09:00 Losartan Potassium (Cozaar) 50 mg DAILY PO Last administered on 02/19/17 07:55 ; Start 02/19/17 at 09:00; Stop 02/19/17 at 09:00; Status DC Pantoprazole Sodium (Protonix) 40 mg DAILYAC PO Last administered on 02/19/17 07:56; Start 02/19/17 at 07:30; Stop 02/19/17 at 12:31; Status DC Bupropion HCl (Wellbutrin Xl) 300 mg DAILY PO Last administered on 02/24/17 08: 12; Start 02/19/17 at 09:00 Acetaminophen/ Hydrocodone Bitart (Lortab 7.5/325) 1 tab PRN TID PRN PO MODERATE PAIN Last administered on 02/24/17 14:20; Start 02/18/17 at 18:15 Zolpidem Tartrate (Ambien) 5 mg QHS PO Last administered on 02/24/17 20:35; Start 02/18/17 at 21:00 Zolpidem Tartrate (Ambien) 5 mg PRN QHS PRN PO INSOMNIA Last administered on 00:26; Start 02/18/17 at 18:15 Acetaminophen (Tylenol) 650 mg PRN Q6HRS PRN PO FEVER; Start 02/19/17 at 12:30 Ondansetron HCl (Zofran) 4 mg PRN Q6HRS PRN IV NAUSEA/VOMITING Last administered on 02/25/17 06:44; Start 02/19/17 at 12:30 Morphine Sulfate 2 mg PRN Q2HR PRN IV PAIN; Start 02/19/17 at 12:30; Stop at 12:31; Status DC Tramadol HCl (Ultram) 50 mg PRN Q6HRS PRN PO MILD PAIN Last administered on 02/24 04:15; Start 02/19/17 at 12:30 Hydralazine HCl (Apresoline) 10 mg PRN Q4HRS PRN IVP ELEVATED BP, SEE COMMENTS ; Start 02/19/17 at 12:30 Docusate Sodium (Colace) 100 mg PRN DAILY PRN PO CONSTIPATION Last administered on 02/24/17 08:12; Start 02/19/17 at 12:30 Morphine Sulfate 2 mg PRN Q2HR PRN IV PAIN Last administered on 02/24/17 10:11 ; Start 02/19/17 at 12:45; Stop 02/24/17 at 18:13; Status DC Famotidine (Pepcid) 20 mg QHS IVP Last administered on 02/21/17 20:56; Start at 21:00; Stop 02/22/17 at 15:49; Status DC Heparin Sodium (Porcine) (Heparin Sq) 5,000 unit Q8HRS SQ Last administered on 02/21/17 20:57; Start 02/19/17 at 14:00; Stop 02/24/17 at 11:29; Status DC Iohexol (Omnipaque 240 Mg/ml) 30 ml 1X ONCE PO ; Start 02/21/17 at 08:30; Stop 02/21/17 at 08:35; Status DC Iohexol (Omnipaque 300 Mg/ml) 60 ml 1X ONCE IV ; Start 02/21/17 at 08:30; Stop 02/21/17 at 08:35; Status DC Sodium Chloride 1,000 ml @ 75 mls/hr [id number] IV Last administered on 02/21/17 20:58; Start 02/21/17 at 08:45; Stop 02/22/17 at 08:59; Status DC Amino Acids/ Glycerin/ Electrolytes 1,000 ml @ 60 mls/hr [id number] IV Last administered on 02/25/17 03:12; Start 02/22/17 at 09:30 Famotidine (Pepcid) 20 mg QHS PO Last administered on 02/22/17 21:44; Start 02/22/17 at 21:00; Stop 02/23/17 at 14:24; Status DC Famotidine (Pepcid) 20 mg QHS IVP Last administered on 02/24/17 20:35; Start at 21:00 Ibuprofen (Motrin) 600 mg PRN Q6HRS PRN PO INFLAMMATION Last administered on 15:56; Start 02/23/17 at 15:30 Cefazolin Sodium/ Dextrose 50 ml @ 100 mls/hr 1X PREOP PRN IV technical support professional to OR; Start 02/25/17 at 06:00; Stop 02/25/17 at 18:00 Metronidazole 100 ml @ 100 mls/hr 1X PREOP PRN IV technical support professional to OR; Start at 06:00; Stop 02/25/17 at 18:00 Morphine Sulfate 2 mg PRN Q2HR PRN IV PAIN Last administered on 02/24/17 18:18 ; Start 02/24/17 at 18:15 Dexamethasone Sodium Phosphate (Decadron) 20 mg STK-MED ONCE .ROUTE ; Start 02/25 at 07:51; Stop 02/25/17 at 07:52; Status DC Ondansetron HCl (Zofran) 4 mg STK-MED ONCE .ROUTE ; Start 02/25/17 at 07:51; Stop 02/25/17 at 07:52; Status DC Propofol 20 ml @ As Directed STK-MED ONCE IV ; Start 02/25/17 at 07:51; Stop 02/25 at 07:52; Status DC Lidocaine HCl (Lidocaine Pf 2% Vial) 5 ml STK-MED ONCE .ROUTE ; Start 02/25/17 at 07:51; Stop 02/25/17 at 07:52; Status DC Desflurane (Suprane) 60 ml STK-MED ONCE IH ; Start 02/25/17 at 07:51; Stop at 07:52; Status DC Midazolam HCl (Versed) 2 mg STK-MED ONCE .ROUTE ; Start 02/25/17 at 07:51; Stop 02/25/17 at 07:52; Status DC Fentanyl Citrate (Fentanyl 2ml Vial) 100 mcg STK-MED ONCE .ROUTE ; Start at 07:51; Stop 02/25/17 at 07:52; Status DC Rocuronium [place] (Zemuron) 100 mg STK-MED ONCE .ROUTE ; Start 02/25/17 at 07:51 ; Stop 02/25/17 at 07:52; Status DC Ringer's Solution 1,000 ml @ 100 mls/hr Q10H IV Last administered on 02/25/17t 08:00; Start 02/25/17 at 08:15 Phenylephrine HCl (Jeremy-Synephrine Inj) 10 mg STK-MED ONCE .ROUTE ; Start at 08:19; Stop 02/25/17 at 08:20; Status DC Sodium Chloride (Sodium Chloride) 50 ml STK-MED ONCE IJ ; Start 02/25/17 at 08:19 ; Stop 02/25/17 at 08:20; Status DC Active Scripts Active Reported Ibuprofen 400 Mg Tablet 400 Mg PO PRN Q6HRS PRN Pantoprazole Sodium 40 Mg Tablet.dr 1 Tab PO DAILY Cardizem Cd (Diltiazem Hcl) 180 Mg Cap.er.24h 1 Cap PO DAILY Miralax (Polyethylene Glycol 3350) 17 Gm Powd.pack 1 Packet PO DAILY Ambien (Zolpidem Tartrate) 10 Mg Tablet 1 Tab PO QHS Hydrocodon-Acetaminoph 7.5-500 (Hydrocodone Bit/Acetaminophen) 1 Each Tablet 1 Each PO PRN TID PRN Cyclobenzaprine Hcl 10 Mg Tablet 10 Mg PO PRN DAILY Wellbutrin Xl (Bupropion Hcl) 300 Mg Tab.er.24h 300 Mg PO DAILY Losartan Potassium 25 Mg Tablet 50 Mg PO DAILY Hydrochlorothiazide Tablet (Hydrochlorothiazide) 25 Mg Tablet 25 Mg PO DAILY Vitals/I & O Vital Sign - Last 24 Hours 02/24/17 02/24/17 02/24/17 02/24/17 10:11 10:45 10:55 14:20 Temp 97.9 97.9 Pulse 92 Resp 18 B/P (MAP) 106/70 (82) Pulse Ox 96 O2 Delivery Room Air Room Air Room Air Room Air 02/24/17 02/24/17 02/24/17 02/24/17 14:45 15:30 18:18 19:00 Temp 97.7 97.7 Pulse 87 Resp 18 B/P (MAP) 110/68 (82) Pulse Ox 96 O2 Delivery Room Air Room Air Room Air Room Air 02/24/17 02/24/17 02/24/17 02/25/17 19:00 20:10 22:37 02:43 Temp 98.7 98.2 98.2 98.7 98.2 98.2 Pulse 84 89 103 Resp 18 18 18 B/P (MAP) 112/68 (83) 100/61 (74) 95/62 (73) Pulse Ox 94 92 96 O2 Delivery Room Air Room Air Room Air Room Air 02/25/17 02/25/17 07:00 07:45 Temp 97.7 97.5 97.7 97.5 Pulse 116 97 Resp 18 20 B/P (MAP) 113/79 (90) 119/73 Pulse Ox 98 96 O2 Delivery Room Air Room Air Intake and Output 02/24/17 02/24/17 02/25/17 15:00 23:00 07:00 Intake Total 1360 ml 620 ml 820 ml Balance 1360 ml 620 ml 820 ml NOHEMY LAM MD Feb 25, 2017 08:44
[2017-02-25] MEDS ORDERED: KETAMINE HCL 500 MG/10 ML VIAL. ONE (08:46)
[2017-02-25] MEDS ORDERED: ESMOLOL 100 MG/10 ML VIAL. IV ONE (08:48)
[2017-02-25] MEDS: buPROPion XL 150 MG TAB.ER.24H. PO SCH (09:00)
[2017-02-25] MEDS ORDERED: DESFLURANE > 120 MINUTES IH ONE (09:52)
[2017-02-25] MEDS ORDERED: MORPHINE SULFATE 10 MG/ML VIAL. ONE (10:06)
[2017-02-25] MEDS: fentaNYL PF VIAL 100 MCG/2 ML VIAL IV PRN ×4 (11:50→12:10)
--- NOTE | 2017-02-25 12:13 | PDOC4 ---
Operative Note Operative Note Operative Note: Preoperative Diagnosis: Acute diverticulitis with colovaginal fistula Postoperative Diagnosis: Same Procedure: Sigmoid colon resection with primary anastomosis, splenic flexure takedown Surgeon: Kain Anesthesia: Gen. EBL: 100 mL Specimen: Sigmoid colon to pathology Drains: 19 Iranian round [place] drain Complications: None Indication: The patient is a 61-year-old female who was admitted with abdominal pain. Her evaluation showed acute diverticulitis and despite antibiotic she progressed to develop a colovaginal fistula. She was offered surgical treatment with plans for sigmoid colon resection. The details of surgery were discussed including the potential need for diversion with a colostomy or ileostomy. The other risks include bleeding, infection, visceral injury, pain, anesthetic risk , and anastomotic leak, potential need for additional surgery or procedure. She understands and would like to proceed. Description: The patient was taken to the operating room and placed supine on the operating table. Gen. anesthesia was performed. She was then placed in lithotomy. The abdomen was prepped with ChloraPrep and draped in a standard surgical manner. A lower vertical midline incision was made in the skin which was carried superiorly just above the umbilicus. Cautery dissection was carried down to the fascia. The fascia and peritoneum were then divided and the abdominal cavity was entered. The Omni retractor was used for the remainder of the case to facilitate exposure. Multiple loops of small bowel were identified and were normal. The small bowel was packed superiorly. Attention was then directed to the pelvis. We encountered the expected findings of an inflammatory mass process of the sigmoid colon with a fistula present near the inferior aspect of the uterus close to the vagina. I was able to manually divide the fistula and mobilize a portion of the inflammatory mass. We then began freeing up the entire sigmoid colon. The distal descending colon was divided with a CITLALY- [id number] stapling device. All of the lateral peritoneal attachments of the sigmoid colon were lysed. The mesentery of the sigmoid colon was then dissected. Blood vessels were sequentially ligated with 2-0 Vicryl and divided. The LigaSure device assisted with mesenteric dissection as well. We proceeded with the dissection beyond the involved inflammatory mass to the level of the proximal rectum. The bowel was divided at this level with a contour stapling device. The sigmoid colon was sent off to pathology. Gross pathologic evaluation confirmed a diverticular inflammatory mass process with likely fistula site. There was no significant abscess and the remaining rectum and descending colon appeared generally healthy and viable. We elected for primary anastomosis. Dr. Monique was present at this point and we inspected the uterus and vagina. The fistula site seemed to represent a pinpoint area of granulation tissue. We both felt it would likely heal given removal of the offending source. No additional action was taken on the uterus. I then continued mobilizing the entire descending colon and took down the splenic flexure. This was done by dividing all of the lateral and superior perineal attachments. This assisted in providing good length for the descending colon to reach the pelvis with no undue tension. There was hardened stool present in the sigmoid colon which was extracted by opening the staple line. After the stool was removed the bowel was closed off again using the stapler. Efforts were made to keep any contamination to a minimum. A handsewn 2 layer anastomosis was then constructed connecting the descending colon with the rectum. The initial posterior seromuscular layer was developed with interrupted 3-0 Vicryl sutures. The staple lines were then excised. The next layer was then constructed with 3-0 PDS in a running locked fashion. The anterior seromuscular layer was then completed using interrupted 3- 0 Vicryl sutures. Upon completion the anastomosis appeared viable and well intact with no undue tension. The abdominal cavity and pelvis was irrigated with sterile saline. Hemostasis was good and no other gross anomalies were seen. A 19 Iranian round [place] drain was left in near the anastomosis with an exit site in the right lower quadrant. This was secured at skin with 2-0 silk. The fascia was then closed with a running 1 PDS suture. A quarter inch [place] drain was left in subcutaneous tissue which exited inferiorly. The superficial subcutaneous tissue was closed with a running 2-0 Vicryl suture. The skin was approximate with 4-0 Monocryl. A sterile dressing was then applied. The patient tolerated the procedure well and was sent to the recovery room in stable condition. At the end of the case all counts were correct. NNAMDI MARTINEZ MD Feb 25, 2017 12:13
[2017-02-25] MEDS ORDERED: IV RINGERS,LACTATED 1000ML 1,000 ML IV SCH (12:26)
[2017-02-25] MEDS ORDERED: HYDROmorphone 2 MG/ML VIAL ONE (12:27)
[2017-02-25] MEDS: diphenhydrAMINE 50 MG/ML VIAL IVP PRN ×2 (12:29→18:41)
[2017-02-25] MEDS ORDERED: PROCHLORPERAZINE 10 MG/2 ML VIAL. IV PRN (12:30)
[2017-02-25] MEDS ORDERED: LIDOCAINE 1% 1 ML SYRINGE. ID PRN (12:30)
[2017-02-25] MEDS ORDERED: MORPHINE SULFATE 4 MG/ML DISP.SYRIN. IV PRN (12:30)
[2017-02-25] MEDS ORDERED: fentaNYL PF VIAL 100 MCG/2 ML VIAL IV PRN ×2 (12:30)
[2017-02-25] MEDS: HYDROmorphone 2 MG/ML VIAL IV PRN ×2 (12:32→12:44)
[2017-02-25] MEDS ORDERED: HYDROmorphone 2 MG/ML VIAL IM ONE (13:00)
--- NOTE | 2017-02-25 13:04 | RAD ---
Indication postop. Protocol study. A single KUB was obtained. The patient is status post colon resection. Surgical drains are noted. Some contrast is seen in the large bowel. Postoperative changes are noted in the lumbar spine and right hip. No unexpected finding is seen. IMPRESSION: No unexpected finding seen in a postop KUB
--- NOTE | 2017-02-25 15:11 | PDOC ---
Subjective: Subjective: Recently back from OR, feeling sore. Objective: Vital Signs: Vital Signs Date Time Temp Pulse Resp B/P (MAP) Pulse Ox O2 Delivery O2 Flow Rate FiO2 02/25/17 12:44 98.2 100 144/82 95 Nasal Cannula 2.0 98.2 02/25/17 12:44 15 Labs: Laboratory Tests Test 02/25/17 04:40 White Blood Count 9.6 x10^3/uL Red Blood Count 3.71 x10^6/uL Hemoglobin 10.7 g/dL Hematocrit 32.0 % Mean Corpuscular Volume 86 fL Mean Corpuscular Hemoglobin 29 pg Mean Corpuscular Hemoglobin Concent 33 g/dL Red Cell Distribution Width 15.0 % Platelet Count 500 x10^3/uL Neutrophils (%) (Auto) 73 % Lymphocytes (%) (Auto) 15 % Monocytes (%) (Auto) 9 % Eosinophils (%) (Auto) 3 % Basophils (%) (Auto) 1 % Neutrophils # (Auto) 7.0 x10^3uL Lymphocytes # (Auto) 1.4 x10^3/uL Monocytes # (Auto) 0.9 x10^3/uL Eosinophils # (Auto) 0.3 x10^3/uL Basophils # (Auto) 0.0 x10^3/uL Sodium Level 136 mmol/L Potassium Level 4.2 mmol/L Chloride Level 103 mmol/L Carbon Dioxide Level 24 mmol/L Anion Gap 9 Blood Urea Nitrogen 12 mg/dL Creatinine 0.9 mg/dL Estimated GFR (Cockcroft-Gault) 63.2 Glucose Level 105 mg/dL Calcium Level 8.6 mg/dL PE: GEN: NAD LUNGS: CTAB HEART: RRR ABD: holding pillow over abd NEURO/PSYCH: A & O 3 A/P: Diverticulitis w/ colovaginal fistula s/p sigmoid colon resection 02/25/17 -- Diet, etc. per surgery. Will follow. MEET WHYTE Feb 25, 2017 15:11
[2017-02-25] MEDS: HYDROcodone/APAP 7.5/325MG 1 TAB TABLET PO PRN (20:24)
[2017-02-25] MEDS: ZOLPIDEM 5 MG TABLET. PO SCH (21:00)
[2017-02-25] MEDS: FAMOTIDINE 20 MG/2 ML VIAL IVP SCH (22:37)
[2017-02-26] MEDS: IV RINGERS,LACTATED 1000ML 1,000 ML IV SCH ×3 (00:50→17:36)
[2017-02-26 03:00] VITALS: BP 138/87
[2017-02-26 05:13] LABS: BASO % 0 % (0-3); EOS % 0 % (0-3); HEMATOCRIT 32.1 % (36.0-47.0); HEMOGLOBIN 10.1 g/dL (12.0-15.5); LYMPH # 1.4 x10^3/uL (1.0-4.8); LYMPH % 7 % (24-48); MEAN CORPUSCULAR HEMOGLOBIN 28 pg (25-35); MEAN CORPUSCULAR HGB CONC 32 g/dL (31-37); MEAN CORPUSCULAR VOLUME 88 fL (79-100); MONO % 6 % (0-9); NEUT % 87 % (31-73); PLATELET COUNT 505 x10^3/uL (140-400); RED BLOOD COUNT 3.63 x10^6/uL (3.50-5.40); RED CELL DISTRIBUTION WIDTH 14.9 % (11.5-14.5); WHITE BLOOD COUNT 20.3 x10^3/uL (4.0-11.0)
[2017-02-26 05:41] LABS: ALBUMIN 2.6 g/dL (3.4-5.0); ALBUMIN/GLOBULIN RATIO 0.6 (1.0-1.7); CALCIUM 8.9 mg/dL (8.5-10.1); CREATININE 0.7 mg/dL (0.6-1.0); GFR 84.5; POTASSIUM 4.4 mmol/L (3.5-5.1); TOTAL BILIRUBIN 0.2 mg/dL (0.2-1.0); TOTAL PROTEIN 6.7 g/dL (6.4-8.2)
[2017-02-26 07:00] VITALS: BP 145/83
[2017-02-26] MEDS: buPROPion XL 150 MG TAB.ER.24H. PO SCH (09:00)
[2017-02-26] MEDS: CIPROFLOXACIN 400MG PREMIX 200 ML IV SCH ×2 (09:37→21:04)
--- NOTE | 2017-02-26 10:00 | PDOC ---
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) - POD # 1 Leukocytosis, SIRS POA, better Abdominal pain HTN, controlled mild malnutrition h/o PAFIB no AC History of Present Illness History of Present Illness WBC 20, no fevers Pena in SURVEYOR pump running and is needing to press it 1 HOLGER drain with moderate amt blood Abd dressing dry and intact NO flatus yet Tolerating liquid diet so far PLAn: IV cipro and flagyl - agree with abx coverage CBC and BMP again negar IS to start today Cont SURVEYOR pump for now Keep pena while on SURVEYOR PT/OT MAy rpt check UA (UA on admit is clean) - leukocytosis Await flatus Vitals Vitals Vital Signs Date Time Temp Pulse Resp B/P (MAP) Pulse Ox O2 Delivery O2 Flow Rate FiO2 02/26/17 07:00 97.7 106 20 145/83 (103) 97 Nasal Cannula 2.0 97.7 Physical Exam General: Alert, Oriented X3, Cooperative Heart: Regular rate Lungs: Clear Abdomen: Normal bowel sounds, Soft, No tenderness, No masses Extremities: No clubbing, No cyanosis Skin: No rashes, No breakdown Labs LABS Laboratory Tests Test 02/26/17 03:45 White Blood Count 20.3 x10^3/uL (4.0-11.0) Red Blood Count 3.63 x10^6/uL (3.50-5.40) Hemoglobin 10.1 g/dL (12.0-15.5) Hematocrit 32.1 % (36.0-47.0) Mean Corpuscular Volume 88 fL (79-100) Mean Corpuscular Hemoglobin 28 pg (25-35) Mean Corpuscular Hemoglobin Concent 32 g/dL (31-37) Red Cell Distribution Width 14.9 % (11.5-14.5) Platelet Count 505 x10^3/uL (140-400) Neutrophils (%) (Auto) 87 % (31-73) Lymphocytes (%) (Auto) 7 % (24-48) Monocytes (%) (Auto) 6 % (0-9) Eosinophils (%) (Auto) 0 % (0-3) Basophils (%) (Auto) 0 % (0-3) Neutrophils # (Auto) 17.6 x10^3uL (1.8-7.7) Lymphocytes # (Auto) 1.4 x10^3/uL (1.0-4.8) Monocytes # (Auto) 1.3 x10^3/uL (0.0-1.1) Eosinophils # (Auto) 0.0 x10^3/uL (0.0-0.7) Basophils # (Auto) 0.0 x10^3/uL (0.0-0.2) Sodium Level 135 mmol/L (136-145) Potassium Level 4.4 mmol/L (3.5-5.1) Chloride Level 100 mmol/L (98-107) Carbon Dioxide Level 26 mmol/L (21-32) Anion Gap 9 (6-14) Blood Urea Nitrogen 10 mg/dL (7-20) Creatinine 0.7 mg/dL (0.6-1.0) Estimated GFR (Cockcroft-Gault) 84.5 BUN/Creatinine Ratio 14 (6-20) Glucose Level 109 mg/dL (70-99) Calcium Level 8.9 mg/dL (8.5-10.1) Total Bilirubin 0.2 mg/dL (0.2-1.0) Aspartate Amino Transf (AST/SGOT) 17 U/L (15-37) Alanine Aminotransferase (ALT/SGPT) 24 U/L (14-59) Alkaline Phosphatase 60 U/L (46-116) Total Protein 6.7 g/dL (6.4-8.2) Albumin 2.6 g/dL (3.4-5.0) Albumin/Globulin Ratio 0.6 (1.0-1.7) Review of Systems Review of Systems post op soreness Assessment and Plan Assessmemt and Plan Problems Medical Problems: (1) Diverticulitis Status: Acute Problems: Comment Review of Relevant I have reviewed the following items amando (where applicable) has been applied. Labs Laboratory Tests Test 02/25/17 04:40 02/26/17 03:45 White Blood Count 9.6 x10^3/uL (4.0-11.0) 20.3 x10^3/uL (4.0-11.0) Red Blood Count 3.71 x10^6/uL (3.50-5.40) 3.63 x10^6/uL (3.50-5.40) Hemoglobin 10.7 g/dL (12.0-15.5) 10.1 g/dL (12.0-15.5) Hematocrit 32.0 % (36.0-47.0) 32.1 % (36.0-47.0) Mean Corpuscular Volume 86 fL (79-100) 88 fL (79-100) Mean Corpuscular Hemoglobin 29 pg (25-35) 28 pg (25-35) Mean Corpuscular Hemoglobin Concent 33 g/dL (31-37) 32 g/dL (31-37) Red Cell Distribution Width 15.0 % (11.5-14.5) 14.9 % (11.5-14.5) Platelet Count 500 x10^3/uL (140-400) 505 x10^3/uL (140-400) Neutrophils (%) (Auto) 73 % (31-73) 87 % (31-73) Lymphocytes (%) (Auto) 15 % (24-48) 7 % (24-48) Monocytes (%) (Auto) 9 % (0-9) 6 % (0-9) Eosinophils (%) (Auto) 3 % (0-3) 0 % (0-3) Basophils (%) (Auto) 1 % (0-3) 0 % (0-3) Neutrophils # (Auto) 7.0 x10^3uL (1.8-7.7) 17.6 x10^3uL (1.8-7.7) Lymphocytes # (Auto) 1.4 x10^3/uL (1.0-4.8) 1.4 x10^3/uL (1.0-4.8) Monocytes # (Auto) 0.9 x10^3/uL (0.0-1.1) 1.3 x10^3/uL (0.0-1.1) Eosinophils # (Auto) 0.3 x10^3/uL (0.0-0.7) 0.0 x10^3/uL (0.0-0.7) Basophils # (Auto) 0.0 x10^3/uL (0.0-0.2) 0.0 x10^3/uL (0.0-0.2) Sodium Level 136 mmol/L (136-145) 135 mmol/L (136-145) Potassium Level 4.2 mmol/L (3.5-5.1) 4.4 mmol/L (3.5-5.1) Chloride Level 103 mmol/L (98-107) 100 mmol/L (98-107) Carbon Dioxide Level 24 mmol/L (21-32) 26 mmol/L (21-32) Anion Gap 9 (6-14) 9 (6-14) Blood Urea Nitrogen 12 mg/dL (7-20) 10 mg/dL (7-20) Creatinine 0.9 mg/dL (0.6-1.0) 0.7 mg/dL (0.6-1.0) Estimated GFR (Cockcroft-Gault) 63.2 84.5 Glucose Level 105 mg/dL (70-99) 109 mg/dL (70-99) Calcium Level 8.6 mg/dL (8.5-10.1) 8.9 mg/dL (8.5-10.1) BUN/Creatinine Ratio 14 (6-20) Total Bilirubin 0.2 mg/dL (0.2-1.0) Aspartate Amino Transf (AST/SGOT) 17 U/L (15-37) Alanine Aminotransferase (ALT/SGPT) 24 U/L (14-59) Alkaline Phosphatase 60 U/L (46-116) Total Protein 6.7 g/dL (6.4-8.2) Albumin 2.6 g/dL (3.4-5.0) Albumin/Globulin Ratio 0.6 (1.0-1.7) Laboratory Tests Test 02/26/17 03:45 White Blood Count 20.3 x10^3/uL (4.0-11.0) Red Blood Count 3.63 x10^6/uL (3.50-5.40) Hemoglobin 10.1 g/dL (12.0-15.5) Hematocrit 32.1 % (36.0-47.0) Mean Corpuscular Volume 88 fL (79-100) Mean Corpuscular Hemoglobin 28 pg (25-35) Mean Corpuscular Hemoglobin Concent 32 g/dL (31-37) Red Cell Distribution Width 14.9 % (11.5-14.5) Platelet Count 505 x10^3/uL (140-400) Neutrophils (%) (Auto) 87 % (31-73) Lymphocytes (%) (Auto) 7 % (24-48) Monocytes (%) (Auto) 6 % (0-9) Eosinophils (%) (Auto) 0 % (0-3) Basophils (%) (Auto) 0 % (0-3) Neutrophils # (Auto) 17.6 x10^3uL (1.8-7.7) Lymphocytes # (Auto) 1.4 x10^3/uL (1.0-4.8) Monocytes # (Auto) 1.3 x10^3/uL (0.0-1.1) Eosinophils # (Auto) 0.0 x10^3/uL (0.0-0.7) Basophils # (Auto) 0.0 x10^3/uL (0.0-0.2) Sodium Level 135 mmol/L (136-145) Potassium Level 4.4 mmol/L (3.5-5.1) Chloride Level 100 mmol/L (98-107) Carbon Dioxide Level 26 mmol/L (21-32) Anion Gap 9 (6-14) Blood Urea Nitrogen 10 mg/dL (7-20) Creatinine 0.7 mg/dL (0.6-1.0) Estimated GFR (Cockcroft-Gault) 84.5 BUN/Creatinine Ratio 14 (6-20) Glucose Level 109 mg/dL (70-99) Calcium Level 8.9 mg/dL (8.5-10.1) Total Bilirubin 0.2 mg/dL (0.2-1.0) Aspartate Amino Transf (AST/SGOT) 17 U/L (15-37) Alanine Aminotransferase (ALT/SGPT) 24 U/L (14-59) Alkaline Phosphatase 60 U/L (46-116) Total Protein 6.7 g/dL (6.4-8.2) Albumin 2.6 g/dL (3.4-5.0) Albumin/Globulin Ratio 0.6 (1.0-1.7) Microbiology 02/18/17 Urine Culture - Final, Complete 02/18/17 Urine Culture Result 1 (TARIQ) - Final, Complete Medications Current Medications Morphine Sulfate 2 mg PRN Q15MIN PRN IV/SQ PAIN GREATER THAN 3/10 Last administered on 02/18/17t 07:42; Start 02/18/17 at 07:30; Stop 02/18/17 at 17:49 ; Status DC Sodium Chloride 1,000 ml @ 1,000 mls/hr Q1H IV Last administered on 02/18/17 07:41; Start 02/18/17 at 07:29; Stop 02/18/17 at 08:28; Status DC Ondansetron HCl (Zofran) 4 mg 1X ONCE IV Last administered on 02/18/17 07:41 ; Start 02/18/17 at 08:00; Stop 02/18/17 at 08:01; Status DC Iohexol (Omnipaque 240 Mg/ml) 50 ml 1X ONCE PO Last administered on 02/18/17 08:00; Start 02/18/17 at 08:00; Stop 02/18/17 at 08:01; Status DC Iohexol (Omnipaque 300 Mg/ml) 75 ml 1X ONCE IV Last administered on 02/18/17 08:59; Start 02/18/17 at 08:00; Stop 02/18/17 at 08:01; Status DC Sodium Chloride 1,000 ml @ 1,000 mls/hr 1X ONCE IV Last administered on 09:48; Start 02/18/17 at 09:30; Stop 02/18/17 at 10:29; Status DC Ciprofloxacin Lactate 200 ml @ 200 mls/hr Q12HR IV Last administered on 09:37; Start 02/18/17 at 10:00 Metronidazole 100 ml @ 100 mls/hr Q8H IV Last administered on 02/26/17 03:55; Start 02/18/17 at 11:00 Ondansetron HCl (Zofran) 4 mg PRN Q8HRS PRN IV NAUSEA/VOMITING; Start 02/18/17 at 10:15; Stop 02/19/17 at 10:14; Status DC Morphine Sulfate 2 mg PRN Q2HR PRN IV PAIN Last administered on 02/19/17 07:58 ; Start 02/18/17 at 10:15; Stop 02/19/17 at 10:14; Status DC Diphenhydramine HCl (Benadryl) 25 mg PRN Q6HRS PRN IVP ITCHING Last administered on 02/25/17 18:41; Start 02/18/17 at 14:15 Cyclobenzaprine HCl (Flexeril) 10 mg PRN DAILY PRN PO MUSCLE SPASMS Last administered on 02/23/17 21:46; Start 02/18/17 at 17:45 Diltiazem HCl (Cardizem 24hr Cd) 180 mg DAILY PO Last administered on 02/24/17 08:12; Start 02/19/17 at 09:00 Losartan Potassium (Cozaar) 50 mg DAILY PO Last administered on 02/19/17 07:55 ; Start 02/19/17 at 09:00; Stop 02/19/17 at 09:00; Status DC Pantoprazole Sodium (Protonix) 40 mg DAILYAC PO Last administered on 02/19/17 07:56; Start 02/19/17 at 07:30; Stop 02/19/17 at 12:31; Status DC Bupropion HCl (Wellbutrin Xl) 300 mg DAILY PO Last administered on 02/24/17 08: 12; Start 02/19/17 at 09:00 Acetaminophen/ Hydrocodone Bitart (Lortab 7.5/325) 1 tab PRN TID PRN PO MODERATE PAIN Last administered on 02/25/17 20:24; Start 02/18/17 at 18:15 Zolpidem Tartrate (Ambien) 5 mg QHS PO Last administered on 02/24/17 20:35; Start 02/18/17 at 21:00 Zolpidem Tartrate (Ambien) 5 mg PRN QHS PRN PO INSOMNIA Last administered on 00:26; Start 02/18/17 at 18:15 Acetaminophen (Tylenol) 650 mg PRN Q6HRS PRN PO FEVER; Start 02/19/17 at 12:30 Ondansetron HCl (Zofran) 4 mg PRN Q6HRS PRN IV NAUSEA/VOMITING Last administered on 02/25/17 06:44; Start 02/19/17 at 12:30 Morphine Sulfate 2 mg PRN Q2HR PRN IV PAIN; Start 02/19/17 at 12:30; Stop at 12:31; Status DC Tramadol HCl (Ultram) 50 mg PRN Q6HRS PRN PO MILD PAIN Last administered on 02/24 04:15; Start 02/19/17 at 12:30 Hydralazine HCl (Apresoline) 10 mg PRN Q4HRS PRN IVP ELEVATED BP, SEE COMMENTS ; Start 02/19/17 at 12:30 Docusate Sodium (Colace) 100 mg PRN DAILY PRN PO CONSTIPATION Last administered on 02/24/17 08:12; Start 02/19/17 at 12:30 Morphine Sulfate 2 mg PRN Q2HR PRN IV PAIN Last administered on 02/24/17 10:11 ; Start 02/19/17 at 12:45; Stop 02/24/17 at 18:13; Status DC Famotidine (Pepcid) 20 mg QHS IVP Last administered on 02/21/17 20:56; Start at 21:00; Stop 02/22/17 at 15:49; Status DC Heparin Sodium (Porcine) (Heparin Sq) 5,000 unit Q8HRS SQ Last administered on 02/21/17 20:57; Start 02/19/17 at 14:00; Stop 02/24/17 at 11:29; Status DC Iohexol (Omnipaque 240 Mg/ml) 30 ml 1X ONCE PO ; Start 02/21/17 at 08:30; Stop 02/21/17 at 08:35; Status DC Iohexol (Omnipaque 300 Mg/ml) 60 ml 1X ONCE IV ; Start 02/21/17 at 08:30; Stop 02/21/17 at 08:35; Status DC Sodium Chloride 1,000 ml @ 75 mls/hr [id number] IV Last administered on 02/21/17 20:58; Start 02/21/17 at 08:45; Stop 02/22/17 at 08:59; Status DC Amino Acids/ Glycerin/ Electrolytes 1,000 ml @ 60 mls/hr [id number] IV Last administered on 02/25/17 03:12; Start 02/22/17 at 09:30 Famotidine (Pepcid) 20 mg QHS PO Last administered on 02/22/17 21:44; Start 02/22/17 at 21:00; Stop 02/23/17 at 14:24; Status DC Famotidine (Pepcid) 20 mg QHS IVP Last administered on 02/25/17 22:37; Start at 21:00 Ibuprofen (Motrin) 600 mg PRN Q6HRS PRN PO INFLAMMATION Last administered on 15:56; Start 02/23/17 at 15:30 Cefazolin Sodium/ Dextrose 50 ml @ 100 mls/hr 1X PREOP PRN IV personal lines sales rep to OR Last administered on 02/25/17 08:15; Start 02/25/17 at 06:00; Stop 02/25/17 at 18: 00; Status DC Metronidazole 100 ml @ 100 mls/hr 1X PREOP PRN IV personal lines sales rep to OR; Start at 06:00; Stop 02/25/17 at 18:00; Status DC Morphine Sulfate 2 mg PRN Q2HR PRN IV PAIN Last administered on 02/24/17 18:18 ; Start 02/24/17 at 18:15 Dexamethasone Sodium Phosphate (Decadron) 20 mg STK-MED ONCE .ROUTE ; Start 02/25 at 07:51; Stop 02/25/17 at 07:52; Status DC Ondansetron HCl (Zofran) 4 mg STK-MED ONCE .ROUTE ; Start 02/25/17 at 07:51; Stop 02/25/17 at 07:52; Status DC Propofol 20 ml @ As Directed STK-MED ONCE IV ; Start 02/25/17 at 07:51; Stop 02/25 at 07:52; Status DC Lidocaine HCl (Lidocaine Pf 2% Vial) 5 ml STK-MED ONCE .ROUTE ; Start 02/25/17 at 07:51; Stop 02/25/17 at 07:52; Status DC Desflurane (Suprane) 60 ml STK-MED ONCE IH ; Start 02/25/17 at 07:51; Stop at 07:52; Status DC Midazolam HCl (Versed) 2 mg STK-MED ONCE .ROUTE ; Start 02/25/17 at 07:51; Stop 02/25/17 at 07:52; Status DC Fentanyl Citrate (Fentanyl 2ml Vial) 100 mcg STK-MED ONCE .ROUTE ; Start at 07:51; Stop 02/25/17 at 07:52; Status DC Rocuronium [place] (Zemuron) 100 mg STK-MED ONCE .ROUTE ; Start 02/25/17 at 07:51 ; Stop 02/25/17 at 07:52; Status DC Ringer's Solution 1,000 ml @ 100 mls/hr Q10H IV Last administered on 02/26/17 00:50; Start 02/25/17 at 08:15 Phenylephrine HCl (Jeremy-Synephrine Inj) 10 mg STK-MED ONCE .ROUTE ; Start at 08:19; Stop 02/25/17 at 08:20; Status DC Sodium Chloride (Sodium Chloride) 50 ml STK-MED ONCE IJ ; Start 02/25/17 at 08:19 ; Stop 02/25/17 at 08:20; Status DC Ketamine HCl 500 mg STK-MED ONCE .ROUTE ; Start 02/25/17 at 08:46; Stop 02/25/17 at 08:47; Status DC Esmolol HCl (Brevibloc) 100 mg STK-MED ONCE IV ; Start 02/25/17 at 08:48; Stop at 08:49; Status DC Fentanyl Citrate (Fentanyl 2ml Vial) 100 mcg STK-MED ONCE .ROUTE ; Start at 09:36; Stop 02/25/17 at 09:37; Status DC Desflurane (Suprane) 90 ml STK-MED ONCE IH ; Start 02/25/17 at 09:52; Stop at 09:53; Status DC Morphine Sulfate 10 mg STK-MED ONCE .ROUTE ; Start 02/25/17 at 10:06; Stop at 10:07; Status DC Fentanyl Citrate (Fentanyl 2ml Vial) 100 mcg STK-MED ONCE .ROUTE ; Start at 11:51; Stop 02/25/17 at 11:52; Status DC Fentanyl Citrate (Fentanyl 2ml Vial) 50 mcg PACU PRN PRN IV pain Last administered on 02/25/17 12:10; Start 02/25/17 at 11:30; Stop 02/25/17 at 19:42; Status DC Hydromorphone HCl 30 ml @ 0 mls/hr CONT PRN PRN IV PROTOCOL Last administered on 02/25/17 12:19; Start 02/25/17 at 12:15 Hydromorphone HCl 30 ml @ As Directed STK-MED ONCE IV ; Start 02/25/17 at 12:04; Stop 02/25/17 at 12:05; Status DC Fentanyl Citrate (Fentanyl 2ml Vial) 100 mcg STK-MED ONCE .ROUTE ; Start at 12:04; Stop 02/25/17 at 12:05; Status DC Fentanyl Citrate (Fentanyl 2ml Vial) 25 mcg PRN Q5MIN PRN IV MILD PAIN; Start 02/25/17 at 12:30; Stop 02/25/17 at 19:42; Status DC Fentanyl Citrate (Fentanyl 2ml Vial) 50 mcg PRN Q5MIN PRN IV MODERATE PAIN; Start 02/25/17 at 12:30; Stop 02/25/17 at 19:42; Status DC Morphine Sulfate 1 mg PRN Q10MIN PRN IV SEVERE PAIN; Start 02/25/17 at 12:30; Stop 02/25/17 at 19:43; Status DC Ringer's Solution 1,000 ml @ 30 mls/hr Q24H IV ; Start 02/25/17 at 12:26; Stop 02/25/17 at 19:42; Status DC Lidocaine HCl 2 ml PRN 1X PRN ID PRIOR TO IV START; Start 02/25/17 at 12:30; Stop 02/25/17 at 23:00; Status DC Hydromorphone HCl (Dilaudid) 0.5 mg PRN Q10MIN PRN IV SEV PAIN, Second choice Last administered on 02/25/17t 12:44; Start 02/25/17 at 12:30; Stop 02/25/17 at 19: 42; Status DC Prochlorperazine Edisylate (Compazine) 5 mg PACU PRN PRN IV NAUSEA, MRX1; Start 02/25/17 at 12:30; Stop 02/25/17 at 19:43; Status DC Hydromorphone HCl (Dilaudid) 2 mg STK-MED ONCE .ROUTE ; Start 02/25/17 at 12:27; Stop 02/25/17 at 12:28; Status DC Hydromorphone HCl (Dilaudid) 0.5 mg 1X ONCE IM ; Start 02/25/17 at 13:00; Stop 02/25/17 at 19:43; Status DC Active Scripts Active Reported Ibuprofen 400 Mg Tablet 400 Mg PO PRN Q6HRS PRN Pantoprazole Sodium 40 Mg Tablet.dr 1 Tab PO DAILY Cardizem Cd (Diltiazem Hcl) 180 Mg Cap.er.24h 1 Cap PO DAILY Miralax (Polyethylene Glycol 3350) 17 Gm Powd.pack 1 Packet PO DAILY Ambien (Zolpidem Tartrate) 10 Mg Tablet 1 Tab PO QHS Hydrocodon-Acetaminoph 7.5-500 (Hydrocodone Bit/Acetaminophen) 1 Each Tablet 1 Each PO PRN TID PRN Cyclobenzaprine Hcl 10 Mg Tablet 10 Mg PO PRN DAILY Wellbutrin Xl (Bupropion Hcl) 300 Mg Tab.er.24h 300 Mg PO DAILY Losartan Potassium 25 Mg Tablet 50 Mg PO DAILY Hydrochlorothiazide Tablet (Hydrochlorothiazide) 25 Mg Tablet 25 Mg PO DAILY Vitals/I & O Vital Sign - Last 24 Hours 02/25/17 02/25/17 02/25/17 02/25/17 11:00 11:44 11:44 11:50 Temp 98.2 98.2 Pulse 97 Resp 13 15 B/P (MAP) 140/79 Pulse Ox 99 99 O2 Delivery Room Air Room Air Simple Mask Room Air O2 Flow Rate 10 10.0 02/25/17 02/25/17 02/25/17 02/25/17 11:55 11:59 12:02 12:10 Temp 98.2 98.2 Pulse 102 Resp 15 13 15 15 B/P (MAP) 129/77 Pulse Ox 99 95 99 99 O2 Delivery Room Air Nasal Cannula Room Air Room Air O2 Flow Rate 10.0 2 10.0 10.0 02/25/17 02/25/17 02/25/17 02/25/17 12:14 12:19 12:29 12:32 Temp 98.2 98.2 98.2 98.2 Pulse 102 100 Resp 12 12 15 15 B/P (MAP) 120/83 143/85 Pulse Ox 95 95 95 95 O2 Delivery Nasal Cannula Room Air Nasal Cannula Room Air O2 Flow Rate 2 2.0 2.0 2.0 02/25/17 02/25/17 02/25/17 02/25/17 12:44 12:44 13:10 13:30 Temp 98.2 98.2 Pulse 100 101 Resp 15 20 B/P (MAP) 144/82 141/92 (108) Pulse Ox 95 95 97 O2 Delivery Room Air Nasal Cannula Nasal Cannula Room Air O2 Flow Rate 2.0 2.0 2.0 02/25/17 02/25/17 02/25/17 02/25/17 13:45 14:00 14:15 14:40 Pulse 98 99 103 109 Resp 20 18 20 18 B/P (MAP) 149/97 (114) 149/98 (115) 144/95 (111) 159/104 (122) Pulse Ox 93 95 96 96 O2 Delivery Room Air Room Air Room Air Room Air 02/25/17 02/25/17 02/25/17 02/25/17 15:00 15:10 16:10 17:10 Temp 96.8 96.8 Pulse 101 105 105 108 Resp 20 20 18 20 B/P (MAP) 141/92 (108) 149/97 (114) 158/94 (115) 147/98 (114) Pulse Ox 97 96 96 97 O2 Delivery Room Air Room Air Room Air Room Air 02/25/17 02/25/17 02/25/17 02/25/17 19:00 20:00 20:24 21:42 Temp 98.0 98.0 Pulse 100 Resp 16 17 B/P (MAP) 154/97 (116) Pulse Ox 97 97 97 O2 Delivery Room Air Nasal Cannula Nasal Cannula Nasal Cannula O2 Flow Rate 2.0 2.0 2.0 02/25/17 02/26/17 02/26/17 23:00 03:00 07:00 Temp 98.1 98.1 97.7 98.1 98.1 97.7 Pulse 110 103 106 Resp 20 20 20 B/P (MAP) 134/90 (105) 138/87 (104) 145/83 (103) Pulse Ox 95 97 97 O2 Delivery Room Air Room Air Nasal Cannula O2 Flow Rate 2.0 Intake and Output 02/25/17 02/25/17 02/26/17 15:00 23:00 07:00 Intake Total 1200 ml 0 ml Output Total 450 ml 600 ml 2290 ml Balance 750 ml -600 ml -2290 ml NOHEMY LAM MD Feb 26, 2017 10:00
[2017-02-26 11:15] VITALS: BP 113/71
--- NOTE | 2017-02-26 11:33 | PDOC ---
Infectious Disease Note Subjective Subjective feeling ok. a little hungry today ROS ROS GEN: Denies fevers, chills, sweats HEENT: Denies blurred vision, sore throat CV: Denies chest pain RESP: Denies shortness of air, cough GI: Denies n/v/d NEURO: Denies confusion, dizziness MSK: Denies weakness, joint pain/swelling Vital Sign Vital Signs Vital Signs Date Time Temp Pulse Resp B/P (MAP) Pulse Ox O2 Delivery O2 Flow Rate FiO2 02/26/17 11:15 97.7 99 18 113/71 (85) 96 Nasal Cannula 2.0 97.7 Physical Exam PHYSICAL EXAM GENERAL: NAD, Alert HEENT: PERRL, OC/OP -clear NECK: Supple, no JVD, no LN LUNGS: Clear HEART: S1S2, no gallop, no murmur ABD: Soft, HOLGER drain in place, wound dressed. Decreased BS EXT: No edema, no cyanosis COOK STATION: Alert, oriented x 3, no focal neurologic deficit SKIN: No rash IV: Peripherals ok Labs Lab Laboratory Tests Test 02/26/17 03:45 White Blood Count 20.3 x10^3/uL (4.0-11.0) Red Blood Count 3.63 x10^6/uL (3.50-5.40) Hemoglobin 10.1 g/dL (12.0-15.5) Hematocrit 32.1 % (36.0-47.0) Mean Corpuscular Volume 88 fL (79-100) Mean Corpuscular Hemoglobin 28 pg (25-35) Mean Corpuscular Hemoglobin Concent 32 g/dL (31-37) Red Cell Distribution Width 14.9 % (11.5-14.5) Platelet Count 505 x10^3/uL (140-400) Neutrophils (%) (Auto) 87 % (31-73) Lymphocytes (%) (Auto) 7 % (24-48) Monocytes (%) (Auto) 6 % (0-9) Eosinophils (%) (Auto) 0 % (0-3) Basophils (%) (Auto) 0 % (0-3) Neutrophils # (Auto) 17.6 x10^3uL (1.8-7.7) Lymphocytes # (Auto) 1.4 x10^3/uL (1.0-4.8) Monocytes # (Auto) 1.3 x10^3/uL (0.0-1.1) Eosinophils # (Auto) 0.0 x10^3/uL (0.0-0.7) Basophils # (Auto) 0.0 x10^3/uL (0.0-0.2) Sodium Level 135 mmol/L (136-145) Potassium Level 4.4 mmol/L (3.5-5.1) Chloride Level 100 mmol/L (98-107) Carbon Dioxide Level 26 mmol/L (21-32) Anion Gap 9 (6-14) Blood Urea Nitrogen 10 mg/dL (7-20) Creatinine 0.7 mg/dL (0.6-1.0) Estimated GFR (Cockcroft-Gault) 84.5 BUN/Creatinine Ratio 14 (6-20) Glucose Level 109 mg/dL (70-99) Calcium Level 8.9 mg/dL (8.5-10.1) Total Bilirubin 0.2 mg/dL (0.2-1.0) Aspartate Amino Transf (AST/SGOT) 17 U/L (15-37) Alanine Aminotransferase (ALT/SGPT) 24 U/L (14-59) Alkaline Phosphatase 60 U/L (46-116) Total Protein 6.7 g/dL (6.4-8.2) Albumin 2.6 g/dL (3.4-5.0) Albumin/Globulin Ratio 0.6 (1.0-1.7) Objective Assessment 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
--- NOTE | 2017-02-26 13:02 | PDOC ---
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 No flatus. Some nausea last night. Apparently had some water yesterday and today, now NPO. Objective: Vital Signs: Vital Signs Date Time Temp Pulse Resp B/P (MAP) Pulse Ox O2 Delivery O2 Flow Rate FiO2 02/26/17 11:15 97.7 99 18 113/71 (85) 96 Nasal Cannula 2.0 97.7 Labs: Laboratory Tests Test 02/26/17 03:45 White Blood Count 20.3 x10^3/uL Red Blood Count 3.63 x10^6/uL Hemoglobin 10.1 g/dL Hematocrit 32.1 % Mean Corpuscular Volume 88 fL Mean Corpuscular Hemoglobin 28 pg Mean Corpuscular Hemoglobin Concent 32 g/dL Red Cell Distribution Width 14.9 % Platelet Count 505 x10^3/uL Neutrophils (%) (Auto) 87 % Lymphocytes (%) (Auto) 7 % Monocytes (%) (Auto) 6 % Eosinophils (%) (Auto) 0 % Basophils (%) (Auto) 0 % Neutrophils # (Auto) 17.6 x10^3uL Lymphocytes # (Auto) 1.4 x10^3/uL Monocytes # (Auto) 1.3 x10^3/uL Eosinophils # (Auto) 0.0 x10^3/uL Basophils # (Auto) 0.0 x10^3/uL Sodium Level 135 mmol/L Potassium Level 4.4 mmol/L Chloride Level 100 mmol/L Carbon Dioxide Level 26 mmol/L Anion Gap 9 Blood Urea Nitrogen 10 mg/dL Creatinine 0.7 mg/dL Estimated GFR (Cockcroft-Gault) 84.5 BUN/Creatinine Ratio 14 Glucose Level 109 mg/dL Calcium Level 8.9 mg/dL Total Bilirubin 0.2 mg/dL Aspartate Amino Transf (AST/SGOT) 17 U/L Alanine Aminotransferase (ALT/SGPT) 24 U/L Alkaline Phosphatase 60 U/L Total Protein 6.7 g/dL Albumin 2.6 g/dL Albumin/Globulin Ratio 0.6 PE: GEN: NAD LUNGS: clear HEART: RRR ABD: perhaps faint BS, dressing intact NEURO/PSYCH: A & O 3 A/P: 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 MEET WHYTE Feb 26, 2017 13:02
[2017-02-26] MEDS: ONDANSETRON PF 4 MG/2 ML VIAL. IV PRN ×2 (13:50→19:37)
[2017-02-26] MEDS: AMINO AC 3%/ELECTROLYTE/GLYCER 1,000 ML IV SCH (13:51)
--- NOTE | 2017-02-26 14:14 | PDOC ---
SURGICAL PROGRESS NOTE Subjective pain improved no nausea or vomiting no flatus Vital Signs Vital Signs Date Time Temp Pulse Resp B/P (MAP) Pulse Ox O2 Delivery O2 Flow Rate FiO2 02/26/17 11:15 97.7 99 18 113/71 (85) 96 Nasal Cannula 2.0 97.7 I&O Intake and Output 02/26/17 07:00 Intake Total 1200 ml Output Total 3340 ml Balance -2140 ml Intake Oral 0 ml IV Total 1200 ml Output Urine Total 3150 ml Drainage Total 90 ml Estimated Blood Loss 100 ml PATIENT HAS A PENA: Yes General: Alert, Oriented X3, Cooperative, No acute distress Abdomen: Soft, Other (dressing dry, incisional TTP) Labs Laboratory Tests Test 02/25/17 04:40 02/26/17 03:45 White Blood Count 9.6 x10^3/uL (4.0-11.0) 20.3 x10^3/uL (4.0-11.0) Red Blood Count 3.71 x10^6/uL (3.50-5.40) 3.63 x10^6/uL (3.50-5.40) Hemoglobin 10.7 g/dL (12.0-15.5) 10.1 g/dL (12.0-15.5) Hematocrit 32.0 % (36.0-47.0) 32.1 % (36.0-47.0) Mean Corpuscular Volume 86 fL (79-100) 88 fL (79-100) Mean Corpuscular Hemoglobin 29 pg (25-35) 28 pg (25-35) Mean Corpuscular Hemoglobin Concent 33 g/dL (31-37) 32 g/dL (31-37) Red Cell Distribution Width 15.0 % (11.5-14.5) 14.9 % (11.5-14.5) Platelet Count 500 x10^3/uL (140-400) 505 x10^3/uL (140-400) Neutrophils (%) (Auto) 73 % (31-73) 87 % (31-73) Lymphocytes (%) (Auto) 15 % (24-48) 7 % (24-48) Monocytes (%) (Auto) 9 % (0-9) 6 % (0-9) Eosinophils (%) (Auto) 3 % (0-3) 0 % (0-3) Basophils (%) (Auto) 1 % (0-3) 0 % (0-3) Neutrophils # (Auto) 7.0 x10^3uL (1.8-7.7) 17.6 x10^3uL (1.8-7.7) Lymphocytes # (Auto) 1.4 x10^3/uL (1.0-4.8) 1.4 x10^3/uL (1.0-4.8) Monocytes # (Auto) 0.9 x10^3/uL (0.0-1.1) 1.3 x10^3/uL (0.0-1.1) Eosinophils # (Auto) 0.3 x10^3/uL (0.0-0.7) 0.0 x10^3/uL (0.0-0.7) Basophils # (Auto) 0.0 x10^3/uL (0.0-0.2) 0.0 x10^3/uL (0.0-0.2) Sodium Level 136 mmol/L (136-145) 135 mmol/L (136-145) Potassium Level 4.2 mmol/L (3.5-5.1) 4.4 mmol/L (3.5-5.1) Chloride Level 103 mmol/L (98-107) 100 mmol/L (98-107) Carbon Dioxide Level 24 mmol/L (21-32) 26 mmol/L (21-32) Anion Gap 9 (6-14) 9 (6-14) Blood Urea Nitrogen 12 mg/dL (7-20) 10 mg/dL (7-20) Creatinine 0.9 mg/dL (0.6-1.0) 0.7 mg/dL (0.6-1.0) Estimated GFR (Cockcroft-Gault) 63.2 84.5 Glucose Level 105 mg/dL (70-99) 109 mg/dL (70-99) Calcium Level 8.6 mg/dL (8.5-10.1) 8.9 mg/dL (8.5-10.1) BUN/Creatinine Ratio 14 (6-20) Total Bilirubin 0.2 mg/dL (0.2-1.0) Aspartate Amino Transf (AST/SGOT) 17 U/L (15-37) Alanine Aminotransferase (ALT/SGPT) 24 U/L (14-59) Alkaline Phosphatase 60 U/L (46-116) Total Protein 6.7 g/dL (6.4-8.2) Albumin 2.6 g/dL (3.4-5.0) Albumin/Globulin Ratio 0.6 (1.0-1.7) Laboratory Tests Test 02/26/17 03:45 White Blood Count 20.3 x10^3/uL (4.0-11.0) Red Blood Count 3.63 x10^6/uL (3.50-5.40) Hemoglobin 10.1 g/dL (12.0-15.5) Hematocrit 32.1 % (36.0-47.0) Mean Corpuscular Volume 88 fL (79-100) Mean Corpuscular Hemoglobin 28 pg (25-35) Mean Corpuscular Hemoglobin Concent 32 g/dL (31-37) Red Cell Distribution Width 14.9 % (11.5-14.5) Platelet Count 505 x10^3/uL (140-400) Neutrophils (%) (Auto) 87 % (31-73) Lymphocytes (%) (Auto) 7 % (24-48) Monocytes (%) (Auto) 6 % (0-9) Eosinophils (%) (Auto) 0 % (0-3) Basophils (%) (Auto) 0 % (0-3) Neutrophils # (Auto) 17.6 x10^3uL (1.8-7.7) Lymphocytes # (Auto) 1.4 x10^3/uL (1.0-4.8) Monocytes # (Auto) 1.3 x10^3/uL (0.0-1.1) Eosinophils # (Auto) 0.0 x10^3/uL (0.0-0.7) Basophils # (Auto) 0.0 x10^3/uL (0.0-0.2) Sodium Level 135 mmol/L (136-145) Potassium Level 4.4 mmol/L (3.5-5.1) Chloride Level 100 mmol/L (98-107) Carbon Dioxide Level 26 mmol/L (21-32) Anion Gap 9 (6-14) Blood Urea Nitrogen 10 mg/dL (7-20) Creatinine 0.7 mg/dL (0.6-1.0) Estimated GFR (Cockcroft-Gault) 84.5 BUN/Creatinine Ratio 14 (6-20) Glucose Level 109 mg/dL (70-99) Calcium Level 8.9 mg/dL (8.5-10.1) Total Bilirubin 0.2 mg/dL (0.2-1.0) Aspartate Amino Transf (AST/SGOT) 17 U/L (15-37) Alanine Aminotransferase (ALT/SGPT) 24 U/L (14-59) Alkaline Phosphatase 60 U/L (46-116) Total Protein 6.7 g/dL (6.4-8.2) Albumin 2.6 g/dL (3.4-5.0) Albumin/Globulin Ratio 0.6 (1.0-1.7) Problem List Problems Medical Problems: (1) Diverticulitis Status: Acute Assessment/Plan POD#1 sigmoid colectomy npo, await bowel fx dc pena POD#2 ambulate add lovenox dvyt proph 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
[2017-02-26 14:58] VITALS: BP 120/73
[2017-02-26] MEDS: ENOXAPARIN 40 MG/0.4 ML SYRINGE. SQ SCH (17:35)
[2017-02-26] MEDS: FAMOTIDINE 20 MG/2 ML VIAL IVP SCH (19:36)
[2017-02-26] MEDS: ZOLPIDEM 5 MG TABLET. PO SCH (19:37)
[2017-02-26 23:00] VITALS: BP 115/72
[2017-02-27] MEDS: ONDANSETRON PF 4 MG/2 ML VIAL. IV PRN ×3 (01:55→21:50)
[2017-02-27 03:00] VITALS: BP 131/88
[2017-02-27] MEDS: PROCHLORPERAZINE 10 MG/2 ML VIAL. IV PRN ×2 (03:48→15:23)
[2017-02-27 05:05] LABS: BASO % 0 % (0-3); EOS % 1 % (0-3); HEMATOCRIT 36.6 % (36.0-47.0); HEMOGLOBIN 11.4 g/dL (12.0-15.5); LYMPH # 1.5 x10^3/uL (1.0-4.8); LYMPH % 9 % (24-48); MEAN CORPUSCULAR HEMOGLOBIN 28 pg (25-35); MEAN CORPUSCULAR HGB CONC 31 g/dL (31-37); MEAN CORPUSCULAR VOLUME 89 fL (79-100); MONO % 8 % (0-9); NEUT % 83 % (31-73); PLATELET COUNT 490 x10^3/uL (140-400); RED BLOOD COUNT 4.11 x10^6/uL (3.50-5.40); RED CELL DISTRIBUTION WIDTH 14.9 % (11.5-14.5); WHITE BLOOD COUNT 16.9 x10^3/uL (4.0-11.0)
[2017-02-27 05:29] LABS: CALCIUM 8.4 mg/dL (8.5-10.1); CREATININE 0.8 mg/dL (0.6-1.0); GFR 72.4; POTASSIUM 3.9 mmol/L (3.5-5.1)
[2017-02-27] MEDS: AMINO AC 3%/ELECTROLYTE/GLYCER 1,000 ML IV SCH ×2 (06:10→21:37)
[2017-02-27 07:00] VITALS: BP 119/76
[2017-02-27 08:09] LABS: % EOS 1 % (0-5)
[2017-02-27 08:10] LABS: PLT ESTIMATE INCREASED (ADEQUATE)
[2017-02-27] MEDS: buPROPion XL 150 MG TAB.ER.24H. PO SCH (09:00)
[2017-02-27] MEDS: CIPROFLOXACIN 400MG PREMIX 200 ML IV SCH ×2 (09:02→16:05)
--- NOTE | 2017-02-27 10:10 | PDOC ---
Infectious Disease Note Subjective Subjective feeling nausea today. vomited last pm Mild pain ROS ROS GEN: Denies fevers, chills, sweats HEENT: Denies blurred vision, sore throat CV: Denies chest pain RESP: Denies shortness of air, cough GI: Denies n/v/d NEURO: Denies confusion, dizziness MSK: Denies weakness, joint pain/swelling Vital Sign Vital Signs Vital Signs Date Time Temp Pulse Resp B/P (MAP) Pulse Ox O2 Delivery O2 Flow Rate FiO2 02/27/17 07:00 97.9 110 18 119/76 (90) 95 Room Air 97.9 02/27/17 03:00 2.0 Physical Exam PHYSICAL EXAM GENERAL: NAD, Alert - looks a little tired HEENT: PERRL, OC/OP -clear NECK: Supple, no JVD, no LN LUNGS: Clear HEART: S1S2, no gallop, no murmur ABD: Soft, HOLGER drain in place, wound dressed. 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 x 3, no focal neurologic deficit SKIN: No rash IV: Peripherals ok Labs Lab Laboratory Tests Test 02/27/17 04:00 02/27/17 04:05 Sodium Level 132 mmol/L (136-145) Potassium Level 3.9 mmol/L (3.5-5.1) Chloride Level 98 mmol/L (98-107) Carbon Dioxide Level 28 mmol/L (21-32) Anion Gap 6 (6-14) Blood Urea Nitrogen 15 mg/dL (7-20) Creatinine 0.8 mg/dL (0.6-1.0) Estimated GFR (Cockcroft-Gault) 72.4 Glucose Level 116 mg/dL (70-99) Calcium Level 8.4 mg/dL (8.5-10.1) White Blood Count 16.9 x10^3/uL (4.0-11.0) Red Blood Count 4.11 x10^6/uL (3.50-5.40) Hemoglobin 11.4 g/dL (12.0-15.5) Hematocrit 36.6 % (36.0-47.0) Mean Corpuscular Volume 89 fL (79-100) Mean Corpuscular Hemoglobin 28 pg (25-35) Mean Corpuscular Hemoglobin Concent 31 g/dL (31-37) Red Cell Distribution Width 14.9 % (11.5-14.5) Platelet Count 490 x10^3/uL (140-400) Neutrophils (%) (Auto) 83 % (31-73) Lymphocytes (%) (Auto) 9 % (24-48) Monocytes (%) (Auto) 8 % (0-9) Eosinophils (%) (Auto) 1 % (0-3) Basophils (%) (Auto) 0 % (0-3) Neutrophils # (Auto) 14.0 x10^3uL (1.8-7.7) Lymphocytes # (Auto) 1.5 x10^3/uL (1.0-4.8) Monocytes # (Auto) 1.3 x10^3/uL (0.0-1.1) Eosinophils # (Auto) 0.2 x10^3/uL (0.0-0.7) Basophils # (Auto) 0.0 x10^3/uL (0.0-0.2) Segmented Neutrophils % 82 % (35-66) Band Neutrophils % 4 % (0-9) Lymphocytes % 12 % (24-48) Monocytes % 1 % (0-10) Eosinophils % 1 % (0-5) Platelet Estimate Increased (ADEQUATE) Objective Assessment 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 mild ileus Leukocytosis - ? post op - better Abdominal pain - HTN Plan Plan of Care cont antibiotics , supportive care Needs Central access -d/w nursing F/u labs d/w pt and in detail, KELVIN VELARDE MD Feb 27, 2017 10:10
[2017-02-27] MEDS ORDERED: PROMETHAZINE 12.5 MG in IV NORMAL SALINE 50ML 50 ML IV PRN (10:30)
--- NOTE | 2017-02-27 10:32 | PDOC ---
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 Wyman and RN Vitals Vitals Vital Signs Date Time Temp Pulse Resp B/P (MAP) Pulse Ox O2 Delivery O2 Flow Rate FiO2 02/27/17 07:00 97.9 110 18 119/76 (90) 95 Room Air 97.9 02/27/17 03:00 2.0 Physical Exam General: Alert, Oriented X3, Cooperative, No acute distress Heart: Regular rate Lungs: Clear Abdomen: Soft, Other (dressing dry, incisional TTP) Extremities: No clubbing, No cyanosis Skin: No rashes, No breakdown Labs LABS Laboratory Tests Test 02/27/17 04:00 02/27/17 04:05 Sodium Level 132 mmol/L (136-145) Potassium Level 3.9 mmol/L (3.5-5.1) Chloride Level 98 mmol/L (98-107) Carbon Dioxide Level 28 mmol/L (21-32) Anion Gap 6 (6-14) Blood Urea Nitrogen 15 mg/dL (7-20) Creatinine 0.8 mg/dL (0.6-1.0) Estimated GFR (Cockcroft-Gault) 72.4 Glucose Level 116 mg/dL (70-99) Calcium Level 8.4 mg/dL (8.5-10.1) White Blood Count 16.9 x10^3/uL (4.0-11.0) Red Blood Count 4.11 x10^6/uL (3.50-5.40) Hemoglobin 11.4 g/dL (12.0-15.5) Hematocrit 36.6 % (36.0-47.0) Mean Corpuscular Volume 89 fL (79-100) Mean Corpuscular Hemoglobin 28 pg (25-35) Mean Corpuscular Hemoglobin Concent 31 g/dL (31-37) Red Cell Distribution Width 14.9 % (11.5-14.5) Platelet Count 490 x10^3/uL (140-400) Neutrophils (%) (Auto) 83 % (31-73) Lymphocytes (%) (Auto) 9 % (24-48) Monocytes (%) (Auto) 8 % (0-9) Eosinophils (%) (Auto) 1 % (0-3) Basophils (%) (Auto) 0 % (0-3) Neutrophils # (Auto) 14.0 x10^3uL (1.8-7.7) Lymphocytes # (Auto) 1.5 x10^3/uL (1.0-4.8) Monocytes # (Auto) 1.3 x10^3/uL (0.0-1.1) Eosinophils # (Auto) 0.2 x10^3/uL (0.0-0.7) Basophils # (Auto) 0.0 x10^3/uL (0.0-0.2) Segmented Neutrophils % 82 % (35-66) Band Neutrophils % 4 % (0-9) Lymphocytes % 12 % (24-48) Monocytes % 1 % (0-10) Eosinophils % 1 % (0-5) Platelet Estimate Increased (ADEQUATE) Review of Systems Review of Systems pain, nausea, emesis Assessment and Plan Assessmemt and Plan Problems Medical Problems: (1) Diverticulitis Status: Acute Problems: Comment Review of Relevant I have reviewed the following items amando (where applicable) has been applied. Labs Laboratory Tests Test 02/26/17 03:45 02/27/17 04:00 02/27/17 04:05 White Blood Count 20.3 x10^3/uL (4.0-11.0) 16.9 x10^3/uL (4.0-11.0) Red Blood Count 3.63 x10^6/uL (3.50-5.40) 4.11 x10^6/uL (3.50-5.40) Hemoglobin 10.1 g/dL (12.0-15.5) 11.4 g/dL (12.0-15.5) Hematocrit 32.1 % (36.0-47.0) 36.6 % (36.0-47.0) Mean Corpuscular Volume 88 fL (79-100) 89 fL (79-100) Mean Corpuscular Hemoglobin 28 pg (25-35) 28 pg (25-35) Mean Corpuscular Hemoglobin Concent 32 g/dL (31-37) 31 g/dL (31-37) Red Cell Distribution Width 14.9 % (11.5-14.5) 14.9 % (11.5-14.5) Platelet Count 505 x10^3/uL (140-400) 490 x10^3/uL (140-400) Neutrophils (%) (Auto) 87 % (31-73) 83 % (31-73) Lymphocytes (%) (Auto) 7 % (24-48) 9 % (24-48) Monocytes (%) (Auto) 6 % (0-9) 8 % (0-9) Eosinophils (%) (Auto) 0 % (0-3) 1 % (0-3) Basophils (%) (Auto) 0 % (0-3) 0 % (0-3) Neutrophils # (Auto) 17.6 x10^3uL (1.8-7.7) 14.0 x10^3uL (1.8-7.7) Lymphocytes # (Auto) 1.4 x10^3/uL (1.0-4.8) 1.5 x10^3/uL (1.0-4.8) Monocytes # (Auto) 1.3 x10^3/uL (0.0-1.1) 1.3 x10^3/uL (0.0-1.1) Eosinophils # (Auto) 0.0 x10^3/uL (0.0-0.7) 0.2 x10^3/uL (0.0-0.7) Basophils # (Auto) 0.0 x10^3/uL (0.0-0.2) 0.0 x10^3/uL (0.0-0.2) Sodium Level 135 mmol/L (136-145) 132 mmol/L (136-145) Potassium Level 4.4 mmol/L (3.5-5.1) 3.9 mmol/L (3.5-5.1) Chloride Level 100 mmol/L (98-107) 98 mmol/L (98-107) Carbon Dioxide Level 26 mmol/L (21-32) 28 mmol/L (21-32) Anion Gap 9 (6-14) 6 (6-14) Blood Urea Nitrogen 10 mg/dL (7-20) 15 mg/dL (7-20) Creatinine 0.7 mg/dL (0.6-1.0) 0.8 mg/dL (0.6-1.0) Estimated GFR (Cockcroft-Gault) 84.5 72.4 BUN/Creatinine Ratio 14 (6-20) Glucose Level 109 mg/dL (70-99) 116 mg/dL (70-99) Calcium Level 8.9 mg/dL (8.5-10.1) 8.4 mg/dL (8.5-10.1) Total Bilirubin 0.2 mg/dL (0.2-1.0) Aspartate Amino Transf (AST/SGOT) 17 U/L (15-37) Alanine Aminotransferase (ALT/SGPT) 24 U/L (14-59) Alkaline Phosphatase 60 U/L (46-116) Total Protein 6.7 g/dL (6.4-8.2) Albumin 2.6 g/dL (3.4-5.0) Albumin/Globulin Ratio 0.6 (1.0-1.7) Segmented Neutrophils % 82 % (35-66) Band Neutrophils % 4 % (0-9) Lymphocytes % 12 % (24-48) Monocytes % 1 % (0-10) Eosinophils % 1 % (0-5) Platelet Estimate Increased (ADEQUATE) Laboratory Tests Test 02/27/17 04:00 02/27/17 04:05 Sodium Level 132 mmol/L (136-145) Potassium Level 3.9 mmol/L (3.5-5.1) Chloride Level 98 mmol/L (98-107) Carbon Dioxide Level 28 mmol/L (21-32) Anion Gap 6 (6-14) Blood Urea Nitrogen 15 mg/dL (7-20) Creatinine 0.8 mg/dL (0.6-1.0) Estimated GFR (Cockcroft-Gault) 72.4 Glucose Level 116 mg/dL (70-99) Calcium Level 8.4 mg/dL (8.5-10.1) White Blood Count 16.9 x10^3/uL (4.0-11.0) Red Blood Count 4.11 x10^6/uL (3.50-5.40) Hemoglobin 11.4 g/dL (12.0-15.5) Hematocrit 36.6 % (36.0-47.0) Mean Corpuscular Volume 89 fL (79-100) Mean Corpuscular Hemoglobin 28 pg (25-35) Mean Corpuscular Hemoglobin Concent 31 g/dL (31-37) Red Cell Distribution Width 14.9 % (11.5-14.5) Platelet Count 490 x10^3/uL (140-400) Neutrophils (%) (Auto) 83 % (31-73) Lymphocytes (%) (Auto) 9 % (24-48) Monocytes (%) (Auto) 8 % (0-9) Eosinophils (%) (Auto) 1 % (0-3) Basophils (%) (Auto) 0 % (0-3) Neutrophils # (Auto) 14.0 x10^3uL (1.8-7.7) Lymphocytes # (Auto) 1.5 x10^3/uL (1.0-4.8) Monocytes # (Auto) 1.3 x10^3/uL (0.0-1.1) Eosinophils # (Auto) 0.2 x10^3/uL (0.0-0.7) Basophils # (Auto) 0.0 x10^3/uL (0.0-0.2) Segmented Neutrophils % 82 % (35-66) Band Neutrophils % 4 % (0-9) Lymphocytes % 12 % (24-48) Monocytes % 1 % (0-10) Eosinophils % 1 % (0-5) Platelet Estimate Increased (ADEQUATE) Microbiology 02/18/17 Urine Culture - Final, Complete 02/18/17 Urine Culture Result 1 (TARIQ) - Final, Complete Medications Current Medications Morphine Sulfate 2 mg PRN Q15MIN PRN IV/SQ PAIN GREATER THAN 3/10 Last administered on 02/18/17t 07:42; Start 02/18/17 at 07:30; Stop 02/18/17 at 17:49 ; Status DC Sodium Chloride 1,000 ml @ 1,000 mls/hr Q1H IV Last administered on 02/18/17 07:41; Start 02/18/17 at 07:29; Stop 02/18/17 at 08:28; Status DC Ondansetron HCl (Zofran) 4 mg 1X ONCE IV Last administered on 02/18/17 07:41 ; Start 02/18/17 at 08:00; Stop 02/18/17 at 08:01; Status DC Iohexol (Omnipaque 240 Mg/ml) 50 ml 1X ONCE PO Last administered on 02/18/17 08:00; Start 02/18/17 at 08:00; Stop 02/18/17 at 08:01; Status DC Iohexol (Omnipaque 300 Mg/ml) 75 ml 1X ONCE IV Last administered on 02/18/17 08:59; Start 02/18/17 at 08:00; Stop 02/18/17 at 08:01; Status DC Sodium Chloride 1,000 ml @ 1,000 mls/hr 1X ONCE IV Last administered on 09:48; Start 02/18/17 at 09:30; Stop 02/18/17 at 10:29; Status DC Ciprofloxacin Lactate 200 ml @ 200 mls/hr Q12HR IV Last administered on 21:04; Start 02/18/17 at 10:00 Metronidazole 100 ml @ 100 mls/hr Q8H IV Last administered on 02/27/17 03:03; Start 02/18/17 at 11:00 Ondansetron HCl (Zofran) 4 mg PRN Q8HRS PRN IV NAUSEA/VOMITING; Start 02/18/17 at 10:15; Stop 02/19/17 at 10:14; Status DC Morphine Sulfate 2 mg PRN Q2HR PRN IV PAIN Last administered on 02/19/17 07:58 ; Start 02/18/17 at 10:15; Stop 02/19/17 at 10:14; Status DC Diphenhydramine HCl (Benadryl) 25 mg PRN Q6HRS PRN IVP ITCHING Last administered on 02/25/17 18:41; Start 02/18/17 at 14:15 Cyclobenzaprine HCl (Flexeril) 10 mg PRN DAILY PRN PO MUSCLE SPASMS Last administered on 02/23/17 21:46; Start 02/18/17 at 17:45 Diltiazem HCl (Cardizem 24hr Cd) 180 mg DAILY PO Last administered on 02/24/17 08:12; Start 02/19/17 at 09:00 Losartan Potassium (Cozaar) 50 mg DAILY PO Last administered on 02/19/17 07:55 ; Start 02/19/17 at 09:00; Stop 02/19/17 at 09:00; Status DC Pantoprazole Sodium (Protonix) 40 mg DAILYAC PO Last administered on 02/19/17 07:56; Start 02/19/17 at 07:30; Stop 02/19/17 at 12:31; Status DC Bupropion HCl (Wellbutrin Xl) 300 mg DAILY PO Last administered on 02/24/17 08: 12; Start 02/19/17 at 09:00 Acetaminophen/ Hydrocodone Bitart (Lortab 7.5/325) 1 tab PRN TID PRN PO MODERATE PAIN Last administered on 02/25/17 20:24; Start 02/18/17 at 18:15 Zolpidem Tartrate (Ambien) 5 mg QHS PO Last administered on 02/24/17 20:35; Start 02/18/17 at 21:00 Zolpidem Tartrate (Ambien) 5 mg PRN QHS PRN PO INSOMNIA Last administered on 00:26; Start 02/18/17 at 18:15 Acetaminophen (Tylenol) 650 mg PRN Q6HRS PRN PO FEVER; Start 02/19/17 at 12:30 Ondansetron HCl (Zofran) 4 mg PRN Q6HRS PRN IV NAUSEA/VOMITING Last administered on 02/27/17 09:01; Start 02/19/17 at 12:30 Morphine Sulfate 2 mg PRN Q2HR PRN IV PAIN; Start 02/19/17 at 12:30; Stop at 12:31; Status DC Tramadol HCl (Ultram) 50 mg PRN Q6HRS PRN PO MILD PAIN Last administered on 02/24 04:15; Start 02/19/17 at 12:30 Hydralazine HCl (Apresoline) 10 mg PRN Q4HRS PRN IVP ELEVATED BP, SEE COMMENTS ; Start 02/19/17 at 12:30 Docusate Sodium (Colace) 100 mg PRN DAILY PRN PO CONSTIPATION Last administered on 02/24/17 08:12; Start 02/19/17 at 12:30 Morphine Sulfate 2 mg PRN Q2HR PRN IV PAIN Last administered on 02/24/17 10:11 ; Start 02/19/17 at 12:45; Stop 02/24/17 at 18:13; Status DC Famotidine (Pepcid) 20 mg QHS IVP Last administered on 02/21/17 20:56; Start at 21:00; Stop 02/22/17 at 15:49; Status DC Heparin Sodium (Porcine) (Heparin Sq) 5,000 unit Q8HRS SQ Last administered on 02/21/17 20:57; Start 02/19/17 at 14:00; Stop 02/24/17 at 11:29; Status DC Iohexol (Omnipaque 240 Mg/ml) 30 ml 1X ONCE PO ; Start 02/21/17 at 08:30; Stop 02/21/17 at 08:35; Status DC Iohexol (Omnipaque 300 Mg/ml) 60 ml 1X ONCE IV ; Start 02/21/17 at 08:30; Stop 02/21/17 at 08:35; Status DC Sodium Chloride 1,000 ml @ 75 mls/hr [id number] IV Last administered on 02/21/17 20:58; Start 02/21/17 at 08:45; Stop 02/22/17 at 08:59; Status DC Amino Acids/ Glycerin/ Electrolytes 1,000 ml @ 60 mls/hr [id number] IV Last administered on 02/26/17 13:51; Start 02/22/17 at 09:30 Famotidine (Pepcid) 20 mg QHS PO Last administered on 02/22/17 21:44; Start 02/22/17 at 21:00; Stop 02/23/17 at 14:24; Status DC Famotidine (Pepcid) 20 mg QHS IVP Last administered on 02/26/17 19:36; Start at 21:00 Ibuprofen (Motrin) 600 mg PRN Q6HRS PRN PO INFLAMMATION Last administered on 15:56; Start 02/23/17 at 15:30 Cefazolin Sodium/ Dextrose 50 ml @ 100 mls/hr 1X PREOP PRN IV construction representative to OR Last administered on 02/25/17 08:15; Start 02/25/17 at 06:00; Stop 02/25/17 at 18: 00; Status DC Metronidazole 100 ml @ 100 mls/hr 1X PREOP PRN IV construction representative to OR; Start at 06:00; Stop 02/25/17 at 18:00; Status DC Morphine Sulfate 2 mg PRN Q2HR PRN IV PAIN Last administered on 02/24/17 18:18 ; Start 02/24/17 at 18:15 Dexamethasone Sodium Phosphate (Decadron) 20 mg STK-MED ONCE .ROUTE ; Start 02/25 at 07:51; Stop 02/25/17 at 07:52; Status DC Ondansetron HCl (Zofran) 4 mg STK-MED ONCE .ROUTE ; Start 02/25/17 at 07:51; Stop 02/25/17 at 07:52; Status DC Propofol 20 ml @ As Directed STK-MED ONCE IV ; Start 02/25/17 at 07:51; Stop 02/25 at 07:52; Status DC Lidocaine HCl (Lidocaine Pf 2% Vial) 5 ml STK-MED ONCE .ROUTE ; Start 02/25/17 at 07:51; Stop 02/25/17 at 07:52; Status DC Desflurane (Suprane) 60 ml STK-MED ONCE IH ; Start 02/25/17 at 07:51; Stop at 07:52; Status DC Midazolam HCl (Versed) 2 mg STK-MED ONCE .ROUTE ; Start 02/25/17 at 07:51; Stop 02/25/17 at 07:52; Status DC Fentanyl Citrate (Fentanyl 2ml Vial) 100 mcg STK-MED ONCE .ROUTE ; Start at 07:51; Stop 02/25/17 at 07:52; Status DC Rocuronium [place] (Zemuron) 100 mg STK-MED ONCE .ROUTE ; Start 02/25/17 at 07:51 ; Stop 02/25/17 at 07:52; Status DC Ringer's Solution 1,000 ml @ 100 mls/hr Q10H IV Last administered on 02/26/17 17:36; Start 02/25/17 at 08:15 Phenylephrine HCl (Jeremy-Synephrine Inj) 10 mg STK-MED ONCE .ROUTE ; Start at 08:19; Stop 02/25/17 at 08:20; Status DC Sodium Chloride (Sodium Chloride) 50 ml STK-MED ONCE IJ ; Start 02/25/17 at 08:19 ; Stop 02/25/17 at 08:20; Status DC Ketamine HCl 500 mg STK-MED ONCE .ROUTE ; Start 02/25/17 at 08:46; Stop 02/25/17 at 08:47; Status DC Esmolol HCl (Brevibloc) 100 mg STK-MED ONCE IV ; Start 02/25/17 at 08:48; Stop at 08:49; Status DC Fentanyl Citrate (Fentanyl 2ml Vial) 100 mcg STK-MED ONCE .ROUTE ; Start at 09:36; Stop 02/25/17 at 09:37; Status DC Desflurane (Suprane) 90 ml STK-MED ONCE IH ; Start 02/25/17 at 09:52; Stop at 09:53; Status DC Morphine Sulfate 10 mg STK-MED ONCE .ROUTE ; Start 02/25/17 at 10:06; Stop at 10:07; Status DC Fentanyl Citrate (Fentanyl 2ml Vial) 100 mcg STK-MED ONCE .ROUTE ; Start at 11:51; Stop 02/25/17 at 11:52; Status DC Fentanyl Citrate (Fentanyl 2ml Vial) 50 mcg PACU PRN PRN IV pain Last administered on 02/25/17 12:10; Start 02/25/17 at 11:30; Stop 02/25/17 at 19:42; Status DC Hydromorphone HCl 30 ml @ 0 mls/hr CONT PRN PRN IV PROTOCOL Last administered on 02/26/17 18:56; Start 02/25/17 at 12:15 Hydromorphone HCl 30 ml @ As Directed STK-MED ONCE IV ; Start 02/25/17 at 12:04; Stop 02/25/17 at 12:05; Status DC Fentanyl Citrate (Fentanyl 2ml Vial) 100 mcg STK-MED ONCE .ROUTE ; Start at 12:04; Stop 02/25/17 at 12:05; Status DC Fentanyl Citrate (Fentanyl 2ml Vial) 25 mcg PRN Q5MIN PRN IV MILD PAIN; Start 02/25/17 at 12:30; Stop 02/25/17 at 19:42; Status DC Fentanyl Citrate (Fentanyl 2ml Vial) 50 mcg PRN Q5MIN PRN IV MODERATE PAIN; Start 02/25/17 at 12:30; Stop 02/25/17 at 19:42; Status DC Morphine Sulfate 1 mg PRN Q10MIN PRN IV SEVERE PAIN; Start 02/25/17 at 12:30; Stop 02/25/17 at 19:43; Status DC Ringer's Solution 1,000 ml @ 30 mls/hr Q24H IV ; Start 02/25/17 at 12:26; Stop 02/25/17 at 19:42; Status DC Lidocaine HCl 2 ml PRN 1X PRN ID PRIOR TO IV START; Start 02/25/17 at 12:30; Stop 02/25/17 at 23:00; Status DC Hydromorphone HCl (Dilaudid) 0.5 mg PRN Q10MIN PRN IV SEV PAIN, Second choice Last administered on 02/25/17t 12:44; Start 02/25/17 at 12:30; Stop 02/25/17 at 19: 42; Status DC Prochlorperazine Edisylate (Compazine) 5 mg PACU PRN PRN IV NAUSEA, MRX1; Start 02/25/17 at 12:30; Stop 02/25/17 at 19:43; Status DC Hydromorphone HCl (Dilaudid) 2 mg STK-MED ONCE .ROUTE ; Start 02/25/17 at 12:27; Stop 02/25/17 at 12:28; Status DC Hydromorphone HCl (Dilaudid) 0.5 mg 1X ONCE IM ; Start 02/25/17 at 13:00; Stop 02/25/17 at 19:43; Status DC Enoxaparin Sodium (Lovenox 40mg Syringe) 40 mg Q24H SQ Last administered on 02/26 17:35; Start 02/26/17 at 17:00 Prochlorperazine Edisylate (Compazine) 10 mg PRN Q8HRS PRN IV NAUSEA/VOMITING Last administered on 02/27/17 03:48; Start 02/27/17 at 03:45 Active Scripts Active Reported Ibuprofen 400 Mg Tablet 400 Mg PO PRN Q6HRS PRN Pantoprazole Sodium 40 Mg Tablet.dr 1 Tab PO DAILY Cardizem Cd (Diltiazem Hcl) 180 Mg Cap.er.24h 1 Cap PO DAILY Miralax (Polyethylene Glycol 3350) 17 Gm Powd.pack 1 Packet PO DAILY Ambien (Zolpidem Tartrate) 10 Mg Tablet 1 Tab PO QHS Hydrocodon-Acetaminoph 7.5-500 (Hydrocodone Bit/Acetaminophen) 1 Each Tablet 1 Each PO PRN TID PRN Cyclobenzaprine Hcl 10 Mg Tablet 10 Mg PO PRN DAILY Wellbutrin Xl (Bupropion Hcl) 300 Mg Tab.er.24h 300 Mg PO DAILY Losartan Potassium 25 Mg Tablet 50 Mg PO DAILY Hydrochlorothiazide Tablet (Hydrochlorothiazide) 25 Mg Tablet 25 Mg PO DAILY Vitals/I & O Vital Sign - Last 24 Hours 02/26/17 02/26/17 02/26/17 02/26/17 11:15 14:58 19:49 20:00 Temp 97.7 97.7 97.7 97.7 Pulse 99 97 Resp 17 B/P (MAP) 113/71 (85) 120/73 (89) Pulse Ox 96 96 96 O2 Delivery Nasal Cannula Nasal Cannula Nasal Cannula Nasal Cannula O2 Flow Rate 2.0 2.0 2.0 2.0 02/26/17 02/27/17 02/27/17 23:00 03:00 07:00 Temp 98.4 97.7 97.9 98.4 97.7 97.9 Pulse 111 116 110 Resp 20 20 18 B/P (MAP) 115/72 (86) 131/88 (102) 119/76 (90) Pulse Ox 98 97 95 O2 Delivery Nasal Cannula Nasal Cannula Room Air O2 Flow Rate 2.0 2.0 Intake and Output 02/26/17 02/26/17 02/27/17 15:00 23:00 07:00 Intake Total 30 ml Output Total 1700 ml 1675 ml 1310 ml Balance -1700 ml -1675 ml -1280 ml NOHEMY LAM MD Feb 27, 2017 10:32
[2017-02-27] MEDS ORDERED: MIDAZOLAM HCL/PF 2 MG/2 ML VIAL. ONE (10:51)
[2017-02-27 11:00] VITALS: BP 125/79
[2017-02-27] MEDS ORDERED: MIDAZOLAM HCL/PF 2 MG/2 ML VIAL. IV ONE (11:00)
--- NOTE | 2017-02-27 11:49 | PDOC ---
SURGICAL PROGRESS NOTE Subjective Chay Finnegan Lots of nausea, emesis thinks it might be the IV dilaudid having problems with IV access Vital Signs Vital Signs Date Time Temp Pulse Resp B/P (MAP) Pulse Ox O2 Delivery O2 Flow Rate FiO2 02/27/17 07:00 97.9 110 18 119/76 (90) 95 Room Air 97.9 02/27/17 03:00 2.0 I&O Intake and Output 02/27/17 07:00 Intake Total 30 ml Output Total 4685 ml Balance -4655 ml Intake Oral 30 ml Output Urine Total 4375 ml Drainage Total 310 ml PATIENT HAS A ALAN: Yes Abdomen: Soft Labs Laboratory Tests Test 02/26/17 03:45 02/27/17 04:00 02/27/17 04:05 White Blood Count 20.3 x10^3/uL (4.0-11.0) 16.9 x10^3/uL (4.0-11.0) Red Blood Count 3.63 x10^6/uL (3.50-5.40) 4.11 x10^6/uL (3.50-5.40) Hemoglobin 10.1 g/dL (12.0-15.5) 11.4 g/dL (12.0-15.5) Hematocrit 32.1 % (36.0-47.0) 36.6 % (36.0-47.0) Mean Corpuscular Volume 88 fL (79-100) 89 fL (79-100) Mean Corpuscular Hemoglobin 28 pg (25-35) 28 pg (25-35) Mean Corpuscular Hemoglobin Concent 32 g/dL (31-37) 31 g/dL (31-37) Red Cell Distribution Width 14.9 % (11.5-14.5) 14.9 % (11.5-14.5) Platelet Count 505 x10^3/uL (140-400) 490 x10^3/uL (140-400) Neutrophils (%) (Auto) 87 % (31-73) 83 % (31-73) Lymphocytes (%) (Auto) 7 % (24-48) 9 % (24-48) Monocytes (%) (Auto) 6 % (0-9) 8 % (0-9) Eosinophils (%) (Auto) 0 % (0-3) 1 % (0-3) Basophils (%) (Auto) 0 % (0-3) 0 % (0-3) Neutrophils # (Auto) 17.6 x10^3uL (1.8-7.7) 14.0 x10^3uL (1.8-7.7) Lymphocytes # (Auto) 1.4 x10^3/uL (1.0-4.8) 1.5 x10^3/uL (1.0-4.8) Monocytes # (Auto) 1.3 x10^3/uL (0.0-1.1) 1.3 x10^3/uL (0.0-1.1) Eosinophils # (Auto) 0.0 x10^3/uL (0.0-0.7) 0.2 x10^3/uL (0.0-0.7) Basophils # (Auto) 0.0 x10^3/uL (0.0-0.2) 0.0 x10^3/uL (0.0-0.2) Sodium Level 135 mmol/L (136-145) 132 mmol/L (136-145) Potassium Level 4.4 mmol/L (3.5-5.1) 3.9 mmol/L (3.5-5.1) Chloride Level 100 mmol/L (98-107) 98 mmol/L (98-107) Carbon Dioxide Level 26 mmol/L (21-32) 28 mmol/L (21-32) Anion Gap 9 (6-14) 6 (6-14) Blood Urea Nitrogen 10 mg/dL (7-20) 15 mg/dL (7-20) Creatinine 0.7 mg/dL (0.6-1.0) 0.8 mg/dL (0.6-1.0) Estimated GFR (Cockcroft-Gault) 84.5 72.4 BUN/Creatinine Ratio 14 (6-20) Glucose Level 109 mg/dL (70-99) 116 mg/dL (70-99) Calcium Level 8.9 mg/dL (8.5-10.1) 8.4 mg/dL (8.5-10.1) Total Bilirubin 0.2 mg/dL (0.2-1.0) Aspartate Amino Transf (AST/SGOT) 17 U/L (15-37) Alanine Aminotransferase (ALT/SGPT) 24 U/L (14-59) Alkaline Phosphatase 60 U/L (46-116) Total Protein 6.7 g/dL (6.4-8.2) Albumin 2.6 g/dL (3.4-5.0) Albumin/Globulin Ratio 0.6 (1.0-1.7) Segmented Neutrophils % 82 % (35-66) Band Neutrophils % 4 % (0-9) Lymphocytes % 12 % (24-48) Monocytes % 1 % (0-10) Eosinophils % 1 % (0-5) Platelet Estimate Increased (ADEQUATE) Laboratory Tests Test 02/27/17 04:00 02/27/17 04:05 Sodium Level 132 mmol/L (136-145) Potassium Level 3.9 mmol/L (3.5-5.1) Chloride Level 98 mmol/L (98-107) Carbon Dioxide Level 28 mmol/L (21-32) Anion Gap 6 (6-14) Blood Urea Nitrogen 15 mg/dL (7-20) Creatinine 0.8 mg/dL (0.6-1.0) Estimated GFR (Cockcroft-Gault) 72.4 Glucose Level 116 mg/dL (70-99) Calcium Level 8.4 mg/dL (8.5-10.1) White Blood Count 16.9 x10^3/uL (4.0-11.0) Red Blood Count 4.11 x10^6/uL (3.50-5.40) Hemoglobin 11.4 g/dL (12.0-15.5) Hematocrit 36.6 % (36.0-47.0) Mean Corpuscular Volume 89 fL (79-100) Mean Corpuscular Hemoglobin 28 pg (25-35) Mean Corpuscular Hemoglobin Concent 31 g/dL (31-37) Red Cell Distribution Width 14.9 % (11.5-14.5) Platelet Count 490 x10^3/uL (140-400) Neutrophils (%) (Auto) 83 % (31-73) Lymphocytes (%) (Auto) 9 % (24-48) Monocytes (%) (Auto) 8 % (0-9) Eosinophils (%) (Auto) 1 % (0-3) Basophils (%) (Auto) 0 % (0-3) Neutrophils # (Auto) 14.0 x10^3uL (1.8-7.7) Lymphocytes # (Auto) 1.5 x10^3/uL (1.0-4.8) Monocytes # (Auto) 1.3 x10^3/uL (0.0-1.1) Eosinophils # (Auto) 0.2 x10^3/uL (0.0-0.7) Basophils # (Auto) 0.0 x10^3/uL (0.0-0.2) Segmented Neutrophils % 82 % (35-66) Band Neutrophils % 4 % (0-9) Lymphocytes % 12 % (24-48) Monocytes % 1 % (0-10) Eosinophils % 1 % (0-5) Platelet Estimate Increased (ADEQUATE) Problem List Problems Medical Problems: (1) Diverticulitis Status: Acute Assessment/Plan POD 2 sigmoid resection nausea, emesis difficult IV access PICC for fluids, nutrition change [employer] Problems: HUMERA MARMOLEJO MD Feb 27, 2017 11:49
--- NOTE | 2017-02-27 12:12 | PDOC ---
Subjective: Subjective: Not doing too good today. Problems with IV access, to have PICC placed. Abd pain and nausea, emesis overnight. Feels hot/cold. No flatus. Objective: Vital Signs: Vital Signs Date Time Temp Pulse Resp B/P (MAP) Pulse Ox O2 Delivery O2 Flow Rate FiO2 02/27/17 11:00 97.9 111 18 125/79 (94) 95 Room Air 97.9 02/27/17 03:00 2.0 Labs: Laboratory Tests Test 02/27/17 04:00 02/27/17 04:05 Sodium Level 132 mmol/L Potassium Level 3.9 mmol/L Chloride Level 98 mmol/L Carbon Dioxide Level 28 mmol/L Anion Gap 6 Blood Urea Nitrogen 15 mg/dL Creatinine 0.8 mg/dL Estimated GFR (Cockcroft-Gault) 72.4 Glucose Level 116 mg/dL Calcium Level 8.4 mg/dL White Blood Count 16.9 x10^3/uL Red Blood Count 4.11 x10^6/uL Hemoglobin 11.4 g/dL Hematocrit 36.6 % Mean Corpuscular Volume 89 fL Mean Corpuscular Hemoglobin 28 pg Mean Corpuscular Hemoglobin Concent 31 g/dL Red Cell Distribution Width 14.9 % Platelet Count 490 x10^3/uL Neutrophils (%) (Auto) 83 % Lymphocytes (%) (Auto) 9 % Monocytes (%) (Auto) 8 % Eosinophils (%) (Auto) 1 % Basophils (%) (Auto) 0 % Neutrophils # (Auto) 14.0 x10^3uL Lymphocytes # (Auto) 1.5 x10^3/uL Monocytes # (Auto) 1.3 x10^3/uL Eosinophils # (Auto) 0.2 x10^3/uL Basophils # (Auto) 0.0 x10^3/uL Segmented Neutrophils % 82 % Band Neutrophils % 4 % Lymphocytes % 12 % Monocytes % 1 % Eosinophils % 1 % Platelet Estimate Increased PE: GEN: NAD LUNGS: clear HEART: tachy ABD: quiet NEURO/PSYCH: A & O 3, much less perky today A/P: 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 Continue NPO, etc. per surgery. MEET WHYTE Feb 27, 2017 12:12
[2017-02-27] MEDS ORDERED: LIDOCAINE 1% / SOD BICARB 8.4% 20 ML VIAL. IJ ONE ×2 (13:42→14:15)
[2017-02-27 14:58] VITALS: BP 120/74
[2017-02-27] MEDS: MORPHINE SULFATE/PF 30 ML IV PRN (15:09)
--- NOTE | 2017-02-27 15:22 | RAD ---
Exam: Fluoroscopic and ultrasound guided right percutaneous inserted central venous catheter placement. 02/27/2017 Technique: Informed oral and written consent were obtained. Patient was prepped and draped in the usual sterile fashion. Real-time ultrasound demonstrated a patent basilic vein. The basilic vein was selected for puncture. Patient was prepped and draped in usual sterile fashion. 1% lidocaine used for local anesthesia. Using real-time ultrasound guidance the access needle percutaneously punctured the selected right basilic vein. A guidewire was placed through the needle into the vein to the superior vena cava, and the needle removed. The vein was then dilated over the wire with sheath and inner dilator. The wire was then measured to the cavoatrial junction. The catheter was cut to length and advanced such that the tip was at the cavoatrial junction. The wire and sheath were removed, and the catheter secured at the right upper extremity. Fluoroscopy time: 1.9 minutes Dose area product: 1 Gycm2 Impression: Successful right upper extremity PICC line placement as described
[2017-02-27] MEDS: IV RINGERS,LACTATED 1000ML 1,000 ML IV SCH (16:06)
[2017-02-27] MEDS: ENOXAPARIN 40 MG/0.4 ML SYRINGE. SQ SCH (17:07)
[2017-02-27 19:00] VITALS: BP 110/78
[2017-02-27] MEDS: ZOLPIDEM 5 MG TABLET. PO SCH (21:00)
[2017-02-27] MEDS: FAMOTIDINE 20 MG/2 ML VIAL IVP SCH (21:25)
[2017-02-27 23:00] VITALS: BP 119/77
[2017-02-28] MEDS: CIPROFLOXACIN 400MG PREMIX 200 ML IV SCH ×3 (01:16→20:45)
[2017-02-28 03:00] VITALS: BP 104/69
[2017-02-28] MEDS: IV RINGERS,LACTATED 1000ML 1,000 ML IV SCH ×3 (05:23→22:00)
[2017-02-28] MEDS: PROCHLORPERAZINE 10 MG/2 ML VIAL. IV PRN (05:24)
[2017-02-28 05:26] LABS: BASO # 0.1 x10^3/uL (0.0-0.2); BASO % 1 % (0-3); EOS % 3 % (0-3); HEMATOCRIT 30.2 % (36.0-47.0); LYMPH # 1.7 x10^3/uL (1.0-4.8); LYMPH % 15 % (24-48); MEAN CORPUSCULAR HEMOGLOBIN 29 pg (25-35); MEAN CORPUSCULAR HGB CONC 33 g/dL (31-37); MEAN CORPUSCULAR VOLUME 86 fL (79-100); MONO % 10 % (0-9); NEUT % 72 % (31-73); PLATELET COUNT 477 x10^3/uL (140-400); RED CELL DISTRIBUTION WIDTH 15.1 % (11.5-14.5); WHITE BLOOD COUNT 11.3 x10^3/uL (4.0-11.0)
[2017-02-28 06:04] LABS: CALCIUM 8.5 mg/dL (8.5-10.1); CREATININE 0.6 mg/dL (0.6-1.0); POTASSIUM 4.2 mmol/L (3.5-5.1)
[2017-02-28 07:00] VITALS: BP 117/77
[2017-02-28] MEDS: buPROPion XL 150 MG TAB.ER.24H. PO SCH (08:33)
--- NOTE | 2017-02-28 09:11 | PDOC ---
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 shifted to MOrphine from dilaudid WBC down top 11 from 20 post op CLaims doing IS CAn be sinus tachy 130s highest on chart Up in chair NO FLATUS still Pena in good UO STill signif HOLGER drainage 120 cc insecticide sprayer PLAN: Dw her hopefully dc polish compounder by negar peñaloza e can dc pena by negar Encourage IS Encourage Ambulation (PT/OT on) WOuld keep NPO since no flatus yet NAusea and emesis seems better today - so i held off on re CT scanning her dw RN and at bedside WOF: fevers, further tachy (might need some lOpressor prn) Vitals Vitals Vital Signs Date Time Temp Pulse Resp B/P (MAP) Pulse Ox O2 Delivery O2 Flow Rate FiO2 02/28/17 08:31 131 117/77 02/28/17 07:00 97.7 18 98 Nasal Cannula 2.0 97.7 Physical Exam General: Alert, Oriented X3, Cooperative, No acute distress Heart: Regular rate Lungs: Clear Abdomen: Soft Extremities: No clubbing, No cyanosis Skin: No rashes, No breakdown Labs LABS Laboratory Tests Test 02/28/17 05:10 White Blood Count 11.3 x10^3/uL (4.0-11.0) Red Blood Count 3.50 x10^6/uL (3.50-5.40) Hemoglobin 10.0 g/dL (12.0-15.5) Hematocrit 30.2 % (36.0-47.0) Mean Corpuscular Volume 86 fL (79-100) Mean Corpuscular Hemoglobin 29 pg (25-35) Mean Corpuscular Hemoglobin Concent 33 g/dL (31-37) Red Cell Distribution Width 15.1 % (11.5-14.5) Platelet Count 477 x10^3/uL (140-400) Neutrophils (%) (Auto) 72 % (31-73) Lymphocytes (%) (Auto) 15 % (24-48) Monocytes (%) (Auto) 10 % (0-9) Eosinophils (%) (Auto) 3 % (0-3) Basophils (%) (Auto) 1 % (0-3) Neutrophils # (Auto) 8.1 x10^3uL (1.8-7.7) Lymphocytes # (Auto) 1.7 x10^3/uL (1.0-4.8) Monocytes # (Auto) 1.1 x10^3/uL (0.0-1.1) Eosinophils # (Auto) 0.4 x10^3/uL (0.0-0.7) Basophils # (Auto) 0.1 x10^3/uL (0.0-0.2) Sodium Level 136 mmol/L (136-145) Potassium Level 4.2 mmol/L (3.5-5.1) Chloride Level 102 mmol/L (98-107) Carbon Dioxide Level 28 mmol/L (21-32) Anion Gap 6 (6-14) Blood Urea Nitrogen 12 mg/dL (7-20) Creatinine 0.6 mg/dL (0.6-1.0) Estimated GFR (Cockcroft-Gault) 101.0 Glucose Level 100 mg/dL (70-99) Calcium Level 8.5 mg/dL (8.5-10.1) Review of Systems Review of Systems post op soreness,w eakness, some nausea but no emesis Assessment and Plan Assessmemt and Plan Problems Medical Problems: (1) Diverticulitis Status: Acute Problems: Comment Review of Relevant I have reviewed the following items amando (where applicable) has been applied. Labs Laboratory Tests Test 02/27/17 04:00 02/27/17 04:05 02/28/17 05:10 Sodium Level 132 mmol/L (136-145) 136 mmol/L (136-145) Potassium Level 3.9 mmol/L (3.5-5.1) 4.2 mmol/L (3.5-5.1) Chloride Level 98 mmol/L (98-107) 102 mmol/L (98-107) Carbon Dioxide Level 28 mmol/L (21-32) 28 mmol/L (21-32) Anion Gap 6 (6-14) 6 (6-14) Blood Urea Nitrogen 15 mg/dL (7-20) 12 mg/dL (7-20) Creatinine 0.8 mg/dL (0.6-1.0) 0.6 mg/dL (0.6-1.0) Estimated GFR (Cockcroft-Gault) 72.4 101.0 Glucose Level 116 mg/dL (70-99) 100 mg/dL (70-99) Calcium Level 8.4 mg/dL (8.5-10.1) 8.5 mg/dL (8.5-10.1) White Blood Count 16.9 x10^3/uL (4.0-11.0) 11.3 x10^3/uL (4.0-11.0) Red Blood Count 4.11 x10^6/uL (3.50-5.40) 3.50 x10^6/uL (3.50-5.40) Hemoglobin 11.4 g/dL (12.0-15.5) 10.0 g/dL (12.0-15.5) Hematocrit 36.6 % (36.0-47.0) 30.2 % (36.0-47.0) Mean Corpuscular Volume 89 fL (79-100) 86 fL (79-100) Mean Corpuscular Hemoglobin 28 pg (25-35) 29 pg (25-35) Mean Corpuscular Hemoglobin Concent 31 g/dL (31-37) 33 g/dL (31-37) Red Cell Distribution Width 14.9 % (11.5-14.5) 15.1 % (11.5-14.5) Platelet Count 490 x10^3/uL (140-400) 477 x10^3/uL (140-400) Neutrophils (%) (Auto) 83 % (31-73) 72 % (31-73) Lymphocytes (%) (Auto) 9 % (24-48) 15 % (24-48) Monocytes (%) (Auto) 8 % (0-9) 10 % (0-9) Eosinophils (%) (Auto) 1 % (0-3) 3 % (0-3) Basophils (%) (Auto) 0 % (0-3) 1 % (0-3) Neutrophils # (Auto) 14.0 x10^3uL (1.8-7.7) 8.1 x10^3uL (1.8-7.7) Lymphocytes # (Auto) 1.5 x10^3/uL (1.0-4.8) 1.7 x10^3/uL (1.0-4.8) Monocytes # (Auto) 1.3 x10^3/uL (0.0-1.1) 1.1 x10^3/uL (0.0-1.1) Eosinophils # (Auto) 0.2 x10^3/uL (0.0-0.7) 0.4 x10^3/uL (0.0-0.7) Basophils # (Auto) 0.0 x10^3/uL (0.0-0.2) 0.1 x10^3/uL (0.0-0.2) Segmented Neutrophils % 82 % (35-66) Band Neutrophils % 4 % (0-9) Lymphocytes % 12 % (24-48) Monocytes % 1 % (0-10) Eosinophils % 1 % (0-5) Platelet Estimate Increased (ADEQUATE) Laboratory Tests Test 02/28/17 05:10 White Blood Count 11.3 x10^3/uL (4.0-11.0) Red Blood Count 3.50 x10^6/uL (3.50-5.40) Hemoglobin 10.0 g/dL (12.0-15.5) Hematocrit 30.2 % (36.0-47.0) Mean Corpuscular Volume 86 fL (79-100) Mean Corpuscular Hemoglobin 29 pg (25-35) Mean Corpuscular Hemoglobin Concent 33 g/dL (31-37) Red Cell Distribution Width 15.1 % (11.5-14.5) Platelet Count 477 x10^3/uL (140-400) Neutrophils (%) (Auto) 72 % (31-73) Lymphocytes (%) (Auto) 15 % (24-48) Monocytes (%) (Auto) 10 % (0-9) Eosinophils (%) (Auto) 3 % (0-3) Basophils (%) (Auto) 1 % (0-3) Neutrophils # (Auto) 8.1 x10^3uL (1.8-7.7) Lymphocytes # (Auto) 1.7 x10^3/uL (1.0-4.8) Monocytes # (Auto) 1.1 x10^3/uL (0.0-1.1) Eosinophils # (Auto) 0.4 x10^3/uL (0.0-0.7) Basophils # (Auto) 0.1 x10^3/uL (0.0-0.2) Sodium Level 136 mmol/L (136-145) Potassium Level 4.2 mmol/L (3.5-5.1) Chloride Level 102 mmol/L (98-107) Carbon Dioxide Level 28 mmol/L (21-32) Anion Gap 6 (6-14) Blood Urea Nitrogen 12 mg/dL (7-20) Creatinine 0.6 mg/dL (0.6-1.0) Estimated GFR (Cockcroft-Gault) 101.0 Glucose Level 100 mg/dL (70-99) Calcium Level 8.5 mg/dL (8.5-10.1) Microbiology 02/18/17 Urine Culture - Final, Complete 02/18/17 Urine Culture Result 1 (TARIQ) - Final, Complete Medications Current Medications Morphine Sulfate 2 mg PRN Q15MIN PRN IV/SQ PAIN GREATER THAN 3/10 Last administered on 02/18/17 07:42; Start 02/18/17 at 07:30; Stop 02/18/17 at 17:49 ; Status DC Sodium Chloride 1,000 ml @ 1,000 mls/hr Q1H IV Last administered on 02/18/17 07:41; Start 02/18/17 at 07:29; Stop 02/18/17 at 08:28; Status DC Ondansetron HCl (Zofran) 4 mg 1X ONCE IV Last administered on 02/18/17 07:41 ; Start 02/18/17 at 08:00; Stop 02/18/17 at 08:01; Status DC Iohexol (Omnipaque 240 Mg/ml) 50 ml 1X ONCE PO Last administered on 02/18/17 08:00; Start 02/18/17 at 08:00; Stop 02/18/17 at 08:01; Status DC Iohexol (Omnipaque 300 Mg/ml) 75 ml 1X ONCE IV Last administered on 02/18/17 08:59; Start 02/18/17 at 08:00; Stop 02/18/17 at 08:01; Status DC Sodium Chloride 1,000 ml @ 1,000 mls/hr 1X ONCE IV Last administered on 09:48; Start 02/18/17 at 09:30; Stop 02/18/17 at 10:29; Status DC Ciprofloxacin Lactate 200 ml @ 200 mls/hr Q12HR IV Last administered on 21:04; Start 02/18/17 at 10:00; Stop 02/27/17 at 15:49; Status DC Metronidazole 100 ml @ 100 mls/hr Q8H IV Last administered on 02/27/17 03:03; Start 02/18/17 at 11:00; Stop 02/27/17 at 15:53; Status DC Ondansetron HCl (Zofran) 4 mg PRN Q8HRS PRN IV NAUSEA/VOMITING; Start 02/18/17 at 10:15; Stop 02/19/17 at 10:14; Status DC Morphine Sulfate 2 mg PRN Q2HR PRN IV PAIN Last administered on 02/19/17 07:58 ; Start 02/18/17 at 10:15; Stop 02/19/17 at 10:14; Status DC Diphenhydramine HCl (Benadryl) 25 mg PRN Q6HRS PRN IVP ITCHING Last administered on 02/25/17 18:41; Start 02/18/17 at 14:15 Cyclobenzaprine HCl (Flexeril) 10 mg PRN DAILY PRN PO MUSCLE SPASMS Last administered on 02/23/17 21:46; Start 02/18/17 at 17:45 Diltiazem HCl (Cardizem 24hr Cd) 180 mg DAILY PO Last administered on 08:31; Start 02/19/17 at 09:00 Losartan Potassium (Cozaar) 50 mg DAILY PO Last administered on 02/19/17 07:55 ; Start 02/19/17 at 09:00; Stop 02/19/17 at 09:00; Status DC Pantoprazole Sodium (Protonix) 40 mg DAILYAC PO Last administered on 02/19/17 07:56; Start 02/19/17 at 07:30; Stop 02/19/17 at 12:31; Status DC Bupropion HCl (Wellbutrin Xl) 300 mg DAILY PO Last administered on 02/28/17 08 :33; Start 02/19/17 at 09:00 Acetaminophen/ Hydrocodone Bitart (Lortab 7.5/325) 1 tab PRN TID PRN PO MODERATE PAIN Last administered on 02/25/17 20:24; Start 02/18/17 at 18:15 Zolpidem Tartrate (Ambien) 5 mg QHS PO Last administered on 02/24/17 20:35; Start 02/18/17 at 21:00 Zolpidem Tartrate (Ambien) 5 mg PRN QHS PRN PO INSOMNIA Last administered on 00:26; Start 02/18/17 at 18:15 Acetaminophen (Tylenol) 650 mg PRN Q6HRS PRN PO FEVER; Start 02/19/17 at 12:30 Ondansetron HCl (Zofran) 4 mg PRN Q6HRS PRN IV NAUSEA/VOMITING Last administered on 02/27/17 21:50; Start 02/19/17 at 12:30 Morphine Sulfate 2 mg PRN Q2HR PRN IV PAIN; Start 02/19/17 at 12:30; Stop at 12:31; Status DC Tramadol HCl (Ultram) 50 mg PRN Q6HRS PRN PO MILD PAIN Last administered on 02/24 04:15; Start 02/19/17 at 12:30 Hydralazine HCl (Apresoline) 10 mg PRN Q4HRS PRN IVP ELEVATED BP, SEE COMMENTS ; Start 02/19/17 at 12:30 Docusate Sodium (Colace) 100 mg PRN DAILY PRN PO CONSTIPATION Last administered on 02/24/17 08:12; Start 02/19/17 at 12:30 Morphine Sulfate 2 mg PRN Q2HR PRN IV PAIN Last administered on 02/24/17 10:11 ; Start 02/19/17 at 12:45; Stop 02/24/17 at 18:13; Status DC Famotidine (Pepcid) 20 mg QHS IVP Last administered on 02/21/17 20:56; Start at 21:00; Stop 02/22/17 at 15:49; Status DC Heparin Sodium (Porcine) (Heparin Sq) 5,000 unit Q8HRS SQ Last administered on 02/21/17 20:57; Start 02/19/17 at 14:00; Stop 02/24/17 at 11:29; Status DC Iohexol (Omnipaque 240 Mg/ml) 30 ml 1X ONCE PO ; Start 02/21/17 at 08:30; Stop 02/21/17 at 08:35; Status DC Iohexol (Omnipaque 300 Mg/ml) 60 ml 1X ONCE IV ; Start 02/21/17 at 08:30; Stop 02/21/17 at 08:35; Status DC Sodium Chloride 1,000 ml @ 75 mls/hr [id number] IV Last administered on 02/21/17 20:58; Start 02/21/17 at 08:45; Stop 02/22/17 at 08:59; Status DC Amino Acids/ Glycerin/ Electrolytes 1,000 ml @ 60 mls/hr [id number] IV Last administered on 02/27/17 21:37; Start 02/22/17 at 09:30 Famotidine (Pepcid) 20 mg QHS PO Last administered on 02/22/17 21:44; Start 02/22/17 at 21:00; Stop 02/23/17 at 14:24; Status DC Famotidine (Pepcid) 20 mg QHS IVP Last administered on 02/27/17 21:25; Start at 21:00 Ibuprofen (Motrin) 600 mg PRN Q6HRS PRN PO INFLAMMATION Last administered on 15:56; Start 02/23/17 at 15:30 Cefazolin Sodium/ Dextrose 50 ml @ 100 mls/hr 1X PREOP PRN IV media relations intern to OR Last administered on 02/25/17 08:15; Start 02/25/17 at 06:00; Stop 02/25/17 at 18: 00; Status DC Metronidazole 100 ml @ 100 mls/hr 1X PREOP PRN IV media relations intern to OR; Start at 06:00; Stop 02/25/17 at 18:00; Status DC Morphine Sulfate 2 mg PRN Q2HR PRN IV PAIN Last administered on 02/24/17 18:18 ; Start 02/24/17 at 18:15 Dexamethasone Sodium Phosphate (Decadron) 20 mg STK-MED ONCE .ROUTE ; Start 02/25 at 07:51; Stop 02/25/17 at 07:52; Status DC Ondansetron HCl (Zofran) 4 mg STK-MED ONCE .ROUTE ; Start 02/25/17 at 07:51; Stop 02/25/17 at 07:52; Status DC Propofol 20 ml @ As Directed STK-MED ONCE IV ; Start 02/25/17 at 07:51; Stop 02/25 at 07:52; Status DC Lidocaine HCl (Lidocaine Pf 2% Vial) 5 ml STK-MED ONCE .ROUTE ; Start 02/25/17 at 07:51; Stop 02/25/17 at 07:52; Status DC Desflurane (Suprane) 60 ml STK-MED ONCE IH ; Start 02/25/17 at 07:51; Stop at 07:52; Status DC Midazolam HCl (Versed) 2 mg STK-MED ONCE .ROUTE ; Start 02/25/17 at 07:51; Stop 02/25/17 at 07:52; Status DC Fentanyl Citrate (Fentanyl 2ml Vial) 100 mcg STK-MED ONCE .ROUTE ; Start at 07:51; Stop 02/25/17 at 07:52; Status DC Rocuronium [place] (Zemuron) 100 mg STK-MED ONCE .ROUTE ; Start 02/25/17 at 07:51 ; Stop 02/25/17 at 07:52; Status DC Ringer's Solution 1,000 ml @ 100 mls/hr Q10H IV Last administered on 02/26/17t 17:36; Start 02/25/17 at 08:15; Stop 02/27/17 at 15:46; Status DC Phenylephrine HCl (Jeremy-Synephrine Inj) 10 mg STK-MED ONCE .ROUTE ; Start at 08:19; Stop 02/25/17 at 08:20; Status DC Sodium Chloride (Sodium Chloride) 50 ml STK-MED ONCE IJ ; Start 02/25/17 at 08:19 ; Stop 02/25/17 at 08:20; Status DC Ketamine HCl 500 mg STK-MED ONCE .ROUTE ; Start 02/25/17 at 08:46; Stop 02/25/17 at 08:47; Status DC Esmolol HCl (Brevibloc) 100 mg STK-MED ONCE IV ; Start 02/25/17 at 08:48; Stop at 08:49; Status DC Fentanyl Citrate (Fentanyl 2ml Vial) 100 mcg STK-MED ONCE .ROUTE ; Start at 09:36; Stop 02/25/17 at 09:37; Status DC Desflurane (Suprane) 90 ml STK-MED ONCE IH ; Start 02/25/17 at 09:52; Stop at 09:53; Status DC Morphine Sulfate 10 mg STK-MED ONCE .ROUTE ; Start 02/25/17 at 10:06; Stop at 10:07; Status DC Fentanyl Citrate (Fentanyl 2ml Vial) 100 mcg STK-MED ONCE .ROUTE ; Start at 11:51; Stop 02/25/17 at 11:52; Status DC Fentanyl Citrate (Fentanyl 2ml Vial) 50 mcg PACU PRN PRN IV pain Last administered on 02/25/17t 12:10; Start 02/25/17 at 11:30; Stop 02/25/17 at 19:42; Status DC Hydromorphone HCl 30 ml @ 0 mls/hr CONT PRN PRN IV PROTOCOL Last administered on 02/26/17t 18:56; Start 02/25/17 at 12:15; Stop 02/27/17 at 11:54; Status DC Hydromorphone HCl 30 ml @ As Directed STK-MED ONCE IV ; Start 02/25/17 at 12:04; Stop 02/25/17 at 12:05; Status DC Fentanyl Citrate (Fentanyl 2ml Vial) 100 mcg STK-MED ONCE .ROUTE ; Start at 12:04; Stop 02/25/17 at 12:05; Status DC Fentanyl Citrate (Fentanyl 2ml Vial) 25 mcg PRN Q5MIN PRN IV MILD PAIN; Start 02/25/17 at 12:30; Stop 02/25/17 at 19:42; Status DC Fentanyl Citrate (Fentanyl 2ml Vial) 50 mcg PRN Q5MIN PRN IV MODERATE PAIN; Start 02/25/17 at 12:30; Stop 02/25/17 at 19:42; Status DC Morphine Sulfate 1 mg PRN Q10MIN PRN IV SEVERE PAIN; Start 02/25/17 at 12:30; Stop 02/25/17 at 19:43; Status DC Ringer's Solution 1,000 ml @ 30 mls/hr Q24H IV ; Start 02/25/17 at 12:26; Stop 02/25/17 at 19:42; Status DC Lidocaine HCl 2 ml PRN 1X PRN ID PRIOR TO IV START; Start 02/25/17 at 12:30; Stop 02/25/17 at 23:00; Status DC Hydromorphone HCl (Dilaudid) 0.5 mg PRN Q10MIN PRN IV SEV PAIN, Second choice Last administered on 02/25/17 12:44; Start 02/25/17 at 12:30; Stop 02/25/17 at 19: 42; Status DC Prochlorperazine Edisylate (Compazine) 5 mg PACU PRN PRN IV NAUSEA, MRX1; Start 02/25/17 at 12:30; Stop 02/25/17 at 19:43; Status DC Hydromorphone HCl (Dilaudid) 2 mg STK-MED ONCE .ROUTE ; Start 02/25/17 at 12:27; Stop 02/25/17 at 12:28; Status DC Hydromorphone HCl (Dilaudid) 0.5 mg 1X ONCE IM ; Start 02/25/17 at 13:00; Stop 02/25/17 at 19:43; Status DC Enoxaparin Sodium (Lovenox 40mg Syringe) 40 mg Q24H SQ Last administered on 02/27 17:07; Start 02/26/17 at 17:00 Prochlorperazine Edisylate (Compazine) 10 mg PRN Q8HRS PRN IV NAUSEA/VOMITING Last administered on 02/28/17 05:24; Start 02/27/17 at 03:45 Promethazine HCl 12.5 mg/Sodium Chloride 50.5 ml @ 151.5 mls/ hr PRN Q6HRS PRN IV NAUSEA/VOMITING; Start 02/27/17 at 10:30 Midazolam HCl (Versed) 2 mg STK-MED ONCE .ROUTE ; Start 02/27/17 at 10:51; Stop 02/27/17 at 10:52; Status DC Midazolam HCl (Versed) 2 mg 1X ONCE IV Last administered on 02/27/17 11:00; Start 02/27/17 at 11:00; Stop 02/27/17 at 11:01; Status DC Morphine Sulfate 30 ml @ 0 mls/hr CONT PRN PRN IV PROTOCOL Last administered on 02/27/17 15:09; Start 02/27/17 at 12:00 Lidocaine/Sodium Bicarbonate (Buffered Lidocaine 1%) 20 ml STK-MED ONCE IJ ; Start 02/27/17 at 13:42; Stop 02/27/17 at 13:43; Status DC Heparin Sodium/ Sodium Chloride 500 ml @ As Directed STK-MED ONCE .ROUTE ; Start 02/27/17 at 13:42; Stop 02/27/17 at 13:43; Status DC Lidocaine/Sodium Bicarbonate (Buffered Lidocaine 1%) 20 ml 1X ONCE IJ Last administered on 02/27/17 14:15; Start 02/27/17 at 14:15; Stop 02/27/17 at 14:16; Status DC Heparin Sodium/ Sodium Chloride 1,000 unit 1X ONCE IART Last administered on 14:15; Start 02/27/17 at 14:15; Stop 02/27/17 at 14:16; Status DC Ringer's Solution 1,000 ml @ 100 mls/hr Q10H IV Last administered on 05:23; Start 02/27/17 at 16:00 Ciprofloxacin Lactate 200 ml @ 200 mls/hr Q12HR IV Last administered on 08:35; Start 02/27/17 at 16:00 Metronidazole 100 ml @ 100 mls/hr Q8H IV Last administered on 02/28/17 08:35 ; Start 02/27/17 at 17:00 Active Scripts Active Reported Ibuprofen 400 Mg Tablet 400 Mg PO PRN Q6HRS PRN Pantoprazole Sodium 40 Mg Tablet. 1 Tab PO DAILY Cardizem Cd (Diltiazem Hcl) 180 Mg Cap.er.24h 1 Cap PO DAILY Miralax (Polyethylene Glycol 3350) 17 Gm Powd.pack 1 Packet PO DAILY Ambien (Zolpidem Tartrate) 10 Mg Tablet 1 Tab PO QHS Hydrocodon-Acetaminoph 7.5-500 (Hydrocodone Bit/Acetaminophen) 1 Each Tablet 1 Each PO PRN TID PRN Cyclobenzaprine Hcl 10 Mg Tablet 10 Mg PO PRN DAILY Wellbutrin Xl (Bupropion Hcl) 300 Mg Tab.er.24h 300 Mg PO DAILY Losartan Potassium 25 Mg Tablet 50 Mg PO DAILY Hydrochlorothiazide Tablet (Hydrochlorothiazide) 25 Mg Tablet 25 Mg PO DAILY Vitals/I & O Vital Sign - Last 24 Hours 02/27/17 02/27/17 02/27/17 02/27/17 11:00 14:58 15:09 15:45 Temp 97.9 97.9 97.9 97.9 Pulse 111 108 Resp 18 18 18 B/P (MAP) 125/79 (94) 120/74 (89) Pulse Ox 95 95 95 95 O2 Delivery Room Air Room Air Nasal Cannula Nasal Cannula O2 Flow Rate 2.0 2.0 02/27/17 02/27/17 02/27/17 02/28/17 19:00 20:00 23:00 03:00 Temp 98.1 98.1 97.9 98.1 98.1 97.9 Pulse 124 122 126 Resp 20 20 20 B/P (MAP) 110/78 (89) 119/77 (91) 104/69 (81) Pulse Ox 96 94 97 O2 Delivery Nasal Cannula Nasal Cannula Room Air Nasal Cannula O2 Flow Rate 2.0 2.0 2.0 2.0 02/28/17 02/28/17 07:00 08:31 Temp 97.7 97.7 Pulse 131 131 Resp 18 B/P (MAP) 117/77 (90) 117/77 Pulse Ox 98 O2 Delivery Nasal Cannula O2 Flow Rate 2.0 Intake and Output 02/27/17 02/27/17 02/28/17 15:00 23:00 07:00 Intake Total 1000 ml 1400 ml Output Total 1030 ml 1620 ml Balance -30 ml -220 ml NOHEMY LAM MD Feb 28, 2017 09:11
--- NOTE | 2017-02-28 10:20 | PDOC ---
[facility]AK[facility] INFORMATION TECHNOLOGY CONSULTANT 02/28/17 1020: SURGICAL PROGRESS NOTE Subjective up in chair, ambulated in red yesterday no flatus, nausea at times--some improvement pain improving Vital Signs Vital Signs Date Time Temp Pulse Resp B/P (MAP) Pulse Ox O2 Delivery O2 Flow Rate FiO2 02/28/17 08:31 131 117/77 02/28/17 08:00 Nasal Cannula 2.0 02/28/17 07:00 97.7 18 98 97.7 I&O Intake and Output 02/28/17 07:00 Intake Total 2400 ml Output Total 2650 ml Balance -250 ml Intake Oral 100 ml IV Total 2300 ml Output Urine Total 2300 ml Drainage Total 350 ml PATIENT HAS A ALAN: Yes (DC today) Abdomen: Soft, Other (ND, incision c/d/i, no erythema, mela serosang, ) Labs Laboratory Tests Test 02/27/17 04:00 02/27/17 04:05 02/28/17 05:10 Sodium Level 132 mmol/L (136-145) 136 mmol/L (136-145) Potassium Level 3.9 mmol/L (3.5-5.1) 4.2 mmol/L (3.5-5.1) Chloride Level 98 mmol/L (98-107) 102 mmol/L (98-107) Carbon Dioxide Level 28 mmol/L (21-32) 28 mmol/L (21-32) Anion Gap 6 (6-14) 6 (6-14) Blood Urea Nitrogen 15 mg/dL (7-20) 12 mg/dL (7-20) Creatinine 0.8 mg/dL (0.6-1.0) 0.6 mg/dL (0.6-1.0) Estimated GFR (Cockcroft-Gault) 72.4 101.0 Glucose Level 116 mg/dL (70-99) 100 mg/dL (70-99) Calcium Level 8.4 mg/dL (8.5-10.1) 8.5 mg/dL (8.5-10.1) White Blood Count 16.9 x10^3/uL (4.0-11.0) 11.3 x10^3/uL (4.0-11.0) Red Blood Count 4.11 x10^6/uL (3.50-5.40) 3.50 x10^6/uL (3.50-5.40) Hemoglobin 11.4 g/dL (12.0-15.5) 10.0 g/dL (12.0-15.5) Hematocrit 36.6 % (36.0-47.0) 30.2 % (36.0-47.0) Mean Corpuscular Volume 89 fL (79-100) 86 fL (79-100) Mean Corpuscular Hemoglobin 28 pg (25-35) 29 pg (25-35) Mean Corpuscular Hemoglobin Concent 31 g/dL (31-37) 33 g/dL (31-37) Red Cell Distribution Width 14.9 % (11.5-14.5) 15.1 % (11.5-14.5) Platelet Count 490 x10^3/uL (140-400) 477 x10^3/uL (140-400) Neutrophils (%) (Auto) 83 % (31-73) 72 % (31-73) Lymphocytes (%) (Auto) 9 % (24-48) 15 % (24-48) Monocytes (%) (Auto) 8 % (0-9) 10 % (0-9) Eosinophils (%) (Auto) 1 % (0-3) 3 % (0-3) Basophils (%) (Auto) 0 % (0-3) 1 % (0-3) Neutrophils # (Auto) 14.0 x10^3uL (1.8-7.7) 8.1 x10^3uL (1.8-7.7) Lymphocytes # (Auto) 1.5 x10^3/uL (1.0-4.8) 1.7 x10^3/uL (1.0-4.8) Monocytes # (Auto) 1.3 x10^3/uL (0.0-1.1) 1.1 x10^3/uL (0.0-1.1) Eosinophils # (Auto) 0.2 x10^3/uL (0.0-0.7) 0.4 x10^3/uL (0.0-0.7) Basophils # (Auto) 0.0 x10^3/uL (0.0-0.2) 0.1 x10^3/uL (0.0-0.2) Segmented Neutrophils % 82 % (35-66) Band Neutrophils % 4 % (0-9) Lymphocytes % 12 % (24-48) Monocytes % 1 % (0-10) Eosinophils % 1 % (0-5) Platelet Estimate Increased (ADEQUATE) Laboratory Tests Test 02/28/17 05:10 White Blood Count 11.3 x10^3/uL (4.0-11.0) Red Blood Count 3.50 x10^6/uL (3.50-5.40) Hemoglobin 10.0 g/dL (12.0-15.5) Hematocrit 30.2 % (36.0-47.0) Mean Corpuscular Volume 86 fL (79-100) Mean Corpuscular Hemoglobin 29 pg (25-35) Mean Corpuscular Hemoglobin Concent 33 g/dL (31-37) Red Cell Distribution Width 15.1 % (11.5-14.5) Platelet Count 477 x10^3/uL (140-400) Neutrophils (%) (Auto) 72 % (31-73) Lymphocytes (%) (Auto) 15 % (24-48) Monocytes (%) (Auto) 10 % (0-9) Eosinophils (%) (Auto) 3 % (0-3) Basophils (%) (Auto) 1 % (0-3) Neutrophils # (Auto) 8.1 x10^3uL (1.8-7.7) Lymphocytes # (Auto) 1.7 x10^3/uL (1.0-4.8) Monocytes # (Auto) 1.1 x10^3/uL (0.0-1.1) Eosinophils # (Auto) 0.4 x10^3/uL (0.0-0.7) Basophils # (Auto) 0.1 x10^3/uL (0.0-0.2) Sodium Level 136 mmol/L (136-145) Potassium Level 4.2 mmol/L (3.5-5.1) Chloride Level 102 mmol/L (98-107) Carbon Dioxide Level 28 mmol/L (21-32) Anion Gap 6 (6-14) Blood Urea Nitrogen 12 mg/dL (7-20) Creatinine 0.6 mg/dL (0.6-1.0) Estimated GFR (Cockcroft-Gault) 101.0 Glucose Level 100 mg/dL (70-99) Calcium Level 8.5 mg/dL (8.5-10.1) Problem List Problems Medical Problems: (1) Diverticulitis Status: Acute Assessment/Plan POD#3 sigmoid resection await bowel function DC alan continue to increase activity Problems: HUMERA MARMOLEJO MD 02/28/17 1224: SURGICAL PROGRESS NOTE Assessment/Plan pt seen and examined agree with above Problems: FOX LAKHANI APRN Feb 28, 2017 10:20 HUMERA MARMOLEJO MD Feb 28, 2017 12:24
[2017-02-28 10:56] VITALS: BP 120/74
--- NOTE | 2017-02-28 11:08 | PATHOLOGY ---
PATHOLOGY REPORT * * * * * * * * FINAL DIAGNOSIS: Segment of colon and attached mesocolon, sigmoid colon segmental resection: - Diverticulosis. - Acute and chronic diverticulitis with focal perforation and with pericolic scarring and chronic inflammation. - Diverticular- associated colitis, focal. Comment: There is no evidence of malignancy.(JPM:mgr; 02/28/2017) REPORT ELECTRONICALLY SIGNED BY: Ashok Michael M.D. DATE/TIME: 02/28/2017 11:08 * * * * * * * * GROSS PATHOLOGY: The specimen is received fresh, designated "sigmoid colon". This consists of a slightly curved segment of colon with attached mesocolon. The segment is stapled closed at both ends. The segment measures approximately 23 cm in length and measures up to approximately 5.5 cm in width. The serosa is pink to reddish brown and erythematous. There is an area of hemorrhagic roughening of the serosal surface beginning approximately 4 cm from the closest margin of resection. The segment is opened along the anti mesocolon. There are five chunks of greenish-brown firm stool present within the lumen. There are multiple diverticula within the segment. Several of the diverticuli extend into the area of hemorrhagic roughing of the serosa and adjacent mesocolon. The bowel wall in this area is thickened. The mucosa proximal to this hemorrhagic area is pinkish-ramesh and somewhat redundant. The mucosa distal to the hemorrhagic area is pink-ramesh and more normal appearing. There are no polyps or tumor masses. (JPM:pit; 02/25/2017) The serosal surface surrounding the perforation is inked black. The remainder of the mucosa is light khoury in appearance with normal architectural folds. Sectioning through the attached pericolic fat reveals no readily identifiable lymph nodes. The specimen is submitted representatively as follows: A1-A2 both margins A3 section through perforation A4-A5 maintenance representative sections of diverticula. (CAA; 02/27/2017) INTRAOPERATIVE CONSULTATION GROSS CONSULTATION: Segment of colon and attached mesocolon, sigmoid colon resection: - Diverticulosis with diverticulitis. The results are displayed to Dr. Finnegan in the operating room. The specimen is fixed in formalin prior to additional sectioning. (JPM:pit; 02/25/2017) Gross Consultation performed by Dr. Ashok Michael at [address] [place] [address]. INITIAL CPT CODE(S): A; 62382, 63383 Professional services performed by [facility] [address] [place] [address] Technical services performed by [facility] at [address] [place] [address], [address] [address]. SPECIMEN(S) RECEIVED: A.Sigmoid colon CLINICAL HISTORY: Mason-vaginal fistula PATIENT: WILVER TREVINO /AGE: 3 1955 (Age: 61) PATIENT #: [id number] ALT CASE #: SPECIMEN COLLECTION DATE: 02/25/2017 SPECIMEN RECEIVED DATE: 02/25/2017 [facility] - [address] [place] [address] - PHONE: [phone] * * * END OF REPORT * * *
--- NOTE | 2017-02-28 12:07 | PDOC ---
Infectious Disease Note Subjective Subjective Feeling better today No BM or flatus Nausea and pain controlled Tolerating ICE chips, on PPN ROS ROS GEN: Denies fevers, chills, sweats CV: Denies chest pain RESP: Denies shortness of air, cough Vital Sign Vital Signs Vital Signs Date Time Temp Pulse Resp B/P (MAP) Pulse Ox O2 Delivery O2 Flow Rate FiO2 02/28/17 10:56 97.8 128 18 120/74 (89) 98 Nasal Cannula 2.0 97.8 Physical Exam PHYSICAL EXAM GENERAL: Propped up in bed, relaxed appearance, HEENT: OC/OP pink, dry, bacterial overgrowth tongue NECK: Supple LUNGS: Clear HEART: S1S2, no gallop, no murmur ABD: Mildly distended, soft, NT light palpation, dressing dry, HOLGER serosanguineous drainage EXT: No edema, no cyanosis STRAIGHTENING ROLL OPERATOR: Alert, oriented x 3, no focal neurologic deficit SKIN: No rash RUE-PICC. (02/27). clean Labs Lab Laboratory Tests Test 02/28/17 05:10 White Blood Count 11.3 x10^3/uL (4.0-11.0) Red Blood Count 3.50 x10^6/uL (3.50-5.40) Hemoglobin 10.0 g/dL (12.0-15.5) Hematocrit 30.2 % (36.0-47.0) Mean Corpuscular Volume 86 fL (79-100) Mean Corpuscular Hemoglobin 29 pg (25-35) Mean Corpuscular Hemoglobin Concent 33 g/dL (31-37) Red Cell Distribution Width 15.1 % (11.5-14.5) Platelet Count 477 x10^3/uL (140-400) Neutrophils (%) (Auto) 72 % (31-73) Lymphocytes (%) (Auto) 15 % (24-48) Monocytes (%) (Auto) 10 % (0-9) Eosinophils (%) (Auto) 3 % (0-3) Basophils (%) (Auto) 1 % (0-3) Neutrophils # (Auto) 8.1 x10^3uL (1.8-7.7) Lymphocytes # (Auto) 1.7 x10^3/uL (1.0-4.8) Monocytes # (Auto) 1.1 x10^3/uL (0.0-1.1) Eosinophils # (Auto) 0.4 x10^3/uL (0.0-0.7) Basophils # (Auto) 0.1 x10^3/uL (0.0-0.2) Sodium Level 136 mmol/L (136-145) Potassium Level 4.2 mmol/L (3.5-5.1) Chloride Level 102 mmol/L (98-107) Carbon Dioxide Level 28 mmol/L (21-32) Anion Gap 6 (6-14) Blood Urea Nitrogen 12 mg/dL (7-20) Creatinine 0.6 mg/dL (0.6-1.0) Estimated GFR (Cockcroft-Gault) 101.0 Glucose Level 100 mg/dL (70-99) Calcium Level 8.5 mg/dL (8.5-10.1) Objective Assessment 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 mild ileus Leukocytosis - ? post op - better Abdominal pain - HTN Plan Plan of Care Cipro and Flagyl Monitor labs PT/OT Attending Co-Sign Attending Co-Sign The patient was seen and interviewed as well as examined at the bedside. The chart was reviewed. The case was discussed. Agree with the plan of care. OSCAR BARRERA APRN Feb 28, 2017 12:07 KELVIN VELARDE MD Mar 01, 2017 14:43
--- NOTE | 2017-02-28 12:55 | PDOC ---
Subjective: Subjective: Feels much better today, has been up walking. No flatus. Pain controlled w/ PAINT ROLLER ASSEMBLER. Objective: Vital Signs: Vital Signs Date Time Temp Pulse Resp B/P (MAP) Pulse Ox O2 Delivery O2 Flow Rate FiO2 02/28/17 10:56 97.8 128 18 120/74 (89) 98 Nasal Cannula 2.0 97.8 Labs: Laboratory Tests Test 02/28/17 05:10 White Blood Count 11.3 x10^3/uL Red Blood Count 3.50 x10^6/uL Hemoglobin 10.0 g/dL Hematocrit 30.2 % Mean Corpuscular Volume 86 fL Mean Corpuscular Hemoglobin 29 pg Mean Corpuscular Hemoglobin Concent 33 g/dL Red Cell Distribution Width 15.1 % Platelet Count 477 x10^3/uL Neutrophils (%) (Auto) 72 % Lymphocytes (%) (Auto) 15 % Monocytes (%) (Auto) 10 % Eosinophils (%) (Auto) 3 % Basophils (%) (Auto) 1 % Neutrophils # (Auto) 8.1 x10^3uL Lymphocytes # (Auto) 1.7 x10^3/uL Monocytes # (Auto) 1.1 x10^3/uL Eosinophils # (Auto) 0.4 x10^3/uL Basophils # (Auto) 0.1 x10^3/uL Sodium Level 136 mmol/L Potassium Level 4.2 mmol/L Chloride Level 102 mmol/L Carbon Dioxide Level 28 mmol/L Anion Gap 6 Blood Urea Nitrogen 12 mg/dL Creatinine 0.6 mg/dL Estimated GFR (Cockcroft-Gault) 101.0 Glucose Level 100 mg/dL Calcium Level 8.5 mg/dL PE: GEN: NAD LUNGS: CTAB HEART: RRR ABD: soft NEURO/PSYCH: A & O 3 A/P: Diverticulitis w/ colovaginal fistula s/p sigmoid colon resection 02/25/17 Leukocytosis - improved -- Diet per surgery, will follow. MEET WHYTE Feb 28, 2017 12:55
[2017-02-28] MEDS: MORPHINE SULFATE/PF 30 ML IV PRN (13:22)
[2017-02-28 14:55] VITALS: BP 118/76
--- NOTE | 2017-02-28 15:55 | PDOC ---
Infectious Disease Note Subjective Subjective Feeling better today No BM or flatus Nausea and pain controlled Tolerating ICE chips, on PPN ROS ROS GEN: Denies fevers, chills, sweats HEENT: Denies blurred vision, sore throat CV: Denies chest pain RESP: Denies shortness of air, cough GI: Denies n/v/d NEURO: Denies confusion, dizziness MSK: Denies weakness, joint pain/swelling Vital Sign Vital Signs Vital Signs Date Time Temp Pulse Resp B/P (MAP) Pulse Ox O2 Delivery O2 Flow Rate FiO2 02/28/17 15:25 98 Nasal Cannula 2.0 02/28/17 14:55 97.8 115 18 118/76 (90) 97.8 Physical Exam PHYSICAL EXAM GENERAL: NAD, Alert HEENT: PERRL, OC/OP NECK: Supple, no JVD, no LN LUNGS: Clear HEART: S1S2, no gallop, no murmur ABD: Soft, NT, no organomegaly, no rebound EXT: No edema, no cyanosis STOREROOM CLERK: Alert, oriented x 3, no focal neurologic deficit SKIN: No rash IV: ok Labs Lab Laboratory Tests Test 02/28/17 05:10 White Blood Count 11.3 x10^3/uL (4.0-11.0) Red Blood Count 3.50 x10^6/uL (3.50-5.40) Hemoglobin 10.0 g/dL (12.0-15.5) Hematocrit 30.2 % (36.0-47.0) Mean Corpuscular Volume 86 fL (79-100) Mean Corpuscular Hemoglobin 29 pg (25-35) Mean Corpuscular Hemoglobin Concent 33 g/dL (31-37) Red Cell Distribution Width 15.1 % (11.5-14.5) Platelet Count 477 x10^3/uL (140-400) Neutrophils (%) (Auto) 72 % (31-73) Lymphocytes (%) (Auto) 15 % (24-48) Monocytes (%) (Auto) 10 % (0-9) Eosinophils (%) (Auto) 3 % (0-3) Basophils (%) (Auto) 1 % (0-3) Neutrophils # (Auto) 8.1 x10^3uL (1.8-7.7) Lymphocytes # (Auto) 1.7 x10^3/uL (1.0-4.8) Monocytes # (Auto) 1.1 x10^3/uL (0.0-1.1) Eosinophils # (Auto) 0.4 x10^3/uL (0.0-0.7) Basophils # (Auto) 0.1 x10^3/uL (0.0-0.2) Sodium Level 136 mmol/L (136-145) Potassium Level 4.2 mmol/L (3.5-5.1) Chloride Level 102 mmol/L (98-107) Carbon Dioxide Level 28 mmol/L (21-32) Anion Gap 6 (6-14) Blood Urea Nitrogen 12 mg/dL (7-20) Creatinine 0.6 mg/dL (0.6-1.0) Estimated GFR (Cockcroft-Gault) 101.0 Glucose Level 100 mg/dL (70-99) Calcium Level 8.5 mg/dL (8.5-10.1) Objective Assessment 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 mild ileus Leukocytosis - ? post op - better Abdominal pain - HTN Plan Plan of Care Cipro and Flagyl wean soon Monitor labs PT/OT D/w Attending Co-Sign Attending Co-Sign The patient was seen and interviewed as well as examined at the bedside. The chart was reviewed. The case was discussed. Agree with the plan of care. KELVIN VELARDE MD Feb 28, 2017 15:55
[2017-02-28] MEDS: AMINO AC 3%/ELECTROLYTE/GLYCER 1,000 ML IV SCH (16:14)
[2017-02-28] MEDS: ENOXAPARIN 40 MG/0.4 ML SYRINGE. SQ SCH (16:48)
[2017-02-28 19:00] VITALS: BP 126/79
[2017-02-28] MEDS: ZOLPIDEM 5 MG TABLET. PO SCH (20:43)
[2017-02-28] MEDS: FAMOTIDINE 20 MG/2 ML VIAL IVP SCH (20:46)
[2017-02-28 22:56] VITALS: BP 115/77
[2017-03-01 02:41] VITALS: BP 114/71
[2017-03-01 07:00] VITALS: BP 136/76
[2017-03-01] MEDS: IV RINGERS,LACTATED 1000ML 1,000 ML IV SCH (08:25)
[2017-03-01] MEDS: CIPROFLOXACIN 400MG PREMIX 200 ML IV SCH ×2 (08:25→21:04)
[2017-03-01] MEDS: buPROPion XL 150 MG TAB.ER.24H. PO SCH (08:30)
--- NOTE | 2017-03-01 10:53 | PDOC ---
Infectious Disease Note Subjective Subjective Walking in the halls with her Tolerating ice chips, on PPN + flatus, no BM No BM or flatus ROS ROS GEN: Denies fevers, chills, sweats CV: Denies chest pain RESP: Denies shortness of air, cough GI: Denies n/v Vital Sign Vital Signs Vital Signs Date Time Temp Pulse Resp B/P (MAP) Pulse Ox O2 Delivery O2 Flow Rate FiO2 03/01/17 08:30 73 136/76 03/01/17 08:00 Nasal Cannula 2.0 03/01/17 07:00 98.2 20 97 98.2 Physical Exam PHYSICAL EXAM GENERAL: Propped up in bed, relaxed appearance, HEENT: OC/OP pink, dry, bacterial overgrowth tongue NECK: Supple LUNGS: Clear HEART: S1S2, no gallop, no murmur ABD: Mildly distended, soft, NT light palpation, dressing dry, HOLGER serosanguineous drainage EXT: No edema, no cyanosis CONTINUOUS MINING MACHINE LODE MINER: Alert, oriented x 3, no focal neurologic deficit SKIN: No rash RUE-PICC. (02/27). clean Objective Assessment Diverticulitis with perforation with enterovaginal fistula - s/p surgery 02/25 and repair. Improving N/V - ? mild ileus Leukocytosis - ? post op - better Abdominal pain - HTN Plan Plan of Care Cont Cipro and Flagyl wean soon f/u am labs PT/OT D/w Call with questions over the weekend Attending Co-Sign Attending Co-Sign The patient was seen and interviewed as well as examined at the bedside. The chart was reviewed. The case was discussed. Agree with the plan of care. OSCAR BARRERA APRN Mar 01, 2017 10:53 KELVIN VELARDE MD Mar 01, 2017 15:22
[2017-03-01 11:00] VITALS: BP 124/80
--- NOTE | 2017-03-01 11:13 | PDOC ---
FOX LAKHANI CENTRAL SUPPLY MANAGER 03/01/17 1113: SURGICAL PROGRESS NOTE Subjective reports continued improvement walking small amount of flatus today no n/v Vital Signs Vital Signs Date Time Temp Pulse Resp B/P (MAP) Pulse Ox O2 Delivery O2 Flow Rate FiO2 03/01/17 08:30 73 136/76 03/01/17 08:00 Nasal Cannula 2.0 03/01/17 07:00 98.2 20 97 98.2 I&O Intake and Output 03/01/17 07:00 Intake Total 2330 ml Balance 2330 ml Intake Oral 0 ml IV Total 2330 ml # Voids 6 General: Alert, Oriented X3, Cooperative, No acute distress Abdomen: Soft, Other (jeremie in place, incision c/d/i) Labs Laboratory Tests Test 02/28/17 05:10 White Blood Count 11.3 x10^3/uL (4.0-11.0) Red Blood Count 3.50 x10^6/uL (3.50-5.40) Hemoglobin 10.0 g/dL (12.0-15.5) Hematocrit 30.2 % (36.0-47.0) Mean Corpuscular Volume 86 fL (79-100) Mean Corpuscular Hemoglobin 29 pg (25-35) Mean Corpuscular Hemoglobin Concent 33 g/dL (31-37) Red Cell Distribution Width 15.1 % (11.5-14.5) Platelet Count 477 x10^3/uL (140-400) Neutrophils (%) (Auto) 72 % (31-73) Lymphocytes (%) (Auto) 15 % (24-48) Monocytes (%) (Auto) 10 % (0-9) Eosinophils (%) (Auto) 3 % (0-3) Basophils (%) (Auto) 1 % (0-3) Neutrophils # (Auto) 8.1 x10^3uL (1.8-7.7) Lymphocytes # (Auto) 1.7 x10^3/uL (1.0-4.8) Monocytes # (Auto) 1.1 x10^3/uL (0.0-1.1) Eosinophils # (Auto) 0.4 x10^3/uL (0.0-0.7) Basophils # (Auto) 0.1 x10^3/uL (0.0-0.2) Sodium Level 136 mmol/L (136-145) Potassium Level 4.2 mmol/L (3.5-5.1) Chloride Level 102 mmol/L (98-107) Carbon Dioxide Level 28 mmol/L (21-32) Anion Gap 6 (6-14) Blood Urea Nitrogen 12 mg/dL (7-20) Creatinine 0.6 mg/dL (0.6-1.0) Estimated GFR (Cockcroft-Gault) 101.0 Glucose Level 100 mg/dL (70-99) Calcium Level 8.5 mg/dL (8.5-10.1) Problem List Problems Medical Problems: (1) Diverticulitis Status: Acute Assessment/Plan s/p resection dc tipple worker likely clears in AM Problems: HUMERA MARMOLEJO MD 03/01/17 1504: SURGICAL PROGRESS NOTE Assessment/Plan pt seen and examined agree with above Problems: FOX LAKHANI APRN Mar 01, 2017 11:13 HUMERA MARMOLEJO MD Mar 01, 2017 15:04
--- NOTE | 2017-03-01 11:31 | PDOC ---
Subjective: Subjective: Doing better. +flatus Pain controlled, PROFESSIONAL ADVISOR stopped. Wants to walk more. Objective: Objective: Tachycardia resolved. PATHOLOGY REPORT * * * * * * * * FINAL DIAGNOSIS: Segment of colon and attached mesocolon, sigmoid colon segmental resection: - Diverticulosis. - Acute and chronic diverticulitis with focal perforation and with pericolic scarring and chronic inflammation. - Diverticular- associated colitis, focal. Comment: There is no evidence of malignancy. Vital Signs: Vital Signs Date Time Temp Pulse Resp B/P (MAP) Pulse Ox O2 Delivery O2 Flow Rate FiO2 03/01/17 08:30 73 136/76 03/01/17 08:00 Nasal Cannula 2.0 03/01/17 07:00 98.2 20 97 98.2 PE: GEN: NAD, looks better LUNGS: CTAB HEART: RRR ABD: soft NEURO/PSYCH: A & O 3 A/P: Diverticulitis w/ colovaginal fistula s/p sigmoid colon resection 02/25/17 -- Improving. Possible clears tomorrow, per surgery. MEET WHYTE Mar 01, 2017 11:31
[2017-03-01] MEDS: AMINO AC 3%/ELECTROLYTE/GLYCER 1,000 ML IV SCH (12:16)
--- NOTE | 2017-03-01 13:14 | PDOC ---
PROGRESS NOTES Chief Complaint Chief Complaint diverticulitis with Colovaginal fistula s/p sx (02/25/17) - POD # 4 Leukocytosis, SIRS POA, better Abdominal pain HTN, controlled mild malnutrition h/o PAFIB no AC POst op pain on FLOOR COVERER plan; fu with gi, sx dc FLOOR COVERER ok with sx npo dc ringers ivf, cont PPN at 80cc /h clear diet tmr? 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 has HOLGER 300cc for 24h, and wound drainage + flatus, no bm NO VAginal discharge post sx Vitals Vitals Vital Signs Date Time Temp Pulse Resp B/P (MAP) Pulse Ox O2 Delivery O2 Flow Rate FiO2 03/01/17 11:00 98.8 82 22 124/80 (95) 98 98.8 03/01/17 08:00 Nasal Cannula 2.0 Physical Exam General: Alert, Oriented X3, Cooperative, No acute distress Heart: Regular rate Lungs: Clear Abdomen: Soft, Other (jeremie in place, incision c/d/i, HOLGER has some red sangeuous draiange) Extremities: No clubbing, No cyanosis Skin: No rashes, No breakdown Review of Systems Review of Systems no fever, chills, sob or chest pain Assessment and Plan Assessmemt and Plan Problems Medical Problems: (1) Diverticulitis Status: Acute Problems: Comment Review of Relevant I have reviewed the following items amando (where applicable) has been applied. Labs Laboratory Tests Test 02/28/17 05:10 White Blood Count 11.3 x10^3/uL (4.0-11.0) Red Blood Count 3.50 x10^6/uL (3.50-5.40) Hemoglobin 10.0 g/dL (12.0-15.5) Hematocrit 30.2 % (36.0-47.0) Mean Corpuscular Volume 86 fL (79-100) Mean Corpuscular Hemoglobin 29 pg (25-35) Mean Corpuscular Hemoglobin Concent 33 g/dL (31-37) Red Cell Distribution Width 15.1 % (11.5-14.5) Platelet Count 477 x10^3/uL (140-400) Neutrophils (%) (Auto) 72 % (31-73) Lymphocytes (%) (Auto) 15 % (24-48) Monocytes (%) (Auto) 10 % (0-9) Eosinophils (%) (Auto) 3 % (0-3) Basophils (%) (Auto) 1 % (0-3) Neutrophils # (Auto) 8.1 x10^3uL (1.8-7.7) Lymphocytes # (Auto) 1.7 x10^3/uL (1.0-4.8) Monocytes # (Auto) 1.1 x10^3/uL (0.0-1.1) Eosinophils # (Auto) 0.4 x10^3/uL (0.0-0.7) Basophils # (Auto) 0.1 x10^3/uL (0.0-0.2) Sodium Level 136 mmol/L (136-145) Potassium Level 4.2 mmol/L (3.5-5.1) Chloride Level 102 mmol/L (98-107) Carbon Dioxide Level 28 mmol/L (21-32) Anion Gap 6 (6-14) Blood Urea Nitrogen 12 mg/dL (7-20) Creatinine 0.6 mg/dL (0.6-1.0) Estimated GFR (Cockcroft-Gault) 101.0 Glucose Level 100 mg/dL (70-99) Calcium Level 8.5 mg/dL (8.5-10.1) Microbiology 02/18/17 Urine Culture - Final, Complete 02/18/17 Urine Culture Result 1 (TARIQ) - Final, Complete Medications Current Medications Morphine Sulfate 2 mg PRN Q15MIN PRN IV/SQ PAIN GREATER THAN 3/10 Last administered on 02/18/17 07:42; Start 02/18/17 at 07:30; Stop 02/18/17 at 17:49 ; Status DC Sodium Chloride 1,000 ml @ 1,000 mls/hr Q1H IV Last administered on 02/18/17 07:41; Start 02/18/17 at 07:29; Stop 02/18/17 at 08:28; Status DC Ondansetron HCl (Zofran) 4 mg 1X ONCE IV Last administered on 02/18/17 07:41 ; Start 02/18/17 at 08:00; Stop 02/18/17 at 08:01; Status DC Iohexol (Omnipaque 240 Mg/ml) 50 ml 1X ONCE PO Last administered on 02/18/17 08:00; Start 02/18/17 at 08:00; Stop 02/18/17 at 08:01; Status DC Iohexol (Omnipaque 300 Mg/ml) 75 ml 1X ONCE IV Last administered on 02/18/17 08:59; Start 02/18/17 at 08:00; Stop 02/18/17 at 08:01; Status DC Sodium Chloride 1,000 ml @ 1,000 mls/hr 1X ONCE IV Last administered on 09:48; Start 02/18/17 at 09:30; Stop 02/18/17 at 10:29; Status DC Ciprofloxacin Lactate 200 ml @ 200 mls/hr Q12HR IV Last administered on 21:04; Start 02/18/17 at 10:00; Stop 02/27/17 at 15:49; Status DC Metronidazole 100 ml @ 100 mls/hr Q8H IV Last administered on 02/27/17 03:03; Start 02/18/17 at 11:00; Stop 02/27/17 at 15:53; Status DC Ondansetron HCl (Zofran) 4 mg PRN Q8HRS PRN IV NAUSEA/VOMITING; Start 02/18/17 at 10:15; Stop 02/19/17 at 10:14; Status DC Morphine Sulfate 2 mg PRN Q2HR PRN IV PAIN Last administered on 02/19/17 07:58 ; Start 02/18/17 at 10:15; Stop 02/19/17 at 10:14; Status DC Diphenhydramine HCl (Benadryl) 25 mg PRN Q6HRS PRN IVP ITCHING Last administered on 02/25/17 18:41; Start 02/18/17 at 14:15 Cyclobenzaprine HCl (Flexeril) 10 mg PRN DAILY PRN PO MUSCLE SPASMS Last administered on 02/23/17 21:46; Start 02/18/17 at 17:45 Diltiazem HCl (Cardizem 24hr Cd) 180 mg DAILY PO Last administered on 08:30; Start 02/19/17 at 09:00 Losartan Potassium (Cozaar) 50 mg DAILY PO Last administered on 02/19/17 07:55 ; Start 02/19/17 at 09:00; Stop 02/19/17 at 09:00; Status DC Pantoprazole Sodium (Protonix) 40 mg DAILYAC PO Last administered on 02/19/17 07:56; Start 02/19/17 at 07:30; Stop 02/19/17 at 12:31; Status DC Bupropion HCl (Wellbutrin Xl) 300 mg DAILY PO Last administered on 03/01/17 08 :30; Start 02/19/17 at 09:00 Acetaminophen/ Hydrocodone Bitart (Lortab 7.5/325) 1 tab PRN TID PRN PO MODERATE PAIN Last administered on 02/25/17 20:24; Start 02/18/17 at 18:15 Zolpidem Tartrate (Ambien) 5 mg QHS PO Last administered on 02/24/17 20:35; Start 02/18/17 at 21:00 Zolpidem Tartrate (Ambien) 5 mg PRN QHS PRN PO INSOMNIA Last administered on 00:26; Start 02/18/17 at 18:15 Acetaminophen (Tylenol) 650 mg PRN Q6HRS PRN PO FEVER; Start 02/19/17 at 12:30 Ondansetron HCl (Zofran) 4 mg PRN Q6HRS PRN IV NAUSEA/VOMITING Last administered on 02/27/17 21:50; Start 02/19/17 at 12:30 Morphine Sulfate 2 mg PRN Q2HR PRN IV PAIN; Start 02/19/17 at 12:30; Stop at 12:31; Status DC Tramadol HCl (Ultram) 50 mg PRN Q6HRS PRN PO MILD PAIN Last administered on 02/24 04:15; Start 02/19/17 at 12:30 Hydralazine HCl (Apresoline) 10 mg PRN Q4HRS PRN IVP ELEVATED BP, SEE COMMENTS ; Start 02/19/17 at 12:30 Docusate Sodium (Colace) 100 mg PRN DAILY PRN PO CONSTIPATION Last administered on 02/24/17 08:12; Start 02/19/17 at 12:30 Morphine Sulfate 2 mg PRN Q2HR PRN IV PAIN Last administered on 02/24/17 10:11 ; Start 02/19/17 at 12:45; Stop 02/24/17 at 18:13; Status DC Famotidine (Pepcid) 20 mg QHS IVP Last administered on 02/21/17 20:56; Start at 21:00; Stop 02/22/17 at 15:49; Status DC Heparin Sodium (Porcine) (Heparin Sq) 5,000 unit Q8HRS SQ Last administered on 02/21/17 20:57; Start 02/19/17 at 14:00; Stop 02/24/17 at 11:29; Status DC Iohexol (Omnipaque 240 Mg/ml) 30 ml 1X ONCE PO ; Start 02/21/17 at 08:30; Stop 02/21/17 at 08:35; Status DC Iohexol (Omnipaque 300 Mg/ml) 60 ml 1X ONCE IV ; Start 02/21/17 at 08:30; Stop 02/21/17 at 08:35; Status DC Sodium Chloride 1,000 ml @ 75 mls/hr [id number] IV Last administered on 02/21/17 20:58; Start 02/21/17 at 08:45; Stop 02/22/17 at 08:59; Status DC Amino Acids/ Glycerin/ Electrolytes 1,000 ml @ 80 mls/hr [id number] IV Last administered on 03/01/17 12:16; Start 02/22/17 at 09:30 Famotidine (Pepcid) 20 mg QHS PO Last administered on 02/22/17 21:44; Start 02/22/17 at 21:00; Stop 02/23/17 at 14:24; Status DC Famotidine (Pepcid) 20 mg QHS IVP Last administered on 02/28/17 20:46; Start 02/23/17 at 21:00 Ibuprofen (Motrin) 600 mg PRN Q6HRS PRN PO INFLAMMATION Last administered on 15:56; Start 02/23/17 at 15:30 Cefazolin Sodium/ Dextrose 50 ml @ 100 mls/hr 1X PREOP PRN IV medical economics consultant to OR Last administered on 02/25/17 08:15; Start 02/25/17 at 06:00; Stop 02/25/17 at 18: 00; Status DC Metronidazole 100 ml @ 100 mls/hr 1X PREOP PRN IV medical economics consultant to OR; Start at 06:00; Stop 02/25/17 at 18:00; Status DC Morphine Sulfate 2 mg PRN Q2HR PRN IV PAIN Last administered on 02/24/17 18:18 ; Start 02/24/17 at 18:15; Stop 03/01/17 at 12:59; Status DC Dexamethasone Sodium Phosphate (Decadron) 20 mg STK-MED ONCE .ROUTE ; Start 02/25 at 07:51; Stop 02/25/17 at 07:52; Status DC Ondansetron HCl (Zofran) 4 mg STK-MED ONCE .ROUTE ; Start 02/25/17 at 07:51; Stop 02/25/17 at 07:52; Status DC Propofol 20 ml @ As Directed STK-MED ONCE IV ; Start 02/25/17 at 07:51; Stop 02/25 at 07:52; Status DC Lidocaine HCl (Lidocaine Pf 2% Vial) 5 ml STK-MED ONCE .ROUTE ; Start 02/25/17 at 07:51; Stop 02/25/17 at 07:52; Status DC Desflurane (Suprane) 60 ml STK-MED ONCE IH ; Start 02/25/17 at 07:51; Stop at 07:52; Status DC Midazolam HCl (Versed) 2 mg STK-MED ONCE .ROUTE ; Start 02/25/17 at 07:51; Stop 02/25/17 at 07:52; Status DC Fentanyl Citrate (Fentanyl 2ml Vial) 100 mcg STK-MED ONCE .ROUTE ; Start at 07:51; Stop 02/25/17 at 07:52; Status DC Rocuronium Sunspot (Zemuron) 100 mg STK-MED ONCE .ROUTE ; Start 02/25/17 at 07:51 ; Stop 02/25/17 at 07:52; Status DC Ringer's Solution 1,000 ml @ 100 mls/hr Q10H IV Last administered on 02/26/17 17:36; Start 8/7/17 at 08:15; Stop 02/27/17 at 15:46; Status DC Phenylephrine HCl (Jeremy-Synephrine Inj) 10 mg STK-MED ONCE .ROUTE ; Start at 08:19; Stop 02/25/17 at 08:20; Status DC Sodium Chloride (Sodium Chloride) 50 ml STK-MED ONCE IJ ; Start 02/25/17 at 08:19 ; Stop 02/25/17 at 08:20; Status DC Ketamine HCl 500 mg STK-MED ONCE .ROUTE ; Start 02/25/17 at 08:46; Stop 02/25/17 at 08:47; Status DC Esmolol HCl (Brevibloc) 100 mg STK-MED ONCE IV ; Start 02/25/17 at 08:48; Stop at 08:49; Status DC Fentanyl Citrate (Fentanyl 2ml Vial) 100 mcg STK-MED ONCE .ROUTE ; Start at 09:36; Stop 02/25/17 at 09:37; Status DC Desflurane (Suprane) 90 ml STK-MED ONCE IH ; Start 02/25/17 at 09:52; Stop at 09:53; Status DC Morphine Sulfate 10 mg STK-MED ONCE .ROUTE ; Start 02/25/17 at 10:06; Stop at 10:07; Status DC Fentanyl Citrate (Fentanyl 2ml Vial) 100 mcg STK-MED ONCE .ROUTE ; Start at 11:51; Stop 02/25/17 at 11:52; Status DC Fentanyl Citrate (Fentanyl 2ml Vial) 50 mcg PACU PRN PRN IV pain Last administered on 02/25/17 12:10; Start 02/25/17 at 11:30; Stop 02/25/17 at 19:42; Status DC Hydromorphone HCl 30 ml @ 0 mls/hr CONT PRN PRN IV PROTOCOL Last administered on 02/26/17 18:56; Start 02/25/17 at 12:15; Stop 02/27/17 at 11:54; Status DC Hydromorphone HCl 30 ml @ As Directed STK-MED ONCE IV ; Start 02/25/17 at 12:04; Stop 02/25/17 at 12:05; Status DC Fentanyl Citrate (Fentanyl 2ml Vial) 100 mcg STK-MED ONCE .ROUTE ; Start at 12:04; Stop 02/25/17 at 12:05; Status DC Fentanyl Citrate (Fentanyl 2ml Vial) 25 mcg PRN Q5MIN PRN IV MILD PAIN; Start 02/25/17 at 12:30; Stop 02/25/17 at 19:42; Status DC Fentanyl Citrate (Fentanyl 2ml Vial) 50 mcg PRN Q5MIN PRN IV MODERATE PAIN; Start 02/25/17 at 12:30; Stop 02/25/17 at 19:42; Status DC Morphine Sulfate 1 mg PRN Q10MIN PRN IV SEVERE PAIN; Start 02/25/17 at 12:30; Stop 02/25/17 at 19:43; Status DC Ringer's Solution 1,000 ml @ 30 mls/hr Q24H IV ; Start 02/25/17 at 12:26; Stop 02/25/17 at 19:42; Status DC Lidocaine HCl 2 ml PRN 1X PRN ID PRIOR TO IV START; Start 02/25/17 at 12:30; Stop 02/25/17 at 23:00; Status DC Hydromorphone HCl (Dilaudid) 0.5 mg PRN Q10MIN PRN IV SEV PAIN, Second choice Last administered on 02/25/17t 12:44; Start 02/25/17 at 12:30; Stop 02/25/17 at 19: 42; Status DC Prochlorperazine Edisylate (Compazine) 5 mg PACU PRN PRN IV NAUSEA, MRX1; Start 02/25/17 at 12:30; Stop 02/25/17 at 19:43; Status DC Hydromorphone HCl (Dilaudid) 2 mg STK-MED ONCE .ROUTE ; Start 02/25/17 at 12:27; Stop 02/25/17 at 12:28; Status DC Hydromorphone HCl (Dilaudid) 0.5 mg 1X ONCE IM ; Start 02/25/17 at 13:00; Stop 02/25/17 at 19:43; Status DC Enoxaparin Sodium (Lovenox 40mg Syringe) 40 mg Q24H SQ Last administered on t 16:48; Start 02/26/17 at 17:00 Prochlorperazine Edisylate (Compazine) 10 mg PRN Q8HRS PRN IV NAUSEA/VOMITING Last administered on 02/28/17 05:24; Start 02/27/17 at 03:45 Promethazine HCl 12.5 mg/Sodium Chloride 50.5 ml @ 151.5 mls/ hr PRN Q6HRS PRN IV NAUSEA/VOMITING; Start 02/27/17 at 10:30 Midazolam HCl (Versed) 2 mg STK-MED ONCE .ROUTE ; Start 02/27/17 at 10:51; Stop 02/27/17 at 10:52; Status DC Midazolam HCl (Versed) 2 mg 1X ONCE IV Last administered on 02/27/17 11:00; Start 02/27/17 at 11:00; Stop 02/27/17 at 11:01; Status DC Morphine Sulfate 30 ml @ 0 mls/hr CONT PRN PRN IV PROTOCOL Last administered on 02/28/17 13:22; Start 02/27/17 at 12:00; Stop 03/01/17 at 11:09; Status DC Lidocaine/Sodium Bicarbonate (Buffered Lidocaine 1%) 20 ml STK-MED ONCE IJ ; Start 02/27/17 at 13:42; Stop 02/27/17 at 13:43; Status DC Heparin Sodium/ Sodium Chloride 500 ml @ As Directed STK-MED ONCE .ROUTE ; Start 02/27/17 at 13:42; Stop 02/27/17 at 13:43; Status DC Lidocaine/Sodium Bicarbonate (Buffered Lidocaine 1%) 20 ml 1X ONCE IJ Last administered on 02/27/17 14:15; Start 02/27/17 at 14:15; Stop 02/27/17 at 14:16; Status DC Heparin Sodium/ Sodium Chloride 1,000 unit 1X ONCE IART Last administered on 14:15; Start 02/27/17 at 14:15; Stop 02/27/17 at 14:16; Status DC Ringer's Solution 1,000 ml @ 100 mls/hr Q10H IV Last administered on 08:25; Start 02/27/17 at 16:00; Stop 03/01/17 at 11:18; Status DC Ciprofloxacin Lactate 200 ml @ 200 mls/hr Q12HR IV Last administered on 08:25; Start 02/27/17 at 16:00 Metronidazole 100 ml @ 100 mls/hr Q8H IV Last administered on 03/01/17t 08:22 ; Start 02/27/17 at 17:00 Morphine Sulfate 2 mg PRN Q2HR PRN IV PAIN; Start 03/01/17 at 11:15 Active Scripts Active Reported Ibuprofen 400 Mg Tablet 400 Mg PO PRN Q6HRS PRN Pantoprazole Sodium 40 Mg Tablet. 1 Tab PO DAILY Cardizem Cd (Diltiazem Hcl) 180 Mg Cap.er.24h 1 Cap PO DAILY Miralax (Polyethylene Glycol 3350) 17 Gm Powd.pack 1 Packet PO DAILY Ambien (Zolpidem Tartrate) 10 Mg Tablet 1 Tab PO QHS Hydrocodon-Acetaminoph 7.5-500 (Hydrocodone Bit/Acetaminophen) 1 Each Tablet 1 Each PO PRN TID PRN Cyclobenzaprine Hcl 10 Mg Tablet 10 Mg PO PRN DAILY Wellbutrin Xl (Bupropion Hcl) 300 Mg Tab.er.24h 300 Mg PO DAILY Losartan Potassium 25 Mg Tablet 50 Mg PO DAILY Hydrochlorothiazide Tablet (Hydrochlorothiazide) 25 Mg Tablet 25 Mg PO DAILY Vitals/I & O Vital Sign - Last 24 Hours 02/28/17 02/28/17 02/28/17 02/28/17 13:22 14:55 15:25 19:00 Temp 97.8 98.2 97.8 98.2 Pulse 115 114 Resp 18 17 B/P (MAP) 118/76 (90) 126/79 (95) Pulse Ox 98 98 98 100 O2 Delivery Nasal Cannula Nasal Cannula Nasal Cannula Nasal Cannula O2 Flow Rate 2.0 2.0 2.0 2.0 02/28/17 02/28/17 03/01/17 03/01/17 20:00 22:56 02:41 07:00 Temp 98.3 98.2 98.2 98.3 98.2 98.2 Pulse 116 112 73 Resp 16 18 20 B/P (MAP) 115/77 (90) 114/71 (85) 136/76 (96) Pulse Ox 98 99 97 O2 Delivery Nasal Cannula Room Air Nasal Cannula O2 Flow Rate 2.0 2.0 03/01/17 03/01/17 03/01/17 08:00 08:30 11:00 Temp 98.8 98.8 Pulse 73 82 Resp 22 B/P (MAP) 136/76 124/80 (95) Pulse Ox 98 O2 Delivery Nasal Cannula O2 Flow Rate 2.0 Intake and Output 02/28/17 02/28/17 03/01/17 15:00 23:00 07:00 Intake Total 2330 ml 0 ml Balance 2330 ml 0 ml FREDA SIMON MD Mar 01, 2017 13:14
[2017-03-01] MEDS: MORPHINE SULFATE 4 MG/ML DISP.SYRIN. IV PRN ×3 (13:30→18:34)
[2017-03-01 15:00] VITALS: BP 120/78
[2017-03-01] MEDS: ENOXAPARIN 40 MG/0.4 ML SYRINGE. SQ SCH (17:13)
[2017-03-01 19:54] VITALS: BP 134/77
[2017-03-01] MEDS: HYDROmorphone 2 MG/ML VIAL IV PRN ×2 (21:04→23:48)
[2017-03-01] MEDS: ZOLPIDEM 5 MG TABLET. PO SCH (21:04)
[2017-03-01] MEDS: FAMOTIDINE 20 MG/2 ML VIAL IVP SCH (21:04)
[2017-03-01 23:02] VITALS: BP 118/77
[2017-03-02] VITALS (7 sets, daily range): BP systolic 111–140; BP diastolic 62–84
[2017-03-02] MEDS: HYDROmorphone 2 MG/ML VIAL IV PRN ×2 (04:16→07:08)
[2017-03-02] MEDS: MORPHINE SULFATE 4 MG/ML DISP.SYRIN. IV PRN ×4 (05:36→18:22)
[2017-03-02] MEDS: AMINO AC 3%/ELECTROLYTE/GLYCER 1,000 ML IV SCH ×3 (06:58→23:16)
[2017-03-02 07:16] LABS: BASO # 0.1 x10^3/uL (0.0-0.2); BASO % 1 % (0-3); EOS % 3 % (0-3); HEMATOCRIT 28.5 % (36.0-47.0); HEMOGLOBIN 9.2 g/dL (12.0-15.5); LYMPH # 1.5 x10^3/uL (1.0-4.8); LYMPH % 15 % (24-48); MEAN CORPUSCULAR HEMOGLOBIN 29 pg (25-35); MEAN CORPUSCULAR HGB CONC 32 g/dL (31-37); MEAN CORPUSCULAR VOLUME 88 fL (79-100); MONO % 9 % (0-9); NEUT % 72 % (31-73); PLATELET COUNT 401 x10^3/uL (140-400); RED BLOOD COUNT 3.24 x10^6/uL (3.50-5.40); RED CELL DISTRIBUTION WIDTH 15.4 % (11.5-14.5); WHITE BLOOD COUNT 10.4 x10^3/uL (4.0-11.0)
[2017-03-02 07:29] LABS: CALCIUM 8.8 mg/dL (8.5-10.1); CREATININE 0.7 mg/dL (0.6-1.0); GFR 84.5; POTASSIUM 4.1 mmol/L (3.5-5.1)
--- NOTE | 2017-03-02 09:28 | PDOC ---
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, ambulating, no fevers, passing gas Eager to go home soon PLAN: Clears today If cont to do well, might be able to advance to GI soft diet negar AM, if GS agrees, then home in the PM saturday or saturday Dw pt and Dc IV dilaudid, keep IV morphine Vitals Vitals Vital Signs Date Time Temp Pulse Resp B/P (MAP) Pulse Ox O2 Delivery O2 Flow Rate FiO2 03/02/17 07:47 95 Nasal Cannula 2.0 03/02/17 07:08 18 03/02/17 07:00 98.2 105 134/62 (86) 98.2 Physical Exam General: Alert, Oriented X3, Cooperative, No acute distress Heart: Regular rate Lungs: Clear Abdomen: Soft, Other (jeremie in place, incision c/d/i, HOLGER has some red sangeuous draiange) Extremities: No clubbing, No cyanosis Skin: No rashes, No breakdown Labs LABS Laboratory Tests Test 03/02/17 07:00 White Blood Count 10.4 x10^3/uL (4.0-11.0) Red Blood Count 3.24 x10^6/uL (3.50-5.40) Hemoglobin 9.2 g/dL (12.0-15.5) Hematocrit 28.5 % (36.0-47.0) Mean Corpuscular Volume 88 fL (79-100) Mean Corpuscular Hemoglobin 29 pg (25-35) Mean Corpuscular Hemoglobin Concent 32 g/dL (31-37) Red Cell Distribution Width 15.4 % (11.5-14.5) Platelet Count 401 x10^3/uL (140-400) Neutrophils (%) (Auto) 72 % (31-73) Lymphocytes (%) (Auto) 15 % (24-48) Monocytes (%) (Auto) 9 % (0-9) Eosinophils (%) (Auto) 3 % (0-3) Basophils (%) (Auto) 1 % (0-3) Neutrophils # (Auto) 7.4 x10^3uL (1.8-7.7) Lymphocytes # (Auto) 1.5 x10^3/uL (1.0-4.8) Monocytes # (Auto) 1.0 x10^3/uL (0.0-1.1) Eosinophils # (Auto) 0.3 x10^3/uL (0.0-0.7) Basophils # (Auto) 0.1 x10^3/uL (0.0-0.2) Sodium Level 135 mmol/L (136-145) Potassium Level 4.1 mmol/L (3.5-5.1) Chloride Level 100 mmol/L (98-107) Carbon Dioxide Level 26 mmol/L (21-32) Anion Gap 9 (6-14) Blood Urea Nitrogen 11 mg/dL (7-20) Creatinine 0.7 mg/dL (0.6-1.0) Estimated GFR (Cockcroft-Gault) 84.5 Glucose Level 107 mg/dL (70-99) Calcium Level 8.8 mg/dL (8.5-10.1) Review of Systems Review of Systems denies 14 pt reviewed Assessment and Plan Assessmemt and Plan Problems Medical Problems: (1) Diverticulitis Status: Acute Problems: Comment Review of Relevant I have reviewed the following items amando (where applicable) has been applied. Labs Laboratory Tests Test 03/02/17 07:00 White Blood Count 10.4 x10^3/uL (4.0-11.0) Red Blood Count 3.24 x10^6/uL (3.50-5.40) Hemoglobin 9.2 g/dL (12.0-15.5) Hematocrit 28.5 % (36.0-47.0) Mean Corpuscular Volume 88 fL (79-100) Mean Corpuscular Hemoglobin 29 pg (25-35) Mean Corpuscular Hemoglobin Concent 32 g/dL (31-37) Red Cell Distribution Width 15.4 % (11.5-14.5) Platelet Count 401 x10^3/uL (140-400) Neutrophils (%) (Auto) 72 % (31-73) Lymphocytes (%) (Auto) 15 % (24-48) Monocytes (%) (Auto) 9 % (0-9) Eosinophils (%) (Auto) 3 % (0-3) Basophils (%) (Auto) 1 % (0-3) Neutrophils # (Auto) 7.4 x10^3uL (1.8-7.7) Lymphocytes # (Auto) 1.5 x10^3/uL (1.0-4.8) Monocytes # (Auto) 1.0 x10^3/uL (0.0-1.1) Eosinophils # (Auto) 0.3 x10^3/uL (0.0-0.7) Basophils # (Auto) 0.1 x10^3/uL (0.0-0.2) Sodium Level 135 mmol/L (136-145) Potassium Level 4.1 mmol/L (3.5-5.1) Chloride Level 100 mmol/L (98-107) Carbon Dioxide Level 26 mmol/L (21-32) Anion Gap 9 (6-14) Blood Urea Nitrogen 11 mg/dL (7-20) Creatinine 0.7 mg/dL (0.6-1.0) Estimated GFR (Cockcroft-Gault) 84.5 Glucose Level 107 mg/dL (70-99) Calcium Level 8.8 mg/dL (8.5-10.1) Laboratory Tests Test 03/02/17 07:00 White Blood Count 10.4 x10^3/uL (4.0-11.0) Red Blood Count 3.24 x10^6/uL (3.50-5.40) Hemoglobin 9.2 g/dL (12.0-15.5) Hematocrit 28.5 % (36.0-47.0) Mean Corpuscular Volume 88 fL (79-100) Mean Corpuscular Hemoglobin 29 pg (25-35) Mean Corpuscular Hemoglobin Concent 32 g/dL (31-37) Red Cell Distribution Width 15.4 % (11.5-14.5) Platelet Count 401 x10^3/uL (140-400) Neutrophils (%) (Auto) 72 % (31-73) Lymphocytes (%) (Auto) 15 % (24-48) Monocytes (%) (Auto) 9 % (0-9) Eosinophils (%) (Auto) 3 % (0-3) Basophils (%) (Auto) 1 % (0-3) Neutrophils # (Auto) 7.4 x10^3uL (1.8-7.7) Lymphocytes # (Auto) 1.5 x10^3/uL (1.0-4.8) Monocytes # (Auto) 1.0 x10^3/uL (0.0-1.1) Eosinophils # (Auto) 0.3 x10^3/uL (0.0-0.7) Basophils # (Auto) 0.1 x10^3/uL (0.0-0.2) Sodium Level 135 mmol/L (136-145) Potassium Level 4.1 mmol/L (3.5-5.1) Chloride Level 100 mmol/L (98-107) Carbon Dioxide Level 26 mmol/L (21-32) Anion Gap 9 (6-14) Blood Urea Nitrogen 11 mg/dL (7-20) Creatinine 0.7 mg/dL (0.6-1.0) Estimated GFR (Cockcroft-Gault) 84.5 Glucose Level 107 mg/dL (70-99) Calcium Level 8.8 mg/dL (8.5-10.1) Microbiology 02/18/17 Urine Culture - Final, Complete 02/18/17 Urine Culture Result 1 (TARIQ) - Final, Complete Medications Current Medications Morphine Sulfate 2 mg PRN Q15MIN PRN IV/SQ PAIN GREATER THAN 3/10 Last administered on 02/18/17 07:42; Start 02/18/17 at 07:30; Stop 02/18/17 at 17:49 ; Status DC Sodium Chloride 1,000 ml @ 1,000 mls/hr Q1H IV Last administered on 02/18/17 07:41; Start 02/18/17 at 07:29; Stop 02/18/17 at 08:28; Status DC Ondansetron HCl (Zofran) 4 mg 1X ONCE IV Last administered on 02/18/17 07:41 ; Start 02/18/17 at 08:00; Stop 02/18/17 at 08:01; Status DC Iohexol (Omnipaque 240 Mg/ml) 50 ml 1X ONCE PO Last administered on 02/18/17 08:00; Start 02/18/17 at 08:00; Stop 02/18/17 at 08:01; Status DC Iohexol (Omnipaque 300 Mg/ml) 75 ml 1X ONCE IV Last administered on 02/18/17 08:59; Start 02/18/17 at 08:00; Stop 02/18/17 at 08:01; Status DC Sodium Chloride 1,000 ml @ 1,000 mls/hr 1X ONCE IV Last administered on 09:48; Start 02/18/17 at 09:30; Stop 02/18/17 at 10:29; Status DC Ciprofloxacin Lactate 200 ml @ 200 mls/hr Q12HR IV Last administered on 21:04; Start 02/18/17 at 10:00; Stop 02/27/17 at 15:49; Status DC Metronidazole 100 ml @ 100 mls/hr Q8H IV Last administered on 02/27/17 03:03; Start 02/18/17 at 11:00; Stop 02/27/17 at 15:53; Status DC Ondansetron HCl (Zofran) 4 mg PRN Q8HRS PRN IV NAUSEA/VOMITING; Start 02/18/17 at 10:15; Stop 02/19/17 at 10:14; Status DC Morphine Sulfate 2 mg PRN Q2HR PRN IV PAIN Last administered on 02/19/17 07:58 ; Start 02/18/17 at 10:15; Stop 02/19/17 at 10:14; Status DC Diphenhydramine HCl (Benadryl) 25 mg PRN Q6HRS PRN IVP ITCHING Last administered on 02/25/17 18:41; Start 02/18/17 at 14:15 Cyclobenzaprine HCl (Flexeril) 10 mg PRN DAILY PRN PO MUSCLE SPASMS Last administered on 02/23/17 21:46; Start 02/18/17 at 17:45 Diltiazem HCl (Cardizem 24hr Cd) 180 mg DAILY PO Last administered on 08:30; Start 02/19/17 at 09:00 Losartan Potassium (Cozaar) 50 mg DAILY PO Last administered on 02/19/17 07:55 ; Start 02/19/17 at 09:00; Stop 02/19/17 at 09:00; Status DC Pantoprazole Sodium (Protonix) 40 mg DAILYAC PO Last administered on 02/19/17 07:56; Start 02/19/17 at 07:30; Stop 02/19/17 at 12:31; Status DC Bupropion HCl (Wellbutrin Xl) 300 mg DAILY PO Last administered on 03/01/17 08 :30; Start 02/19/17 at 09:00 Acetaminophen/ Hydrocodone Bitart (Lortab 7.5/325) 1 tab PRN TID PRN PO MODERATE PAIN Last administered on 02/25/17 20:24; Start 02/18/17 at 18:15 Zolpidem Tartrate (Ambien) 5 mg QHS PO Last administered on 03/01/17 21:04; Start 02/18/17 at 21:00 Zolpidem Tartrate (Ambien) 5 mg PRN QHS PRN PO INSOMNIA Last administered on 00:26; Start 02/18/17 at 18:15 Acetaminophen (Tylenol) 650 mg PRN Q6HRS PRN PO FEVER; Start 02/19/17 at 12:30 Ondansetron HCl (Zofran) 4 mg PRN Q6HRS PRN IV NAUSEA/VOMITING Last administered on 02/27/17 21:50; Start 02/19/17 at 12:30 Morphine Sulfate 2 mg PRN Q2HR PRN IV PAIN; Start 02/19/17 at 12:30; Stop at 12:31; Status DC Tramadol HCl (Ultram) 50 mg PRN Q6HRS PRN PO MILD PAIN Last administered on 02/24 04:15; Start 02/19/17 at 12:30 Hydralazine HCl (Apresoline) 10 mg PRN Q4HRS PRN IVP ELEVATED BP, SEE COMMENTS ; Start 02/19/17 at 12:30 Docusate Sodium (Colace) 100 mg PRN DAILY PRN PO CONSTIPATION Last administered on 02/24/17 08:12; Start 02/19/17 at 12:30 Morphine Sulfate 2 mg PRN Q2HR PRN IV PAIN Last administered on 02/24/17 10:11 ; Start 02/19/17 at 12:45; Stop 02/24/17 at 18:13; Status DC Famotidine (Pepcid) 20 mg QHS IVP Last administered on 02/21/17 20:56; Start at 21:00; Stop 02/22/17 at 15:49; Status DC Heparin Sodium (Porcine) (Heparin Sq) 5,000 unit Q8HRS SQ Last administered on 02/21/17 20:57; Start 02/19/17 at 14:00; Stop 02/24/17 at 11:29; Status DC Iohexol (Omnipaque 240 Mg/ml) 30 ml 1X ONCE PO ; Start 02/21/17 at 08:30; Stop 02/21/17 at 08:35; Status DC Iohexol (Omnipaque 300 Mg/ml) 60 ml 1X ONCE IV ; Start 02/21/17 at 08:30; Stop 02/21/17 at 08:35; Status DC Sodium Chloride 1,000 ml @ 75 mls/hr [id number] IV Last administered on 02/21/17 20:58; Start 02/21/17 at 08:45; Stop 02/22/17 at 08:59; Status DC Amino Acids/ Glycerin/ Electrolytes 1,000 ml @ 80 mls/hr [id number] IV Last administered on 03/02/17 06:58; Start 02/22/17 at 09:30 Famotidine (Pepcid) 20 mg QHS PO Last administered on 02/22/17 21:44; Start 02/22/17 at 21:00; Stop 02/23/17 at 14:24; Status DC Famotidine (Pepcid) 20 mg QHS IVP Last administered on 03/01/17 21:04; Start 02/23/17 at 21:00 Ibuprofen (Motrin) 600 mg PRN Q6HRS PRN PO INFLAMMATION Last administered on 15:56; Start 02/23/17 at 15:30 Cefazolin Sodium/ Dextrose 50 ml @ 100 mls/hr 1X PREOP PRN IV clinical application specialist to OR Last administered on 02/25/17 08:15; Start 02/25/17 at 06:00; Stop 02/25/17 at 18: 00; Status DC Metronidazole 100 ml @ 100 mls/hr 1X PREOP PRN IV clinical application specialist to OR; Start at 06:00; Stop 02/25/17 at 18:00; Status DC Morphine Sulfate 2 mg PRN Q2HR PRN IV PAIN Last administered on 02/24/17t 18:18 ; Start 02/24/17 at 18:15; Stop 03/01/17 at 12:59; Status DC Dexamethasone Sodium Phosphate (Decadron) 20 mg STK-MED ONCE .ROUTE ; Start 02/25 at 07:51; Stop 02/25/17 at 07:52; Status DC Ondansetron HCl (Zofran) 4 mg STK-MED ONCE .ROUTE ; Start 02/25/17 at 07:51; Stop 02/25/17 at 07:52; Status DC Propofol 20 ml @ As Directed STK-MED ONCE IV ; Start 02/25/17 at 07:51; Stop 02/25 at 07:52; Status DC Lidocaine HCl (Lidocaine Pf 2% Vial) 5 ml STK-MED ONCE .ROUTE ; Start 02/25/17 at 07:51; Stop 02/25/17 at 07:52; Status DC Desflurane (Suprane) 60 ml STK-MED ONCE IH ; Start 02/25/17 at 07:51; Stop at 07:52; Status DC Midazolam HCl (Versed) 2 mg STK-MED ONCE .ROUTE ; Start 02/25/17 at 07:51; Stop 02/25/17 at 07:52; Status DC Fentanyl Citrate (Fentanyl 2ml Vial) 100 mcg STK-MED ONCE .ROUTE ; Start at 07:51; Stop 02/25/17 at 07:52; Status DC Rocuronium [place] (Zemuron) 100 mg STK-MED ONCE .ROUTE ; Start 02/25/17 at 07:51 ; Stop 02/25/17 at 07:52; Status DC Ringer's Solution 1,000 ml @ 100 mls/hr Q10H IV Last administered on 02/26/17 17:36; Start 02/25/17 at 08:15; Stop 02/27/17 at 15:46; Status DC Phenylephrine HCl (Jeremy-Synephrine Inj) 10 mg STK-MED ONCE .ROUTE ; Start at 08:19; Stop 02/25/17 at 08:20; Status DC Sodium Chloride (Sodium Chloride) 50 ml STK-MED ONCE IJ ; Start 02/25/17 at 08:19 ; Stop 02/25/17 at 08:20; Status DC Ketamine HCl 500 mg STK-MED ONCE .ROUTE ; Start 02/25/17 at 08:46; Stop 02/25/17 at 08:47; Status DC Esmolol HCl (Brevibloc) 100 mg STK-MED ONCE IV ; Start 02/25/17 at 08:48; Stop at 08:49; Status DC Fentanyl Citrate (Fentanyl 2ml Vial) 100 mcg STK-MED ONCE .ROUTE ; Start at 09:36; Stop 02/25/17 at 09:37; Status DC Desflurane (Suprane) 90 ml STK-MED ONCE IH ; Start 02/25/17 at 09:52; Stop at 09:53; Status DC Morphine Sulfate 10 mg STK-MED ONCE .ROUTE ; Start 02/25/17 at 10:06; Stop at 10:07; Status DC Fentanyl Citrate (Fentanyl 2ml Vial) 100 mcg STK-MED ONCE .ROUTE ; Start at 11:51; Stop 02/25/17 at 11:52; Status DC Fentanyl Citrate (Fentanyl 2ml Vial) 50 mcg PACU PRN PRN IV pain Last administered on 02/25/17t 12:10; Start 02/25/17 at 11:30; Stop 02/25/17 at 19:42; Status DC Hydromorphone HCl 30 ml @ 0 mls/hr CONT PRN PRN IV PROTOCOL Last administered on 02/26/17t 18:56; Start 02/25/17 at 12:15; Stop 02/27/17 at 11:54; Status DC Hydromorphone HCl 30 ml @ As Directed STK-MED ONCE IV ; Start 02/25/17 at 12:04; Stop 02/25/17 at 12:05; Status DC Fentanyl Citrate (Fentanyl 2ml Vial) 100 mcg STK-MED ONCE .ROUTE ; Start at 12:04; Stop 02/25/17 at 12:05; Status DC Fentanyl Citrate (Fentanyl 2ml Vial) 25 mcg PRN Q5MIN PRN IV MILD PAIN; Start 02/25/17 at 12:30; Stop 02/25/17 at 19:42; Status DC Fentanyl Citrate (Fentanyl 2ml Vial) 50 mcg PRN Q5MIN PRN IV MODERATE PAIN; Start 02/25/17 at 12:30; Stop 02/25/17 at 19:42; Status DC Morphine Sulfate 1 mg PRN Q10MIN PRN IV SEVERE PAIN; Start 02/25/17 at 12:30; Stop 02/25/17 at 19:43; Status DC Ringer's Solution 1,000 ml @ 30 mls/hr Q24H IV ; Start 02/25/17 at 12:26; Stop 02/25/17 at 19:42; Status DC Lidocaine HCl 2 ml PRN 1X PRN ID PRIOR TO IV START; Start 02/25/17 at 12:30; Stop 02/25/17 at 23:00; Status DC Hydromorphone HCl (Dilaudid) 0.5 mg PRN Q10MIN PRN IV SEV PAIN, Second choice Last administered on 02/25/17 12:44; Start 02/25/17 at 12:30; Stop 02/25/17 at 19: 42; Status DC Prochlorperazine Edisylate (Compazine) 5 mg PACU PRN PRN IV NAUSEA, MRX1; Start 02/25/17 at 12:30; Stop 02/25/17 at 19:43; Status DC Hydromorphone HCl (Dilaudid) 2 mg STK-MED ONCE .ROUTE ; Start 02/25/17 at 12:27; Stop 02/25/17 at 12:28; Status DC Hydromorphone HCl (Dilaudid) 0.5 mg 1X ONCE IM ; Start 02/25/17 at 13:00; Stop 02/25/17 at 19:43; Status DC Enoxaparin Sodium (Lovenox 40mg Syringe) 40 mg Q24H SQ Last administered on 17:13; Start 02/26/17 at 17:00 Prochlorperazine Edisylate (Compazine) 10 mg PRN Q8HRS PRN IV NAUSEA/VOMITING Last administered on 02/28/17 05:24; Start 02/27/17 at 03:45 Promethazine HCl 12.5 mg/Sodium Chloride 50.5 ml @ 151.5 mls/ hr PRN Q6HRS PRN IV NAUSEA/VOMITING; Start 02/27/17 at 10:30 Midazolam HCl (Versed) 2 mg STK-MED ONCE .ROUTE ; Start 02/27/17 at 10:51; Stop 02/27/17 at 10:52; Status DC Midazolam HCl (Versed) 2 mg 1X ONCE IV Last administered on 02/27/17 11:00; Start 02/27/17 at 11:00; Stop 02/27/17 at 11:01; Status DC Morphine Sulfate 30 ml @ 0 mls/hr CONT PRN PRN IV PROTOCOL Last administered on 02/28/17 13:22; Start 02/27/17 at 12:00; Stop 03/01/17 at 11:09; Status DC Lidocaine/Sodium Bicarbonate (Buffered Lidocaine 1%) 20 ml STK-MED ONCE IJ ; Start 02/27/17 at 13:42; Stop 02/27/17 at 13:43; Status DC Heparin Sodium/ Sodium Chloride 500 ml @ As Directed STK-MED ONCE .ROUTE ; Start 02/27/17 at 13:42; Stop 02/27/17 at 13:43; Status DC Lidocaine/Sodium Bicarbonate (Buffered Lidocaine 1%) 20 ml 1X ONCE IJ Last administered on 02/27/17 14:15; Start 02/27/17 at 14:15; Stop 02/27/17 at 14:16; Status DC Heparin Sodium/ Sodium Chloride 1,000 unit 1X ONCE IART Last administered on 14:15; Start 02/27/17 at 14:15; Stop 02/27/17 at 14:16; Status DC Ringer's Solution 1,000 ml @ 100 mls/hr Q10H IV Last administered on 08:25; Start 02/27/17 at 16:00; Stop 03/01/17 at 11:18; Status DC Ciprofloxacin Lactate 200 ml @ 200 mls/hr Q12HR IV Last administered on 21:04; Start 02/27/17 at 16:00 Metronidazole 100 ml @ 100 mls/hr Q8H IV Last administered on 03/02/17 01:35 ; Start 02/27/17 at 17:00 Morphine Sulfate 2 mg PRN Q2HR PRN IV PAIN Last administered on 03/02/17 05:36 ; Start 03/01/17 at 11:15 Hydromorphone HCl (Dilaudid) 1 mg PRN Q4HRS PRN IV PAIN Last administered on 07:08; Start 03/01/17 at 13:15 Active Scripts Active Reported Ibuprofen 400 Mg Tablet 400 Mg PO PRN Q6HRS PRN Pantoprazole Sodium 40 Mg Tablet.dr 1 Tab PO DAILY Cardizem Cd (Diltiazem Hcl) 180 Mg Cap.er.24h 1 Cap PO DAILY Miralax (Polyethylene Glycol 3350) 17 Gm Powd.pack 1 Packet PO DAILY Ambien (Zolpidem Tartrate) 10 Mg Tablet 1 Tab PO QHS Hydrocodon-Acetaminoph 7.5-500 (Hydrocodone Bit/Acetaminophen) 1 Each Tablet 1 Each PO PRN TID PRN Cyclobenzaprine Hcl 10 Mg Tablet 10 Mg PO PRN DAILY Wellbutrin Xl (Bupropion Hcl) 300 Mg Tab.er.24h 300 Mg PO DAILY Losartan Potassium 25 Mg Tablet 50 Mg PO DAILY Hydrochlorothiazide Tablet (Hydrochlorothiazide) 25 Mg Tablet 25 Mg PO DAILY Vitals/I & O Vital Sign - Last 24 Hours 03/01/17 03/01/17 03/01/17 03/01/17 11:00 13:30 15:00 15:54 Temp 98.8 98.0 98.8 98.0 Pulse 82 68 Resp 22 22 B/P (MAP) 124/80 (95) 120/78 (92) Pulse Ox 98 97 97 O2 Delivery Room Air Room Air Nasal Cannula O2 Flow Rate 2.0 03/01/17 03/01/17 03/01/17 03/01/17 19:54 20:00 21:04 23:02 Temp 98.3 98.1 98.3 98.1 Pulse 107 106 Resp 18 18 18 B/P (MAP) 134/77 (96) 118/77 (91) Pulse Ox 93 93 93 O2 Delivery Room Air Nasal Cannula Nasal Cannula Room Air O2 Flow Rate 2.0 2.0 03/01/17 03/02/17 03/02/17 03/02/17 23:48 03:55 04:16 05:18 Temp 98.5 98.5 Pulse 100 Resp 18 18 18 18 B/P (MAP) 111/67 (82) Pulse Ox 93 95 95 O2 Delivery Nasal Cannula Room Air Nasal Cannula O2 Flow Rate 2.0 2.0 03/02/17 03/02/17 03/02/17 03/02/17 05:36 06:57 07:00 07:08 Temp 98.2 98.2 Pulse 105 Resp 18 18 20 18 B/P (MAP) 134/62 (86) Pulse Ox 95 95 97 95 O2 Delivery Nasal Cannula Nasal Cannula Nasal Cannula O2 Flow Rate 2.0 2.0 2.0 03/02/17 07:47 Pulse Ox 95 O2 Delivery Nasal Cannula O2 Flow Rate 2.0 Intake and Output 03/01/17 03/01/17 03/02/17 14:59 22:59 06:59 Intake Total 0 ml 940 ml Output Total 600 ml 725 ml Balance -600 ml 215 ml NOHEMY LAM MD Mar 02, 2017 09:28
[2017-03-02] MEDS: buPROPion XL 150 MG TAB.ER.24H. PO SCH (09:38)
[2017-03-02] MEDS: CIPROFLOXACIN 400MG PREMIX 200 ML IV SCH ×2 (09:40→21:24)
--- NOTE | 2017-03-02 12:51 | PDOC ---
SURGICAL PROGRESS NOTE Subjective Pt with c/o min incisional pain, tika clears, passing flatus Vital Signs Vital Signs Date Time Temp Pulse Resp B/P (MAP) Pulse Ox O2 Delivery O2 Flow Rate FiO2 03/02/17 11:00 98.9 88 22 119/80 (93) 98 Room Air 98.9 03/02/17 07:47 2.0 I&O Intake and Output 03/02/17 07:00 Intake Total 940 ml Output Total 1325 ml Balance -385 ml Intake Oral 0 ml Other 940 ml Output Urine Total 1325 ml General: Alert, Oriented X3, Cooperative, No acute distress Abdomen: Soft, No tenderness, Other (incision c/d/i, HOLGER serosang) Labs Laboratory Tests Test 03/02/17 07:00 White Blood Count 10.4 x10^3/uL (4.0-11.0) Red Blood Count 3.24 x10^6/uL (3.50-5.40) Hemoglobin 9.2 g/dL (12.0-15.5) Hematocrit 28.5 % (36.0-47.0) Mean Corpuscular Volume 88 fL (79-100) Mean Corpuscular Hemoglobin 29 pg (25-35) Mean Corpuscular Hemoglobin Concent 32 g/dL (31-37) Red Cell Distribution Width 15.4 % (11.5-14.5) Platelet Count 401 x10^3/uL (140-400) Neutrophils (%) (Auto) 72 % (31-73) Lymphocytes (%) (Auto) 15 % (24-48) Monocytes (%) (Auto) 9 % (0-9) Eosinophils (%) (Auto) 3 % (0-3) Basophils (%) (Auto) 1 % (0-3) Neutrophils # (Auto) 7.4 x10^3uL (1.8-7.7) Lymphocytes # (Auto) 1.5 x10^3/uL (1.0-4.8) Monocytes # (Auto) 1.0 x10^3/uL (0.0-1.1) Eosinophils # (Auto) 0.3 x10^3/uL (0.0-0.7) Basophils # (Auto) 0.1 x10^3/uL (0.0-0.2) Sodium Level 135 mmol/L (136-145) Potassium Level 4.1 mmol/L (3.5-5.1) Chloride Level 100 mmol/L (98-107) Carbon Dioxide Level 26 mmol/L (21-32) Anion Gap 9 (6-14) Blood Urea Nitrogen 11 mg/dL (7-20) Creatinine 0.7 mg/dL (0.6-1.0) Estimated GFR (Cockcroft-Gault) 84.5 Glucose Level 107 mg/dL (70-99) Calcium Level 8.8 mg/dL (8.5-10.1) Laboratory Tests Test 03/02/17 07:00 White Blood Count 10.4 x10^3/uL (4.0-11.0) Red Blood Count 3.24 x10^6/uL (3.50-5.40) Hemoglobin 9.2 g/dL (12.0-15.5) Hematocrit 28.5 % (36.0-47.0) Mean Corpuscular Volume 88 fL (79-100) Mean Corpuscular Hemoglobin 29 pg (25-35) Mean Corpuscular Hemoglobin Concent 32 g/dL (31-37) Red Cell Distribution Width 15.4 % (11.5-14.5) Platelet Count 401 x10^3/uL (140-400) Neutrophils (%) (Auto) 72 % (31-73) Lymphocytes (%) (Auto) 15 % (24-48) Monocytes (%) (Auto) 9 % (0-9) Eosinophils (%) (Auto) 3 % (0-3) Basophils (%) (Auto) 1 % (0-3) Neutrophils # (Auto) 7.4 x10^3uL (1.8-7.7) Lymphocytes # (Auto) 1.5 x10^3/uL (1.0-4.8) Monocytes # (Auto) 1.0 x10^3/uL (0.0-1.1) Eosinophils # (Auto) 0.3 x10^3/uL (0.0-0.7) Basophils # (Auto) 0.1 x10^3/uL (0.0-0.2) Sodium Level 135 mmol/L (136-145) Potassium Level 4.1 mmol/L (3.5-5.1) Chloride Level 100 mmol/L (98-107) Carbon Dioxide Level 26 mmol/L (21-32) Anion Gap 9 (6-14) Blood Urea Nitrogen 11 mg/dL (7-20) Creatinine 0.7 mg/dL (0.6-1.0) Estimated GFR (Cockcroft-Gault) 84.5 Glucose Level 107 mg/dL (70-99) Calcium Level 8.8 mg/dL (8.5-10.1) Problem List Problems Medical Problems: (1) Diverticulitis Status: Acute Assessment/Plan s/p colectomy ADAT hopefully home 03/03 Problems: DUNG BECERRA MD Mar 02, 2017 12:51
[2017-03-02] MEDS: ENOXAPARIN 40 MG/0.4 ML SYRINGE. SQ SCH (17:41)
[2017-03-02] MEDS: FAMOTIDINE 20 MG/2 ML VIAL IVP SCH (21:24)
[2017-03-02] MEDS: ZOLPIDEM 5 MG TABLET. PO SCH (21:24)
[2017-03-02] MEDS: ONDANSETRON PF 4 MG/2 ML VIAL. IV PRN (21:35)
[2017-03-03 03:09] VITALS: BP 134/82
[2017-03-03] MEDS: PROCHLORPERAZINE 10 MG/2 ML VIAL. IV PRN (03:15)
[2017-03-03 07:00] VITALS: BP 126/82
[2017-03-03] MEDS: buPROPion XL 150 MG TAB.ER.24H. PO SCH (08:33)
[2017-03-03] MEDS: CIPROFLOXACIN 400MG PREMIX 200 ML IV SCH (09:48)
[2017-03-03] MEDS: AMINO AC 3%/ELECTROLYTE/GLYCER 1,000 ML IV SCH (09:48)
--- NOTE | 2017-03-03 10:58 | PDOC ---
SURGICAL PROGRESS NOTE Subjective Pt without c/o, tika PO, although slow Vital Signs Vital Signs Date Time Temp Pulse Resp B/P (MAP) Pulse Ox O2 Delivery O2 Flow Rate FiO2 03/03/17 08:34 115 134/82 03/03/17 07:00 97.9 18 94 Room Air 97.9 03/02/17 20:00 2.0 I&O Intake and Output 03/03/17 07:00 Intake Total 5620 ml Output Total 1125 ml Balance 4495 ml Intake Oral 3020 ml IV Total 2600 ml Output Urine Total 1000 ml Drainage Total 125 ml # Voids 1 General: Alert, Oriented X3, Cooperative, No acute distress Abdomen: Soft, No tenderness, Other (incision c/d/i, will remove jeremie, HOLGER serosang but >80 cc per day) Labs Laboratory Tests Test 03/02/17 07:00 White Blood Count 10.4 x10^3/uL (4.0-11.0) Red Blood Count 3.24 x10^6/uL (3.50-5.40) Hemoglobin 9.2 g/dL (12.0-15.5) Hematocrit 28.5 % (36.0-47.0) Mean Corpuscular Volume 88 fL (79-100) Mean Corpuscular Hemoglobin 29 pg (25-35) Mean Corpuscular Hemoglobin Concent 32 g/dL (31-37) Red Cell Distribution Width 15.4 % (11.5-14.5) Platelet Count 401 x10^3/uL (140-400) Neutrophils (%) (Auto) 72 % (31-73) Lymphocytes (%) (Auto) 15 % (24-48) Monocytes (%) (Auto) 9 % (0-9) Eosinophils (%) (Auto) 3 % (0-3) Basophils (%) (Auto) 1 % (0-3) Neutrophils # (Auto) 7.4 x10^3uL (1.8-7.7) Lymphocytes # (Auto) 1.5 x10^3/uL (1.0-4.8) Monocytes # (Auto) 1.0 x10^3/uL (0.0-1.1) Eosinophils # (Auto) 0.3 x10^3/uL (0.0-0.7) Basophils # (Auto) 0.1 x10^3/uL (0.0-0.2) Sodium Level 135 mmol/L (136-145) Potassium Level 4.1 mmol/L (3.5-5.1) Chloride Level 100 mmol/L (98-107) Carbon Dioxide Level 26 mmol/L (21-32) Anion Gap 9 (6-14) Blood Urea Nitrogen 11 mg/dL (7-20) Creatinine 0.7 mg/dL (0.6-1.0) Estimated GFR (Cockcroft-Gault) 84.5 Glucose Level 107 mg/dL (70-99) Calcium Level 8.8 mg/dL (8.5-10.1) Problem List Problems Medical Problems: (1) Diverticulitis Status: Acute Assessment/Plan s/p colectomy OK to d/c f/u with Dr. Finnegan in a week for drain removal d/w pt and pt's Problems: DUNG BECERRA MD Mar 03, 2017 10:58
[2017-03-03 11:00] VITALS: BP 129/81
[2017-03-03] MEDS ORDERED: CIPR500T94 PO (11:35)
[2017-03-03] MEDS ORDERED: METR500T PO (11:35)
--- NOTE | 2017-03-03 11:39 | PDOC3 ---
Discharge Summary Visit Information Date of Admission: Feb 18, 2017 Date of Discharge: Mar 03, 2017 Admitting Diagnosis Comment: diverticulitis with Colovaginal fistula s/p sx (02/25/17) - POD # 6 Leukocytosis, SIRS POA, better Abdominal pain HTN, controlled mild malnutrition h/o PAFIB no AC POst op pain on EDITOR CONTINUITY AND SCRIPT Final Diagnosis Problems Medical Problems: (1) Diverticulitis Status: Acute Brief Hospital Course Allergies Allergies Coded Allergies Type Severity Reaction Last Updated Verified No Known Drug Allergies 07/06/13 No Vital Signs Vital Signs Date Time Temp Pulse Resp B/P (MAP) Pulse Ox O2 Delivery O2 Flow Rate FiO2 03/03/17 08:34 115 134/82 03/03/17 07:00 97.9 18 94 Room Air 97.9 03/02/17 20:00 2.0 Lab Results Laboratory Tests Test 03/02/17 07:00 White Blood Count 10.4 x10^3/uL (4.0-11.0) Red Blood Count 3.24 x10^6/uL (3.50-5.40) Hemoglobin 9.2 g/dL (12.0-15.5) Hematocrit 28.5 % (36.0-47.0) Mean Corpuscular Volume 88 fL (79-100) Mean Corpuscular Hemoglobin 29 pg (25-35) Mean Corpuscular Hemoglobin Concent 32 g/dL (31-37) Red Cell Distribution Width 15.4 % (11.5-14.5) Platelet Count 401 x10^3/uL (140-400) Neutrophils (%) (Auto) 72 % (31-73) Lymphocytes (%) (Auto) 15 % (24-48) Monocytes (%) (Auto) 9 % (0-9) Eosinophils (%) (Auto) 3 % (0-3) Basophils (%) (Auto) 1 % (0-3) Neutrophils # (Auto) 7.4 x10^3uL (1.8-7.7) Lymphocytes # (Auto) 1.5 x10^3/uL (1.0-4.8) Monocytes # (Auto) 1.0 x10^3/uL (0.0-1.1) Eosinophils # (Auto) 0.3 x10^3/uL (0.0-0.7) Basophils # (Auto) 0.1 x10^3/uL (0.0-0.2) Sodium Level 135 mmol/L (136-145) Potassium Level 4.1 mmol/L (3.5-5.1) Chloride Level 100 mmol/L (98-107) Carbon Dioxide Level 26 mmol/L (21-32) Anion Gap 9 (6-14) Blood Urea Nitrogen 11 mg/dL (7-20) Creatinine 0.7 mg/dL (0.6-1.0) Estimated GFR (Cockcroft-Gault) 84.5 Glucose Level 107 mg/dL (70-99) Calcium Level 8.8 mg/dL (8.5-10.1) Brief Hospital Course Ms. Walton is a 61 old female who spent 14 days with us for a complicated diverticulitis that developed a fistula with her vaginal vault area needing sx by GS along side OB. THat was fixed, EDITOR CONTINUITY AND SCRIPT pump post op, Took some time to regain bowel fcn back and some mobillity,. NOw ready for home with , WIth1 indwelling HOLGER drain, To finish a 10-day course janny and clive Dw and rn at bedside RX provided DIspO; Home Time 32 mins in education dc etc Discharge Information Condition at Discharge: Improved, Stable Follow Up: Weeks (1- 2 weeks ) Disposition/Orders: D/C to Home Scheduled Bupropion Hcl (Wellbutrin Xl), 300 MG PO DAILY, (Reported) Cyclobenzaprine Hcl (Cyclobenzaprine Hcl), 10 MG PO PRN DAILY, (Reported) Diltiazem Hcl (Cardizem Cd), 1 CAP PO DAILY, (Reported) Hydrochlorothiazide (Hydrochlorothiazide Tablet ), 25 MG PO DAILY, (Reported) Losartan Potassium (Losartan Potassium), 50 MG PO DAILY, (Reported) Pantoprazole Sodium (Pantoprazole Sodium), 1 TAB PO DAILY, (Reported) Polyethylene Glycol 3350 (Miralax), 1 PACKET PO DAILY, (Reported) Zolpidem Tartrate (Ambien), 1 TAB PO QHS, (Reported) Scheduled PRN Hydrocodone Bit/Acetaminophen (Hydrocodon-Acetaminoph 7.5-500), 1 EACH PO PRN TID PRN for PAIN, (Reported) Ibuprofen (Ibuprofen), 400 MG PO PRN Q6HRS PRN for INFLAMMATION, (Reported) NOHEMY LAM MD Mar 03, 2017 11:39
[2017-03-03] MEDS ORDERED: DOCU-109 PO ×2 (12:36→12:37)
[2017-03-03] MEDS ORDERED: OXYC-323 PO (12:40)
== END 2017-03-03 13:40 | disposition home or self-care (01) | DRG 330 ==
LOC: ER 06:50 → 5 SOUTH 10:25
PROVIDERS: ADMIT Internal Medicine Hematology & Oncology; ATTEND Internal Medicine Hematology & Oncology
PROC: 0DTN0ZZ Resection of Sigmoid Colon, Open Approach (ICD-10-PCS; 2017-02-25)
PROC: 02HV33Z Insertion of Infusion Device into Superior Vena Cava, Percutaneous Approach (ICD-10-PCS; principal; 2017-02-27)
PROC: B548ZZA Ultrasonography of Superior Vena Cava, Guidance (ICD-10-PCS; 2017-02-27)
DX: K57.90 Diverticulosis of intestine, part unspecified, without perforation or abscess without bleeding (principal); E44.1 Mild protein-calorie malnutrition; N82.3 Fistula of vagina to large intestine; K57.80 Diverticulitis of intestine, part unspecified, with perforation and abscess without bleeding; D72.829 Elevated white blood cell count, unspecified; G89.29 Other chronic pain; I10 Essential (primary) hypertension; K59.00 Constipation, unspecified; Z83.3 Family history of diabetes mellitus; Z96.649 Presence of unspecified artificial hip joint; Z87.891 Personal history of nicotine dependence; Z68.23 Body mass index [BMI] 23.0-23.9, adult; G43.909 Migraine, unspecified, not intractable, without status migrainosus; M19.90 Unspecified osteoarthritis, unspecified site; Z84.89 Family history of other specified conditions; F17.210 Nicotine dependence, cigarettes, uncomplicated
CPT/HCPCS: 36415; 36569; 74000; 74177; 76937; 77001; 80048; 80053; 80076; 81001; 82553; 83690; 84484; 85007; 85025; 85027; 85610; 85730; 87086; 88307; 93005; 96361; 96374; 96375; C1751; C1892; G0238; J0690; J0744; J0780; J1100; J1170; J1200; J1644; J1650; J2001; J2250; J2270; J2405; J2704; J3010; J3490; J7030; J7120; Q9966; Q9967; S0028; 97116; 97535; 99285-25

== ENCOUNTER 2019-02-13 10:53 | Inpatient (IN) | payer MEDICARE, OTHER ==
[~2019-02-13] VITALS: Ht 167.6 cm; Wt 63.5 kg
[2019-02-13] VITALS (8 sets, daily range): BP systolic 80–168; BP diastolic 40–98
[~2019-02-13 10:53] MED LIST changes: +CIPR500T94 PO; +DILT180C2 PO; +DOCU-109 PO; +HYDR-2145 PO; -HYDR12.53; +HYDR12.575; -HYDR25TA9 PO; +IBUP-1027 PO; -LOSA25TA4 PO; +LOSA25TA54 PO; +METR500T PO; +OXYC1TAB15 PO; +PANT40TA77 PO; +POLY17PO29 PO; +ZOLP10TA PO
[2019-02-13] MEDS ORDERED: HYDROcodone/APAP 5/325MG 1 TAB TABLET PO ONE ×2 (11:30→12:00)
--- NOTE | 2019-02-13 11:47 | RAD ---
EXAM: AP, oblique and lateral views right ankle DATE: 02/13/2019 11:22 AM INDICATION: Right ankle pain, follow COMPARISON: No Prior FINDINGS: Transverse displaced fracture is seen through the medial malleolus. There is a mildly displaced posterior malleolar fracture. There is also an oblique fracture through the distal fibular diametaphysis with intra-articular extension. Asymmetric widening of the medial mortise with lateral translation of the talus relative to the tibia. Moderate associated soft tissue swelling. IMPRESSION: 1. Displaced trimalleolar fracture with moderate associated soft tissue swelling 2. Widening of the medial mortise with lateral translation of the talus relative to the tibia. Electronically signed by: Gonzalez Carter MD (02/13/2019 11:44 AM) [facility]
--- NOTE | 2019-02-13 12:04 | PHYS DOC ---
Past Medical History Past Medical History: Arrhythmia, Depression, Hypertension Additional Past Medical Histor: tarsal tunnel Past Surgical History: Hip Replacement Additional Past Surgical Histo: back fusion Alcohol Use: None Drug Use: None Adult General Chief Complaint Chief Complaint: ANKLE PROBLEM HPI HPI Patient is a 63 year old female, accompanied by her , who presents to the emergency department with complaints of right ankle pain and swelling after getting her foot stuck in her purse while getting out of her vehicle and falling. Patient rates the pain a 10 out of 10 on pain scale, she denies any numbness, or tingling of the affected extremity. She is not sure which direction her ankle rolled in. She is also unsure when her last tetanus immunization was. Review of Systems Review of Systems Constitutional: Denies fever or chills [] HENT: Denies nasal congestion or sore throat; denies head or neck pain [] Musculoskeletal: Denies back pain; see history of present illness Integument: Reports abrasions to right ankle Neurologic: Denies headache, focal weakness or sensory changes [] Complete systems were reviewed and found to be within normal limits, except as documented in this note. Current Medications Current Medications Current Medications Medications (Trade) Dose Ordered Sig/Dinora Start Time Stop Time Status Last Admin Dose Admin Acetaminophen/ Hydrocodone Bitart (Lortab 5/325) 1 tab 1X ONCE 02/13/19 12:00 02/13/19 12:01 DC 02/13/19 12:08 1 TAB Diphtheria/ Tetanus/Acell Pertussis (Boostrix) 0.5 ml ONCE ONCE 02/13/19 12:15 02/13/19 12:16 DC 02/13/19 12:03 0.5 ML Allergies Allergies Allergies Coded Allergies Type Severity Reaction Last Updated Verified No Known Drug Allergies 07/06/13 No Physical Exam Physical Exam Constitutional: Well developed, well nourished, no acute distress, non-toxic appearance. [] HENT: Normocephalic, atraumatic, bilateral external ears normal, nose normal. [] Eyes: conjunctiva normal, no discharge. [] Neck: Normal range of motion, no stridor. [] Cardiovascular:Heart rate regular rhythm Lungs & Thorax: Respirations even and unlabored, no retractions, no respiratory distress Skin: Warm, dry, no erythema, abrasions noted to right ankle no active bleeding Back: No tenderness, no CVA tenderness. [] Extremities: No cyanosis; R ankle: large hematoma present, 2+ edema, limited ROM, 2+ pedal pulse, R lateral ankle TTP Neurologic: Alert and oriented X 3, normal motor function, normal sensory function, no focal deficits noted. [] Psychologic: Affect normal, judgement normal, mood normal. [] Current Patient Data Vital Signs Vital Signs Date Time Temp Pulse Resp B/P (MAP) Pulse Ox O2 Delivery O2 Flow Rate FiO2 02/13/19 10:54 98.2 112 18 184/99 (127) 97 Room Air 98.2 Lab Values Laboratory Tests Test 02/13/19 13:05 White Blood Count 11.3 x10^3/uL (4.0-11.0) H Red Blood Count 4.15 x10^6/uL (3.50-5.40) Hemoglobin 12.5 g/dL (12.0-15.5) Hematocrit 37.7 % (36.0-47.0) Mean Corpuscular Volume 91 fL (79-100) Mean Corpuscular Hemoglobin 30 pg (25-35) Mean Corpuscular Hemoglobin Concent 33 g/dL (31-37) Red Cell Distribution Width 13.5 % (11.5-14.5) Platelet Count 266 x10^3/uL (140-400) Neutrophils (%) (Auto) 79 % (31-73) H Lymphocytes (%) (Auto) 13 % (24-48) L Monocytes (%) (Auto) 7 % (0-9) Eosinophils (%) (Auto) 1 % (0-3) Basophils (%) (Auto) 1 % (0-3) Neutrophils # (Auto) 9.0 x10^3/uL (1.8-7.7) H Lymphocytes # (Auto) 1.5 x10^3/uL (1.0-4.8) Monocytes # (Auto) 0.7 x10^3/uL (0.0-1.1) Eosinophils # (Auto) 0.1 x10^3/uL (0.0-0.7) Basophils # (Auto) 0.1 x10^3/uL (0.0-0.2) Laboratory Tests 02/13/19 13:05 EKG EKG 1337- SR rate 92, no STEMI read by Dr. Gore[] Radiology/Procedures Radiology/Procedures PROCEDURE: ANKLE RIGHT 3V EXAM: AP, oblique and lateral views right ankle DATE: 02/13/2019 11:22 AM INDICATION: Right ankle pain, follow COMPARISON: No Prior FINDINGS: Transverse displaced fracture is seen through the medial malleolus. There is a mildly displaced posterior malleolar fracture. There is also an oblique fracture through the distal fibular diametaphysis with intra-articular extension. Asymmetric widening of the medial mortise with lateral translation of the talus relative to the tibia. Moderate associated soft tissue swelling. IMPRESSION: 1. Displaced trimalleolar fracture with moderate associated soft tissue swelling 2. Widening of the medial mortise with lateral translation of the talus relative to the tibia. [] Course & Med Decision Making Course & Med Decision Making Pertinent Labs and Imaging studies reviewed. (See chart for details) dx: displaced trimalleolar fx of R ankle Pt was given 2 norco in the ER. She last ate a meal yesterday. Pt only drank some chocolate milk earlier this morning. Right ankle x-ray 1. Displaced trimalleolar fracture with moderate associated soft tissue swelling 2. Widening of the medial mortise with lateral translation of the talus relative to the tibia. 1223- Spoke with Dr. Hurt, pt will need to go to the OR 1325- spoke with Dr. Davis will admit patient, order an EKG, CBC, BMP, PT/INR and UA preop per Dr. Davis. [] Dragon Disclaimer Dragon Disclaimer This electronic medical record was generated, in whole or in part, using a voice recognition dictation system. Departure Departure Impression: Primary Impression: Trimalleolar fracture of ankle, closed Disposition: 09 ADMITTED INPATIENT Admitting Physician: HARIS (michelle) Condition: STABLE Referrals: VICTORIA NGUYEN APRN (PCP) Problem Qualifiers Primary Impression: Trimalleolar fracture of ankle, closed Encounter type: initial encounter Laterality: right Qualified Codes: S82.851A - Displaced trimalleolar fracture of right lower leg, initial encounter for closed fracture JOSE EPSTEIN APRN Feb 13, 2019 12:04
[2019-02-13] MEDS ORDERED: DIPHTH,PERTUSS(ACELL),TET TOX 0.5 ML DISP.SYRIN. VAX IM ONE (12:15)
[2019-02-13 13:36] LABS: BASO # 0.1 x10^3/uL (0.0-0.2); BASO % 1 % (0-3); EOS # 0.1 x10^3/uL (0.0-0.7); EOS % 1 % (0-3); HEMATOCRIT 37.7 % (36.0-47.0); HEMOGLOBIN 12.5 g/dL (12.0-15.5); LYMPH # 1.5 x10^3/uL (1.0-4.8); LYMPH % 13 % (24-48); MEAN CORPUSCULAR HEMOGLOBIN 30 pg (25-35); MEAN CORPUSCULAR HGB CONC 33 g/dL (31-37); MEAN CORPUSCULAR VOLUME 91 fL (79-100); MONO # 0.7 x10^3/uL (0.0-1.1); MONO % 7 % (0-9); NEUT % 79 % (31-73); PLATELET COUNT 266 x10^3/uL (140-400); RED BLOOD COUNT 4.15 x10^6/uL (3.50-5.40); RED CELL DISTRIBUTION WIDTH 13.5 % (11.5-14.5); WHITE BLOOD COUNT 11.3 x10^3/uL (4.0-11.0)
[2019-02-13 13:48] LABS: PROTHROMBIN TIME PATIENT 11.8 SEC (11.7-14.0)
[2019-02-13 13:58] LABS: CALCIUM 9.3 mg/dL (8.5-10.1); GFR 55.6; POTASSIUM 4.2 mmol/L (3.5-5.1)
--- NOTE | 2019-02-13 14:08 | PDOC1 ---
History and Physical Date of Admission Date of Admission DATE: 02/13/19 TIME: 14:07 Identification/Chief Complaint Chief Complaint Right ankle pain Source Source: Patient History of Present Illness History of Present Illness Ms Walton is a 63 year old female w/ PMHx Depression, Hypertension, chronic lower back pain, chronic urticaria (on q3 month kenalog), accompanied by her , who presents to the emergency department with complaints of right ankle pain and swelling after getting her foot stuck in her purse while getting out of her vehicle and falling. She twisted and fell out of the car as a passenger and landed on her right elbow with her ankle still in the vehicle, angulating it. Her noted it didn't look right and took her home to apply ice, but noted it did not look straight and turned black and blue and swelled significantly and noted bleeding topically. Patient rates the pain a 10 out of 10 on pain scale, she denies any numbness, or tingling of the affected extremity. She is not sure which direction her ankle rolled in. She is also unsure when her last tetanus immunization was. She has been on chronic prednisone and q 3 month steroid injections for chronic urticaria. No formal diagnosis of osteoporosis. EKG - NSR, no cardiac history Past Medical History Cardiovascular: HTN Pulmonary: No pertinent hx Hepatobiliary: No pertinent hx Psych: No pertinent hx Rheumatologic: No pertinent hx Infectious disease: No pertinent hx ENT: No pertinent hx Renal/: No pertinent hx Endocrine: No pertinent hx Dermatology: Eczema Past Surgical History Past Surgical History: Total hip replacement, Other Family History Family History: Parent (Mother - Lupus) Social History Smoke: No ALCOHOL: occassional Drugs: None Current Problem List Problem List Problems Medical Problems: (1) Trimalleolar fracture of ankle, closed Status: Acute Current Medications Current Medications Current Medications Acetaminophen/ Hydrocodone Bitart (Lortab 5/325) 1 tab 1X ONCE PO Last administered on 02/13/19at 11:26; Start 02/13/19 at 11:30; Stop 02/13/19 at 11:31; Status DC Acetaminophen/ Hydrocodone Bitart (Lortab 5/325) 1 tab 1X ONCE PO Last administered on 02/13/19at 12:08; Start 02/13/19 at 12:00; Stop 02/13/19 at 12:01; Status DC Diphtheria/ Tetanus/Acell Pertussis (Boostrix) 0.5 ml ONCE ONCE VAX IM Last administered on 02/13/19at 12:03; Start 02/13/19 at 12:15; Stop 02/13/19 at 12:16; Status DC Active Scripts Active Cipro (Ciprofloxacin Hcl) 500 Mg Tablet 1 Tab PO BID Flagyl (Metronidazole) 500 Mg Tablet 1 Tab PO BID Reported Percocet 5-325 Mg Tablet (Oxycodone/Acetaminophen) 1 Each Tablet 1-2 Tab PO PRN Q6HRS PRN Colace (Docusate Sodium) 100 Mg Capsule 1 Cap PO BID Ibuprofen 400 Mg Tablet 400 Mg PO PRN Q6HRS PRN Pantoprazole Sodium 40 Mg Tablet.dr 1 Tab PO DAILY Cardizem Cd (Diltiazem Hcl) 180 Mg Cap.er.24h 1 Cap PO DAILY Miralax (Polyethylene Glycol 3350) 17 Gm Powd.pack 1 Packet PO DAILY Ambien (Zolpidem Tartrate) 10 Mg Tablet 1 Tab PO QHS Hydrocodon-Acetaminoph 7.5-500 (Hydrocodone Bit/Acetaminophen) 1 Each Tablet 1 Each PO PRN TID PRN Cyclobenzaprine Hcl 10 Mg Tablet 10 Mg PO PRN DAILY Wellbutrin Xl (Bupropion Hcl) 300 Mg Tab.er.24h 300 Mg PO DAILY Losartan Potassium 25 Mg Tablet 50 Mg PO DAILY Hydrochlorothiazide Tablet (Hydrochlorothiazide) 25 Mg Tablet 25 Mg PO DAILY Allergies Allergies: Coded Allergies: No Known Drug Allergies (Unverified , 07/06/13) ROS General: YES: Fatigue, Malaise; No: Chills, Night Sweats, Appetite, Other PSYCHOLOGICAL ROS: No: Anxiety, Behavioral Disorder, Concentration difficultie, Decreased libido, Depression, Disorientation, Hallucinations, Hostility, Irritablity, Memory difficulties, Mood Swings, Obsessive thoughts, Physical abuse, Sexual abuse, Sleep disturbances, Suicidal ideation, Other Eyes: No Blurry vision, No Decreased vision, No Double vision, No Dry eyes, No Excessive tearing, No Eye Pain, No Itchy Eyes, No Loss of vision, No Photophobia, No Scotomata, No Uses contacts, No Uses glasses, No Other HEENT: No: Heacaches, Visual Changes, Hearing change, Nasal congestion, Nasal discharge, Oral lesions, Sinus pain, Sore Throat, Epistaxis, Sneezing, Snoring, Tinnitus, Vertigo, Vocal changes, Other ALLERGY AND IMMUNOLOGY: No: Hives, Insect Bite Sensitivity, Itchy/Watery Eyes, Nasal Congestion, Post Nasal Drip, Seasonal Allergies, Other Hematological and Lymphatic: No: Bleeding Problems, Blood Clots, Blood Transfusions, Brusing, Night Sweats, Pallor, Swollen Lymph Nodes, Other ENDOCRINE: No: Breast Changes, Galactorrhea, Hair Pattern Changes, Hot Flashes, Malaise/lethargy, Mood Swings, Palpitations, Polydipsia/polyuria, Skin Changes, Temperature Intolerance, Unexpected Weight Changes, Other Breast: No New/Changing Breast Lumps, No Nipple changes, No Nipple discharge, No Other Respiratory: No: Cough, Hemoptysis, Orthopnea, Pleuritic Pain, Shortness of breath, SOB with excertion, Sputum Changes, Stridor, Tachypnea, Wheezing, Other Cardiovascular: No Chest Pain, No Palpitations, No Orthopnea, No Paroxysmal Noc. Dyspnea, No Edema, No Lt Headedness, No Other Gastrointestinal: No Nausea, No Vomiting, No Abdominal Pain, No Diarrhea, No Constipation, No Melena, No Hematochezia, No Other Genitourinary: No Dysuria, No Frequency, No Incontinence, No Hematuria, No Retention, No Discharge, No Urgency, No Pain, No Flank Pain, No Other, No , No , No , No , No , No , No Musculoskeletal: No Gait Disturbance, No Joint Pain, No Joint Stiffness, No Joint Swelling, No Muscle Pain, No Muscular Weakness, No Pain In:, No Swelling In:, No Other Neurological: No Behavorial Changes, No Bowel/Bladder ControlChng, No Confusion, No Dizziness, No Gait Disturbance, No Headaches, No Impaired Coord/balance, No Memory Loss, No Numbness/Tingling, No Seizures, No Speech Problems, No Tremors, No Visual Changes, No Weakness, No Other Skin: No Dry Skin, No Eczema, No Hair Changes, No Lumps, No Mole Changes, No Mottling, No Nail Changes, No Pruritus, No Rash, No Skin Lesion Changes, No Other, No Acne Physical Exam General: Alert, Oriented X3, Cooperative, No acute distress HEENT: Atraumatic, PERRLA, EOMI, Mucous membr. moist/pink Lungs: Clear to auscultation, Normal air movement Heart: S1S2, RRR, no gallops, no murmurs Abdomen: Normal bowel sounds, Soft, No tenderness, No hepatosplenomegaly, No masses Rectal Exam: not examined Extremities: Other (Right ankle swollen, ecchymotic, deformed.) Skin: No rashes, No breakdown, No significant lesion, Other (Abrasion to right elbow and right medial ankle) Neuro: Normal gait, Normal speech, Strength at 5/5 X4 ext, Normal tone, Sensation intact, Cranial nerves 3-12 NL, Reflexes 2+ Psych/Mental Status: Mental status NL, Mood NL Vitals Vitals Vital Signs Date Time Temp Pulse Resp B/P (MAP) Pulse Ox O2 Delivery O2 Flow Rate FiO2 02/13/19 10:54 98.2 112 18 184/99 (127) 97 Room Air 98.2 Labs Labs Laboratory Tests Test 02/13/19 13:05 02/13/19 13:41 White Blood Count 11.3 x10^3/uL (4.0-11.0) Red Blood Count 4.15 x10^6/uL (3.50-5.40) Hemoglobin 12.5 g/dL (12.0-15.5) Hematocrit 37.7 % (36.0-47.0) Mean Corpuscular Volume 91 fL (79-100) Mean Corpuscular Hemoglobin 30 pg (25-35) Mean Corpuscular Hemoglobin Concent 33 g/dL (31-37) Red Cell Distribution Width 13.5 % (11.5-14.5) Platelet Count 266 x10^3/uL (140-400) Neutrophils (%) (Auto) 79 % (31-73) Lymphocytes (%) (Auto) 13 % (24-48) Monocytes (%) (Auto) 7 % (0-9) Eosinophils (%) (Auto) 1 % (0-3) Basophils (%) (Auto) 1 % (0-3) Neutrophils # (Auto) 9.0 x10^3/uL (1.8-7.7) Lymphocytes # (Auto) 1.5 x10^3/uL (1.0-4.8) Monocytes # (Auto) 0.7 x10^3/uL (0.0-1.1) Eosinophils # (Auto) 0.1 x10^3/uL (0.0-0.7) Basophils # (Auto) 0.1 x10^3/uL (0.0-0.2) Prothrombin Time 11.8 SEC (11.7-14.0) Prothromb Time International Ratio 0.9 (0.8-1.1) Sodium Level 136 mmol/L (136-145) Potassium Level 4.2 mmol/L (3.5-5.1) Chloride Level 102 mmol/L (98-107) Carbon Dioxide Level 23 mmol/L (21-32) Anion Gap 11 (6-14) Blood Urea Nitrogen 22 mg/dL (7-20) Creatinine 1.0 mg/dL (0.6-1.0) Estimated GFR (Cockcroft-Gault) 55.6 Glucose Level 98 mg/dL (70-99) Calcium Level 9.3 mg/dL (8.5-10.1) Glucose (Fingerstick) 95 mg/dL (70-99) Laboratory Tests Test 02/13/19 13:05 02/13/19 13:41 White Blood Count 11.3 x10^3/uL (4.0-11.0) Red Blood Count 4.15 x10^6/uL (3.50-5.40) Hemoglobin 12.5 g/dL (12.0-15.5) Hematocrit 37.7 % (36.0-47.0) Mean Corpuscular Volume 91 fL (79-100) Mean Corpuscular Hemoglobin 30 pg (25-35) Mean Corpuscular Hemoglobin Concent 33 g/dL (31-37) Red Cell Distribution Width 13.5 % (11.5-14.5) Platelet Count 266 x10^3/uL (140-400) Neutrophils (%) (Auto) 79 % (31-73) Lymphocytes (%) (Auto) 13 % (24-48) Monocytes (%) (Auto) 7 % (0-9) Eosinophils (%) (Auto) 1 % (0-3) Basophils (%) (Auto) 1 % (0-3) Neutrophils # (Auto) 9.0 x10^3/uL (1.8-7.7) Lymphocytes # (Auto) 1.5 x10^3/uL (1.0-4.8) Monocytes # (Auto) 0.7 x10^3/uL (0.0-1.1) Eosinophils # (Auto) 0.1 x10^3/uL (0.0-0.7) Basophils # (Auto) 0.1 x10^3/uL (0.0-0.2) Prothrombin Time 11.8 SEC (11.7-14.0) Prothromb Time International Ratio 0.9 (0.8-1.1) Sodium Level 136 mmol/L (136-145) Potassium Level 4.2 mmol/L (3.5-5.1) Chloride Level 102 mmol/L (98-107) Carbon Dioxide Level 23 mmol/L (21-32) Anion Gap 11 (6-14) Blood Urea Nitrogen 22 mg/dL (7-20) Creatinine 1.0 mg/dL (0.6-1.0) Estimated GFR (Cockcroft-Gault) 55.6 Glucose Level 98 mg/dL (70-99) Calcium Level 9.3 mg/dL (8.5-10.1) Glucose (Fingerstick) 95 mg/dL (70-99) Images Images Ankle XR - Right - 1. Displaced trimalleolar fracture with moderate associated soft tissue swelling 2. Widening of the medial mortise with lateral translation of the talus relative to the tibia. VTE Prophylaxis Ordered VTE Prophylaxis Devices: Yes VTE Pharmacological Prophylaxi: No Assessment/Plan Assessment/Plan A/P: Right ankle trimalleolar fracture - surgery is indicated, she is normally ambulatory. No further testing prior to surgery Depression - cont meds Hypertension - cont meds Chronic lower back pain - cont meds Chronic urticaria - on chronic steroids, she is at risk for osteoporosis Chronic steroids - needs osteoporosis screening, does have a cushingoid apperance Leukocytosis - likely stress reaction, monitor FEN - NPO PPX - SCDs, post op lovenox indicated FULL CODE Inpatient for right ankle fracture. No further testing necessary prior to surgery. UA, CBC, BMP, PT/INR, EKG completed CARMELITA RIVAS MD Feb 13, 2019 14:08
--- NOTE | 2019-02-13 14:36 | EKG ---
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
[2019-02-13] MEDS ORDERED: IV RINGERS,LACTATED 1000ML 1,000 ML IV SCH (15:04)
[2019-02-13] MEDS ORDERED: HYDROmorphone 2 MG/ML VIAL IV PRN (15:15)
[2019-02-13] MEDS ORDERED: fentaNYL PF VIAL 100 MCG/2 ML VIAL IV PRN ×2 (15:15→18:15)
[2019-02-13] MEDS ORDERED: LIDOCAINE 1% PF 2 ML VIAL. ID PRN (15:15)
[2019-02-13] MEDS ORDERED: ONDANSETRON PF 4 MG/2 ML VIAL. IV PRN (15:15)
[2019-02-13] MEDS ORDERED: MORPHINE SULFATE 2 MG/ML VIAL. IV PRN (15:15)
[2019-02-13] MEDS ORDERED: PROCHLORPERAZINE 10 MG/2 ML VIAL. IV PRN (15:15)
[2019-02-13] MEDS: fentaNYL PF VIAL 100 MCG/2 ML VIAL IV PRN ×3 (15:58→22:05)
--- NOTE | 2019-02-13 16:01 | NUR ---
Patient arrived to the floor around 1430 with pain medications recently taken. IV intact in left wrist. Patients right leg is elevated on a pillow and we are awaiting information from surgery. Per Dr Arias orders this nurse gave 50mcg fentanyl in IV due to patients pain ratings increasing to 8/10. Family at bedside. Will continue to monitor.
--- NOTE | 2019-02-13 18:02 | NUR ---
Patient was taken down to surgery around 1730. Her family is at bedside and notified of the surgical plan. Report given to Devika in PACU prior to transfer. Will follow up
[2019-02-13] MEDS ORDERED: DEXAMETHASONE SOD PHOS 4 MG/ML VIAL ONE ×2 (18:58)
[2019-02-13] MEDS ORDERED: ONDANSETRON PF 4 MG/2 ML VIAL. ONE (18:58)
[2019-02-13] MEDS ORDERED: SEVOFLURANE 61 TO 120 MINUTES. IH ONE (18:58)
[2019-02-13] MEDS ORDERED: LIDOCAINE 2% PF 5 ML VIAL. ONE (18:58)
[2019-02-13] MEDS ORDERED: KETOROLAC 30 MG/ML INJ FOR OR. INJ ONE (18:58)
[2019-02-13] MEDS ORDERED: PROPOFOL 20 ML IV ONE (18:59)
[2019-02-13] MEDS ORDERED: FAMOTIDINE 20 MG/2 ML VIAL ONE (19:02)
[2019-02-13] MEDS ORDERED: BUPIVACAINE MPF 0.5% 30 ML VIAL. ONE (19:19)
[2019-02-13] MEDS ORDERED: fentaNYL PF VIAL 100 MCG/2 ML VIAL ONE (19:52)
--- NOTE | 2019-02-13 20:48 | PDOC4 ---
Operative Note Operative Note Surgery: 02/13/2019 Preoperative diagnosis: Displaced trimalleolar ankle fracture right ankle Postoperative diagnosis: Same Operative procedure: Operative reduction internal fixation bimalleolar portion of trimalleolar right ankle fracture Surgeon: Blu Anesthesia: Gen. Estimated blood loss: 20 mL hematoma Complications: None Tourniquet time approximately 50 minutes Operative indications: Please see my preoperative orthopedic consultation for detailed operative indications and note that we underwent review of possibility of nonhealing nerve or blood vessel damage infection stiffness medical or other anesthetic complications among others and she wishes to proceed with surgical evaluation and treatment. Operative text: Patient was identified procedure verified patient placed in the supine position on the operating table. After adequate amounts of general anesthesia were administered the right lower extremity was prepped and draped in standard sterile fashion with a thigh tourniquet. After timeout was performed patient procedure identified and verified the right lower extremity was examined by Esmarch bandage tourniquet inflated to 250 mmHg curvilinear incision was made over the medial malleolus subperiosteal dissection carried out and anatomic reduction was carried out fixation with a total of 2 partially threaded 50 mm cannulated screws which gave excellent anatomic fixation the medial malleolus. An incision was made over the lateral ankle subperiosteal dissection carried out with anatomic reduction of the distal fibula and a short ALPS plate was placed with a nonlocking shaft screw distal locking screws were placed under fluoroscopic guidance and remaining locking screws were placed in the rock small shaft excellent anatomic fixation of the ankle joint mortise and hardware placement was noted under multiple fluoroscopic views thorough irrigation carried out normal saline solution subcutaneous closure with buried Vicryl suture skin closure with ab sterile dressings were applied followed by well-padded posterior splint toes were noted be warm pink find deflation of tourniquet after total tourniquet time of approximately 50 minutes patient was returned to recovery room in stable condition having tolerated the procedure well UMM RAMIREZ MD Feb 13, 2019 20:48
[2019-02-13 21:51] LABS: BILIRUBIN,URINE NEGATIVE (NEG); COLOR,URINE YELLOW; NITRITE,URINE NEGATIVE (NEG); PH,URINE 6.5; PROTEIN,URINE NEGATIVE (NEG-TRACE); UROBILINOGEN,URINE 0.2 mg/dL (0.2 mg/dL)
[2019-02-13 22:03] LABS: CLARITY,URINE CLEAR
[2019-02-13] MEDS: CYCLOBENZAPRINE 10 MG TABLET. PO PRN (22:04)
[2019-02-13] MEDS: MONTELUKAST SODIUM 10 MG TABLET. PO SCH (22:04)
[2019-02-13] MEDS: DOCUSATE SODIUM 100 MG CAPSULE. PO SCH (22:04)
[2019-02-13 22:05] LABS: BACTERIA,URINE 0 /HPF (0-FEW); RBC,URINE 0 /HPF (0-2); SQUAMOUS EPITHELIAL CELL,UR FEW /LPF; WBC,URINE 0 /HPF (0-4)
[2019-02-13] MEDS: oxyCODONE/APAP 5/325 1 TAB TABLET PO PRN (23:59)
[2019-02-14] VITALS (7 sets, daily range): BP systolic 98–124; BP diastolic 53–73
--- NOTE | 2019-02-14 06:58 | CONS ---
DATE OF CONSULTATION: 02/13/2019 REQUESTING PHYSICIAN: Dr. Erik Davis. REASON FOR CONSULTATION: Right ankle fracture. HISTORY OF PRESENT ILLNESS: The patient is a 63-year-old female that was getting out of her car when she got her feet tangled up in the handles of her purse and fell rolling her right ankle. She had immediate onset of pain, deformity and inability to bear weight and had severe pain on presentation to the Emergency Department, better with intravenous pain medication. PAST MEDICAL HISTORY: Significant for hypertension, depression, and arrhythmias. PAST SURGICAL HISTORY: Hip replacement and tarsal tunnel surgeries as well as a back fusion. ALLERGIES: She has no known drug allergies. MEDICATIONS: List is reviewed. SOCIAL HISTORY: She is accompanied by her . Denies smoking or drug use. Occasional social alcohol use. FAMILY HISTORY: Significant for lupus in her mother. REVIEW OF SYSTEMS: Significant for skin urticaria for which she is on chronic prednisone and every few months steroid injections. She reports 1-inch leg length discrepancy with the right leg being longer since a total hip arthroplasty done elsewhere and wears a shoe lift in the left side. She denies any loss of consciousness, chest pain, shortness of breath, focal weakness, numbness, tingling, has some assorted abrasions, but no problems with using her upper extremities and denies any loss of consciousness or head injury, visual problems. PHYSICAL EXAMINATION: GENERAL: A pleasant, cooperative 63-year-old female, alert and oriented, no acute distress. HEENT: Atraumatic, normocephalic. MUSCULOSKELETAL: She has normal motion and stability of bilateral shoulders, elbows and wrists with no tenderness on palpation. Examination of lower extremities reveal well-healed incision from hip arthroplasty. Leg length is indeed about an inch longer on the right than the left. She has some abrasions on the right knee, obvious deformity to the right ankle. Skin is bruised medially and some abrasions over the distal portion of the medial malleolus, otherwise intact. Normal examination of the contralateral ankle, left knee, and left hip and assorted couple of bruises over her upper extremities at her elbows. X-rays show a displaced bimalleolar right ankle fracture. TREATMENT PLAN: I went over with her the structure and function of the ankle, the fact that the breaks make the ankle unstable, and the proposed open reduction and fixation of the ankle fracture usually takes about 6 weeks or so to heal and I expect nonweightbearing in the interim. There is possibility of infection, nonhealing, stiffness, continued pain, nerve or blood vessel damage, medical or other anesthetic complications among others and particularly some bone weakness due to her chronic steroid use. She wishes to proceed with surgical evaluation and treatment, which will occur today with admission to follow. UMM RAMIREZ MD DR: CAPRICE/nts JOB#: [id number] / [id number]
[2019-02-14] MEDS: POLYETHYLENE GLYCOL 3350 17 GM PACKET. PO SCH (08:21)
[2019-02-14] MEDS: buPROPion XL 150 MG TAB.ER.24H. PO SCH (08:21)
[2019-02-14] MEDS: hydroCHLOROthiazide 25 MG TABLET PO SCH (08:22)
[2019-02-14] MEDS: CYCLOBENZAPRINE 10 MG TABLET. PO PRN (08:24)
[2019-02-14] MEDS: oxyCODONE/APAP 5/325 1 TAB TABLET PO PRN ×3 (08:24→22:21)
[2019-02-14] MEDS: PANTOPRAZOLE 40 MG TABLET.DR. PO SCH (08:24)
[2019-02-14] MEDS: LOSARTAN POTASSIUM 50 MG TABLET. PO SCH (08:25)
[2019-02-14] MEDS: DOCUSATE SODIUM 100 MG CAPSULE. PO SCH ×2 (08:25→20:23)
--- NOTE | 2019-02-14 08:40 | PDOC ---
PROGRESS NOTES Chief Complaint Chief Complaint A/P: Right ankle trimalleolar fracture - surgery is indicated, she is normally ambulatory. No further testing prior to surgery Depression - cont meds Hypertension - cont meds Chronic lower back pain - cont meds Chronic urticaria - on chronic steroids, she is at risk for osteoporosis Chronic steroids - needs osteoporosis screening, does have a cushingoid apperance Leukocytosis - likely stress reaction, monitor FEN - General diet PPX - SCDs, post op lovenox indicated FULL CODE Inpatient for right ankle fracture. No further testing necessary prior to surgery. UA, CBC, BMP, PT/INR, EKG completed History of Present Illness History of Present Illness Ms Walton is a 63 year old female w/ PMHx Depression, Hypertension, chronic lower back pain, chronic urticaria (on q3 month kenalog), accompanied by her , who presents to the emergency department with complaints of right ankle pain and swelling after getting her foot stuck in her purse while getting out of her vehicle and falling. She twisted and fell out of the car as a passenger and landed on her right elbow with her ankle still in the vehicle, angulating it. Her noted it didn't look right and took her home to apply ice, but noted it did not look straight and turned black and blue and swelled significantly and noted bleeding topically. Patient rates the pain a 10 out of 10 on pain scale, she denies any numbness, or tingling of the affected extremity. She is not sure which direction her ankle rolled in. She is also unsure when her last tetanus immunization was. She has been on chronic prednisone and q 3 month steroid injections for chronic urticaria. No formal diagnosis of osteoporosis. EKG - NSR, no cardiac history To OR 02/13/19 ORIF right ankle. She and daughter are worried the splint is satur ated, would like more pain medications, states she is only on her home chronic pain meds, rates 8/10. Long discussion about needs for DEXA outpatient, vitamin d returned insufficient, started on replacement. Advised NON-WEIGHTBEARING. Vitals Vitals Vital Signs Date Time Temp Pulse Resp B/P (MAP) Pulse Ox O2 Delivery O2 Flow Rate FiO2 02/14/19 08:25 87 105/73 02/14/19 08:24 20 97 Room Air 02/14/19 07:35 98.1 98.1 Physical Exam General: Alert, Oriented X3, Cooperative, No acute distress Lungs: Clear Abdomen: Normal bowel sounds, Soft, No tenderness, No hepatosplenomegaly, No masses Extremities: Other (Right ankle swollen, ecchymotic, deformed.) Skin: No rashes, No breakdown, No significant lesion, Other (Abrasion to right elbow and right medial ankle) Labs LABS Laboratory Tests Test 02/13/19 13:05 02/13/19 13:41 02/13/19 21:15 White Blood Count 11.3 x10^3/uL (4.0-11.0) Red Blood Count 4.15 x10^6/uL (3.50-5.40) Hemoglobin 12.5 g/dL (12.0-15.5) Hematocrit 37.7 % (36.0-47.0) Mean Corpuscular Volume 91 fL (79-100) Mean Corpuscular Hemoglobin 30 pg (25-35) Mean Corpuscular Hemoglobin Concent 33 g/dL (31-37) Red Cell Distribution Width 13.5 % (11.5-14.5) Platelet Count 266 x10^3/uL (140-400) Neutrophils (%) (Auto) 79 % (31-73) Lymphocytes (%) (Auto) 13 % (24-48) Monocytes (%) (Auto) 7 % (0-9) Eosinophils (%) (Auto) 1 % (0-3) Basophils (%) (Auto) 1 % (0-3) Neutrophils # (Auto) 9.0 x10^3/uL (1.8-7.7) Lymphocytes # (Auto) 1.5 x10^3/uL (1.0-4.8) Monocytes # (Auto) 0.7 x10^3/uL (0.0-1.1) Eosinophils # (Auto) 0.1 x10^3/uL (0.0-0.7) Basophils # (Auto) 0.1 x10^3/uL (0.0-0.2) Prothrombin Time 11.8 SEC (11.7-14.0) Prothromb Time International Ratio 0.9 (0.8-1.1) Sodium Level 136 mmol/L (136-145) Potassium Level 4.2 mmol/L (3.5-5.1) Chloride Level 102 mmol/L (98-107) Carbon Dioxide Level 23 mmol/L (21-32) Anion Gap 11 (6-14) Blood Urea Nitrogen 22 mg/dL (7-20) Creatinine 1.0 mg/dL (0.6-1.0) Estimated GFR (Cockcroft-Gault) 55.6 Glucose Level 98 mg/dL (70-99) Calcium Level 9.3 mg/dL (8.5-10.1) 25-Hydroxy Vitamin D Total 27.6 ng/mL (30-100) Glucose (Fingerstick) 95 mg/dL (70-99) Urine Collection Type Unknown Urine Color Yellow Urine Clarity Clear Urine pH 6.5 Urine Specific [place] 1.010 Urine Protein Negative mg/dL (NEG-TRACE) Urine Glucose (UA) Negative mg/dL (NEG) Urine Ketones (Stick) Negative mg/dL (NEG) Urine Blood Negative (NEG) Urine Nitrite Negative (NEG) Urine Bilirubin Negative (NEG) Urine Urobilinogen Dipstick 0.2 mg/dL (0.2 mg/dL) Urine Leukocyte Esterase Negative (NEG) Urine RBC 0 /HPF (0-2) Urine WBC 0 /HPF (0-4) Urine Squamous Epithelial Cells Few /LPF Urine Bacteria 0 /HPF (0-FEW) Assessment and Plan Assessmemt and Plan Problems Medical Problems: (1) Trimalleolar fracture of ankle, closed Status: Acute Comment Review of Relevant I have reviewed the following items amando (where applicable) has been applied. Labs Laboratory Tests Test 02/13/19 13:05 02/13/19 13:41 02/13/19 21:15 White Blood Count 11.3 x10^3/uL (4.0-11.0) Red Blood Count 4.15 x10^6/uL (3.50-5.40) Hemoglobin 12.5 g/dL (12.0-15.5) Hematocrit 37.7 % (36.0-47.0) Mean Corpuscular Volume 91 fL (79-100) Mean Corpuscular Hemoglobin 30 pg (25-35) Mean Corpuscular Hemoglobin Concent 33 g/dL (31-37) Red Cell Distribution Width 13.5 % (11.5-14.5) Platelet Count 266 x10^3/uL (140-400) Neutrophils (%) (Auto) 79 % (31-73) Lymphocytes (%) (Auto) 13 % (24-48) Monocytes (%) (Auto) 7 % (0-9) Eosinophils (%) (Auto) 1 % (0-3) Basophils (%) (Auto) 1 % (0-3) Neutrophils # (Auto) 9.0 x10^3/uL (1.8-7.7) Lymphocytes # (Auto) 1.5 x10^3/uL (1.0-4.8) Monocytes # (Auto) 0.7 x10^3/uL (0.0-1.1) Eosinophils # (Auto) 0.1 x10^3/uL (0.0-0.7) Basophils # (Auto) 0.1 x10^3/uL (0.0-0.2) Prothrombin Time 11.8 SEC (11.7-14.0) Prothromb Time International Ratio 0.9 (0.8-1.1) Sodium Level 136 mmol/L (136-145) Potassium Level 4.2 mmol/L (3.5-5.1) Chloride Level 102 mmol/L (98-107) Carbon Dioxide Level 23 mmol/L (21-32) Anion Gap 11 (6-14) Blood Urea Nitrogen 22 mg/dL (7-20) Creatinine 1.0 mg/dL (0.6-1.0) Estimated GFR (Cockcroft-Gault) 55.6 Glucose Level 98 mg/dL (70-99) Calcium Level 9.3 mg/dL (8.5-10.1) 25-Hydroxy Vitamin D Total 27.6 ng/mL (30-100) Glucose (Fingerstick) 95 mg/dL (70-99) Urine Collection Type Unknown Urine Color Yellow Urine Clarity Clear Urine pH 6.5 Urine Specific [place] 1.010 Urine Protein Negative mg/dL (NEG-TRACE) Urine Glucose (UA) Negative mg/dL (NEG) Urine Ketones (Stick) Negative mg/dL (NEG) Urine Blood Negative (NEG) Urine Nitrite Negative (NEG) Urine Bilirubin Negative (NEG) Urine Urobilinogen Dipstick 0.2 mg/dL (0.2 mg/dL) Urine Leukocyte Esterase Negative (NEG) Urine RBC 0 /HPF (0-2) Urine WBC 0 /HPF (0-4) Urine Squamous Epithelial Cells Few /LPF Urine Bacteria 0 /HPF (0-FEW) Laboratory Tests Test 02/13/19 13:05 02/13/19 13:41 02/13/19 21:15 White Blood Count 11.3 x10^3/uL (4.0-11.0) Red Blood Count 4.15 x10^6/uL (3.50-5.40) Hemoglobin 12.5 g/dL (12.0-15.5) Hematocrit 37.7 % (36.0-47.0) Mean Corpuscular Volume 91 fL (79-100) Mean Corpuscular Hemoglobin 30 pg (25-35) Mean Corpuscular Hemoglobin Concent 33 g/dL (31-37) Red Cell Distribution Width 13.5 % (11.5-14.5) Platelet Count 266 x10^3/uL (140-400) Neutrophils (%) (Auto) 79 % (31-73) Lymphocytes (%) (Auto) 13 % (24-48) Monocytes (%) (Auto) 7 % (0-9) Eosinophils (%) (Auto) 1 % (0-3) Basophils (%) (Auto) 1 % (0-3) Neutrophils # (Auto) 9.0 x10^3/uL (1.8-7.7) Lymphocytes # (Auto) 1.5 x10^3/uL (1.0-4.8) Monocytes # (Auto) 0.7 x10^3/uL (0.0-1.1) Eosinophils # (Auto) 0.1 x10^3/uL (0.0-0.7) Basophils # (Auto) 0.1 x10^3/uL (0.0-0.2) Prothrombin Time 11.8 SEC (11.7-14.0) Prothromb Time International Ratio 0.9 (0.8-1.1) Sodium Level 136 mmol/L (136-145) Potassium Level 4.2 mmol/L (3.5-5.1) Chloride Level 102 mmol/L (98-107) Carbon Dioxide Level 23 mmol/L (21-32) Anion Gap 11 (6-14) Blood Urea Nitrogen 22 mg/dL (7-20) Creatinine 1.0 mg/dL (0.6-1.0) Estimated GFR (Cockcroft-Gault) 55.6 Glucose Level 98 mg/dL (70-99) Calcium Level 9.3 mg/dL (8.5-10.1) 25-Hydroxy Vitamin D Total 27.6 ng/mL (30-100) Glucose (Fingerstick) 95 mg/dL (70-99) Urine Collection Type Unknown Urine Color Yellow Urine Clarity Clear Urine pH 6.5 Urine Specific [place] 1.010 Urine Protein Negative mg/dL (NEG-TRACE) Urine Glucose (UA) Negative mg/dL (NEG) Urine Ketones (Stick) Negative mg/dL (NEG) Urine Blood Negative (NEG) Urine Nitrite Negative (NEG) Urine Bilirubin Negative (NEG) Urine Urobilinogen Dipstick 0.2 mg/dL (0.2 mg/dL) Urine Leukocyte Esterase Negative (NEG) Urine RBC 0 /HPF (0-2) Urine WBC 0 /HPF (0-4) Urine Squamous Epithelial Cells Few /LPF Urine Bacteria 0 /HPF (0-FEW) Medications Current Medications Acetaminophen/ Hydrocodone Bitart (Lortab 5/325) 1 tab 1X ONCE PO Last admini stered on 02/13/19at 11:26; Start 02/13/19 at 11:30; Stop 02/13/19 at 11:31; Status DC Acetaminophen/ Hydrocodone Bitart (Lortab 5/325) 1 tab 1X ONCE PO Last administered on 02/13/19at 12:08; Start 02/13/19 at 12:00; Stop 02/13/19 at 12:01; Status DC Diphtheria/ Tetanus/Acell Pertussis (Boostrix) 0.5 ml ONCE ONCE VAX IM Last administered on 02/13/19at 12:03; Start 02/13/19 at 12:15; Stop 02/13/19 at 12:16; Status DC Ondansetron HCl (Zofran) 4 mg PRN Q6HRS PRN IV NAUSEA/VOMITING; Start 02/13/19 at 15:15; Stop 02/14/19 at 15:14 Fentanyl Citrate (Fentanyl 2ml Vial) 25 mcg PRN Q5MIN PRN IV MILD PAIN 1-3; Start 02/13/19 at 15:15; Stop 02/13/19 at 22:43; Status DC Fentanyl Citrate (Fentanyl 2ml Vial) 50 mcg PRN Q5MIN PRN IV MODERATE TO SEVERE PAIN Last administered on 02/13/19at 22:05; Start 02/13/19 at 15:15; Stop 02/13/19 at 22:43; Status DC Morphine Sulfate (Morphine Sulfate) 1 mg PRN Q10MIN PRN IV SEVERE PAIN 7-10 Last administered on 02/14/19at 03:23; Start 02/13/19 at 15:15; Stop 02/14/19 at 15:14 Ringer's Solution 1,000 ml @ 30 mls/hr Q24H IV Last administered on 02/13/19at 15:04; Start 02/13/19 at 15:04; Stop 02/14/19 at 03:03; Status DC Lidocaine HCl (Xylocaine-Mpf 1% 2ml Vial) 2 ml 1X PRN PRN ID IV START; Start 02/13/19 at 15:15; Stop 02/13/19 at 22:46; Status DC Hydromorphone HCl (Dilaudid) 0.5 mg PRN Q10MIN PRN IV SEV PAIN, Second choice; Start 02/13/19 at 15:15; Stop 02/13/19 at 22:46; Status DC Prochlorperazine Edisylate (Compazine) 5 mg PACU PRN PRN IV NAUSEA, MRX1; Start 02/13/19 at 15:15; Stop 02/14/19 at 15:14 Cyclobenzaprine HCl (Flexeril) 10 mg PRN DAILY PRN PO MUSCLE SPASMS Last administered on 02/14/19at 08:24; Start 02/13/19 at 15:30 Docusate Sodium (Colace) 100 mg BID PO Last administered on 02/14/19at 08:25; Start 02/13/19 at 21:00 Hydrochlorothiazide (Hydrodiuril) 25 mg DAILY PO Last administered on 02/14/19at 08:22; Start 02/14/19 at 09:00 Losartan Potassium (Cozaar) 50 mg DAILY PO Last administered on 02/14/19at 08:25; Start 02/14/19 at 09:00 Oxycodone/ Acetaminophen (Percocet 5/325) 2 tab PRN Q6HRS PRN PO PAIN Last administered on 02/14/19at 08:24; Start 02/13/19 at 15:30 Pantoprazole Sodium (Protonix) 40 mg DAILYAC PO Last administered on 02/14/19at 08:24; Start 02/14/19 at 07:30 Bupropion HCl (Wellbutrin Xl) 300 mg DAILY PO Last administered on 02/14/19at 08:21; Start 02/14/19 at 09:00 Diltiazem HCl (Cardizem 24hr Cd) 180 mg DAILY PO Last administered on 02/14/19at 08:22; Start 02/14/19 at 09:00 Polyethylene Glycol (miraLAX PACKET) 17 gm DAILY PO Last administered on 02/14/19at 08:21; Start 02/14/19 at 09:00 Montelukast Sodium (Singulair) 10 mg QHS PO Last administered on 02/13/19at 22:04; Start 02/13/19 at 21:00 Fentanyl Citrate (Fentanyl 2ml Vial) 50 mcg PRN 1X PRN IV pain Last administered on 02/13/19at 18:37; Start 02/13/19 at 18:15 Sevoflurane (Ultane) 60 ml STK-MED ONCE IH ; Start 02/13/19 at 18:58; Stop 02/13/19 at 18:59; Status DC Dexamethasone Sodium Phosphate (Decadron) 4 mg STK-MED ONCE .ROUTE ; Start 02/13/19 at 18:58; Stop 02/13/19 at 18:59; Status DC Dexamethasone Sodium Phosphate (Decadron) 4 mg STK-MED ONCE .ROUTE ; Start 02/13/19 at 18:58; Stop 02/13/19 at 18:59; Status DC Ketorolac Tromethamine (Toradol For Or Only) 30 mg STK-MED ONCE INJ ; Start 02/13/19 at 18:58; Stop 02/13/19 at 18:59; Status DC Ondansetron HCl (Zofran) 4 mg STK-MED ONCE .ROUTE ; Start 02/13/19 at 18:58; Stop 02/13/19 at 18:59; Status DC Lidocaine HCl (Lidocaine Pf 2% Vial) 5 ml STK-MED ONCE .ROUTE ; Start 02/13/19 at 18:58; Stop 02/13/19 at 22:46; Status DC Propofol 20 ml @ As Directed STK-MED ONCE IV ; Start 02/13/19 at 18:59; Stop 02/13/19 at 19:00; Status DC Famotidine (Pepcid Vial) 20 mg STK-MED ONCE .ROUTE ; Start 02/13/19 at 19:02; Stop 02/13/19 at 19:03; Status DC Cefazolin Sodium 50 ml @ As Directed STK-MED ONCE IV ; Start 02/13/19 at 19:05; Stop 02/13/19 at 19:06; Status DC Cefazolin Sodium 50 ml @ 100 mls/hr 1X ONCE IV Last administered on 02/13/19at 19:27; Start 02/13/19 at 19:15; Stop 02/13/19 at 19:44; Status DC Fentanyl Citrate (Fentanyl 2ml Vial) 100 mcg STK-MED ONCE .ROUTE ; Start 02/13/19 at 19:52; Stop 02/13/19 at 19:53; Status DC Bupivacaine HCl (Sensorcaine Mpf 0.5%) 30 ml STK-MED ONCE .ROUTE Last administered on 02/13/19at 19:33; Start 02/13/19 at 19:19; Stop 02/13/19 at 20:20; Status DC Active Scripts Active Cipro (Ciprofloxacin Hcl) 500 Mg Tablet 1 Tab PO BID Flagyl (Metronidazole) 500 Mg Tablet 1 Tab PO BID Reported Percocet 5-325 Mg Tablet (Oxycodone/Acetaminophen) 1 Each Tablet 1-2 Tab PO PRN Q6HRS PRN Colace (Docusate Sodium) 100 Mg Capsule 1 Cap PO BID Ibuprofen 400 Mg Tablet 400 Mg PO PRN Q6HRS PRN Pantoprazole Sodium 40 Mg Tablet.dr 1 Tab PO DAILY Cardizem Cd (Diltiazem Hcl) 180 Mg Cap.er.24h 1 Cap PO DAILY Miralax (Polyethylene Glycol 3350) 17 Gm Powd.pack 1 Packet PO DAILY Ambien (Zolpidem Tartrate) 10 Mg Tablet 1 Tab PO QHS Hydrocodon-Acetaminoph 7.5-500 (Hydrocodone Bit/Acetaminophen) 1 Each Tablet 1 Each PO PRN TID PRN Cyclobenzaprine Hcl 10 Mg Tablet 10 Mg PO PRN DAILY Wellbutrin Xl (Bupropion Hcl) 300 Mg Tab.er.24h 300 Mg PO DAILY Losartan Potassium 25 Mg Tablet 50 Mg PO DAILY Hydrochlorothiazide Tablet (Hydrochlorothiazide) 25 Mg Tablet 25 Mg PO DAILY Vitals/I & O Vital Sign - Last 24 Hours 02/13/19 02/13/19 02/13/19 02/13/19 10:54 14:10 14:42 15:58 Temp 98.2 98.4 98.2 98.4 Pulse 112 90 Resp 18 18 B/P (MAP) 184/99 (127) 165/91 (115) Pulse Ox 97 96 96 O2 Delivery Room Air Room Air Room Air Room Air 02/13/19 02/13/19 02/13/19 02/13/19 16:28 17:53 18:37 20:32 Temp 97.6 97.4 97.6 97.4 Pulse 92 54 Resp 20 20 20 B/P (MAP) 149/79 100/77 Pulse Ox 96 96 99 95 O2 Delivery Room Air Room Air Room Air 02/13/19 02/13/19 02/13/19 02/13/19 20:47 21:02 21:09 21:35 Temp 97.9 98.0 97.9 98.0 Pulse 74 91 97 Resp 20 20 20 18 B/P (MAP) 152/79 162/79 168/82 (110) Pulse Ox 95 94 99 97 O2 Delivery Room Air Room Air Room Air 02/13/19 02/13/19 02/13/19 02/13/19 21:45 22:00 22:05 22:15 Pulse 77 92 91 Resp 18 18 20 18 B/P (MAP) 161/98 (119) 131/81 (98) 123/68 (86) Pulse Ox 92 94 89 O2 Delivery Room Air Room Air Room Air 02/13/19 02/13/19 02/13/19 02/13/19 22:31 22:38 22:39 23:00 Temp 98.1 98.1 Pulse 97 90 86 Resp 18 22 18 18 B/P (MAP) 80/40 (53) 113/61 (78) 119/67 (84) Pulse Ox 96 92 93 O2 Delivery Room Air Room Air Room Air Room Air 02/13/19 02/14/19 02/14/19 02/14/19 23:59 00:00 00:59 03:00 Temp 98.4 98.4 Pulse 86 84 Resp 22 18 20 18 B/P (MAP) 110/64 (79) 110/72 (85) Pulse Ox 96 95 O2 Delivery Room Air Room Air Room Air 02/14/19 02/14/19 02/14/19 02/14/19 07:35 08:22 08:24 08:25 Temp 98.1 98.1 Pulse 87 87 87 Resp 18 20 B/P (MAP) 105/73 (84) 105/73 105/73 Pulse Ox 97 97 O2 Delivery Room Air Room Air Intake and Output 02/13/19 02/13/19 02/14/19 15:00 23:00 07:00 Intake Total 1250 ml Output Total 0 ml Balance 1250 ml 0 ml CARMELITA RIVAS MD Feb 14, 2019 08:40
[2019-02-14] MEDS: ENOXAPARIN 40 MG/0.4 ML SYRINGE. SQ SCH (14:04)
[2019-02-14] MEDS: CHOLECALCIFEROL (VITAMIN D3) 5,000 UNIT CAPSULE PO SCH (14:04)
[2019-02-14] MEDS: MORPHINE SULFATE 4 MG/ML VIAL. IV PRN ×2 (14:04→20:23)
--- NOTE | 2019-02-14 16:24 | PDOC ---
PROGRESS NOTES Subjective Subjective Problems overnight: Patient noted some drainage on her splint and also indicated that an ice bag spilled and got her splint wet Objective Vital Signs Vital Signs Date Time Temp Pulse Resp B/P (MAP) Pulse Ox O2 Delivery O2 Flow Rate FiO2 02/14/19 15:56 98.2 90 16 98/53 (68) 96 Room Air 98.2 Physical Exam Her splint was taken down changed and redressed padded and a new 4 inch Ortho- Glass splint was placed incision looks excellent skin and distal neurovascular status intact Labs Laboratory Tests Test 02/13/19 13:05 02/13/19 13:41 02/13/19 21:15 White Blood Count 11.3 x10^3/uL (4.0-11.0) Red Blood Count 4.15 x10^6/uL (3.50-5.40) Hemoglobin 12.5 g/dL (12.0-15.5) Hematocrit 37.7 % (36.0-47.0) Mean Corpuscular Volume 91 fL (79-100) Mean Corpuscular Hemoglobin 30 pg (25-35) Mean Corpuscular Hemoglobin Concent 33 g/dL (31-37) Red Cell Distribution Width 13.5 % (11.5-14.5) Platelet Count 266 x10^3/uL (140-400) Neutrophils (%) (Auto) 79 % (31-73) Lymphocytes (%) (Auto) 13 % (24-48) Monocytes (%) (Auto) 7 % (0-9) Eosinophils (%) (Auto) 1 % (0-3) Basophils (%) (Auto) 1 % (0-3) Neutrophils # (Auto) 9.0 x10^3/uL (1.8-7.7) Lymphocytes # (Auto) 1.5 x10^3/uL (1.0-4.8) Monocytes # (Auto) 0.7 x10^3/uL (0.0-1.1) Eosinophils # (Auto) 0.1 x10^3/uL (0.0-0.7) Basophils # (Auto) 0.1 x10^3/uL (0.0-0.2) Prothrombin Time 11.8 SEC (11.7-14.0) Prothromb Time International Ratio 0.9 (0.8-1.1) Sodium Level 136 mmol/L (136-145) Potassium Level 4.2 mmol/L (3.5-5.1) Chloride Level 102 mmol/L (98-107) Carbon Dioxide Level 23 mmol/L (21-32) Anion Gap 11 (6-14) Blood Urea Nitrogen 22 mg/dL (7-20) Creatinine 1.0 mg/dL (0.6-1.0) Estimated GFR (Cockcroft-Gault) 55.6 Glucose Level 98 mg/dL (70-99) Calcium Level 9.3 mg/dL (8.5-10.1) 25-Hydroxy Vitamin D Total 27.6 ng/mL (30-100) Glucose (Fingerstick) 95 mg/dL (70-99) Urine Collection Type Unknown Urine Color Yellow Urine Clarity Clear Urine pH 6.5 Urine Specific [place] 1.010 Urine Protein Negative mg/dL (NEG-TRACE) Urine Glucose (UA) Negative mg/dL (NEG) Urine Ketones (Stick) Negative mg/dL (NEG) Urine Blood Negative (NEG) Urine Nitrite Negative (NEG) Urine Bilirubin Negative (NEG) Urine Urobilinogen Dipstick 0.2 mg/dL (0.2 mg/dL) Urine Leukocyte Esterase Negative (NEG) Urine RBC 0 /HPF (0-2) Urine WBC 0 /HPF (0-4) Urine Squamous Epithelial Cells Few /LPF Urine Bacteria 0 /HPF (0-FEW) Laboratory Tests Test 02/13/19 21:15 Urine Collection Type Unknown Urine Color Yellow Urine Clarity Clear Urine pH 6.5 Urine Specific [place] 1.010 Urine Protein Negative mg/dL (NEG-TRACE) Urine Glucose (UA) Negative mg/dL (NEG) Urine Ketones (Stick) Negative mg/dL (NEG) Urine Blood Negative (NEG) Urine Nitrite Negative (NEG) Urine Bilirubin Negative (NEG) Urine Urobilinogen Dipstick 0.2 mg/dL (0.2 mg/dL) Urine Leukocyte Esterase Negative (NEG) Urine RBC 0 /HPF (0-2) Urine WBC 0 /HPF (0-4) Urine Squamous Epithelial Cells Few /LPF Urine Bacteria 0 /HPF (0-FEW) Assessment Assessment POD# [1], S/P [ORIF bimalleolar ankle fracture] Plan Plan of Care Nonweightbearing on right ankle, elevate and ice when not ambulatory follow-up about 10 days with [facility] Peters MD Feb 14, 2019 16:24
[2019-02-14] MEDS: MONTELUKAST SODIUM 10 MG TABLET. PO SCH (20:23)
[2019-02-15] MEDS: MORPHINE SULFATE 4 MG/ML VIAL. IV PRN ×4 (02:13→23:22)
[2019-02-15 03:00] VITALS: BP 110/63
[2019-02-15] MEDS: oxyCODONE/APAP 5/325 1 TAB TABLET PO PRN ×3 (05:39→19:23)
[2019-02-15 07:00] VITALS: BP 111/75
[2019-02-15] MEDS: CHOLECALCIFEROL (VITAMIN D3) 5,000 UNIT CAPSULE PO SCH (08:54)
[2019-02-15] MEDS: hydroCHLOROthiazide 25 MG TABLET PO SCH (08:55)
[2019-02-15] MEDS: PANTOPRAZOLE 40 MG TABLET.DR. PO SCH (08:55)
[2019-02-15] MEDS: LOSARTAN POTASSIUM 50 MG TABLET. PO SCH (08:55)
[2019-02-15] MEDS: buPROPion XL 150 MG TAB.ER.24H. PO SCH (08:55)
[2019-02-15] MEDS: DOCUSATE SODIUM 100 MG CAPSULE. PO SCH ×2 (08:56→20:49)
[2019-02-15] MEDS: POLYETHYLENE GLYCOL 3350 17 GM PACKET. PO SCH (08:57)
--- NOTE | 2019-02-15 08:57 | PDOC ---
PROGRESS NOTES Chief Complaint Chief Complaint A/P: Right ankle trimalleolar fracture - surgery is indicated, she is normally ambulatory. No further testing prior to surgery Depression - cont meds Hypertension - cont meds Chronic lower back pain - cont meds Chronic urticaria - on chronic steroids, she is at risk for osteoporosis Chronic steroids - needs osteoporosis screening, does have a cushingoid apperance Leukocytosis - likely stress reaction, monitor FEN - General diet PPX - SCDs, post op lovenox indicated FULL CODE Inpatient for right ankle fracture. No further testing necessary prior to surgery. UA, CBC, BMP, PT/INR, EKG completed History of Present Illness History of Present Illness Ms Walton is a 63 year old female w/ PMHx Depression, Hypertension, chronic lower back pain, chronic urticaria (on q3 month kenalog), accompanied by her , who presents to the emergency department with complaints of right ankle pain and swelling after getting her foot stuck in her purse while getting out of her vehicle and falling. She twisted and fell out of the car as a passenger and landed on her right elbow with her ankle still in the vehicle, angulating it. Her noted it didn't look right and took her home to apply ice, but noted it did not look straight and turned black and blue and swelled significantly and noted bleeding topically. Patient rates the pain a 10 out of 10 on pain scale, she denies any numbness, or tingling of the affected extremity. She is not sure which direction her ankle rolled in. She is also unsure when her last tetanus immunization was. She has been on chronic prednisone and q 3 month steroid injections for chronic urticaria. No formal diagnosis of osteoporosis. EKG - NSR, no cardiac history To OR 02/13/19 ORIF right ankle. She and daughter are worried the splint is satur ated, would like more pain medications, states she is only on her home chronic pain meds, rates 8/10. Long discussion about needs for DEXA outpatient, vitamin d returned insufficient, started on replacement. Advised NON-WEIGHTBEARING. Vitals Vitals Vital Signs Date Time Temp Pulse Resp B/P (MAP) Pulse Ox O2 Delivery O2 Flow Rate FiO2 02/15/19 07:00 98.7 88 20 111/75 (87) 82 Room Air 98.7 Physical Exam General: Alert, Oriented X3, Cooperative, No acute distress Lungs: Clear Abdomen: Normal bowel sounds, Soft, No tenderness, No hepatosplenomegaly, No masses Extremities: Other (Right ankle swollen, ecchymotic, deformed.) Skin: No rashes, No breakdown, No significant lesion, Other (Abrasion to right elbow and right medial ankle) Assessment and Plan Assessmemt and Plan Problems Medical Problems: (1) Trimalleolar fracture of ankle, closed Status: Acute Comment Review of Relevant I have reviewed the following items amando (where applicable) has been applied. Labs Laboratory Tests Test 02/13/19 13:05 02/13/19 13:41 02/13/19 21:15 White Blood Count 11.3 x10^3/uL (4.0-11.0) Red Blood Count 4.15 x10^6/uL (3.50-5.40) Hemoglobin 12.5 g/dL (12.0-15.5) Hematocrit 37.7 % (36.0-47.0) Mean Corpuscular Volume 91 fL (79-100) Mean Corpuscular Hemoglobin 30 pg (25-35) Mean Corpuscular Hemoglobin Concent 33 g/dL (31-37) Red Cell Distribution Width 13.5 % (11.5-14.5) Platelet Count 266 x10^3/uL (140-400) Neutrophils (%) (Auto) 79 % (31-73) Lymphocytes (%) (Auto) 13 % (24-48) Monocytes (%) (Auto) 7 % (0-9) Eosinophils (%) (Auto) 1 % (0-3) Basophils (%) (Auto) 1 % (0-3) Neutrophils # (Auto) 9.0 x10^3/uL (1.8-7.7) Lymphocytes # (Auto) 1.5 x10^3/uL (1.0-4.8) Monocytes # (Auto) 0.7 x10^3/uL (0.0-1.1) Eosinophils # (Auto) 0.1 x10^3/uL (0.0-0.7) Basophils # (Auto) 0.1 x10^3/uL (0.0-0.2) Prothrombin Time 11.8 SEC (11.7-14.0) Prothromb Time International Ratio 0.9 (0.8-1.1) Sodium Level 136 mmol/L (136-145) Potassium Level 4.2 mmol/L (3.5-5.1) Chloride Level 102 mmol/L (98-107) Carbon Dioxide Level 23 mmol/L (21-32) Anion Gap 11 (6-14) Blood Urea Nitrogen 22 mg/dL (7-20) Creatinine 1.0 mg/dL (0.6-1.0) Estimated GFR (Cockcroft-Gault) 55.6 Glucose Level 98 mg/dL (70-99) Calcium Level 9.3 mg/dL (8.5-10.1) 25-Hydroxy Vitamin D Total 27.6 ng/mL (30-100) Glucose (Fingerstick) 95 mg/dL (70-99) Urine Collection Type Unknown Urine Color Yellow Urine Clarity Clear Urine pH 6.5 Urine Specific [place] 1.010 Urine Protein Negative mg/dL (NEG-TRACE) Urine Glucose (UA) Negative mg/dL (NEG) Urine Ketones (Stick) Negative mg/dL (NEG) Urine Blood Negative (NEG) Urine Nitrite Negative (NEG) Urine Bilirubin Negative (NEG) Urine Urobilinogen Dipstick 0.2 mg/dL (0.2 mg/dL) Urine Leukocyte Esterase Negative (NEG) Urine RBC 0 /HPF (0-2) Urine WBC 0 /HPF (0-4) Urine Squamous Epithelial Cells Few /LPF Urine Bacteria 0 /HPF (0-FEW) Medications Current Medications Acetaminophen/ Hydrocodone Bitart (Lortab 5/325) 1 tab 1X ONCE PO Last administered on 02/13/19at 11:26; Start 02/13/19 at 11:30; Stop 02/13/19 at 11:31; Status DC Acetaminophen/ Hydrocodone Bitart (Lortab 5/325) 1 tab 1X ONCE PO Last administered on 02/13/19at 12:08; Start 02/13/19 at 12:00; Stop 02/13/19 at 12:01; Status DC Diphtheria/ Tetanus/Acell Pertussis (Boostrix) 0.5 ml ONCE ONCE VAX IM Last administered on 02/13/19at 12:03; Start 02/13/19 at 12:15; Stop 02/13/19 at 12:16; Status DC Ondansetron HCl (Zofran) 4 mg PRN Q6HRS PRN IV NAUSEA/VOMITING; Start 02/13/19 at 15:15; Stop 02/14/19 at 15:14; Status DC Fentanyl Citrate (Fentanyl 2ml Vial) 25 mcg PRN Q5MIN PRN IV MILD PAIN 1-3; Start 02/13/19 at 15:15; Stop 02/13/19 at 22:43; Status DC Fentanyl Citrate (Fentanyl 2ml Vial) 50 mcg PRN Q5MIN PRN IV MODERATE TO SEVERE PAIN Last administered on 02/13/19at 22:05; Start 02/13/19 at 15:15; Stop 02/13/19 at 22:43; Status DC Morphine Sulfate (Morphine Sulfate) 1 mg PRN Q10MIN PRN IV SEVERE PAIN 7-10 Last administered on 02/14/19at 03:23; Start 02/13/19 at 15:15; Stop 02/14/19 at 13:13; Status DC Ringer's Solution 1,000 ml @ 30 mls/hr Q24H IV Last administered on 02/13/19at 15:04; Start 02/13/19 at 15:04; Stop 02/14/19 at 03:03; Status DC Lidocaine HCl (Xylocaine-Mpf 1% 2ml Vial) 2 ml 1X PRN PRN ID IV START; Start 02/13/19 at 15:15; Stop 02/13/19 at 22:46; Status DC Hydromorphone HCl (Dilaudid) 0.5 mg PRN Q10MIN PRN IV SEV PAIN, Second choice; Start 02/13/19 at 15:15; Stop 02/13/19 at 22:46; Status DC Prochlorperazine Edisylate (Compazine) 5 mg PACU PRN PRN IV NAUSEA, MRX1; Start 02/13/19 at 15:15; Stop 02/14/19 at 13:13; Status DC Cyclobenzaprine HCl (Flexeril) 10 mg PRN DAILY PRN PO MUSCLE SPASMS Last administered on 02/14/19at 08:24; Start 02/13/19 at 15:30 Docusate Sodium (Colace) 100 mg BID PO Last administered on 02/14/19at 20:23; Start 02/13/19 at 21:00 Hydrochlorothiazide (Hydrodiuril) 25 mg DAILY PO Last administered on 02/14/19 08:22; Start 02/14/19 at 09:00 Losartan Potassium (Cozaar) 50 mg DAILY PO Last administered on 02/14/19 08:25; Start 02/14/19 at 09:00 Oxycodone/ Acetaminophen (Percocet 5/325) 2 tab PRN Q6HRS PRN PO PAIN Last administered on 02/15/19 05:39; Start 02/13/19 at 15:30 Pantoprazole Sodium (Protonix) 40 mg DAILYAC PO Last administered on 02/14/19 08:24; Start 02/14/19 at 07:30 Bupropion HCl (Wellbutrin Xl) 300 mg DAILY PO Last administered on 02/14/19 08 :21; Start 02/14/19 at 09:00 Diltiazem HCl (Cardizem 24hr Cd) 180 mg DAILY PO Last administered on 02/14/19 08:22; Start 02/14/19 at 09:00 Polyethylene Glycol (miraLAX PACKET) 17 gm DAILY PO Last administered on 02/14/19 08:21; Start 02/14/19 at 09:00 Montelukast Sodium (Singulair) 10 mg QHS PO Last administered on 02/14/19 20:23; Start 02/13/19 at 21:00 Fentanyl Citrate (Fentanyl 2ml Vial) 50 mcg PRN 1X PRN IV pain Last administered on 02/13/19at 18:37; Start 02/13/19 at 18:15; Stop 02/14/19 at 13:13 ; Status DC Sevoflurane (Ultane) 60 ml STK-MED ONCE IH ; Start 02/13/19 at 18:58; Stop 02/13/19 at 18:59; Status DC Dexamethasone Sodium Phosphate (Decadron) 4 mg STK-MED ONCE .ROUTE ; Start 02/13/19 at 18:58; Stop 02/13/19 at 18:59; Status DC Dexamethasone Sodium Phosphate (Decadron) 4 mg STK-MED ONCE .ROUTE ; Start 02/13/19 at 18:58; Stop 02/13/19 at 18:59; Status DC Ketorolac Tromethamine (Toradol For Or Only) 30 mg STK-MED ONCE INJ ; Start 02/13/19 at 18:58; Stop 02/13/19 at 18:59; Status DC Ondansetron HCl (Zofran) 4 mg STK-MED ONCE .ROUTE ; Start 02/13/19 at 18:58; Stop 02/13/19 at 18:59; Status DC Lidocaine HCl (Lidocaine Pf 2% Vial) 5 ml STK-MED ONCE .ROUTE ; Start 02/13/19 at 18:58; Stop 02/13/19 at 22:46; Status DC Propofol 20 ml @ As Directed STK-MED ONCE IV ; Start 02/13/19 at 18:59; Stop 02/13/19 at 19:00; Status DC Famotidine (Pepcid Vial) 20 mg STK-MED ONCE .ROUTE ; Start 02/13/19 at 19:02; Stop 02/13/19 at 19:03; Status DC Cefazolin Sodium 50 ml @ As Directed STK-MED ONCE IV ; Start 02/13/19 at 19:05; Stop 02/13/19 at 19:06; Status DC Cefazolin Sodium 50 ml @ 100 mls/hr 1X ONCE IV Last administered on 02/13/19at 19:27; Start 02/13/19 at 19:15; Stop 02/13/19 at 19:44; Status DC Fentanyl Citrate (Fentanyl 2ml Vial) 100 mcg STK-MED ONCE .ROUTE ; Start 02/13/19 at 19:52; Stop 02/13/19 at 19:53; Status DC Bupivacaine HCl (Sensorcaine Mpf 0.5%) 30 ml STK-MED ONCE .ROUTE Last administered on 02/13/19at 19:33; Start 02/13/19 at 19:19; Stop 02/13/19 at 20:20; Status DC Enoxaparin Sodium (Lovenox 40mg Syringe) 40 mg Q24H SQ Last administered on 02/14/19at 14:04; Start 02/14/19 at 12:00 Morphine Sulfate (Morphine Sulfate) 4 mg PRN Q3HRS PRN IV PAIN Last administered on 02/15/19at 02:13; Start 02/14/19 at 13:30 Vitamin D (Vitamin D3) 5,000 unit DAILY PO Last administered on 02/14/19at 14:04; Start 02/14/19 at 14:00 Active Scripts Active Cipro (Ciprofloxacin Hcl) 500 Mg Tablet 1 Tab PO BID Flagyl (Metronidazole) 500 Mg Tablet 1 Tab PO BID Reported Percocet 5-325 Mg Tablet (Oxycodone/Acetaminophen) 1 Each Tablet 1-2 Tab PO PRN Q6HRS PRN Colace (Docusate Sodium) 100 Mg Capsule 1 Cap PO BID Ibuprofen 400 Mg Tablet 400 Mg PO PRN Q6HRS PRN Pantoprazole Sodium 40 Mg Tablet.dr 1 Tab PO DAILY Cardizem Cd (Diltiazem Hcl) 180 Mg Cap.er.24h 1 Cap PO DAILY Miralax (Polyethylene Glycol 3350) 17 Gm Powd.pack 1 Packet PO DAILY Ambien (Zolpidem Tartrate) 10 Mg Tablet 1 Tab PO QHS Hydrocodon-Acetaminoph 7.5-500 (Hydrocodone Bit/Acetaminophen) 1 Each Tablet 1 Each PO PRN TID PRN Cyclobenzaprine Hcl 10 Mg Tablet 10 Mg PO PRN DAILY Wellbutrin Xl (Bupropion Hcl) 300 Mg Tab.er.24h 300 Mg PO DAILY Losartan Potassium 25 Mg Tablet 50 Mg PO DAILY Hydrochlorothiazide Tablet (Hydrochlorothiazide) 25 Mg Tablet 25 Mg PO DAILY Vitals/I & O Vital Sign - Last 24 Hours 02/14/19 02/14/19 02/14/19 02/14/19 09:24 11:17 14:04 15:33 Temp 98.0 98.0 Pulse 91 Resp 16 20 20 B/P (MAP) 113/60 (77) Pulse Ox 97 97 O2 Delivery Room Air Room Air Room Air 02/14/19 02/14/19 02/14/19 02/14/19 15:56 19:00 20:00 20:23 Temp 98.2 98.1 98.2 98.1 Pulse 90 88 Resp 16 18 18 B/P (MAP) 98/53 (68) 124/71 (88) Pulse Ox 96 96 O2 Delivery Room Air Room Air Room Air Room Air 02/14/19 02/14/19 02/15/19 02/15/19 20:53 23:00 02:13 03:00 Temp 98.1 98.2 98.1 98.2 Pulse 94 92 Resp 18 18 18 18 B/P (MAP) 110/65 (80) 110/63 (79) Pulse Ox 97 97 92 O2 Delivery Room Air Room Air Room Air Room Air 02/15/19 02/15/19 02/15/19 05:39 06:39 07:00 Temp 98.7 98.7 Pulse 88 Resp 18 20 20 B/P (MAP) 111/75 (87) Pulse Ox 82 O2 Delivery Room Air Room Air Room Air Intake and Output 02/14/19 02/14/19 02/15/19 14:59 22:59 06:59 Output Total 0 ml 0 ml Balance 0 ml 0 ml CARMELITA RIVAS MD Feb 15, 2019 08:57
[2019-02-15 11:00] VITALS: BP 112/71
[2019-02-15] MEDS: ENOXAPARIN 40 MG/0.4 ML SYRINGE. SQ SCH (12:15)
[2019-02-15 15:00] VITALS: BP 138/87
[2019-02-15] MEDS ORDERED: ONDANSETRON PF 4 MG/2 ML VIAL. IV PRN (16:00)
[2019-02-15 19:00] VITALS: BP 108/73
[2019-02-15] MEDS ORDERED: TRAZ-118 PO (20:44)
[2019-02-15] MEDS: MONTELUKAST SODIUM 10 MG TABLET. PO SCH (20:49)
[2019-02-15] MEDS ORDERED: traZODone 50 MG TABLET. PO SCH (21:00)
[2019-02-15 22:58] VITALS: BP 110/70
[2019-02-16] MEDS: oxyCODONE/APAP 5/325 1 TAB TABLET PO PRN ×2 (01:38→08:21)
[2019-02-16 03:00] VITALS: BP 106/64
[2019-02-16] MEDS: MORPHINE SULFATE 4 MG/ML VIAL. IV PRN ×2 (05:40→10:50)
[2019-02-16 07:00] VITALS: BP 124/78
--- NOTE | 2019-02-16 07:59 | PDOC ---
ORTHO PROGRESS NOTES Subjective Patient sitting on bedside with no new complaints. Post-op Day: 3 Procedure ORIF bimalleolar portion of trimalleolar fracture right ankle. Vitals Vital Signs Date Time Temp Pulse Resp B/P (MAP) Pulse Ox O2 Delivery O2 Flow Rate FiO2 02/16/19 07:00 98.0 93 16 124/78 (93) 94 Room Air 98.0 Assessment and Plan POD # 3 ORIF right ankle fracture moving toes on request splint dry and in place motor and sensory intact distally. OK to d/c per ortho standpoint with followup in clinic in approx 10 days MARLO JACOBSON APRN Feb 16, 2019 07:58
[2019-02-16] MEDS: CHOLECALCIFEROL (VITAMIN D3) 5,000 UNIT CAPSULE PO SCH (08:21)
[2019-02-16] MEDS: hydroCHLOROthiazide 25 MG TABLET PO SCH (08:21)
[2019-02-16] MEDS: buPROPion XL 150 MG TAB.ER.24H. PO SCH (08:22)
[2019-02-16] MEDS: DOCUSATE SODIUM 100 MG CAPSULE. PO SCH (08:22)
[2019-02-16] MEDS: PANTOPRAZOLE 40 MG TABLET.DR. PO SCH (08:22)
[2019-02-16] MEDS: LOSARTAN POTASSIUM 50 MG TABLET. PO SCH (08:22)
[2019-02-16] MEDS: POLYETHYLENE GLYCOL 3350 17 GM PACKET. PO SCH (08:22)
[2019-02-16 11:00] VITALS: BP 136/81
[2019-02-16] MEDS ORDERED: CHOL5000 PO (11:30)
[2019-02-16] MEDS ORDERED: OXYC1TAB15 PO (11:30)
--- NOTE | 2019-02-16 11:33 | SNU/HH DC ---
DISCHARGE WITH HOME HEALTH DISCHARGE INFORMATION: Discharge Date: Feb 16, 2019 Final Diagnosis: acute right ankle fracture, fall htn Problems Medical Problems: (1) Chronic low back pain Status: Chronic (2) Trimalleolar fracture of ankle, closed Status: Acute Condition on Discharge: Stable CODE STATUS: Code Status: Full HOME HEALTH: Face to Face: I certify this patient is under my care and that I, had a face to face encounter that meets the physician face to face encounter requirements with this patient on 02/16 Medical Complications: Falls, FX (right ankle) Longterm For: Assess/Skilled Observatio RN For Eval/Treatment: No Physical Therapy For: Evalulation/Treatment Occupational Therapy For: Evaluation/Treatment Pt Meets Homebound Status: Unsteady balance w/ amb,, Limited distance walking, Other: (right ankle fracture, not ambulatory) POST DISCHARGE ORDERS: Activity Instructions for Disc: Activity as tolerated Weight Bearing Status after Di: No restrictions DIET AFTER DISCHARGE: Cardiac Wound/Incision Care: Ice to area for comfort, Reinforce dressing PRN FOLLOW-UP: Follow up with: Dr Hurt 1 week TREATMENT/EQUIPMENT ORDERS: Adaptive Equipment Issued: None, Four wheeled walker CERTIFICATION STATEMENT: Certification Statement: Certification Statement: Based on the above finding, I certify that this patient is confined to the home and needs intermittent custodial care, physical therapy and/or speech therapy, or continues to need occupational therapy.~ This patient is under my care, and I have initiated the establishment of the plan of care.~ This patient will be followed by myself or a community physician who will periodically review the plan of care. Home Meds Active Scripts Cholecalciferol (Vitamin D3) (VITAMIN D3) 5,000 Unit Capsule, 5000 UNIT PO DAILY for vitamin d deficiency, #40 CAP Prov:KIMBERLY PADILLA MD 02/16/19 Oxycodone/Apap 5-325 (PERCOCET 5-325 MG TABLET ) 1 Each Tablet, 1-2 TAB PO PRN Q6HRS PRN for PAIN, #40 TAB Prov:KIMBERLY PADILLA MD 02/16/19 Reported Medications Trazodone Hcl (TRAZODONE HCL) 50 Mg Tablet, 50 MG PO HS for sleep, TAB 02/15/19 Docusate Sodium (COLACE) 100 Mg Capsule, 1 CAP PO BID, #60 CAP 03/03/17 Ibuprofen (IBUPROFEN) 400 Mg Tablet, 400 MG PO PRN Q6HRS PRN for INFLAMMATION, TAB 02/18/17 Pantoprazole Sodium (PANTOPRAZOLE SODIUM ) 40 Mg Tablet.dr, 1 TAB PO DAILY, #30 TAB 3 Refills 02/18/17 Diltiazem Hcl (CARDIZEM CD) 180 Mg Cap.er.24h, 1 CAP PO DAILY, #90 CAP 1 Refill 02/18/17 Polyethylene Glycol 3350 (MIRALAX) 17 Gm Powd.pack, 1 PACKET PO DAILY, #30 PACKET 3 Refills 02/18/17 Cyclobenzaprine Hcl (CYCLOBENZAPRINE HCL) 10 Mg Tablet, 10 MG PO PRN DAILY 07/06/13 Bupropion Hcl (WELLBUTRIN XL) 300 Mg Tab.er.24h, 300 MG PO DAILY 07/06/13 Losartan Potassium (LOSARTAN POTASSIUM ) 25 Mg Tablet, 50 MG PO DAILY 07/06/13 Hydrochlorothiazide (HYDROCHLOROTHIAZIDE TABLET ) 25 Mg Tablet, 25 MG PO DAILY 07/06/13 Discontinued Reported Medications Hydrocodone Bit/Acetaminophen (HYDROCODON-ACETAMINOPH 7.5-500) 1 Each Tablet, 1 EACH PO PRN TID PRN for PAIN 07/06/13 Zolpidem Tartrate (AMBIEN) 10 Mg Tablet, 1 TAB PO QHS, #30 TAB 5 Refills 02/18/17 KIMBERLY PADILLA MD Feb 16, 2019 11:33
--- NOTE | 2019-02-16 11:35 | PDOC3 ---
Discharge Summary Visit Information Date of Admission: Feb 13, 2019 Date of Discharge: Feb 16, 2019 Final Diagnosis Right ankle trimalleolar fracture - surgery is indicated, she is normally ambulatory. No further testing prior to surgery Depression - cont meds Hypertension - cont meds Chronic lower back pain - cont meds Chronic urticaria - on chronic steroids, she is at risk for osteoporosis Chronic steroids - needs osteoporosis screening, does have a cushingoid apperance Leukocytosis - likely stress reaction, monitor Problems Medical Problems: (1) Chronic low back pain Status: Chronic (2) Trimalleolar fracture of ankle, closed Status: Acute Brief Hospital Course Allergies Allergies Coded Allergies Type Severity Reaction Last Updated Verified No Known Drug Allergies 07/06/13 No Vital Signs Vital Signs Date Time Temp Pulse Resp B/P (MAP) Pulse Ox O2 Delivery O2 Flow Rate FiO2 02/16/19 11:00 98.0 90 16 136/81 (99) 95 Room Air 98.0 Brief Hospital Course Ms. Walton is a 63 old got her foot stuck in her purse getting out of the car and fell and had acute right ankle pain, marked fracture, closed, req surg with Dr. Hurt pain improved, needs therapy, Discharge Information Condition at Discharge: Improved Follow Up: Weeks Disposition/Orders: D/C to Home w/ HH Scheduled Bupropion Hcl (Wellbutrin Xl) 300 Mg Tab.er.24h, 300 MG PO DAILY, (Reported) Entered as Reported by: ABDIFATAH DENISE on 07/06/131734 Last Action: Converted on 02/13/191528 by CARMELITA RIVAS MD Cholecalciferol (Vitamin D3) (Vitamin D3) 5,000 Unit Capsule, 5,000 UNIT PO DAILY for vitamin d deficiency, #40 Prescribed by: KIMBERLY PADILLA on 02/16/19 1130 Cyclobenzaprine Hcl (Cyclobenzaprine Hcl) 10 Mg Tablet, 10 MG PO PRN DAILY, (Reported) Entered as Reported by: ABDIFATAH DENISE on 07/06/131737 Last Action: Continued on 02/13/191528 by CARMELITA RIVAS MD Diltiazem Hcl (Cardizem Cd) 180 Mg Cap.er.24h, 1 CAP PO DAILY, #90 Ref 1 (Reported) Entered as Reported by: MAXINE RODRIGUEZ on 02/18/17 1414 Last Action: Converted on 02/13/191528 by CARMELITA RIVAS MD Docusate Sodium (Colace) 100 Mg Capsule, 1 CAP PO BID, #60 (Reported) Entered as Reported by: SUHAS SHARIF on 03/03/17 1237 Last Action: Continued on 02/13/191528 by CARMELITA RIVAS MD Hydrochlorothiazide (Hydrochlorothiazide Tablet ) 25 Mg Tablet, 25 MG PO DAILY, (Reported) Entered as Reported by: ABDIFATAH DENISE on 07/06/131734 Last Action: Continued on 02/13/191528 by CARMELITA RIVAS MD Losartan Potassium (Losartan Potassium ) 25 Mg Tablet, 50 MG PO DAILY, (Reported) Entered as Reported by: ABDIFATAH DENISE on 07/06/131734 Last Action: Continued on 02/13/191528 by CARMELITA RIVAS MD Pantoprazole Sodium (Pantoprazole Sodium ) 40 Mg Tablet.dr, 1 TAB PO DAILY, #30 Ref 3 (Reported) Entered as Reported by: MAXINE RODRIGUEZ on 02/18/171413 Last Action: Continued on 02/13/191528 by CARMELITA RIVAS MD Polyethylene Glycol 3350 (Miralax) 17 Gm Powd.pack, 1 PACKET PO DAILY, #30 Ref 3 (Reported) Entered as Reported by: MAXINE RODRIGUEZ on 02/18/171413 Last Action: Converted on 02/13/191528 by CARMELITA RIVAS MD Trazodone Hcl (Trazodone Hcl) 50 Mg Tablet, 50 MG PO HS for sleep, (Reported) Entered as Reported by: ETELVINA GIBSON on 02/15/192043 Last Action: Converted on 02/15/192044 by ETELVINA GIBSON Scheduled PRN Ibuprofen (Ibuprofen) 400 Mg Tablet, 400 MG PO PRN Q6HRS PRN for INFLAMMATION, (Reported) Entered as Reported by: MAXINE RODRIGUEZ on 02/18/171413 Oxycodone/Apap 5-325 (Percocet 5-325 Mg Tablet ) 1 Each Tablet, 1-2 TAB PO PRN Q6HRS PRN for PAIN, #40 Prescribed by: KIMBERLY PADILLA on 02/16/19 1130 Discontinued Medications Hydrocodone Bit/Acetaminophen (Hydrocodon-Acetaminoph 7.5-500) 1 Each Tablet, 1 EACH PO PRN TID PRN for PAIN, (Reported) Entered as Reported by: ABDIFATAH DENISE on 07/06/13 1739 Zolpidem Tartrate (Ambien) 10 Mg Tablet, 1 TAB PO QHS, #30 Ref 5 (Reported) Entered as Reported by: MAXINE RODRIGUEZ on 02/18/17 1414 Last Action: Discontinued on 02/15/192043 by ETELVINA GIBSON Patient Instructions Patient Instructions > 30 min face to face discussed KIMBERLY PADILLA MD Feb 16, 2019 11:35
[2019-02-16] MEDS: ENOXAPARIN 40 MG/0.4 ML SYRINGE. SQ SCH (11:39)
--- NOTE | 2019-02-16 12:14 | NUR ---
SS following up with discharge planning. Discharge orders for home healthcare received. SS met with pt and spouse in room and discussed home healthcare. Pt and pt's spouse requested that referral be phoned and faxed to [facility] due to previous experience. SS phoned and faxed discharge orders and referral to [facility], ; fax [phone]. Pt's RN notified.
--- NOTE | 2019-02-16 13:30 | NUR ---
Pt. discharged to home with Rx, verbalized understanding of discharge instructions. RLE splint CDI.
== END 2019-02-16 13:34 | disposition home health service (06) | DRG 494 ==
LOC: ER 10:53 → 4 NORTH 13:10
PROVIDERS: ADMIT Internal Medicine; ATTEND Internal Medicine
PROC: 0QSG04Z Reposition Right Tibia with Internal Fixation Device, Open Approach (ICD-10-PCS; 2019-02-13)
PROC: 0QSJ04Z Reposition Right Fibula with Internal Fixation Device, Open Approach (ICD-10-PCS; principal; 2019-02-13 18:00)
DX: S82.851A Displaced trimalleolar fracture of right lower leg, initial encounter for closed fracture (principal); F32.9 Major depressive disorder, single episode, unspecified; G89.29 Other chronic pain; I10 Essential (primary) hypertension; L50.9 Urticaria, unspecified; M54.5 Low back pain; D72.829 Elevated white blood cell count, unspecified; Z96.649 Presence of unspecified artificial hip joint; V87.8XXA Person injured in other specified noncollision transport accidents involving motor vehicle (traffic), initial encounter; Y93.89 Activity, other specified; Y92.89 Other specified places as the place of occurrence of the external cause; Y99.8 Other external cause status; Z79.52 Long term (current) use of systemic steroids; Z98.1 Arthrodesis status
CPT/HCPCS: 36415; 73610; 76000; 80048; 81001; 82306; 82962; 85025; 85610; 90471; 90715; 93005; A7015; C1713; J0690; J1100; J1650; J1885; J2001; J2270; J2405; J2704; J3010; J3490; J7120; 97530; 99285-25

== ENCOUNTER → 2020-05-03 | Outpatient (CLI) | payer MEDICARE, OTHER ==
[~2020-05-03] MED LIST changes: +CHOL5000 PO; +TRAZ-118 PO
--- NOTE | 2020-05-03 10:59 | KCIC ---
EXAMINATION: MRI RIGHT ARM WITHOUT IV CONTRAST CLINICAL HISTORY: Proximal biceps strain with deformity 9 days ago concerning for biceps rupture. TECHNIQUE: Multiplanar multisequential images obtained through the right arm without intravenous contrast. COMPARISON: None FINDINGS: Complete tear of the long head biceps tendon with up to 10.5 cm distal retraction. Fluid-filled biceps tendon sheath proximally and mild intramuscular and perifascial edema distally. Muscles otherwise within normal limits. Visualized tendons unremarkable on limited large field of view images. No evidence of acute fracture or suspicious marrow replacing lesion. Glenohumeral and acromioclavicular joints unremarkable on limited evaluation. IMPRESSION: Proximal long head biceps tendon rupture and retraction as described. Electronically signed by: Alberto Pink DO (05/03/2020 10:56 AM) [id number]
== END ==
LOC: KCIC MRI 08:02
PROVIDERS: ATTEND Nurse Practitioner Family
DX: S46.119A Strain of muscle, fascia and tendon of long head of biceps, unspecified arm, initial encounter (principal); X58.XXXA Exposure to other specified factors, initial encounter; Y93.89 Activity, other specified; Y92.89 Other specified places as the place of occurrence of the external cause; Y99.8 Other external cause status
CPT/HCPCS: 73218

== ENCOUNTER → 2020-09-19 | Outpatient (CLI) | payer MEDICARE, OTHER ==
--- NOTE | 2020-09-20 12:16 | SLEEP ---
DATE OF STUDY: 09/19/2020 SLEEP STUDY REFERRING PHYSICIAN: Ashia Gan APRN. The patient is a 64-year-old who weighs 145 pounds with a BMI of 24. The patient's Badger score was 2. The patient underwent home sleep study performed at [facility]. Total recording time was 635 minutes. During the night study, the patient had 192 obstructive apneas, 26 central apneas, 21 mixed apneas and 37 hypopneas. The patient's AHI was 27.2 per hour. Nocturnal oximetry study revealed an average oxygen saturation of 92% with the lowest of 87%. 11 minutes were spent with oxygen saturation of less than 90%. Mean heart rate 87 beats per minute. IMPRESSION: 1. Moderate obstructive sleep apnea at an AHI of 27 per hour. 2. Nocturnal hypoxia secondary to obstructive sleep apnea. RECOMMENDATIONS: 1. The patient would benefit from return to the sleep lab for CPAP titration study. Alternate option would be home auto-titration study. 2. Once the patient is optimally treated with CPAP, then follow up in 4-6 weeks to assess compliance and to document clinical improvement. 3. Avoid TILE [employer]OR depressants. 4. Cautioned regarding driving until symptoms of sleep apnea resolve with above recommendations. ARCELIA RUTHERFORD MD DR: TORSTNE/axel JOB#: [id number] / [id number] ASHIA Mason APRN
== END ==
LOC: RT 09:21
PROVIDERS: ATTEND Nurse Practitioner Family
DX: G47.33 Obstructive sleep apnea (adult) (pediatric) (principal)
CPT/HCPCS: G0399

== ENCOUNTER → 2020-09-21 | Outpatient (CLI) | payer MEDICARE ==
--- NOTE | 2020-09-21 16:28 | KCIC ---
EXAM: CT Lumbar Spine without IV contrast INDICATION: Reason: Low back pain w/Rt leg/hip pain. Previous back surgeries. / Spl. Instructions: / History: TECHNIQUE: Multi-detector row CT images were obtained through the lumbar spine without the use of IV contrast. Post-processing sagittal and coronal reconstructed images were obtained for interpretation . All CT scans performed at this facility utilize dose optimization techniques as appropriate to the exam, including the following: Automated exposure control and adjustment of the mA and/or KV accordin g to patient size (this includes techniques or standardized protocols for targeted exams where dose i s indication/reason for exam). COMPARISON: Abdomen pelvis CT of 02/21/2017 FINDINGS: The lowest fully formed disc is referred to as the L5-S1 level. ALIGNMENT: Alignment is within normal limits. OSSEOUS: Generalized demineralization is present. Again evident are posterior decompressive surgical changes at L4, L5 and S1 with thiago and pedicle screw construct fusion bilaterally at these respective levels. The hardware appears intact DISC SPACES: Fused interbody grafts at L4-L5 and at L5-S1 are redemonstrated as well. FACET JOINTS: Facet joints from T12-L1 through L3-L4 are in a normal alignment. Lower lumbar spinal posterior decompressive surgical changes remain present. SPINAL CANAL: Patent. No evidence of an epidural hematoma or postoperative fluid collection. Evaluat ion limited by lack of intrathecal contrast. NEUROFORAMINA: Unremarkable. SOFT TISSUES: Arterial calcifications in abdominal aorta are present.. IMPRESSION: Postop decompressive surgical changes at L4-S1 with posterior thiago and pedicle screw construct hardwar e is similar to prior. No acute or aggressive osseous lesions seen. No specific cause for low back pa in and right leg and hip pain is identified. Electronically signed by: Lorin Ramirez MD (09/21/2020 4:26 PM) [id number]
== END ==
LOC: KCIC CT 13:04
PROVIDERS: ATTEND Nurse Practitioner Family
DX: M47.816 Spondylosis without myelopathy or radiculopathy, lumbar region (principal); Z98.1 Arthrodesis status
CPT/HCPCS: 72131